=== PATIENT | female | born 2000 | race Caucasian/White ===

== ENCOUNTER 2023-06-30 20:15 | Emergency (ER) | payer OTHER ==
--- OUTSIDE RECORDS SUMMARY | 2023-06-30 20:35 | XMS REPORT | Continuity of Care Document ---
:2000 Author Organization [facility] t Address [address] [facility] [address] [place] [address] Support Name Relationship Address Phone [place] [address] [place] [address] MADELINE RING [place] [address] [place] [address] Chandler Rosas Other Unavailable LYNNE LARA Primary Care Physician [address] [place] [address] MD JASMYN HUSSEINRegi Emergency Provider [address] [facility] [address] [place] [address] AXEL BOX Family Member [address] [place] [address] KENNETH RING [place] [address] [place] [address] ALBIN COFFEY LP Unavailable FADY BAXTER MDTON Sharlene Emergency Provider [address] [place] [address] TEJA ESCALONA Primary Care Physician [address] [place] [address] MD EMA LYNCH MD Emergency Provider [address] [facility] [place] [address] MD VALENTINA TAI Emergency Provider [address] [phone] [place] [address] MD GUSTAVO SANTIAGO Emergency Provider [address] [place] [address] PHYSICIAN, NO Primary Care Physician Unavailable Unavailab AXEL Mena Family Member [address] [place] [address] MD ELIZABETH WILD Emergency Provider [address] [place] [address] DO Jacinto STAHL Emergency Provider [address] [phone] [place] [address] MD HAWA HIGHTOWER Emergency Provider [address] [place] [address] MD JEANNETTE LOVING Emergency Provider [address] [place] [address] MD MARTY RIOJAS A Other Provider [address] [facility] [place] [address] MADELINE RING Relative [address] [phone] [place] [address] Care Team Providers Name Role Phone None, None Primary Care Physician Unavailable MARTY RIOJAS Attending Clinician Unavailable MARTY RIOJAS Attending Clinician Unavailable UZAIR CARMEN Attending Clinician Unavailable ALEJANDRA LIVINGSTON Attending Clinician Unavailable Alysha Attending Clinician Unavailable ADRIANE KERN Attending Clinician Unavailable DUKE HANKINS Attending Clinician Unavailable RIDGE VO Attending Clinician Unavailable Cesia Bro APRN Attending Clinician CHANDLER GONZALEZ Attending Clinician Unavailable RAYMUNDO FISHER Attending Clinician Unavailable Raymundo Fisher MD Attending Clinician REGGIE GONZALEZ Attending Clinician Unavailable Brian Linder APRN Attending Clinician Agustina Garcia RN Attending Clinician Unavailable Damien Attending Clinician Unavailable KEEGAN HUSSEIN Attending Clinician Unavailable AVA ABEBE Attending Clinician Unavailable ADY PRINGLE Attending Clinician Unavailable NATALIIA Attending Clinician Unavailable UZAIR CARMEN Attending Clinician Unavailable Vikki Roman RN Attending Clinician Unavailable NANCY GRANT Attending Clinician Unavailable DIANNE PAYTON Attending Clinician Unavailable NIMISHA ESPARZA Attending Clinician Unavailable Halley Best MA Attending Clinician Unavailable MARTY RIOJAS Attending Clinician Unavailable TROY BAXTER Attending Clinician Unavailable MOHINDER GERMAN Attending Clinician Unavailable MARTY RIOJAS M.D. Attending Clinician Unavailable UZAIR CAMREN M.D. Attending Clinician Unavailable JEANNETTE LOVING Attending Clinician Unavailable HAWA HIGHTOWER Attending Clinician Unavailable EMA LYNCH Attending Clinician Unavailable AILYN STAHL Attending Clinician Unavailable ELIZABETH WILD Attending Clinician Unavailable GUSTAVO SANTIAGO Attending Clinician Unavailable VALENTINA TAI Attending Clinician Unavailable LANI MONROY Attending Clinician Unavailable KENDY GHOTRA Attending Clinician Unavailable AGUSTIN WALTERS Attending Clinician Unavailable ADALBERTO MONGE Attending Clinician Unavailable NORA KHANNA Attending Clinician Unavailable MARTY RIOJAS Admitting Clinician Unavailable Ngshannno_Tho Admitting Clinician Unavailable Jhoana_Ashlie Admitting Clinician Unavailable ESTEFANI_AXEL Admitting Clinician Unavailable NORA KHANNA Admitting Clinician Unavailable Payers Payer Name Policy Type Policy Number Effective Date Expiration Date S riley [facility] MEDICAID STAR [id number] 2020 00:00:00 [facility] [id number] 2020 CHOICE (MEDICAID 00:00:00 [facility] [facility] [id number] 2020 CHOICE STAR 00:00:00 Problems Condition Condition Condition Status Onset Resolution Last Treating Co mments Source Name Details Category Date Date Treatment Clinician Date Dizziness Dizziness Disease Active DC 02-20 Health 00:00: 00 Postural Postural Problem Active 2021-12 [place] orthostati Orthostati 01-02 da c c 00:00: [facility] tachycardi Tachycardi 00 al a syndrome a Syndrome He alth Outreac [facility] Program Tachycardi Tachycardi Problem Active 2021-12 M atagor a a 01-02 da 00:00: [facility] History of History of Problem Active 2021-12 M atagor syncope Syncope 01-02 da 00:00: [facility] 00 [facility] Lady-Park Lady-Park Problem Active 2021-12 M atagor inson-Whit inson-Whit 01-02 da e pattern e Pattern 00:00: [facility]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 ASCUS with ASCUS with Disease Active 2021-12 U T positive positive 0-03 Health high risk high risk 00:00: HPV HPV 00 cervical cervical Tubal Tubal Disease Active 2021-12 UT ligation ligation 0-03 Health status status 00:00: 00 Pelvic Pelvic Disease Active 2021-12 UT pain in pain in 0-03 Health female female 00:00: 00 Syncope Syncope Disease Active UT and and 05-09 Health collapse collapse 00:00: 00 Dysautonom Dysautonom Disease Active U T ia ia 6-09 Health 00:00: 00 Disease Active U T care care 3-14 Health following following 00:00: 00 delivery delivery SVT SVT Disease Active 2020-12 UT (supravent (supravent 2-08 He alth ricular ricular 00:00: tachycardi tachycardi 00 a) a) 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-Whi kinson-Whi 00:00: te te 00 syndrome) syndrome) Palpitatio Palpitatio Disease Active 2020-12 U T ns ns 2-08 Health 00:00: 00 POTS POTS Disease Active 2020-12 UT (postural (postural 2-08 Heal th orthostati orthostati 00:00: c c 00 tachycardi tachycardi a a syndrome) syndrome) 23 weeks 23 weeks Disease Active 2020-12 UT gestation gestation 2-08 Heal th of of 00:00: 00 Supervisio Supervisio Disease Active U T n of high n of high 9-24 Heal th risk risk 00:00: , , 00 unspecifie unspecifie d, d, unspecifie unspecifie d d trimester trimester DECREASED DECREASED Diagnosis Active 2020-12-23 Memoria - 18:52:00 l MOVEMENT MOVEMENT 00:00: Willy n Active 00 12/23/2020 [facility] [place] 36 WEEKS 36 WEEKS Diagnosis Active 2020-12-23 Memoria GESTATION GESTATION 12-23 18:53:00 l OF OF 00:00: [place] , , 00 DECREAS DECREAS Active 12/23/2020 [place] HEADACHE, Diagnosis Active 2020-12-22 Memoria VISUAL HEADACHE, 1- 11:26:00 l CHANGES VISUAL 00:00: [place] CHANGES 00 Active 12/21/2020 [facility] [place] 32 WEEK 32 WEEK Diagnosis Active 2019-122020-11-28 Memoria GROWTH US GROWTH US 2- 13:25:00 l Active 00:00: Aj 11/16/2020 [place] Diagnosis Active 2020-08-31 Mem oria ANATOMY ANATOMY 08-25 14:17:00 l Active 00:00: [place] 08/25/2020 [facility] [place] REPEAT REPEAT Diagnosis Active 2020-12-27 M emoria 03-31 08:22:00 l Active 00:00: Aj 03/31/2020 00 [place] C SECTION C SECTION Diagnosis Active 2018-01-07 Memoria Active 05-01 21:59:00 l 05/01/2017 00:00: Willy love [place] Herpesvira Herpesvir Problem 2018-04-10 Memoria l al 11:51:46 l infection infection Herm rhona of of urogenital urogenital system, system, unspecifie unspecifie d d 04/10/2018 [place] 39 weeks 39 weeks Problem 2018-04-10 Memoria gestation gestation 11:51:46 l of of Aj 04/10/2018 [place] Single Single Problem 2018-04-10 Eren flaquita live live 11:51:46 l 04/10/2018 Willy love [place] Other Other Problem 2018-04-10 Memor ia mental mental 11:51:46 l disorders disorders Herm rhona complicati complicati ng ng childbirth childbirth 8 [place] Chest pain Chest Problem Resolve 2021-04-18 Memoria (finding) pain d 23:53:16 l (finding) [place] Resolved Problem 04/18/2021 [facility], [place] Atypical Atypical Problem Active 2021-04-18 Memoria chest pain chest pain 23:53:16 l (finding) (finding) Herm rhona Active Problem 04/18/2021 [facility] [place] Depressive Depressiv Problem Active 2021-04-18 Memoria disorder e disorder 23:53:16 l (disorder) (disorder) He rmann Active Problem 04/18/2021 [facility] [place] Dyspnea on Dyspnea Problem Active 2021-04-18 Memoria exertion on 23:53:16 l (finding) exertion Deidre nn (finding) Active Problem 04/18/2021 Medical [facility] [place] Heart Heart Problem Active 2021-04-18 Memor ia murmur murmur 23:53:16 l (finding) (finding) Herm rhona Active Problem 04/18/2021 [facility] [place] Gravid Gravid Problem Active 2017-12-14 Eren flaquita uterus uterus 04:20:15 l size for size for Willy n dates dates discrepanc discrepanc y y (finding) (finding) Active Problem 12/14/2017 [facility] [place] Near Near Problem Active 2021-04-18 Memor ia syncope syncope 23:53:16 l (disorder) (disorder) He rmann [facility] [place] Syncope Syncope Problem Active 2021-04-18 Me moria (disorder) (disorder) 23:53:16 l Active [place] Problem 04/18/2021 Medical [facility] [place] 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 Memor ia anxiety anxiety 23:53:16 l and and [place] depressive depressive disorder disorder (disorder) (disorder) Active Problem 04/18/2021 Medical [facility] [place] Contracept Contracep Problem Active 2021-04-18 Memoria ion tion 23:53:16 l (finding) (finding) Herm rhona Active Problem [facility] [place] Inappropri Inappropr Problem Active 2021-04-18 Memoria ate sinus iate sinus 23:53:16 l tachycardi tachycardi He ann a a (disorder) (disorder) Active Problem [facility] [place] Pre-eclamp Pre-eclam Problem Active 2021-04-18 Memoria david psia 23:53:16 l (disorder) (disorder) He rmann Active Problem [facility]/18/20[facility] [place] 36 WEEKS 36 WEEKS Diagnosis Active 2020-12-23 Memoria GESTATION GESTATION 18:53:00 l OF OF [place] Active [facility] [place] MILD TO MILD TO Diagnosis Active 2020-12-22 Memoria MODERATE MODERATE 11:26:00 l PRE-ECLAMP PRE-ECLAMP He rmann DAVID, DAVID, UNSPECIF UNSPECIF Active [facility] [place] DECREASED DECREASED Diagnosis Active 2020-12-23 Memoria 18:53:00 l MOVEMENTS, MOVEMENTS, He rmann UNSP UNSP TRIMESTE TRIMESTE Active [facility] [place] History of History of Problem Resolve UT Positive Positive d Physic i urine urine ans test test History of History of Problem Resolve UT Maternal Maternal d Physic i care for care for ans low low transverse transverse scar from scar from previous previous delivery delivery History of History of Problem Resolve UT 13 weeks 13 weeks d Physic i gestation gestation ans of of History of History of Problem Resolve UT 17 weeks 17 weeks d Physic i gestation gestation ans of of Dizzy Dizzy Problem Active UT spells spells Physici ans Increased Increased Problem Active UT heart rate heart rate Ph ysici ans History of History of Problem Resolve UT 20 weeks 20 weeks d Physic i gestation gestation ans of of History of History of Problem Resolve UT 26 weeks 26 weeks d Physic i gestation gestation ans of of History of History of Problem Resolve UT 30 weeks 30 weeks d Physic i gestation gestation ans of of History of History of Problem Resolve UT 33 weeks 33 weeks d Physic i gestation gestation ans of of History of History of Problem Resolve UT 35 weeks 35 weeks d Physic i gestation gestation ans of of Hemorrhoid Hemorrhoid Problem Active U T Physici ans History of History of Problem Resolve UT Pre-eclamp Pre-eclamp d Ph ysici david in david in ans third third trimester trimester History of History of Problem Resolve UT 36 weeks 36 weeks d Physic i gestation gestation ans of of Problem Active U T care care Physici following following ans delivery delivery Problem Active UT control control Physici counseling counseling an s Patient Patient Problem Resolve 2016-2021-04-18 2021-04-18 Memoria currently currently d 03-31 23:53:16 23:53:16 l 00:00: Willy love (finding) (finding) 00 Resolved 03/31/2017 Problem 04/18/2021 [facility] [place] History of Past Illness Condition Condition Condition Status Onset Resolution Last Treating Co mments Source Name Details Category Date Date Treatment Clinician Date Major Major Problem 2018-05-07 2018-05-07 M emoria depressive depressive 01-29 11:50:13 11:50:13 l disorder, disorder, 17:28: Willian melgoza single single 00 episode, episode, unspecifie unspecifie d d 01/29/2018 8 [facility], [employer] Other Other Problem 2018-04-10 2018-04-10 M emoria infections infections 01-08 11:51:46 11:51:46 l with a with a 05:15: Aj predominakate predominan 05 tly sexual tly sexual mode of mode of transmissi transmissi on on complicati complicati ng ng childbirth childbirth 01/08/2018 04/10/2018 [place] False False Problem 2018-03-17 2018-03-17 M emoria labor labor 12-13 20:45:50 20:45:50 l before 37 before 37 05:16: Willian melgoza completed completed 03 weeks of weeks of gestation, gestation, third third trimester trimester 12/13/2017 8 [place] Supervisio Supervisi Problem 2018-03-16 2018-03-16 Memoria n of other on of 12-08 20:07:56 20:07:56 l high risk other high 19:50: Her peña pregnancie risk 00 s, third pregnancie trimester s, third trimester 12/08/2017 03/16/2018 Medical Group Uterine Uterine Problem 2016-122017-11-30 2017-11-30 Memoria size-date size-date 01-28 01:32:39 01:32:39 l discrepanc discrepanc 17:53: He rmann y, third y, third 00 trimester trimester 11/27/2017 11/30/2017 Medical Group Encounter Problem 2016-122017-10-30 2017-10-30 Memoria for Encounter 12-27 02:14:58 02:14:58 l supervisio for 14:22: Willy love n of supervisio 00 normal n of first normal , first third , trimester third trimester 10/27/2017 10/30/2017 Medical Group Allergies, Adverse Reactions, Alerts This patient has no known allergies or adverse reactions. Family History Family Member Diagnosis Comments Start Date Stop Date Source Mother Family history of cardiac [facility] disorder Social History Social Habit Start Date Stop Date Quantity Comments Source ASSERTION 2021-05-26 [facility]00 [facility] Alcohol Std Drinks History [facility] Health Alcohol Binge History [facility] Alcohol Comment Gender identity Jason grewal Sexual orientation [facility] Exposure to 2023-02-17 2023-02-27 Not sure [facility] SARS-CoV-2 (event) 00:00:00 09:17:00 History of Social 2022-12-27 2022-12-27 [facility] function 00:00:00 00:00:00 Tobacco use and 2022-11-13 2022-11-13 Smokeless tobacco [facility] exposure 00:00:00 00:00:00 non-user Alcohol intake 2021-11-07 2021-11-07 Lifetime [facility] 00:00:00 00:00:00 non-drinker (finding) History SDCA 2021-08-03 2021-08-03 1 [facility] Alcohol Frequency 00:00:00 00:00:00 Social History 2020-12-24 2020-12-24 [facility] 02:18:05 02:18:05 Aj Sex Assigned At [birth year] Jason grewal 00:00:00 00:00:00 Smoking Status Start Date Stop Date Source Former Smoker Lisy [facility] Never smoked tobacco [facility] Medications Ordered Filled Start Stop Current Ordering Indication Dosage Frequency Signature Comments Components Source Medication Medication Date Date Medication? Clinician (SIG) Name Name pantoprazol Yes TAKE 1 BY U T e 04-05 MOUTH ONCE Health (ProtoNix) 00:00: DAILY FOR 20 MG EC 00 GERD tablet famotidine Yes 20mg Q.5D Take 20 mg U T (Pepcid) 20 5-06 by mouth Heal th MG tablet 00:00: in the 00 morning and 20 mg in the evening. TAKE 1 TABLET BY MOUTH TWICE DAILY FOR GERD. midodrine Yes TAKE 1 Jason (PROAMATINE 3-22 TABLET BY [facility] ) 5 mg 00:00: MOUTH IN tablet 00 THE MORNING AND 1 IN THE EVENING midodrine Yes TAKE 1 Jason (PROAMATINE 3-22 TABLET BY [facility] ) 5 mg 00:00: MOUTH IN tablet 00 THE MORNING AND 1 IN THE EVENING midodrine Yes TAKE 1 Gomez (PROAMATINE 3-22 TABLET BY [facility] ) 5 mg 00:00: MOUTH IN tablet 00 THE MORNING AND 1 IN THE EVENING midodrine Yes TAKE 1 Gomez (PROAMATINE 3-22 TABLET BY [facility] ) 5 mg 00:00: MOUTH IN tablet 00 THE MORNING AND 1 IN THE EVENING midodrine Yes TAKE 1 Gomez (PROAMATINE 3-22 TABLET BY [facility] ) 5 mg 00:00: MOUTH IN tablet 00 THE MORNING AND 1 IN THE EVENING midodrine Yes TAKE 1 Gomez (PROAMATINE 3-22 TABLET BY [facility] ) 5 mg 00:00: MOUTH IN tablet 00 THE MORNING AND 1 IN THE EVENING midodrine 2022- No [id number] 5mg Q.5D Take 1 UT (Proamatine 3-22 -19 tablet (5 He alth ) 5 MG 00:00: 04:59 mg total) tablet 00 :00 by mouth in the morning and 1 tablet (5 mg total) in the evening. midodrine 2022- No [id number] 5mg Q.5D Take 1 UT (Proamatine 3-22 -19 tablet (5 He alth ) 5 MG 00:00: 04:59 mg total) tablet 00 :00 by mouth in the morning and 1 tablet (5 mg total) in the evening. midodrine 2022- No [id number] 5mg Q.5D Take 1 UT (Proamatine 3-22 -22 tablet (5 He alth ) 5 MG 00:00: 00:00 mg total) tablet 00 :00 by mouth in the morning and 1 tablet (5 mg total) in the evening. CORLANOR 5 0 Yes 2.5mg Q.5D Take 2.5 Nix rris mg tablet 1-18 mg by Health 00:00: mouth 2 00 (two) times a day CORLANOR 5 2022-0 Yes 2.5mg Q.5D Take 2.5 Nix rris mg tablet 1-18 mg by Health 00:00: mouth 2 00 (two) times a day CORLANOR 5 2022-0 Yes 2.5mg Q.5D Take 2.5 Nix rris mg tablet 1-18 mg by Health 00:00: mouth 2 00 (two) times a day CORLANOR 5 2022-0 Yes 2.5mg Q.5D Take 2.5 Nix rris mg tablet 1-18 mg by Health 00:00: mouth 2 00 (two) times a day CORLANOR 5 2022-0 Yes 2.5mg Q.5D Take 2.5 Nix rris mg tablet 1-18 mg by Health 00:00: mouth 2 00 (two) times a day CORLANOR 5 2022-0 Yes 2.5mg Q.5D Take 2.5 Nix rris mg tablet 1-18 mg by Health 00:00: mouth 2 00 (two) times a day Ivabradine 2021-12- No [id number] 2.5mg Q.5D Take 2.5 UT HCl 2-14 06-13 mg by [facility] ([facility]) 00:00: 04:59 mouth in 5 MG tablet 00 :00 the morning and 2.5 mg in the evening. Ivabradine 2021-12- No [id number] 2.5mg Q.5D Take 2.5 UT HCl 2-14 06-13 mg by [facility] ([facility]) 00:00: 04:59 mouth in 5 MG tablet 00 :00 the morning and 2.5 mg in the evening. Ivabradine 2021-12- No [id number] 2.5mg Q.5D Take 2.5 UT HCl 2-14 06-13 mg by [facility] ([facility]) 00:00: 04:59 mouth in 5 MG tablet 00 :00 the morning and 2.5 mg in the evening. Ivabradine 2021-12- No [id number] 2.5mg Q.5D Take 2.5 UT HCl 2-14 06-13 mg by [facility] ([facility]) 00:00: 04:59 mouth in 5 MG tablet 00 :00 the morning and 2.5 mg in the evening. Ivabradine 2021-12- No [id number] 2.5mg Q.5D Take 2.5 UT HCl 2-14 06-13 mg by [facility] ([facility]) 00:00: 04:59 mouth in 5 MG tablet 00 :00 the morning and 2.5 mg in the evening. Ivabradine 2021-12- No [id number] 2.5mg Q.5D Take 2.5 UT HCl 2-14 06-13 mg by [facility] ([facility]) 00:00: 04:59 mouth in 5 MG tablet 00 :00 the morning and 2.5 mg in the evening. Ivabradine 2021-12- No [id number] 2.5mg Q.5D Take 2.5 UT HCl 2-14 06-13 mg by [facility] ([facility]) 00:00: 04:59 mouth in 5 MG tablet 00 :00 the morning and 2.5 mg in the evening. propranolol 2021-0 Yes [id number] 60mg Take 1 [facility] [place] (Inderal 8-12 capsule Healt h [place]) 60 MG 00:00: (60 mg 24 hr 00 total) by capsule mouth every night. propranolol 2021-0 Yes [id number] 60mg Take 1 [facility] [place] (Inderal 8-12 capsule Healt h [place]) 60 MG 00:00: (60 mg 24 hr 00 total) by capsule mouth every night. propranolol 2021-0 Yes [id number] 60mg Take 1 [facility] [place] (Inderal 8-12 capsule Healt h [place]) 60 MG 00:00: (60 mg 24 hr 00 total) by capsule mouth every night. propranolol 2021-0 Yes [id number] 60mg Take 1 [facility] [place] (Inderal 8-12 capsule Healt h [place]) 60 MG 00:00: (60 mg 24 hr 00 total) by capsule mouth every night. propranolol 2021-0 Yes [id number] 60mg Take 1 [facility] [place] (Inderal 8-12 capsule Healt h LA) 60 MG 00:00: (60 mg 24 hr 00 total) by capsule mouth every night. propranolol 2021-0 Yes [id number] 60mg Take 1 [facility] [place] (Inderal 8-12 capsule Healt h LA) 60 MG 00:00: (60 mg 24 hr 00 total) by capsule mouth every night. propranolol 2021-0 Yes [id number] 60mg Take 1 [facility] [place] (Inderal 8-12 capsule Healt h LA) 60 MG 00:00: (60 mg 24 hr 00 total) by capsule mouth every night. propranolol 2021-0 Yes 60mg 60 mg at Nix rris hcl LA 8-12 bedtime Health (INDERAL 00:00: nightly LA) 60 mg 00 24 hr capsule propranolol 2021-0 Yes 60mg 60 mg at Nix rris hcl [place] 8-12 bedtime Health (INDERAL 00:00: nightly LA) 60 mg 00 24 hr capsule propranolol 2021-0 Yes 60mg 60 mg at Nix rris hcl [place] 8-12 bedtime Health (INDERAL 00:00: nightly LA) 60 mg 00 24 hr capsule propranolol 2021-0 Yes 60mg 60 mg at Nix rris hcl [place] 8-12 bedtime Health (INDERAL 00:00: nightly LA) 60 mg 00 24 hr capsule propranolol 2021-0 Yes 60mg 60 mg at Nix rris hcl [place] 8-12 bedtime Health (INDERAL 00:00: nightly LA) 60 mg 00 24 hr capsule propranolol 0 Yes 60mg 60 mg at Nix rris hcl [place] 8-12 bedtime Health (INDERAL 00:00: nightly LA) 60 mg 00 24 hr capsule propranolol 2021- No [id number] 60mg Take 1 [facility] [place] (Inderal 07-12 capsule Heal th LA) 60 MG 00:00: 05:59 (60 mg 24 hr 00 :00 total) by capsule mouth every night. propranolol 2021- No [id number] 60mg Take 1 [facility] [place] (Inderal 07-12 capsule Heal th LA) 60 MG 00:00: 05:59 (60 mg 24 hr 00 :00 total) by capsule mouth every night. propranolol 2021- No [id number] 60mg Take 1 [facility] [place] (Inderal 07-12 capsule Heal th LA) 60 MG 00:00: 05:59 (60 mg 24 hr 00 :00 total) by capsule mouth every night. propranolol 2021- No [id number] 60mg Take 1 [facility] [place] (Inderal 07-12 capsule Heal th LA) 60 MG 00:00: 05:59 (60 mg 24 hr 00 :00 total) by capsule mouth every night. 2020-12- No [id number] 1{tbl} QD Take 1 UT Vit-Fe 0-18 10-19 tablet by Health Fumarate-FA 00:00: 04:59 mouth 1 ( 00 :00 (one) time Vitamins) each day. 28-0.8 MG tablet 2020-12- No [id number] 1{tbl} QD Take 1 UT Vit-Fe 0-18 10-19 tablet by Health Fumarate-FA 00:00: 04:59 mouth 1 ( 00 :00 (one) time Vitamins) each day. 28-0.8 MG tablet 2020-12- No [id number] 1{tbl} QD Take 1 UT Vit-Fe 0-18 10-19 tablet by Health Fumarate-FA 00:00: 04:59 mouth 1 ( 00 :00 (one) time Vitamins) each day. 28-0.8 MG tablet 2020-12- No [id number] 1{tbl} QD Take 1 UT Vit-Fe 0-18 10-19 tablet by Health Fumarate-FA 00:00: 04:59 mouth 1 ( 00 :00 (one) time Vitamins) each day. 28-0.8 MG tablet 2020-12- No [id number] 1{tbl} QD Take 1 UT Vit-Fe 0-18 10-19 tablet by Health Fumarate-FA 00:00: 04:59 mouth 1 ( 00 :00 (one) time Vitamins) each day. 28-0.8 MG tablet propranolol 2020- Yes 60mg Take 60 mg [facility] [place] (Inderal 8-07 by mouth Heal th LA) 60 MG 00:00: every 24 hr 00 night. capsule propranolol 2020-0 Yes 60 mg = 1 M emoria 60 mg oral 4-13 cap, PO, l capsule, 19:38: QPM, # 30 Herm rhona extended 00 cap, 6 release Refill(s), Pharmacy: [id number], 160.02, cm, 03/13/21 14:03:00 CDT, Height, 62.33, kg, 03/13/21 14:03:00 CDT, Weight propranolol 2020-0 Yes 60 mg = 1 M emoria 60 mg oral 4-13 cap, PO, l capsule, 19:38: QPM, # 30 Herm rhona extended 00 cap, 6 release Refill(s), Pharmacy: [facility] [id number], 160.02, cm, 03/13/21 14:03:00 CDT, Height, 62.33, kg, 03/13/21 14:03:00 CDT, Weight propranolol 1-0 Yes 60 mg = 1 M emoria 60 mg oral 4-13 cap, PO, l capsule, 19:38: QPM, # 30 Herm rhona extended 00 cap, 6 release Refill(s), Pharmacy: [id number], 160.02, cm, 03/13/21 14:03:00 CDT, Height, 62.33, kg, 03/13/21 14:03:00 CDT, Weight propranolol 1-0 Yes 60 mg = 1 M emoria 60 mg oral 4-13 cap, PO, l capsule, 19:38: QPM, # 30 Herm rhona extended 00 cap, 6 release Refill(s), Pharmacy: [id number], 160.02, cm, 03/13/21 14:03:00 CDT, Height, 62.33, kg, 03/13/21 14:03:00 CDT, Weight ivabradine 1-0 Yes 5 mg = 1 Mem oria 5 MG Oral 3-29 tab, PO, l Tablet 21:00: BID, # 60 Willy n [Corlan[place]] 00 tab, 6 Refill(s), Pharmacy: [facility], 160.02, cm, 02/26/21 15:21:00 CDT, Height, 57.727, kg, 02/26/21 15:21:00 CDT, Weight ivabradine 2021-0 Yes 5 mg = 1 Mem oria 5 MG Oral 3-29 tab, PO, l Tablet 21:00: BID, # 60 Willy n [[place]lan[place]] 00 tab, 6 Refill(s), Pharmacy: [facility] 1405, 160.02, cm, 02/26/21 15:21:00 CDT, Height, 57.727, kg, 02/26/21 15:21:00 CDT, Weight ivabradine 2021-0 Yes 5 mg = 1 Mem oria 5 MG Oral 3-29 tab, PO, l Tablet 21:00: BID, # 60 Willy n [[place]lan[place]] 00 tab, 6 Refill(s), Pharmacy: [facility] 1405, 160.02, cm, 02/26/21 15:21:00 CDT, Height, 57.727, kg, 02/26/21 15:21:00 CDT, Weight ivabradine Yes 5 mg = 1 Mem oria 5 MG Oral 3-29 tab, PO, l Tablet 21:00: BID, # 60 Willy n [Corlan[place]] 00 tab, 6 Refill(s), Pharmacy: [facility] 1405, 160.02, cm, 02/26/21 15:21:00 CDT, Height, 57.727, kg, 02/26/21 15:21:00 CDT, Weight ferrous Yes 325 mg = 1 Eren flaquita sulfate 325 1-29 tab, PO, l MG Oral 12:00: BID, # 60 [place] nn Tablet 00 tab, 3 Refill(s), 160.02, cm, 12/25/20 14:10:00 BRICK STACKER, Height, 66.364, kg, 12/25/20 14:10:00 BRICK STACKER, Weight ibuprofen Yes 800 mg = 1 Me moria 800 mg oral 1-29 tab, PO, l tablet 12:00: TID, PRN Aj 00 Pain, X 30 day, # 90 tab, 0 Refill(s) Acetaminoph Yes 1 tab, PO, Memoria en 300 MG / -29 Q6H, PRN l Codeine 12:00: Pain, X 15 Herm rhona Phosphate 00 day, # 60 30 MG Oral tab, 0 Tablet Refill(s) [Tylenol with Codeine #3] Docusate Yes 100 mg = 1 Mem oria Sodium 100 1-29 cap, PO, l MG Oral 12:00: BID, # 60 [place] nn Capsule 00 cap, 3 [Colace] Refill(s), 160.02, cm, 12/25/20 14:10:00 BRICK STACKER, Height, 66.364, kg, 12/25/20 14:10:00 BRICK STACKER, Weight 24 HR Yes 30 mg = 1 Memoria Nifedipine 1-29 tab, PO, l 30 MG 12:00: Daily, # [place] Extended 00 30 tab, 3 Release Refill(s) Tablet [Procardia] ferrous Yes 325 mg = 1 Eren flaquita sulfate 325 1-29 tab, PO, l MG Oral 12:00: BID, # 60 [place] nn Tablet 00 tab, 3 Refill(s), 160.02, cm, 12/25/20 14:10:00 BRICK STACKER, Height, 66.364, kg, 12/25/20 14:10:00 BRICK STACKER, Weight ibuprofen Yes 800 mg = 1 Me moria 800 mg oral 1-29 tab, PO, l tablet 12:00: TID, PRN [place] 00 Pain, X 30 day, # 90 tab, 0 Refill(s) Acetaminoph Yes 1 tab, PO, Memoria en 300 MG / 12-29 Q6H, PRN l Codeine 12:00: Pain, X 15 Herm rhona Phosphate 00 day, # 60 30 MG Oral tab, 0 Tablet Refill(s) [Tylenol with Codeine #3] Docusate Yes 100 mg = 1 Mem oria Sodium 100 - cap, PO, l MG Oral 12:00: BID, # 60 [place] nn Capsule 00 cap, 3 [Colace] Refill(s), 160.02, cm, 12/25/20 14:10:00 BRICK STACKER, Height, 66.364, kg, 12/25/20 14:10:00 BRICK STACKER, Weight 24 HR Yes 30 mg = 1 Memoria Nifedipine -29 tab, PO, l 30 MG 12:00: Daily, # [place] Extended 00 30 tab, 3 Release Refill(s) Tablet [Procardia] ferrous Yes 325 mg = 1 Eren flaquita sulfate 325 -29 tab, PO, l MG Oral 12:00: BID, # 60 [place] nn Tablet 00 tab, 3 Refill(s), 160.02, cm, 12/25/20 14:10:00 BRICK STACKER, Height, 66.364, kg, 12/25/20 14:10:00 BRICK STACKER, Weight ibuprofen Yes 800 mg = 1 Me moria 800 mg oral -29 tab, PO, l tablet 12:00: TID, PRN Aj 00 Pain, X 30 day, # 90 tab, 0 Refill(s) Acetaminoph Yes 1 tab, PO, Memoria en 300 MG / 12-29 Q6H, PRN l Codeine 12:00: Pain, X 15 Herm rhona Phosphate 00 day, # 60 30 MG Oral tab, 0 Tablet Refill(s) [Tylenol with Codeine #3] Docusate Yes 100 mg = 1 Mem oria Sodium 100 1-29 cap, PO, l MG Oral 12:00: BID, # 60 [place] nn Capsule 00 cap, 3 [Colace] Refill(s), 160.02, cm, 12/25/20 14:10:00 BRICK STACKER, Height, 66.364, kg, 12/25/20 14:10:00 BRICK STACKER, Weight 24 HR Yes 30 mg = 1 Memoria Nifedipine 1-29 tab, PO, l 30 MG 12:00: Daily, # [place] Extended 00 30 tab, 3 Release Refill(s) Tablet [Procardia] ferrous Yes 325 mg = 1 Eren flaquita sulfate 325 1-29 tab, PO, l MG Oral 12:00: BID, # 60 [place] nn Tablet 00 tab, 3 Refill(s), 160.02, cm, 12/25/20 14:10:00 BRICK STACKER, Height, 66.364, kg, 12/25/20 14:10:00 BRICK STACKER, Weight ibuprofen Yes 800 mg = 1 Me moria 800 mg oral 1-29 tab, PO, l tablet 12:00: TID, PRN Aj 00 Pain, X 30 day, # 90 tab, 0 Refill(s) Acetaminoph Yes 1 tab, PO, Memoria en 300 MG / -29 Q6H, PRN l Codeine 12:00: Pain, X 15 Herm rhona Phosphate 00 day, # 60 30 MG Oral tab, 0 Tablet Refill(s) [Tylenol with Codeine #3] Docusate Yes 100 mg = 1 Mem oria Sodium 100 1-29 cap, PO, l MG Oral 12:00: BID, # 60 [place] nn Capsule 00 cap, 3 [Colace] Refill(s), 160.02, cm, 12/25/20 14:10:00 BRICK STACKER, Height, 66.364, kg, 12/25/20 14:10:00 BRICK STACKER, Weight 24 HR Yes 30 mg = 1 Memoria Nifedipine 1-29 tab, PO, l 30 MG 12:00: Daily, # Aj Extended 00 30 tab, 3 Release Refill(s) Tablet [Procardia] Ibuprofen No Notes: Memori a - (Same as: l 06:00: Motrin) Aj 00 "Do Not Crush" Take with food. Ibuprofen No Notes: Memori a - (Same as: l 06:00: Motrin) Aj 00 "Do Not Crush" Take with food. Ibuprofen No Notes: Memori a - (Same as: l 06:00: Motrin) [place] 00 "Do Not Crush" Take with food. Ibuprofen No Notes: Memori a - (Same as: l 06:00: Motrin) Aj 00 "Do Not Crush" Take with food. PNV No PO, Daily, Memoria - 0 l 01:34: Refill(s) [place] 00 PNV No PO, Daily, Memoria - 0 l 01:34: Refill(s) Aj 00 PNV No PO, Daily, Memoria - 0 l 01:34: Refill(s) Aj 00 PNV No PO, Daily, Memoria - 0 l 01:34: Refill(s) [place] 00 Acetaminoph No Notes: Eren flaquita en 325 MG / 12-29 (Same as: l Hydrocodone 01:27: [place] Deidre nn Bitartrate 00 325/5) Do 5 MG Oral not exceed Tablet 4gm/day of acetaminop hen. Acetaminoph No Notes: Do M emoria en 325 MG / 12-29 not exceed l Hydrocodone 01:27: 4gm/day of Aj Bitartrate 00 acetaminop 10 MG Oral hen. (Same Tablet as: [place] 325/10) Ondansetron No Notes: Eren flaquita 12-29 (Same as: l 01:27: Zofran) Aj 00 MEDICATION WASTE Product Size: 4 mg Product Wasted: ___ mg Acetaminoph No Notes: Eren flaquita en 325 MG / 12-29 (Same as: l Hydrocodone 01:27: [place] Deidre nn Bitartrate 00 325/5) Do 5 MG Oral not exceed Tablet 4gm/day of acetaminop hen. Acetaminoph No Notes: Do M emoria en 325 MG / 12-29 not exceed l Hydrocodone 01:27: 4gm/day of [place] Bitartrate 00 acetaminop 10 MG Oral hen. (Same Tablet as: [place] 325/10) Ondansetron No Notes: Eren flaquita 12-29 (Same as: l :: Zoan) Aj 00 MEDICATION WASTE Product Size: 4 mg Product Wasted: ___ mg Acetaminoph No Notes: Eren flaquita en 325 MG / 12-29 (Same as: l Hydrocodone :27: [place] Deidre nn Bitartrate 00 325/5) Do 5 MG Oral not exceed Tablet 4gm/day of acetaminop hen. Acetaminoph No Notes: Do M emoria en 325 MG / 12-29 not exceed l Hydrocodone 01:27: 4gm/day of [place] Bitartrate 00 acetaminop 10 MG Oral hen. (Same Tablet as: [place] 325/10) Ondansetron No Notes: Eren flaquita 12-29 (Same as: l : Zo) Aj 00 MEDICATION WASTE Product Size: 4 mg Product Wasted: ___ mg Acetaminoph No Notes: Eren flaquita en 325 MG / 12-29 (Same as: l Hydrocodone :27: [place] Deidre nn Bitartrate 00 325/5) Do 5 MG Oral not exceed Tablet 4gm/day of acetaminop hen. Acetaminoph No Notes: Do M emoria en 325 MG / 12-29 not exceed l Hydrocodone 01:27: 4gm/day of Aj Bitartrate 00 acetaminop 10 MG Oral hen. (Same Tablet as: [place] 325/10) Ondansetron No Notes: Eren flaquita - (Same as: l :27: Zofran) Aj 00 MEDICATION WASTE Product Size: 4 mg Product Wasted: ___ mg 24 HR No Notes: Memoria Nifedipine 1-28 (Same as: l 30 MG 15:00: Adalat CC, Willy n Extended 00 Procardia Release XL) Give Tablet on empty [Procardia] stomach. Take 1 hour before or 2 hours after meal; "Avoid grapefruit and grapefruit juice". Do not crush No 1 tab, Memoria Multivitami 12-28 Route: PO, l ns oral 15:00: Drug Form: Herm rhona tablet 00 TAB, Dosing Weight 66.364, kg, Daily, Start date: 12/28/20 9:00:00 BRICK STACKER, Duration: 30 day, Stop date: 01/26/21 9:00:00 BRICK STACKER, 0 24 HR No Notes: Memoria Nifedipine -28 (Same as: l 30 MG 15:00: Adalat CC, Willy n Extended 00 Procardia Release XL) Give Tablet on empty [Procardia] stomach. Take 1 hour before or 2 hours after meal; "Avoid grapefruit and grapefruit juice". Do not crush No 1 tab, Memoria Multivitami 12-28 Route: PO, l ns oral 15:00: Drug Form: Herm rhona tablet 00 TAB, Dosing Weight 66.364, kg, Daily, Start date: 12/28/20 9:00:00 BRICK STACKER, Duration: 30 day, Stop date: 01/26/21 9:00:00 BRICK STACKER, 0 24 HR No Notes: Memoria Nifedipine -28 (Same as: l 30 MG 15:00: Adalat CC, Willy n Extended 00 Procardia Release XL) Give Tablet on empty [Procardia] stomach. Take 1 hour before or 2 hours after meal; "Avoid grapefruit and grapefruit juice". Do not crush No 1 tab, Memoria Multivitami 12-28 Route: PO, l ns oral 15:00: Drug Form: Herm rhona tablet 00 TAB, Dosing Weight 66.364, kg, Daily, Start date: 12/28/20 9:00:00 BRICK STACKER, Duration: 30 day, Stop date: 01/26/21 9:00:00 BRICK STACKER, 0 24 HR No Notes: Memoria Nifedipine 1-28 (Same as: l 30 MG 15:00: Adalat CC, Willy n Extended 00 Procardia Release XL) Give Tablet on empty [Procardia] stomach. Take 1 hour before or 2 hours after meal; "Avoid grapefruit and grapefruit juice". Do not crush No 1 tab, Memoria Multivitami 12-28 Route: PO, l ns oral 15:00: Drug Form: Herm rhona tablet 00 TAB, Dosing Weight 66.364, kg, Daily, Start date: 12/28/20 9:00:00 BRICK STACKER, Duration: 30 day, Stop date: 01/26/21 9:00:00 BRICK STACKER, 0 Saline No Notes: Memoria Flush 0.9% 12-28 (Same as: l 03:00: BD [place] 00 Posiflush) Saline No Notes: Memoria Flush 0.9% 28 (Same as: l 03:00: BD Aj 00 Posiflush) Saline No Notes: Memoria Flush 0.9% -28 (Same as: l 03:00: BD Aj Posiflush) Saline No Notes: Memoria Flush 0.9% 12-28 (Same as: l 03:00: BD Aj 00 Posiflush) Ketorolac No 4 days Memor ia 12-28 l 00:00: MEDICATION Aj 00 WASTE Product Size: 30 mg Product Wasted: ___ mg Ketorolac No 4 days Memor ia 12-28 l 00:00: MEDICATION [place] 00 WASTE Product Size: 30 mg Product Wasted: ___ mg Ketorolac 0 No 4 days Memor ia 28 l 00:00: MEDICATION [place] 00 WASTE Product Size: 30 mg Product Wasted: ___ mg Ketorolac 0 No 4 days Memor ia 28 l 00:00: MEDICATION Aj 00 WASTE Product Size: 30 mg Product Wasted: ___ mg Naloxone No Notes: Memoria 12-27 Same as l 19:00: Narcan [place] Naloxone No Notes: Memoria 1-27 Same as l 19:00: Narcan Aj Naloxone No Notes: Memoria 12-27 Same as l 19:00: Narcan Aj Naloxone No Notes: Memoria 12-27 Same as l 19:00: Narcan [place] 00 Nalbuphine No Notes: Memor ia 12-27 (Same As: l 18:31: Nubain) Aj 00 Meperidine No Notes: Memor ia 12-27 (Same as: l 18:31: Demerol) Aj 00 "Use Precaution in Elderly, Seizure disorders, and Renal impairment " Acetaminoph Yes Notes: Max Memoria en 12-27 acetaminop l 18:31: hen 4000 [place] 00 mg/day (4 gm/day). (Same as: Tylenol Extra Strength) Oxycodone No Notes: Memori a Hydrochlori 12-27 (Same as: l de 5 MG 18:31: Roxicodone Herm rhona Oral Tablet ) Ondansetron No Notes: Eren flaquita 12-27 (Same as: l 18:31: Zofran) [place] 00 MEDICATION WASTE Product Size: 4 mg Product Wasted: ___ mg Promethazin No Notes: Do M emoria e 12-27 not give l 18:31: IV push. Aj (Same as: Phenergan) Nalbuphine No Notes: Memor ia 12-27 (Same As: l 18:31: Nubain) [place] 00 Meperidine No Notes: Memor ia 12-27 (Same as: l 18:31: Demerol) Aj 00 "Use Precaution in Elderly, Seizure disorders, and Renal impairment " Acetaminoph Yes Notes: Max Memoria en 12-27 acetaminop l 18:31: hen 4000 Aj 00 mg/day (4 gm/day). (Same as: Tylenol Extra Strength) Oxycodone No Notes: Memori a Hydrochlori 12-27 (Same as: l de 5 MG 18:31: Roxicodone Herm rhona Oral Tablet ) Ondansetron No Notes: Eren flaquita 12-27 (Same as: l 18:31: Zofran) Aj 00 MEDICATION WASTE Product Size: 4 mg Product Wasted: ___ mg Promethazin No Notes: Do M emoria e 12-27 not give l 18:31: IV push. [place] 00 (Same as: Phenergan) Nalbuphine No Notes: Memor ia 12-27 (Same As: l 18:31: Nubain) [place] Meperidine No Notes: Memor ia 12-27 (Same as: l 18:31: Demerol) Aj "Use Precaution in Elderly, Seizure disorders, and Renal impairment " Acetaminoph Yes Notes: Max Memoria en 12-27 acetaminop l 18:31: hen 4000 [place] 00 mg/day (4 gm/day). (Same as: Tylenol Extra Strength) Oxycodone No Notes: Memori a Hydrochlori 12-27 (Same as: l de 5 MG 18:31: Roxicodone Herm rhona Oral Tablet ) Ondansetron No Notes: Eren flaquita 12-27 (Same as: l 18:31: Zofran) [place] 00 MEDICATION WASTE Product Size: 4 mg Product Wasted: ___ mg Promethazin No Notes: Do M emoria e 12-27 not give l 18:31: IV push. Aj 00 (Same as: Phenergan) Nalbuphine No Notes: Memor ia 12-27 (Same As: l 18:31: Nubain) Aj Meperidine No Notes: Memor ia 12-27 (Same as: l 18:31: Demerol) Aj 00 "Use Precaution in Elderly, Seizure disorders, and Renal impairment " Acetaminoph Yes Notes: Max Memoria en 12-27 acetaminop l 18:31: hen 4000 [place] 00 mg/day (4 gm/day). (Same as: Tylenol Extra Strength) Oxycodone No Notes: Memori a Hydrochlori 12-27 (Same as: l de 5 MG 18:31: Roxicodone Herm rhona Oral Tablet ) Ondansetron No Notes: Eren flaquita 12-27 (Same as: l 18:31: Zofran) MEDICATION WASTE Product Size: 4 mg Product Wasted: ___ mg Promethazin No Notes: Do M emoria e 12-27 not give l 18:31: IV push. Aj (Same as: Phenergan) M-M-R II No Notes: Memoria 12-27 (Same as: l 18:00: M-M-R II) (measles-m umps-rubel la virus vaccine 0.5 ml INJ VL) WASTE: F/P - Red; E -Red GIVE PRIOR TO DISCHARGE Calcium No 1,000 mL, Memor ia Chloride 12-27 1,000 l 0.0014 18:00: ml/hr, MEQ/ML / 00 Infuse Potassium Over: 1 Chloride hr, Route: 0.004 IV, 1,000, MEQ/ML / Drug form: Sodium INJ, Chloride ONCALL, 0.103 Dosing MEQ/ML / Weight Sodium 66.364 kg, Lactate Start 0.028 date: MEQ/ML 12/27/20 Injectable 12:00:00 Solution BRICK STACKER, Duration: 1 doses or times, For OB hemorrhage per physician direction, 0 Oxytocin No Notes: Memoria 12-27 (Same as: l 18:00: Pitocin) [facility]ous Drug Group 3:Reproduc tive risk Hazardous Drug -- Refer to safe handling procedure PPE Matrix Misoprostol No Notes: Eren flaquita 12-27 (Same l 18:00: as:Cytotec ) Hazardous Drug Group 3:Reproduc tive risk Hazardous Drug -- Refer to safe handling procedure PPE Matrix Take with food Methylergon No Notes: Eren flaquita ovine 12-27 (Same l 18:00: as:Metherg ine) Hazardous Drug Group 3:Reproduc tive risk Hazardous Drug -- Refer to safe handling procedure PPE Matrix Atropine No Notes: Memoria Sulfate 12-27 (Same As: l 0.025 MG / 18:00: Lomotil) [place] Diphenoxyla MAX Adult te dose = 8 Hydrochlori tabs/day de 2.5 MG Oral Tablet Carboprost No Notes: Memor ia 12-27 (Same As: l 18:00: Hemabate) Tranexamic No Notes: Memor ia Acid 12-27 (Same As: l 18:00: Cyklokapro n) M-M-R II No Notes: Memoria 12-27 (Same as: l 18:00: M-M-R II) (measles-m umps-rubel la virus vaccine 0.5 ml INJ VL) WASTE: F/P - Red; E -Red GIVE PRIOR TO DISCHARGE Calcium No 1,000 mL, Memor ia Chloride - 1,000 l 0.0014 18:00: ml/hr, MEQ/ML / 00 Infuse Potassium Over: 1 Chloride hr, Route: 0.004 IV, 1,000, MEQ/ML / Drug form: Sodium INJ, Chloride ONCALL, 0.103 Dosing MEQ/ML / Weight Sodium 66.364 kg, Lactate Start 0.028 date: MEQ/ML 12/27/20 Injectable 12:00:00 Solution BRICK STACKER, Duration: 1 doses or times, For OB hemorrhage per physician direction, 0 Oxytocin No Notes: Memoria 12-27 (Same as: l 18:00: Pitocin) [facility] Group 3:Reproduc tive risk Hazardous Drug -- Refer to safe handling procedure PPE Matrix Misoprostol No Notes: Eren flaquita 12-27 (Same l 18:00: as:Cytotec ) Hazardous Drug Group 3:Reproduc tive risk Hazardous Drug -- Refer to safe handling procedure PPE Matrix Take with food Methylergon No Notes: Eren flaquita ovine 12-27 (Same l 18:00: as:Metherg ine) Hazardous Drug Group 3:Reproduc tive risk Hazardous Drug -- Refer to safe handling procedure PPE Matrix Atropine No Notes: Memoria Sulfate 12-27 (Same As: l 0.025 MG / 18:00: Lomotil) Her pe[place] Diphenoxyla MAX Adult te dose = 8 Hydrochlori tabs/day de 2.5 MG Oral Tablet Carboprost No Notes: Memor ia 12-27 (Same As: l 18:00: Hemabate) Tranexamic No Notes: Memor ia Acid 12-27 (Same As: l 18:00: Cyklokapro n) M-M-R II No Notes: Memoria 12-27 (Same as: l 18:00: M-M-R II) (measles-m umps-rubel la virus vaccine 0.5 ml INJ VL) WASTE: F/P - Red; E -Red GIVE PRIOR TO DISCHARGE Calcium No 1,000 mL, Memor ia Chloride 12-27 1,000 l 0.0014 18:00: ml/hr, MEQ/ML / 00 Infuse Potassium Over: 1 Chloride hr, Route: 0.004 IV, 1,000, MEQ/ML / Drug form: Sodium INJ, Chloride ONCALL, 0.103 Dosing MEQ/ML / Weight Sodium 66.364 kg, Lactate Start 0.028 date: MEQ/ML 12/27/20 Injectable 12:00:00 Solution BRICK STACKER, Duration: 1 doses or times, For OB hemorrhage per physician direction, 0 Oxytocin No Notes: Memoria 12-27 (Same as: l 18:00: Pitocin) [facility] Group 3:Reproduc tive risk Hazardous Drug -- Refer to safe handling procedure PPE Matrix Misoprostol No Notes: Eren flaquita 12-27 (Same l 18:00: as:Cytotec ) Hazardous Drug Group 3:Reproduc tive risk Hazardous Drug -- Refer to safe handling procedure PPE Matrix Take with food Methylergon No Notes: Eren flaquita ovine 12-27 (Same l 18:00: as:Metherg ine) Hazardous Drug Group 3:Reproduc tive risk Hazardous Drug -- Refer to safe handling procedure PPE Matrix Atropine No Notes: Memoria Sulfate 12-27 (Same As: l 0.025 MG / 18:00: Lomotil) [facility] Diphenoxyla MAX Adult te dose = 8 Hydrochlori tabs/day de 2.5 MG Oral Tablet Carboprost No Notes: Memor ia 12-27 (Same As: l 18:00: Hemabate) Tranexamic No Notes: Memor ia Acid 12-27 (Same As: l 18:00: Cyklokapro n) M-M-R II No Notes: Memoria 12-27 (Same as: l 18:00: M-M-R II) (measles-m umps-rubel la virus vaccine 0.5 ml INJ VL) WASTE: F/P - Red; E -Red GIVE PRIOR TO DISCHARGE Calcium No 1,000 mL, Memor ia Chloride 12-27 1,000 l 0.0014 18:00: ml/hr, MEQ/ML / 00 Infuse Potassium Over: 1 Chloride hr, Route: 0.004 IV, 1,000, MEQ/ML / Drug form: Sodium INJ, Chloride ONCALL, 0.103 Dosing MEQ/ML / Weight Sodium 66.364 kg, Lactate Start 0.028 date: MEQ/ML 12/27/20 Injectable 12:00:00 Solution BRICK STACKER, Duration: 1 doses or times, For OB hemorrhage per physician direction, 0 Oxytocin No Notes: Memoria 12-27 (Same as: l 18:00: Pitocin) [facility]ous Drug Group 3:Reproduc tive risk Hazardous Drug -- Refer to safe handling procedure PPE Matrix Misoprostol No Notes: Eren flaquita 12-27 (Same l 18:00: as:Cytotec ) Hazardous Drug Group 3:Reproduc tive risk Hazardous Drug -- Refer to safe handling procedure PPE Matrix Take with food Methylergon No Notes: Eren flaquita ovine 12-27 (Same l 18:00: as:Metherg ine) Hazardous Drug Group 3:Reproduc tive risk Hazardous Drug -- Refer to safe handling procedure PPE Matrix Atropine No Notes: Memoria Sulfate 12-27 (Same As: l 0.025 MG / 18:00: Lomotil) [facility] Diphenoxyla 00 MAX Adult te dose = 8 Hydrochlori tabs/day de 2.5 MG Oral Tablet Carboprost No Notes: Memor ia 12-27 (Same As: l 18:00: Hemabate) Tranexamic No Notes: Memor ia Acid - (Same As: l 18:00: Cyklokapro 00 n) Lactated No 1,000 mL, Eren flaquita Ringers IV 12-27 Rate: 125 l 1,000 mL 17:57: ml/hr, Infuse over: 8 hr, Route: IV, Dosing Weight 66.364 kg, Total Volume: 1,000, see special instructio n for rate while completing infusion from recovery for the 20 Units of Oxytocin., Start date: 12/27/20 11:57:00 BRICK STACKER, Duration:. .. Bisacodyl No Notes: Memori a - (Same As: l 17:57: Dulcolax, Aj 00 Correctol) (Do Not Crush) "Do Not Crush" Docusate No Notes: Memoria 12-27 (Same as: l 17:57: Colace) Aj 00 (Do Not Crush) lanolin No Notes: Memoria topical 12-27 (Same l cream 17:57: as:Lanolin Willy n 00 ) Simethicone No Notes: Eren flaquita 12-27 (Same as: l 17:57: Mylicon) Oxytocin No Notes: Memoria 12-27 Hazardous l 17:57: Drug Group 3:Reproduc tive risk Hazardous Drug -- Refer to safe handling procedure PPE Matrix Saline No Notes: Memoria Flush 0.9% 12-27 (Same as: l 17:57: BD Posiflush) Lactated No 1,000 mL, Eren flaquita Ringers IV 12-27 Rate: 125 l 1,000 mL 17:57: ml/hr, Infuse over: 8 hr, Route: IV, Dosing Weight 66.364 kg, Total Volume: 1,000, see special instructio n for rate while completing infusion from recovery for the 20 Units of Oxytocin., Start date: 12/27/20 11:57:00 BRICK STACKER, Duration:. .. Bisacodyl No Notes: Memori a - (Same As: l 17:57: Dulcolax, Aj 00 Correctol) (Do Not Crush) "Do Not Crush" Docusate No Notes: Memoria - (Same as: l 17:57: Colace) Aj 00 (Do Not Crush) lanolin No Notes: Memoria topical 12-27 (Same l cream 17:57: as:Lanolin Willy n 00 ) Simethicone No Notes: Eren flaquita - (Same as: l 17:57: Mylicon) [place] Oxytocin No Notes: Memoria 12-27 Hazardous l 17:57: Drug Group [place] 00 3:Reproduc tive risk Hazardous Drug -- Refer to safe handling procedure PPE Matrix Saline No Notes: Memoria Flush 0.9% 12-27 (Same as: l 17:57: BD [place] 00 Posiflush) Lactated No 1,000 mL, Eren flaquita Ringers IV 12-27 Rate: 125 l 1,000 mL 17:57: ml/hr, [place] 00 Infuse over: 8 hr, Route: IV, Dosing Weight 66.364 kg, Total Volume: 1,000, see special instructio n for rate while completing infusion from recovery for the 20 Units of Oxytocin., Start date: 12/27/20 11:57:00 BRICK STACKER, Duration:. .. Bisacodyl No Notes: Memori a - (Same As: l 17:57: Dulcolax, Aj 00 Correctol) (Do Not Crush) "Do Not Crush" Docusate No Notes: Memoria - (Same as: l 17:57: Colace) Aj 00 (Do Not Crush) lanolin No Notes: Memoria topical 12-27 (Same l cream 17:57: as:Lanolin Willy n 00 ) Simethicone No Notes: Eren flaquita - (Same as: l 17:57: Mylicon) Aj 00 Oxytocin No Notes: Memoria 12-27 Hazardous l 17:57: Drug Group [place] 00 3:Reproduc tive risk Hazardous Drug -- Refer to safe handling procedure PPE Matrix Saline No Notes: Memoria Flush 0.9% - (Same as: l 17:57: BD Posiflush) Lactated No 1,000 mL, Eren flaquita Ringers IV 12-27 Rate: 125 l 1,000 mL 17:57: ml/hr, Infuse over: 8 hr, Route: IV, Dosing Weight 66.364 kg, Total Volume: 1,000, see special instructio n for rate while completing infusion from recovery for the 20 Units of Oxytocin., Start date: 12/27/20 11:57:00 BRICK STACKER, Duration:. .. Bisacodyl No Notes: Memori a 12-27 (Same As: l 17:57: Dulcolax, [place] 00 Correctol) (Do Not Crush) "Do Not Crush" Docusate No Notes: Memoria 12-27 (Same as: l 17:57: Colace) Aj (Do Not Crush) lanolin No Notes: Memoria topical 12-27 (Same l cream 17:57: as:Lanolin Willy n 00 ) Simethicone No Notes: Eren flaquita - (Same as: l 17:57: Mylicon) Aj 00 Oxytocin No Notes: Memoria 12-27 Hazardous l 17:57: Drug Group 3:Reproduc tive risk Hazardous Drug -- Refer to safe handling procedure PPE Matrix Saline No Notes: Memoria Flush 0.9% 12-27 (Same as: l 17:57: BD Aj 00 Posiflush) phenylephri No Route: IV, Memoria ne (ANES) 12-27 Drug form: l 17:38: INJ, ONCE, Stop date: 12/27/20 11:38:00 [employer] phenylephri No Route: IV, Memoria ne (ANES) 12-27 Drug form: l 17:38: INJ, ONCE, Stop date: 12/27/20 11:38:00 [employer] phenylephri No Route: IV, Memoria ne (ANES) 12-27 Drug form: l 17:38: INJ, ONCE, Stop date: 12/27/20 11:38:00 [employer] phenylephri No Route: IV, Memoria ne (ANES) 12-27 Drug form: l 17:38: INJ, ONCE, Aj 00 Stop date: 12/27/20 11:38:00 [employer] bupivacaine 0 No Route: Eren flaquita (ANES) 12-27 INTRATHECA l 17:13: L, Drug [place] 00 Form: INJ, ONCE, Stop date: 12/27/20 11:13:00 [employer] fentaNYL 0 No Route: Memoria (ANES) 12-27 INTRATHECA l 17:13: L, Drug [place] 00 form: INJ, ONCE, Stop date: 12/27/20 11:13:00 [employer] morphine 0 No Route: Memoria Sulfate 12-27 INTRATHECA l (ANES) 17:13: L, Drug Aj 00 form: INJ, ONCE, Stop date: 12/27/20 11:13:00 [employer] ceFAZolin 0 No Route: IV, Me moria (ANES) 12-27 Drug form: l 17:13: INJ, ONCE, Aj Stop date: 12/27/20 11:13:00 [employer] bupivacaine 0 No Route: Eren flaquita (ANES) 12-27 INTRATHECA l 17:13: L, Drug Aj 00 Form: INJ, ONCE, Stop date: 12/27/20 11:13:00 [employer] fentaNYL 0 No Route: Memoria (ANES) 12-27 INTRATHECA l 17:13: L, Drug [place] form: INJ, ONCE, Stop date: 12/27/20 11:13:00 [employer] morphine 0 No Route: Memoria Sulfate 12-27 INTRATHECA l (ANES) 17:13: L, Drug [place] 00 form: INJ, ONCE, Stop date: 12/27/20 11:13:00 BRICK STACKER ceFAZolin 0 No Route: IV, Me moria (ANES) 12-27 Drug form: l 17:13: INJ, ONCE, Aj 00 Stop date: 12/27/20 11:13:00 BRICK STACKER bupivacaine 0 No Route: Eren flaquita (ANES) 12-27 INTRATHECA l 17:13: L, Drug [place] 00 Form: INJ, ONCE, Stop date: 12/27/20 11:13:00 BRICK STACKER fentaNYL 2020-0 No Route: Memoria (ANES) 12-27 INTRATHECA l 17:13: L, Drug Aj 00 form: INJ, ONCE, Stop date: 12/27/20 11:13:00 BRICK STACKER morphine 0 No Route: Memoria Sulfate 12-27 INTRATHECA l (ANES) 17:13: L, Drug [place] 00 form: INJ, ONCE, Stop date: 12/27/20 11:13:00 BRICK STACKER ceFAZolin 0 No Route: IV, Me moria (ANES) 12-27 Drug form: l 17:13: INJ, ONCE, Aj Stop date: 12/27/20 11:13:00 BRICK STACKER bupivacaine 0 No Route: Eren flaquita (ANES) 12-27 INTRATHECA l 17:13: L, Drug Aj 00 Form: INJ, ONCE, Stop date: 12/27/20 11:13:00 BRICK STACKER fentaNYL 0 No Route: Memoria (ANES) 12-27 INTRATHECA l 17:13: L, Drug [place] 00 form: INJ, ONCE, Stop date: 12/27/20 11:13:00 BRICK STACKER morphine 0 No Route: Memoria Sulfate 12-27 INTRATHECA l (ANES) 17:13: L, Drug [place] 00 form: INJ, ONCE, Stop date: 12/27/20 11:13:00 BRICK STACKER ceFAZolin 0 No Route: IV, Me moria (ANES) 12-27 Drug form: l 17:13: INJ, ONCE, [place] 00 Stop date: 12/27/20 11:13:00 BRICK STACKER oxytocin 0 No Route: IV, Mem oria (ANES) 30 12-27 Drug form: l unit 16:54: SOLN, Aj Start date: 12/27/20 10:54:00 BRICK STACKER, Stop date: 12/27/20 11:54:00 BRICK STACKER oxytocin 2020-0 No Route: IV, Mem oria (ANES) 30 12-27 Drug form: l unit 16:54: SOLN, Aj Start date: 12/27/20 10:54:00 BRICK STACKER, Stop date: 12/27/20 11:54:00 BRICK STACKER oxytocin 0 No Route: IV, Mem oria (ANES) 30 12-27 Drug form: l unit 16:54: EDUARNWillianAj Start date: 12/27/20 10:54:00 BRICK STACKER, Stop date: 12/27/20 11:54:00 BRICK STACKER oxytocin 2020-0 No Route: IV, Mem oria (ANES) 30 12-27 Drug form: l unit 16:54: SOLN, [place] Start date: 12/27/20 10:54:00 BRICK STACKER, Stop date: 12/27/20 11:54:00 BRICK STACKER Lactated 0 No Route: IV, Mem oria Ringers 1- Total l Injection 16:27: Volume: Deid[place] nn IV (ANES) 00 1,000, 1000 mL Start date: 12/27/20 10:27:00 BRICK STACKER, Stop date: 12/27/20 11:27:00 BRICK STACKER Lactated 0 No Route: IV, Mem oria Ringers 1- Total l Injection 16:27: Volume: Deidre nn IV (ANES) 00 1,000, 1000 mL Start date: 12/27/20 10:27:00 BRICK STACKER, Stop date: 12/27/20 11:27:00 BRICK STACKER Lactated 2020-0 No Route: IV, Mem oria Ringers 1-27 Total l Injection 16:27: Volume: [place]id[place] nn IV (ANES) 00 1,000, 1000 mL Start date: 12/27/20 10:27:00 BRICK STACKER, Stop date: 12/27/20 11:27:00 BRICK STACKER Lactated 0 No Route: IV, Mem oria Ringers 1-27 Total l Injection 16:27: Volume: Deid[place] nn IV (ANES) 00 1,000, 1000 mL Start date: 12/27/20 10:27:00 BRICK STACKER, Stop date: 12/27/20 11:27:00 BRICK STACKER Calcium 2020-0 No 1,000 mL, Memor ia Chloride 1-27 1,000 l 0.0014 16:00: ml/hr, Aj MEQ/ML / 00 Infuse Potassium Over: 1 Chloride hr, Route: 0.004 IV, 1,000, MEQ/ML / Drug form: Sodium INJ, Chloride ONCALL, 0.103 Dosing MEQ/ML / Weight Sodium 66.364 kg, Lactate Start 0.028 date: MEQ/ML 12/27/20 Injectable 10:00:00 Solution BRICK STACKER, Duration: 1 doses or times, For OB hemorrhage per physician direction, 0 Oxytocin No Notes: Memoria - (Same as: l 16:00: Pitocin) Hazardous Drug Group 3:Reproduc tive risk Hazardous Drug -- Refer to safe handling procedure PPE Matrix Misoprostol No Notes: Eren flaquita 12-27 (Same l 16:00: as:Cytotec ) Hazardous Drug Group 3:Reproduc tive risk Hazardous Drug -- Refer to safe handling procedure PPE Matrix Take with food Methylergon No Notes: Eren flaquita ovine 12-27 (Same l 16:00: as:Metherg ine) Hazardous Drug Group 3:Reproduc tive risk Hazardous Drug -- Refer to safe handling procedure PPE Matrix Atropine No Notes: Memoria Sulfate 12-27 (Same As: l 0.025 MG / 16:00: Lomotil) [facility] Diphenoxyla MAX Adult te dose = 8 Hydrochlori tabs/day de 2.5 MG Oral Tablet Carboprost No Notes: Memor ia 12-27 (Same As: l 16:00: Hemabate) Tranexamic No Notes: Memor ia Acid 12-27 (Same As: l 16:00: Cyklokapro n) Cefazolin No Notes: Memori a 12-27 (Same As: l 16:00: Ancef, Kefzol) MEDICATION WASTE Product Size: 1000 mg Product Wasted: ___ mg Calcium No 1,000 mL, Memor ia Chloride 12-27 1,000 l 0.0014 16:00: ml/hr, MEQ/ML / 00 Infuse Potassium Over: 1 Chloride hr, Route: 0.004 IV, 1,000, MEQ/ML / Drug form: Sodium INJ, Chloride ONCALL, 0.103 Dosing MEQ/ML / Weight Sodium 66.364 kg, Lactate Start 0.028 date: MEQ/ML 12/27/20 Injectable 10:00:00 Solution BRICK STACKER, Duration: 1 doses or times, For OB hemorrhage per physician direction, 0 Oxytocin No Notes: Memoria - (Same as: l 16:00: Pitocin) Hazardous Drug Group 3:Reproduc tive risk Hazardous Drug -- Refer to safe handling procedure PPE Matrix Calcium No 1,000 mL, Memor ia Chloride -27 1,000 l 0.0014 16:00: ml/hr, MEQ/ML / 00 Infuse Potassium Over: 1 Chloride hr, Route: 0.004 IV, 1,000, MEQ/ML / Drug form: Sodium INJ, Chloride ONCALL, 0.103 Dosing MEQ/ML / Weight Sodium 66.364 kg, Lactate Start 0.028 date: MEQ/ML 12/27/20 Injectable 10:00:00 Solution BRICK STACKER, Duration: 1 doses or times, For OB hemorrhage per physician direction, 0 Misoprostol No Notes: Eren flaquita - (Same l 16:00: as:Cytotec ) Hazardous Drug Group 3:Reproduc tive risk Hazardous Drug -- Refer to safe handling procedure PPE Matrix Take with food Oxytocin No Notes: Memoria - (Same as: l 16:00: Pitocin) Hazardous Drug Group 3:Reproduc tive risk Hazardous Drug -- Refer to safe handling procedure PPE Matrix Misoprostol No Notes: Eren flaquita - (Same l 16:00: as:Cytotec ) Hazardous Drug Group 3:Reproduc tive risk Hazardous Drug -- Refer to safe handling procedure PPE Matrix Take with food Methylergon No Notes: Eren flaquita ovine 12-27 (Same l 16:00: as:Metherg ine) Hazardous Drug Group 3:Reproduc tive risk Hazardous Drug -- Refer to safe handling procedure PPE Matrix Atropine No Notes: Memoria Sulfate 12-27 (Same As: l 0.025 MG / 16:00: Lomotil) [facility] Diphenoxyla 00 MAX Adult te dose = 8 Hydrochlori tabs/day de 2.5 MG Oral Tablet Carboprost No Notes: Memor ia - (Same As: l 16:00: Hemabate) Tranexamic No Notes: Memor ia Acid - (Same As: l 16:00: Cyklokapro n) Cefazolin No Notes: Memori a 12-27 (Same As: l 16:00: Ancef, Kefzol) MEDICATION WASTE Product Size: 1000 mg Product Wasted: ___ mg Methylergon No Notes: Eren flaquita ovine 12-27 (Same l 16:00: as:Metherg ine) Hazardous Drug Group 3:Reproduc tive risk Hazardous Drug -- Refer to safe handling procedure PPE Matrix Atropine No Notes: Memoria Sulfate 12-27 (Same As: l 0.025 MG / 16:00: Lomotil) [facility] Diphenoxyla 00 MAX Adult te dose = 8 Hydrochlori tabs/day de 2.5 MG Oral Tablet Carboprost No Notes: Memor ia 12-27 (Same As: l 16:00: Hemabate) Tranexamic No Notes: Memor ia Acid 12-27 (Same As: l 16:00: Cyklokapro n) Cefazolin No Notes: Memori a 12-27 (Same As: l 16:00: Ancef, Kefzol) MEDICATION WASTE Product Size: 1000 mg Product Wasted: ___ mg Calcium No 1,000 mL, Memor ia Chloride 12-27 1,000 l 0.0014 16:00: ml/hr, MEQ/ML / 00 Infuse Potassium Over: 1 Chloride hr, Route: 0.004 IV, 1,000, MEQ/ML / Drug form: Sodium INJ, Chloride ONCALL, 0.103 Dosing MEQ/ML / Weight Sodium 66.364 kg, Lactate Start 0.028 date: MEQ/ML 12/27/20 Injectable 10:00:00 Solution BRICK STACKER, Duration: 1 doses or times, For OB hemorrhage per physician direction, 0 Oxytocin No Notes: Memoria 12-27 (Same as: l 16:00: Pitocin) Hazardous Drug Group 3:Reproduc tive risk Hazardous Drug -- Refer to safe handling procedure PPE Matrix Misoprostol No Notes: Eren flaquita 12-27 (Same l 16:00: as:Cytotec ) Hazardous Drug Group 3:Reproduc tive risk Hazardous Drug -- Refer to safe handling procedure PPE Matrix Take with food Methylergon No Notes: Eren flauqita ovine 12-27 (Same l 16:00: as:Metherg ine) Hazardous Drug Group 3:Reproduc tive risk Hazardous Drug -- Refer to safe handling procedure PPE Matrix Atropine No Notes: Memoria Sulfate 12-27 (Same As: l 0.025 MG / 16:00: Lomotil) [facility] Diphenoxyla MAX Adult te dose = 8 Hydrochlori tabs/day de 2.5 MG Oral Tablet Carboprost No Notes: Memor ia 12-27 (Same As: l 16:00: Hemabate) Tranexamic No Notes: Memor ia Acid 12-27 (Same As: l 16:00: Cyklokapro n) Cefazolin No Notes: Memori a 12-27 (Same As: l 16:00: Ancef, Kefzol) MEDICATION WASTE Product Size: 1000 mg Product Wasted: ___ mg Calcium No 1,000 mL, Memor ia Chloride 12-27 1,000 l 0.0014 15:04: ml/hr, Aj MEQ/ML / 00 Infuse Potassium Over: 1 Chloride hr, Route: 0.004 IV, 1,000, MEQ/ML / Drug form: Sodium INJ, ONCE, Chloride Dosing 0.103 Weight MEQ/ML / 66.364 kg, Sodium Start Lactate date: 0.028 12/27/20 MEQ/ML 9:04:00 Injectable BRICK STACKER, Stop Solution date: 12/27/20 9:04:00 BRICK STACKER, 0 oxytocin 30 No Notes: Eren flaquita units in NS 12-27 Hazardous l 500 mL 15:04: Drug Group [place] nn (Bolus) IV 00 3:Reproduc 10.02 unit tive risk Hazardous Drug -- Refer to safe handling procedure PPE Matrix oxytocin 30 No Notes: Eren flaquita units in NS 1-27 Hazardous l 500 mL IV 15:04: Drug Group He rmann 19.98 unit 00 3:Reproduc tive risk Hazardous Drug -- Refer to safe handling procedure PPE Matrix Morphine No 2 mg, 1 Memori a 1-27 mL, Route: l 15:04: IVP, Drug form: SOLN, Q2H, Dosing Weight 66.364, kg, PRN Pain Score 7-10, Start date: 12/27/20 9:04:00 BRICK STACKER, Duration: 30 day, Stop date: 01/26/21 9:03:00 BRICK STACKER, 0 Citric Acid No Notes: Eren flaquita / sodium 12-27 (Same As: l citrate 15:04: Bicitra) Willy n 00 Terbutaline No Notes: Eren flaquita 12-27 DO NOT l 15:04: USE IN Aj [employer] (Same As: [place]) Famotidine No Notes: Memor ia 12-27 (Same as: l 15:04: Pepcid) Can be dilute in 5-10cc NS IVP: Slow IV push over at least 2 minutes. Ondansetron No Notes: Eren flaquita - (Same as: l 15:04: Zofran) MEDICATION WASTE Product Size: 4 mg Product Wasted: ___ mg Metoclopram No Notes: Eren flaquita [place] 12-27 (Same as: l 15:04: Reglan) [place] 00 Oxytocin No Notes: Memoria - Hazardous l 15:04: Drug Group Aj 00 3:Reproduc tive risk Hazardous Drug -- Refer to safe handling procedure PPE Matrix Calcium No 1,000 mL, Memor ia Chloride -27 1,000 l 0.0014 15:04: ml/hr, Aj MEQ/ML / 00 Infuse Potassium Over: 1 Chloride hr, Route: 0.004 IV, 1,000, MEQ/ML / Drug form: Sodium INJ, ONCE, Chloride Dosing 0.103 Weight MEQ/ML / 66.364 kg, Sodium Start Lactate date: 0.028 12/27/20 MEQ/ML 9:04:00 Injectable BRICK STACKER, Stop Solution date: 12/27/20 9:04:00 BRICK STACKER, 0 oxytocin 30 No Notes: Eren flaquita units in NS - Hazardous l 500 mL 15:04: Drug Group De[place] nn (Bolus) IV 00 3:Reproduc 10.02 unit tive risk Hazardous Drug -- Refer to safe handling procedure PPE Matrix oxytocin 30 No Notes: Eern flaquita units in NS - Hazardous l 500 mL IV 15:04: Drug Group He rmann 19.98 unit 00 3:Reproduc tive risk Hazardous Drug -- Refer to safe handling procedure PPE Matrix Morphine No 2 mg, 1 Memori a -27 mL, Route: l 15:04: IVP, Drug Aj 00 form: SOLN, Q2H, Dosing Weight 66.364, kg, PRN Pain Score 7-10, Start date: 12/27/20 9:04:00 BRICK STACKER, Duration: 30 day, Stop date: 01/26/21 9:03:00 BRICK STACKER, 0 Citric Acid No Notes: Eren flaquita / sodium 12-27 (Same As: l citrate 15:04: Bicitra) [place] 00 Terbutaline No Notes: Eren flaquita 12-27 DO NOT l 15:04: USE IN Aj 00 [employer] (Same As: [place]) Famotidine No Notes: Memor ia 12-27 (Same as: l 15:04: Pepcid) Can be dilute in 5-10cc NS IVP: Slow IV push over at least 2 minutes. Ondansetron No Notes: Eren flaquita 12-27 (Same as: l 15:04: Zofran) MEDICATION WASTE Product Size: 4 mg Product Wasted: ___ mg Metoclopram No Notes: Eren flaquita [place] 12-27 (Same as: l 15:04: Reglan) Aj 00 Oxytocin No Notes: Memoria 12-27 Hazardous l 15:04: Drug Group [place] 00 3:Reproduc tive risk Hazardous Drug -- Refer to safe handling procedure PPE Matrix Calcium No 1,000 mL, Memor ia Chloride 12-27 1,000 l 0.0014 15:04: ml/hr, Aj MEQ/ML / 00 Infuse Potassium Over: 1 Chloride hr, Route: 0.004 IV, 1,000, MEQ/ML / Drug form: Sodium INJ, ONCE, Chloride Dosing 0.103 Weight MEQ/ML / 66.364 kg, Sodium Start Lactate date: 0.028 12/27/20 MEQ/ML 9:04:00 Injectable BRICK STACKER, Stop Solution date: 12/27/20 9:04:00 BRICK STACKER, 0 oxytocin 30 No Notes: Eren flaquita units in NS 12-27 Hazardous l 500 mL 15:04: Drug Group [place] nn (Bolus) IV 00 3:Reproduc 10.02 unit tive risk Hazardous Drug -- Refer to safe handling procedure PPE Matrix oxytocin 30 No Notes: Eren flaquita units in NS 12-27 Hazardous l 500 mL IV 15:04: Drug Group He r[place] 19.98 unit 00 3:Reproduc tive risk Hazardous Drug -- Refer to safe handling procedure PPE Matrix Morphine No 2 mg, 1 Memori a -27 mL, Route: l 15:04: IVP, Drug [place] 00 form: SOLN, Q2H, Dosing Weight 66.364, kg, PRN Pain Score 7-10, Start date: 12/27/20 9:04:00 BRICK STACKER, Duration: 30 day, Stop date: 01/26/21 9:03:00 BRICK STACKER, 0 Citric Acid No Notes: Eren flaquita / sodium 12-27 (Same As: l citrate 15:04: Bicitra) [place] 00 Terbutaline No Notes: Eren flaquita 12-27 DO NOT l 15:04: USE IN [place] 00 [employer] (Same As: [place]) Famotidine No Notes: Memor ia 12-27 (Same as: l 15:04: Pepcid) Can be dilute in 5-10cc NS IVP: Slow IV push over at least 2 minutes. Ondansetron No Notes: Eren flaquita 12-27 (Same as: l 15:04: Zofran) MEDICATION WASTE Product Size: 4 mg Product Wasted: ___ mg Metoclopram No Notes: Eren flaquita [place] 12-27 (Same as: l 15:04: Reglan) [place] Oxytocin No Notes: Memoria 12-27 Hazardous l 15:04: Drug Group [place] 00 3:Reproduc tive risk Hazardous Drug -- Refer to safe handling procedure PPE Matrix Calcium No 1,000 mL, Memor ia Chloride 12-27 1,000 l 0.0014 15:04: ml/hr, Aj MEQ/ML / 00 Infuse Potassium Over: 1 Chloride hr, Route: 0.004 IV, 1,000, MEQ/ML / Drug form: Sodium INJ, ONCE, Chloride Dosing 0.103 Weight MEQ/ML / 66.364 kg, Sodium Start Lactate date: 0.028 12/27/20 MEQ/ML 9:04:00 Injectable BRICK STACKER, Stop Solution date: 12/27/20 9:04:00 BRICK STACKER, 0 oxytocin 30 No Notes: Eren flaquita units in NS 12-27 Hazardous l 500 mL 15:04: Drug Group [place] nn (Bolus) IV 00 3:Reproduc 10.02 unit tive risk Hazardous Drug -- Refer to safe handling procedure PPE Matrix oxytocin 30 No Notes: Eren flaquita units in NS 12-27 Hazardous l 500 mL IV 15:04: Drug Group He r[place] 19.98 unit 00 3:Reproduc tive risk Hazardous Drug -- Refer to safe handling procedure PPE Matrix Morphine No 2 mg, 1 Memori a 1-27 mL, Route: l 15:04: IVP, Drug form: SOLN, Q2H, Dosing Weight 66.364, kg, PRN Pain Score 7-10, Start date: 12/27/20 9:04:00 BRICK STACKER, Duration: 30 day, Stop date: 01/26/21 9:03:00 BRICK STACKER, 0 Citric Acid No Notes: Eren flaquita / sodium 12-27 (Same As: l citrate 15:04: Bicitra) Willy n Terbutaline No Notes: Eren flaquita 12-27 DO NOT l 15:04: USE IN [employer] (Same As: [place]) Famotidine No Notes: Memor ia 12-27 (Same as: l 15:04: Pepcid) Can be dilute in 5-10cc NS IVP: Slow IV push over at least 2 minutes. Ondansetron No Notes: Eren flaquita 12-27 (Same as: l 15:04: Zofran) MEDICATION WASTE Product Size: 4 mg Product Wasted: ___ mg Metoclopram No Notes: Eren flaquita [place] 12-27 (Same as: l 15:04: Reglan) Oxytocin No Notes: Memoria 12-27 Hazardous l 15:04: Drug Group 3:Reproduc tive risk Hazardous Drug -- Refer to safe handling procedure PPE Matrix multivitami No 1 tab, Eren flaquita n, 12-24 Route: PO, l 15:00: Drug Form: [place] 00 TAB, Dosing Weight 63.636, kg, Daily, Start date: 12/24/20 9:00:00 BRICK STACKER, Duration: 30 day, Stop date: 01/22/21 9:00:00 BRICK STACKER, 0 multivitami No 1 tab, Eren flaquita n, 12-24 Route: PO, l 15:00: Drug Form: Aj 00 TAB, Dosing Weight 63.636, kg, Daily, Start date: 12/24/20 9:00:00 BRICK STACKER, Duration: 30 day, Stop date: 01/22/21 9:00:00 BRICK STACKER, 0 multivitami No 1 tab, Eren flaquita n, 12-24 Route: PO, l 15:00: Drug Form: [place] 00 TAB, Dosing Weight 63.636, kg, Daily, Start date: 12/24/20 9:00:00 BRICK STACKER, Duration: 30 day, Stop date: 01/22/21 9:00:00 BRICK STACKER, 0 multivitami No 1 tab, Eren flaquita n, 12-24 Route: PO, l 15:00: Drug Form: [place] 00 TAB, Dosing Weight 63.636, kg, Daily, Start date: 12/24/20 9:00:00 BRICK STACKER, Duration: 30 day, Stop date: 01/22/21 9:00:00 BRICK STACKER, 0 Acetaminoph Yes 650 mg = 2 Memoria en 325 MG 1-24 tab, PO, l Oral Tablet 14:05: Q6H, PRN He rm 00 Pain Score 1-3, 0 Refill(s) Acetaminoph Yes 650 mg = 2 Memoria en 325 MG 1-24 tab, PO, l Oral Tablet 14:05: Q6H, PRN He rm 00 Pain Score 1-3, 0 Refill(s) Acetaminoph Yes 650 mg = 2 Memoria en 325 MG 1-24 tab, PO, l Oral Tablet 14:05: Q6H, PRN He rm 00 Pain Score 1-3, 0 Refill(s) Acetaminoph Yes 650 mg = 2 Memoria en 325 MG 1-24 tab, PO, l Oral Tablet 14:05: Q6H, PRN He rm 00 Pain Score 1-3, 0 Refill(s) Tylenol No Notes: Do Memor ia 1-24 not exceed l 05:17: 4 gm/day. (Same as: Tylenol) Tylenol No Notes: Do Memor ia 1-24 not exceed l 05:17: 4 gm/day. [place] 00 (Same as: Tylenol) Tylenol No Notes: Do Memor ia 1-24 not exceed l 05:17: 4 gm/day. (Same as: Tylenol) Tylenol No Notes: Do Memor ia 1-24 not exceed l 05:17: 4 gm/day. (Same as: Tylenol) valacyclovi Yes 1,000 mg = Memoria r 500 MG 1-24 2 tab, PO, l Oral Tablet 02:26: Daily, # He r[place] [Valtrex] 00 30 tab, 0 Refill(s) valacyclovi Yes 1,000 mg = Memoria r 500 MG 1-24 2 tab, PO, l Oral Tablet 02:26: Daily, # [place] [Valtrex] 00 30 tab, 0 Refill(s) valacyclovi Yes 1,000 mg = Memoria r 500 MG 1-24 2 tab, PO, l Oral Tablet 02:26: Daily, # He rmann [Valtrex] 00 30 tab, 0 Refill(s) valacyclovi Yes 1,000 mg = Memoria r 500 MG 1-24 2 tab, PO, l Oral Tablet 02:26: Daily, # Cosme rmann [Valtrex] 00 30 tab, 0 Refill(s) Lactated No 1,000 mL, Eren flaquita Ringers IV 12-23 Rate: 125 l 1,000 mL 23:46: ml/hr, [place] 00 Infuse over: 8 hr, Route: IV, Dosing Weight 63.636 kg, Total Volume: 1,000, Start date: 12/23/20 17:46:00 BRICK STACKER, Duration: 30 day, Stop date: 01/22/21 17:45:00 BRICK STACKER, 1.7, m2, 0 Saline No Notes: Memoria Flush 0.9% 1-23 (Same as: l 23:46: BD [place] 00 Posiflush) Lactated No 1,000 mL, Eren flaquita Ringers IV 12-23 Rate: 125 l 1,000 mL 23:46: ml/hr, Aj 00 Infuse over: 8 hr, Route: IV, Dosing Weight 63.636 kg, Total Volume: 1,000, Start date: 12/23/20 17:46:00 BRICK STACKER, Duration: 30 day, Stop date: 01/22/21 17:45:00 BRICK STACKER, 1.7, m2, 0 Saline No Notes: Memoria Flush 0.9% 1-23 (Same as: l 23:46: BD Aj 00 Posiflush) Lactated No 1,000 mL, Eren flaquita Ringers IV 12-23 Rate: 125 l 1,000 mL 23:46: ml/hr, [place] 00 Infuse over: 8 hr, Route: IV, Dosing Weight 63.636 kg, Total Volume: 1,000, Start date: 12/23/20 17:46:00 BRICK STACKER, Duration: 30 day, Stop date: 01/22/21 17:45:00 BRICK STACKER, 1.7, m2, 0 Saline No Notes: Memoria Flush 0.9% 1-23 (Same as: l 23:46: BD [place] 00 Posiflush) Lactated 0 No 1,000 mL, Eren flaquita Ringers IV 12-23 Rate: 125 l 1,000 mL 23:46: ml/hr, Aj 00 Infuse over: 8 hr, Route: IV, Dosing Weight 63.636 kg, Total Volume: 1,000, Start date: 12/23/20 17:46:00 BRICK STACKER, Duration: 30 day, Stop date: 01/22/21 17:45:00 BRICK STACKER, 1.7, m2, 0 Saline 2020-0 No Notes: Memoria Flush 0.9% 23 (Same as: l 23:46: BD [place] Posiflush) LR IV 1,000 0 No 1,000 mL, M emoria mL 12-22 Rate: 40 l 20:14: ml/hr, Aj 00 Infuse over: 25 hr, Route: IV, Dosing Weight 63.636 kg, Total Volume: 1,000, Start date: 12/22/20 14:14:00 BRICK STACKER, Duration: 30 day, Stop date: 01/21/21 14:13:00 BRICK STACKER, 1.7, m2, 0 LR IV 1,000 2020-0 No 1,000 mL, M emoria mL 12-22 Rate: 40 l 20:14: ml/hr, [place] 00 Infuse over: 25 hr, Route: IV, Dosing Weight 63.636 kg, Total Volume: 1,000, Start date: 12/22/20 14:14:00 BRICK STACKER, Duration: 30 day, Stop date: 01/21/21 14:13:00 BRICK STACKER, 1.7, m2, 0 LR IV 1,000 0 No 1,000 mL, M emoria mL 22 Rate: 40 l 20:14: ml/hr, Aj 00 Infuse over: 25 hr, Route: IV, Dosing Weight 63.636 kg, Total Volume: 1,000, Start date: 12/22/20 14:14:00 BRICK STACKER, Duration: 30 day, Stop date: 01/21/21 14:13:00 BRICK STACKER, 1.7, m2, 0 LR IV 1,000 2020-0 No 1,000 mL, M emoria mL 22 Rate: 40 l 20:14: ml/hr, [place] 00 Infuse over: 25 hr, Route: IV, Dosing Weight 63.636 kg, Total Volume: 1,000, Start date: 12/22/20 14:14:00 BRICK STACKER, Duration: 30 day, Stop date: 01/21/21 14:13:00 BRICK STACKER, 1.7, m2, 0 multivitami No 1 tab, Eren flaquita n, 12-22 Route: PO, l 15:00: Drug Form: [place] 00 TAB, Dosing Weight 57.273, kg, Daily, Start date: 12/22/20 9:00:00 BRICK STACKER, Duration: 30 day, Stop date: 01/20/21 9:00:00 BRICK STACKER, 0 Valtrex No Notes: Memoria 12-22 (Same As: l 15:00: Valtrex) [place] 00 Macrobid No Notes: Not Mem oria 12-22 recommende l 15:00: d for Aj 00 patients with CrCl<30 ml/min (Same as:Macrobi d) With food. multivitami No 1 tab, Eren flaquita n, 12-22 Route: PO, l 15:00: Drug Form: Aj 00 TAB, Dosing Weight 57.273, kg, Daily, Start date: 12/22/20 9:00:00 BRICK STACKER, Duration: 30 day, Stop date: 01/20/21 9:00:00 BRICK STACKER, 0 Valtrex No Notes: Memoria 12-22 (Same As: l 15:00: Valtrex) Macrobid No Notes: Not Mem oria 12-22 recommende l 15:00: d for [place] 00 patients with CrCl<30 ml/min (Same as:Macrobi d) With food. multivitami No 1 tab, Eren flaquita n, 12-22 Route: PO, l 15:00: Drug Form: [place] 00 TAB, Dosing Weight 57.273, kg, Daily, Start date: 12/22/20 9:00:00 BRICK STACKER, Duration: 30 day, Stop date: 01/20/21 9:00:00 BRICK STACKER, 0 Valtrex No Notes: Memoria 12-22 (Same As: l 15:00: Valtrex) [place] Macrobid No Notes: Not Mem oria 12-22 recommende l 15:00: d for [place] patients with CrCl<30 ml/min (Same as:Macrobi d) With food. multivitami No 1 tab, Eren flaquita n, 12-22 Route: PO, l 15:00: Drug Form: [place] TAB, Dosing Weight 57.273, kg, Daily, Start date: 12/22/20 9:00:00 BRICK STACKER, Duration: 30 day, Stop date: 01/20/21 9:00:00 BR[employer] STACKER, 0 Valtrex No Notes: Memoria 12-22 (Same As: l 15:00: Valtrex) Macrobid No Notes: Not Mem oria 12-22 recommende l 15:00: d for Aj 00 patients with CrCl<30 ml/min (Same as:Macrobi d) With food. [place] No Notes: Memori a -22 (betametha l 00:00: sone Aj 00 acetate-so dium phosphate 6 mg/ml INJ) (Same As: [place] Soluspan) [place] No Notes: Memori a -22 (betametha l 00:00: sone [place] 00 acetate-so dium phosphate 6 mg/ml INJ) (Same As: [place] Soluspan) [place] No Notes: Memori a -22 (betametha l 00:00: sone [place] 00 acetate-so dium phosphate 6 mg/ml INJ) (Same As: [place] Soluspan) [place] No Notes: Memori a -22 (betametha l 00:00: sone [place] 00 acetate-so dium phosphate 6 mg/ml INJ) (Same As: [place] Soluspan) { Yes 1 tab, PO, Memoria (Ethinyl 3-01 Daily, # l Estradiol 17:29: 28 tab, 6 Her peña 0.02 MG / 00 Refill(s), norethindro Pharmacy: ne acetate [facility] 1 MG Oral Pharmacy Tablet) / 7 2755 (Ferrous fumarate 75 MG Oral Tablet) } Pack [Loestrin Fe 12/20 28 Day] { Yes 1 tab, PO, Memoria (Ethinyl 3-01 Daily, # l Estradiol 17:29: 28 tab, 6 Her peña 0.02 MG / 00 Refill(s), norethindro Pharmacy: ne acetate [facility] 1 MG Oral Pharmacy Tablet) / 1404 (Ferrous fumarate 75 MG Oral Tablet) } Pack [Loestrin Fe 12/20 28 Day] { Yes 1 tab, PO, [facility] (Ethinyl 3-01 Daily, # l Estradiol 17:29: 28 tab, 6 Her peña 0.02 MG / 00 Refill(s), norethindro Pharmacy: ne acetate [facility] 1 MG Oral Pharmacy Tablet) / 1404 (Ferrous fumarate 75 MG Oral Tablet) } Pack [Loestrin Fe 12/20 27 Day] { Yes 1 tab, PO, [facility]oria (Ethinyl 3-01 Daily, # l Estradiol 17:29: 28 tab, 6 Her peña 0.02 MG / 00 Refill(s), norethindro Pharmacy: ne acetate [facility] 1 MG Oral Pharmacy Tablet) / 1404 (Ferrous fumarate 75 MG Oral Tablet) } Pack [Loestrin Fe 12/20 28 Day] valacyclovi No 1 gm = 1 Me moria r 1000 MG 2-08 tab, PO, l Oral Tablet 21:16: Q24H, X 30 [place] [Valtrex] 11 day, # 30 tab, 1 Refill(s), Pharmacy: [facility] valacyclovi No 1 gm = 1 Me moria r 1000 MG 2-08 tab, PO, l Oral Tablet 21:16: Q24H, X 30 Aj [Valtrex] 11 day, # 30 tab, 1 Refill(s), Pharmacy: [facility] valacyclovi No 1 gm = 1 Me moria r 1000 MG 2-08 tab, PO, l Oral Tablet 21:16: Q24H, X 30 [place] [Valtrex] 11 day, # 30 tab, 1 Refill(s), Pharmacy: [facility] valacyclovi No 1 gm = 1 Me moria r 1000 MG 2-08 tab, PO, l Oral Tablet 21:16: Q24H, X 30 Aj [Valtrex] 11 day, # 30 tab, 1 Refill(s), Pharmacy: [facility] 140 Sertraline Yes 100 mg = 1 M emoria 100 MG Oral 2-08 tab, PO, l Tablet 21:16: Daily, # Aj [Zoloft] 00 30 tab, 1 Refill(s), Pharmacy: [facility] 140 Sertraline Yes 100 mg = 1 M emoria 100 MG Oral 2-08 tab, PO, l Tablet 21:16: Daily, # Aj [Zoloft] 00 30 tab, 1 Refill(s), Pharmacy: [facility] 140 Sertraline Yes 100 mg = 1 M emoria 100 MG Oral 2-08 tab, PO, l Tablet 21:16: Daily, # [place] [Zoloft] 00 30 tab, 1 Refill(s), Pharmacy: [facility] 140 Sertraline Yes 100 mg = 1 M emoria 100 MG Oral 2-08 tab, PO, l Tablet 21:16: Daily, # Aj [Zoloft] 00 30 tab, 1 Refill(s), Pharmacy: [facility] 140 Acetaminoph No 1 tab, PO, Memoria en 325 MG / 2-02 Q4H, PRN l Hydrocodone 13:00: for pain, [place] Bitartrate 00 X 30 day, 7.5 MG Oral # 30 tab, Tablet 0 [[place] Refill(s), 7.5/325] other ibuprofen No 600 mg = 1 Me moria 600 mg oral 2-02 tab, PO, l tablet 13:00: Q6H, PRN [place] 00 Pain, take with food, X 30 day, # 30 tab, 0 Refill(s) Acetaminoph No 1 tab, PO, Memoria en 325 MG / 2-02 Q4H, PRN l Hydrocodone 13:00: for pain, [place] Bitartrate 00 X 30 day, 7.5 MG Oral # 30 tab, Tablet 0 [[place] Refill(s), 7.5/325] other ibuprofen No 600 mg = 1 Me moria 600 mg oral 2-02 tab, PO, l tablet 13:00: Q6H, PRN Aj 00 Pain, take with food, X 30 day, # 30 tab, 0 Refill(s) Acetaminoph No 1 tab, PO, Memoria en 325 MG / 2-02 Q4H, PRN l Hydrocodone 13:00: for pain, [place] Bitartrate 00 X 30 day, 7.5 MG Oral # 30 tab, Tablet 0 [[place] Refill(s), 7.5/325] other ibuprofen No 600 mg = 1 Me moria 600 mg oral 2-02 tab, PO, l tablet 13:00: Q6H, PRN Aj 00 Pain, take with food, X 30 day, # 30 tab, 0 Refill(s) Acetaminoph No 1 tab, PO, Memoria en 325 MG / 2-02 Q4H, PRN l Hydrocodone 13:00: for pain, [place] Bitartrate 00 X 30 day, 7.5 MG Oral # 30 tab, Tablet 0 [[place] Refill(s), 7.5/325] other ibuprofen No 600 mg = 1 Me moria 600 mg oral 2-02 tab, PO, l tablet 13:00: Q6H, PRN Aj 00 Pain, take with food, X 30 day, # 30 tab, 0 Refill(s) Zoloft No Notes: Memoria 12-31 (Same as: l 15:00: Zoloft) No 1 tab, Memoria Multivitami 12-31 Route: PO, l ns oral 15:00: Drug Form: Herm rhona tablet 00 TAB, Dosing Weight 55.455, kg, Daily, Start date: 12/31/17 9:00:00 BRICK STACKER, Duration: 30 day, Stop date: 01/29/18 9:00:00 BR[employer]ACKER Zoloft No Notes: Memoria 12-31 (Same as: l 15:00: Zoloft) Aj 00 No 1 tab, Memoria Multivitami 12-31 Route: PO, l ns oral 15:00: Drug Form: Herm rhona tablet 00 TAB, Dosing Weight 55.455, kg, Daily, Start date: 12/31/17 9:00:00 BRICK STACKER, Duration: 30 day, Stop date: 01/29/18 9:00:00 BR[employer] STACKER Zoloft No Notes: Memoria 1- (Same as: l 15:00: Zoloft) [place] No 1 tab, Memoria Multivitami 12-31 Route: PO, l ns oral 15:00: Drug Form: Herm rhona tablet 00 TAB, Dosing Weight 55.455, kg, Daily, Start date: 12/31/17 9:00:00 BRICK STACKER, Duration: 30 day, Stop date: 01/29/18 9:00:00 BR[employer]ACKER Zoloft No Notes: Memoria - (Same as: l 15:00: Zoloft) [place] No 1 tab, Memoria Multivitami 12-31 Route: PO, l ns oral 15:00: Drug Form: Herm rhona tablet 00 TAB, Dosing Weight 55.455, kg, Daily, Start date: 12/31/17 9:00:00 BRICK STACKER, Duration: 30 day, Stop date: 01/29/18 9:00:00 BR[employer] STACKER Naloxone No Notes: Memoria 1-31 Same as l 12:00: Narcan [place] Naloxone No Notes: Memoria - Same as l 12:00: Narcan [place] Naloxone No Notes: Memoria - Same as l 12:00: Narcan [place] Naloxone No Notes: Memoria - Same as l 12:00: Narcan [place] Acetaminoph No Notes: Max Memoria en 12-31 acetaminop l 11:10: hen 4000 [place] 00 mg/day (4 gm/day). (Same as: Tylenol Extra Strength) Oxycodone No Notes: Memori a Hydrochlori 12-31 (Same as: l de 5 MG 11:10: Roxicodone Herm rhona Oral Tablet ) Ketorolac No 4 days Memor ia 12-31 l 11:10: MEDICATION [place] 00 WASTE Product Size: 30 mg Product Wasted: ___ mg Naloxone No Notes: Memoria 12-31 Same as l 11:10: Narcan [place] 00 Diphenhydra No Notes: Eren flaquita mine 12-31 (Same as: l 11:10: Benadryl) [place] Nalbuphine No Notes: Memor ia 12-31 (Same As: l 11:10: Nubain) [place] Meperidine No Notes: Memor ia 12-31 (Same as: l 11:10: Demerol) [place] "Use Precaution in Elderly, Seizure disorders, and Renal impairment " Morphine No Notes: Memoria 12-31 (Same l 11:10: as:MORPhin Aj 00 e Sulfate) Ondansetron No Notes: Eren flaquita 12-31 (Same as: l 11:10: Zofran) Aj 00 MEDICATION WASTE Product Size: 4 mg Product Wasted: ___ mg 72 HR No Notes: Memoria Scopolamine 12-31 Change l 0.0139 11:10: patch Aj MG/HR 00 every 72 Transdermal hours Patch (Same as: Transderm- Scop) Acetaminoph No Notes: Max Memoria en 12-31 acetaminop l 11:10: hen 4000 [place] 00 mg/day (4 gm/day). (Same as: Tylenol Extra Strength) Oxycodone No Notes: Memori a Hydrochlori 12-31 (Same as: l de 5 MG 11:10: Roxicodone Herm rhona Oral Tablet 00 ) Ketorolac No 4 days Memor ia 12-31 l 11:10: MEDICATION [place] 00 WASTE Product Size: 30 mg Product Wasted: ___ mg Naloxone No Notes: Memoria 12-31 Same as l 11:10: Narcan Aj 00 Diphenhydra No Notes: Eren flaquita mine 12-31 (Same as: l 11:10: Benadryl) [place] Nalbuphine No Notes: Memor ia 12-31 (Same As: l 11:10: Nubain) [place] Meperidine No Notes: Memor ia 12-31 (Same as: l 11:10: Demerol) [place] "Use Precaution in Elderly, Seizure disorders, and Renal impairment " Morphine No Notes: Memoria 12-31 (Same l 11:10: as:MORPhin Aj 00 e Sulfate) Ondansetron No Notes: Eren flaquita 12-31 (Same as: l 11:10: Zofran) Aj 00 MEDICATION WASTE Product Size: 4 mg Product Wasted: ___ mg 72 HR No Notes: Memoria Scopolamine 12-31 Change l 0.0139 11:10: patch Aj MG/HR 00 every 72 Transdermal hours Patch (Same as: Transderm- Scop) Acetaminoph No Notes: Max Memoria en 12-31 acetaminop l 11:10: hen 4000 Aj 00 mg/day (4 gm/day). (Same as: Tylenol Extra Strength) Oxycodone No Notes: Memori a Hydrochlori 12-31 (Same as: l de 5 MG 11:10: Roxicodone Herm rhona Oral Tablet 00 ) Ketorolac No 4 days Memor ia 12-31 l 11:10: MEDICATION [place] 00 WASTE Product Size: 30 mg Product Wasted: ___ mg Naloxone No Notes: Memoria 12-31 Same as l 11:10: Narcan Aj 00 Diphenhydra No Notes: Eren flaquita mine 12-31 (Same as: l 11:10: Benadryl) Aj Nalbuphine No Notes: Memor ia 12-31 (Same As: l 11:10: Nubain) [place] Meperidine No Notes: Memor ia 12-31 (Same as: l 11:10: Demerol) [place] "Use Precaution in Elderly, Seizure disorders, and Renal impairment " Morphine No Notes: Memoria 12-31 (Same l 11:10: as:MORPhin [place] 00 e Sulfate) Ondansetron No Notes: Eren flaquita 12-31 (Same as: l 11:10: Zofran) [place] 00 MEDICATION WASTE Product Size: 4 mg Product Wasted: ___ mg 72 HR No Notes: Memoria Scopolamine 12-31 Change l 0.0139 11:10: patch [place] MG/HR 00 every 72 Transdermal hours Patch (Same as: Transderm- Scop) Acetaminoph No Notes: Max Memoria en 12-31 acetaminop l 11:10: hen 4000 Aj 00 mg/day (4 gm/day). (Same as: Tylenol Extra Strength) Oxycodone No Notes: Memori a Hydrochlori 12-31 (Same as: l de 5 MG 11:10: Roxicodone Herm rhona Oral Tablet 00 ) Ketorolac No 4 days Memor ia 12-31 l 11:10: MEDICATION Aj 00 WASTE Product Size: 30 mg Product Wasted: ___ mg Naloxone No Notes: Memoria 12-31 Same as l 11:10: Narcan Aj Diphenhydra No Notes: Eren flaquita mine 12-31 (Same as: l 11:10: Benadryl) [place] Nalbuphine No Notes: Memor ia 12-31 (Same As: l 11:10: Nubain) [place] Meperidine No Notes: Memor ia 12-31 (Same as: l 11:10: Demerol) Aj "Use Precaution in Elderly, Seizure disorders, and Renal impairment " Morphine No Notes: Memoria 12-31 (Same l 11:10: as:MORPhin [place] 00 e Sulfate) Ondansetron No Notes: Eren flaquita 12-31 (Same as: l 11:10: Zofran) Aj 00 MEDICATION WASTE Product Size: 4 mg Product Wasted: ___ mg 72 HR No Notes: Memoria Scopolamine 12-31 Change l 0.9 11:10: patch Aj MG/HR 00 every 72 Transdermal hours Patch (Same as: Transderm- Scop) Ibuprofen No Notes: Memori a 12-31 (Same as: l 06:00: Motrin) [place] 00 "Do Not Crush" Take with food. Ibuprofen No Notes: Memori a 12-31 (Same as: l 06:00: Motrin) Aj 00 "Do Not Crush" Take with food. Ibuprofen No Notes: Memori a 1-31 (Same as: l 06:00: Motrin) [place] "Do Not Crush" Take with food. Ibuprofen No Notes: Memori a 1-31 (Same as: l 06:00: Motrin) Aj 00 "Do Not Crush" Take with food. Saline No Notes: Memoria Flush 0.9% 1-31 (Same as: l 03:00: BD [place] 00 Posiflush) Saline No Notes: Memoria Flush 0.9% 1-31 (Same as: l 03:00: BD Aj 00 Posiflush) Saline No Notes: Memoria Flush 0.9% 1-31 (Same as: l 03:00: BD [place] 00 Posiflush) Saline No Notes: Memoria Flush 0.9% 1-31 (Same as: l 03:00: BD [place] 00 Posiflush) 0.5 ML No Notes: Memoria Bordetella -31 (Tdap ) l pertussis 01:00: For Aj filamentous 00 Adolecent hemagglutin and Adult in vaccine, use For IM inactivated Use. Same 0.01 MG/ML as: Adacel / (Tdap) Bordetella pertussis fimbriae 2/3 vaccine, inactivated 0.01 MG/ML / Bordetella pertussis pertactin vaccine, inactivated 0.006 MG/ML / Bordetella pertussis toxoid vacci M-M-R II No Notes: Memoria 12-31 (Same as: l 01:00: M-M-R II) Aj (measles-m umps-rubel la virus vaccine 0.5 ml INJ VL) WASTE: F/P - Red; E -Red GIVE PRIOR TO DISCHARGE 0.5 ML No Notes: Memoria Bordetella 1-31 (Tdap ) l pertussis 01:00: For Aj filamentous 00 Adolecent hemagglutin and Adult in vaccine, use For IM inactivated Use. Same 0.01 MG/ML as: Adacel / (Tdap) Bordetella pertussis fimbriae 2/3 vaccine, inactivated 0.01 MG/ML / Bordetella pertussis pertactin vaccine, inactivated 0.006 MG/ML / Bordetella pertussis toxoid vacci -M-R II No Notes: [facility]oria 12-31 (Same as: l 01:00: --R II) (measles-m umps-rubel la virus vaccine 0.5 ml INJ VL) WASTE: F/P - Red; E -Red GIVE PRIOR TO DISCHARGE 0.5 ML No Notes: Memoria Bordetella 12-31 (Tdap ) l pertussis 01:00: For Adolecent hemagglutin and Adult in vaccine, use For IM inactivated Use. Same 0.01 MG/ML as: Adacel / (Tdap) Bordetella pertussis fimbriae 2/3 vaccine, inactivated 0.01 MG/ML / Bordetella pertussis pertactin vaccine, inactivated 0.006 MG/ML / Bordetella pertussis toxoid vacci -M-R II No Notes: Memoria 12-31 (Same as: l 01:00: --R II) (measles-m umps-rubel la virus vaccine 0.5 ml INJ VL) WASTE: F/P - Red; E -Red GIVE PRIOR TO DISCHARGE 0.5 ML No Notes: Memoria Bordetella 12-31 (Tdap ) l pertussis 01:00: For Adolecent hemagglutin and Adult in vaccine, use For IM inactivated Use. Same 0.01 MG/ML as: Adacel / (Tdap) Bordetella pertussis fimbriae 2/3 vaccine, inactivated 0.01 MG/ML / Bordetella pertussis pertactin vaccine, inactivated 0.006 MG/ML / Bordetella pertussis toxoid vacci -M-R II No Notes: Memoria 12-31 (Same as: l 01:00: --R II) (measles-m umps-rubel la virus vaccine 0.5 ml INJ VL) WASTE: F/P - Red; E -Red GIVE PRIOR TO DISCHARGE ketOROLAC No IV, ONCE Eren flaquita (ANES) 12-31 l 00:47: morphine No Route: IV, Mem oria Sulfate 12-31 Drug form: l (ANES) 00:47: INJ, ONCE, [place] Stop date: 12/30/17 18:47:00 BR[employer]ER fentaNYL 2017-0 No Route: IV, Mem oria (ANES) 12-31 Drug form: l 00:47: INJ, ONCE, [place] Stop date: 12/30/17 18:47:00 BR[employer] ketOROLAC 2017-0 No IV, ONCE Eren flaquita (ANES) 12-31 l 00:47: Aj morphine 0 No Route: IV, Mem oria Sulfate 12-31 Drug form: l (ANES) 00:47: INJ, ONCE, [place] Stop date: 12/30/17 18:47:00 BR[employer] ST[employer]ER fentaNYL 0 No Route: IV, Mem oria (ANES) 12-31 Drug form: l 00:47: INJ, ONCE, Aj 00 Stop date: 12/30/17 18:47:00 BR[employer]ER ketOROLAC 2017-0 No IV, ONCE Eren flaquita (ANES) 12-31 l 00:47: Aj morphine 0 No Route: IV, Mem oria Sulfate 12-31 Drug form: l (ANES) 00:47: INJ, ONCE, [place] Stop date: 12/30/17 18:47:00 BR[employer] STACKER fentaNYL 0 No Route: IV, Mem oria (ANES) 12-31 Drug form: l 00:47: INJ, ONCE, Aj 00 Stop date: 12/30/17 18:47:00 BR[employer] ST[employer]ER ketOROLAC 0 No IV, ONCE Eren flaquita (ANES) 12-31 l 00:47: Aj morphine 0 No Route: IV, Mem oria Sulfate 12-31 Drug form: l (ANES) 00:47: INJ, ONCE, [place] Stop date: 12/30/17 18:47:00 BR[employer] ST[employer]ER fentaNYL 0 No Route: IV, Mem oria (ANES) 12-31 Drug form: l 00:47: INJ, ONCE, Aj Stop date: 12/30/17 18:47:00 BR[employer] dexamethaso 0 No Route: IV, Memoria ne (ANES) 12-31 Drug form: l 00:37: INJ, ONCE, [place] Stop date: 12/30/17 18:37:00 BR[employer]ER ondansetron 2017-0 No Route: IV, Memoria (ANES) 12-31 Drug form: l 00:37: INJ, ONCE, Aj 00 Stop date: 12/30/17 18:37:00 BR[employer] ST[employer]ER dexamethaso 2017-0 No Route: IV, Memoria ne (ANES) 12-31 Drug form: l 00:37: INJ, ONCE, Stop date: 12/30/17 18:37:00 BR[employer] ST[employer]ER ondansetron 2017-0 No Route: IV, Memoria (ANES) 12-31 Drug form: l 00:37: INJ, ONCE, Stop date: 12/30/17 18:37:00 BR[employer] ST[employer]ER dexamethaso 2017-0 No Route: IV, Memoria ne (ANES) 12-31 Drug form: l 00:37: INJ, ONCE, [place] 00 Stop date: 12/30/17 18:37:00 BR[employer] ST[employer]ER ondansetron 2017-0 No Route: IV, Memoria (ANES) 12-31 Drug form: l 00:37: INJ, ONCE, Stop date: 12/30/17 18:37:00 BR[employer] ST[employer]ER dexamethaso 2017-0 No Route: IV, Memoria ne (ANES) 12-31 Drug form: l 00:37: INJ, ONCE, Stop date: 12/30/17 18:37:00 BR[employer] ST[employer]ER ondansetron 0 No Route: IV, Memoria (ANES) 12-31 Drug form: l 00:37: INJ, ONCE, Stop date: 12/30/17 18:37:00 BR[employer] ST[employer]ER Acetaminoph 0 No Notes: Do M emoria en 325 MG / 12-31 not exceed l Hydrocodone 00:35: 4gm/day of [place] Bitartrate 00 acetaminop 10 MG Oral hen. (Same Tablet as: [place] 325/10) Acetaminoph No Notes: Eren flaquita en 325 MG / 12-31 (Same as: l Hydrocodone 00:35: [place] nn Bitartrate 00 325/5) Do 5 MG Oral not exceed Tablet 4gm/day of acetaminop hen. lanolin No Notes: Memoria topical 12-31 (Same l cream 00:35: as:Lanolin Willy n 00 ) Simethicone No Notes: Eren flaquita 12-31 (Same as: l 00:35: Mylicon) [place] Acetaminoph No Notes: Do M emoria en 12-31 not exceed l 00:35: 4 gm/day. Aj (Same as: Tylenol) zolpidem No Notes: Memoria 12-31 (Same As: l 00:35: Ambien) Aj Saline No Notes: Memoria Flush 0.9% 12-31 (Same as: l 00:35: BD Aj Posiflush) Docusate No Notes: Memoria 12-31 (Same as: l 00:35: Colace) [place] (Do Not Crush) Bisacodyl No Notes: Memori a 12-31 (Same As: l 00:35: Dulcolax, Aj Correctol) (Do Not Crush) "Do Not Crush" Lactated No 1,000 mL, Eren flaquita Ringers IV 12-31 Rate: 100 l 1,000 mL 00:35: ml/hr, Aj 00 Infuse over: 10 hr, Route: IV, Dosing Weight 55.455 kg, Total Volume: 1,000, Start date: 12/30/17 18:35:00 BR[employer] STACKER, Duration: 30 day, Stop date: 01/29/18 18:34:00 BRICK STACKER, 1.59, m2 Oxytocin No 30 unit, Memor ia 12-31 500 mL, l 00:35: Rate: 42 [place] 00 ml/hr, Infuse over: 11.9 hr, Dosing Weight 55.455, kg, Route: IV, Total Volume: 500 mL, Start date: 12/30/17 18:35:00 BR[employer] STACKER, Duration: 2 day, Stop date: 01/01/18 18:34:00 BRICK ST[employer]ER, Replace Every: 11.9 hr Acetaminoph No Notes: Do M emoria en 325 MG / 12-31 not exceed l Hydrocodone 00:35: 4gm/day of Aj Bitartrate 00 acetaminop 10 MG Oral hen. (Same Tablet as: [place] 325/10) Acetaminoph No Notes: Eren flaquita en 325 MG / 12-31 (Same as: l Hydrocodone 00:35: [place] nn Bitartrate 00 325/5) Do 5 MG Oral not exceed Tablet 4gm/day of acetaminop hen. lanolin No Notes: Memoria topical 12-31 (Same l cream 00:35: as:Lanolin Willy n 00 ) Simethicone No Notes: Eren flaquita 12-31 (Same as: l 00:35: Mylicon) Aj 00 Acetaminoph No Notes: Do M emoria en 12-31 not exceed l 00:35: 4 gm/day. [place] (Same as: Tylenol) zolpidem No Notes: Memoria 12-31 (Same As: l 00:35: Ambien) [place] 00 Saline No Notes: Memoria Flush 0.9% 12-31 (Same as: l 00:35: BD Aj 00 Posiflush) Docusate No Notes: Memoria 12-31 (Same as: l 00:35: Colace) Aj (Do Not Crush) Bisacodyl No Notes: Memori a 12-31 (Same As: l 00:35: Dulcolax, Aj 00 Correctol) (Do Not Crush) "Do Not Crush" Lactated No 1,000 mL, Eren flaquita [place]ers IV 12-31 Rate: 100 l 1,000 mL 00:35: ml/hr, Aj 00 Infuse over: 10 hr, Route: IV, Dosing Weight 55.455 kg, Total Volume: 1,000, Start date: 12/30/17 18:35:00 BR[employer] STACKER, Duration: 30 day, Stop date: 01/29/18 18:34:00 BRICK STACKER, 1.59, m2 Oxytocin No 30 unit, Memor ia 12-31 500 mL, l 00:35: Rate: 42 [place] 00 ml/hr, Infuse over: 11.9 hr, Dosing Weight 55.455, kg, Route: IV, Total Volume: 500 mL, Start date: 12/30/17 18:35:00 BR[employer] STACKER, Duration: 2 day, Stop date: 01/01/18 18:34:00 BRICK STACKER, Replace Every: 11.9 hr Acetaminoph No Notes: Do M emoria en 325 MG / 12-31 not exceed l Hydrocodone 00:35: 4gm/day of Aj Bitartrate 00 acetaminop 10 MG Oral hen. (Same Tablet as: [place] 325/10) Acetaminoph No Notes: Eren flaquita en 325 MG / 12-31 (Same as: l Hydrocodone 00:35: [place] nn Bitartrate 00 325/5) Do 5 MG Oral not exceed Tablet 4gm/day of acetaminop hen. lanolin No Notes: Memoria topical 12-31 (Same l cream 00:35: as:Lanolin Willy n 00 ) Simethicone No Notes: Eren flaquita 12-31 (Same as: l 00:35: Mylicon) [place] 00 Acetaminoph No Notes: Do M emoria en 12-31 not exceed l 00:35: 4 gm/day. [place] 00 (Same as: Tylenol) zolpidem No Notes: Memoria 12-31 (Same As: l 00:35: Ambien) Aj 00 Saline No Notes: Memoria Flush 0.9% 12-31 (Same as: l 00:35: BD [place] 00 Posiflush) Docusate No Notes: Memoria 12-31 (Same as: l 00:35: Colace) [place] (Do Not Crush) Bisacodyl No Notes: Memori a 12-31 (Same As: l 00:35: Dulcolax, Aj 00 Correctol) (Do Not Crush) "Do Not Crush" Lactated No 1,000 mL, Eren flaquita [place]ers IV 12-31 Rate: 100 l 1,000 mL 00:35: ml/hr, Aj 00 Infuse over: 10 hr, Route: IV, Dosing Weight 55.455 kg, Total Volume: 1,000, Start date: 12/30/17 18:35:00 BR[employer]ER, Duration: 30 day, Stop date: 01/29/18 18:34:00 BRICK STACKER, 1.59, m2 Oxytocin No 30 unit, Memor ia 12-31 500 mL, l 00:35: Rate: 42 Aj 00 ml/hr, Infuse over: 11.9 hr, Dosing Weight 55.455, kg, Route: IV, Total Volume: 500 mL, Start date: 12/30/17 18:35:00 BR[employer] ST[employer]ER, Duration: 2 day, Stop date: 01/01/18 18:34:00 BR[employer] STACKER, Replace Every: 11.9 hr Acetaminoph No Notes: Do M emoria en 325 MG / 12-31 not exceed l Hydrocodone 00:35: 4gm/day of [place] Bitartrate 00 acetaminop 10 MG Oral hen. (Same Tablet as: [place] 325/10) Acetaminoph No Notes: Eren flaquita en 325 MG / 12-31 (Same as: l Hydrocodone 00:35: [place] nn Bitartrate 00 325/5) Do 5 MG Oral not exceed Tablet 4gm/day of acetaminop hen. lanolin No Notes: Memoria topical 12-31 (Same l cream 00:35: as:Lanolin Willy n 00 ) Simethicone No Notes: Eren flaquita 12-31 (Same as: l 00:35: Mylicon) Aj Acetaminoph No Notes: Do M emoria en 12-31 not exceed l 00:35: 4 gm/day. Aj 00 (Same as: Tylenol) zolpidem No Notes: Memoria 12-31 (Same As: l 00:35: Ambien) Aj 00 Saline No Notes: Memoria Flush 0.9% 12-31 (Same as: l 00:35: BD Aj 00 Posiflush) Docusate No Notes: Memoria 12-31 (Same as: l 00:35: Colace) [place] (Do Not Crush) Bisacodyl No Notes: Memori a 12-31 (Same As: l 00:35: Dulcolax, Aj 00 Correctol) (Do Not Crush) "Do Not Crush" Lactated No 1,000 mL, Eren flaquita Ringers IV 12-31 Rate: 100 l 1,000 mL 00:35: ml/hr, [place] 00 Infuse over: 10 hr, Route: IV, Dosing Weight 55.455 kg, Total Volume: 1,000, Start date: 12/30/17 18:35:00 BR[employer]ER, Duration: 30 day, Stop date: 01/29/18 18:34:00 BR[employer] STACKER, 1.59, m2 Oxytocin 2018-0 No 30 unit, Memor ia 31 500 mL, l 00:35: Rate: 42 Aj 00 ml/hr, Infuse over: 11.9 hr, Dosing Weight 55.455, kg, Route: IV, Total Volume: 500 mL, Start date: 12/30/17 18:35:00 BR[employer] ST[employer]ER, Duration: 2 day, Stop date: 01/01/18 18:34:00 BR[employer] ST[employer]ER, Replace Every: 11.9 hr Pitocin 2017-0 No Route: IV, Eren flaquita (ANES) 12-31 Drug form: l 00:32: SOLN, [place] 00 ONCE, Stop date: 12/30/17 18:32:00 [employer] phenylephri 2017-0 No Route: IV, Memoria ne (ANES) 12-31 Drug form: l 00:32: INJ, ONCE, Aj 00 Stop date: 12/30/17 18:32:00 BR[employer] ST[employer] Pitocin 2017-0 No Route: IV, Eren flaquita (ANES) 12-31 Drug form: l 00:32: SOLN, Aj 00 ONCE, Stop date: 12/30/17 18:32:00 BR[employer] phenylephri 2017-0 No Route: IV, Memoria ne (ANES) 12-31 Drug form: l 00:32: INJ, ONCE, Aj 00 Stop date: 12/30/17 18:32:00 BR[employer] STACKER Pitocin 2017-0 No Route: IV, Eren flaquita (ANES) 12-31 Drug form: l 00:32: SOLN, Aj 00 ONCE, Stop date: 12/30/17 18:32:00 BR[employer]ER phenylephri 2018-0 No Route: IV, Memoria ne (ANES) 12-31 Drug form: l 00:32: INJ, ONCE, [place] 00 Stop date: 12/30/17 18:32:00 BR[employer] ST[employer]ER Pitocin 2018-0 No Route: IV, Eren flaquita (ANES) 12-31 Drug form: l 00:32: SOLN, Aj 00 ONCE, Stop date: 12/30/17 18:32:00 BR[employer]ER phenylephri 2017-0 No Route: IV, Memoria ne (ANES) 12-31 Drug form: l 00:32: INJ, ONCE, [place] 00 Stop date: 12/30/17 18:32:00 BR[employer] ST[employer]ER morphine 2018-0 No Route: Memoria Sulfate 12-31 INTRATHECA l (ANES) 00:17: L, Drug Aj 00 form: INJ, ONCE, Stop date: 12/30/17 18:17:00 BR[employer] ST[employer]ER morphine 2018-0 No Route: [facility] Sulfate 12-31 INTRATHECA l (ANES) 00:17: L, Drug [place] 00 form: INJ, ONCE, Stop date: 12/30/17 18:17:00 BR[employer] ST[employer]ER morphine 2018-0 No Route: [facility]oria Sulfate 12-31 INTRATHECA l (ANES) 00:17: L, Drug [place] 00 form: INJ, ONCE, Stop date: 12/30/17 18:17:00 BR[employer]ER morphine 2018-0 No Route: [facility] Sulfate 12-31 INTRATHECA l (ANES) 00:17: L, Drug [place] 00 form: INJ, ONCE, Stop date: 12/30/17 18:17:00 BR[employer] ST[employer]ER bupivacaine 2018-0 No Route: Eren flaquita (ANES) 12-31 INTRATHECA l 00:12: L, Drug Aj 00 Form: INJ, ONCE, Stop date: 12/30/17 18:12:00 [employer] ceFAZolin 2017-0 No Route: IV, Me moria (ANES) 12-31 Drug form: l 00:12: INJ, ONCE, [place] 00 Stop date: 12/30/17 18:12:00 [employer] fentaNYL 2018-0 No Route: Memoria (ANES) 12-31 INTRATHECA l 00:12: L, Drug Aj 00 form: INJ, ONCE, Stop date: 12/30/17 18:12:00 [employer] bupivacaine 2018-0 No Route: Eren flaquita (ANES) 12-31 INTRATHECA l 00:12: L, Drug Aj 00 Form: INJ, ONCE, Stop date: 12/30/17 18:12:00 [employer] ceFAZolin 2018-0 No Route: IV, Me moria (ANES) 12-31 Drug form: l 00:12: INJ, ONCE, [place] 00 Stop date: 12/30/17 18:12:00 [employer] fentaNYL 2018-0 No Route: Memoria (ANES) 12-31 INTRATHECA l 00:12: L, Drug [place] 00 form: INJ, ONCE, Stop date: 12/30/17 18:12:00 [employer] bupivacaine 2018-0 No Route: Eren flaquita (ANES) 12-31 INTRATHECA l 00:12: L, Drug Aj 00 Form: INJ, ONCE, Stop date: 12/30/17 18:12:00 [employer] ceFAZolin 2017-0 No Route: IV, Me moria (ANES) 12-31 Drug form: l 00:12: INJ, ONCE, Aj 00 Stop date: 12/30/17 18:12:00 [employer] fentaNYL 2018-0 No Route: Memoria (ANES) 12-31 INTRATHECA l 00:12: L, Drug Aj 00 form: INJ, ONCE, Stop date: 12/30/17 18:12:00 [employer] bupivacaine 2017-0 No Route: Eren flaquita (ANES) 12-31 INTRATHECA l 00:12: L, Drug [place] 00 Form: INJ, ONCE, Stop date: 12/30/17 18:12:00 [employer] ceFAZolin 2017-0 No Route: IV, Me moria (ANES) 12-31 Drug form: l 00:12: INJ, ONCE, [place] 00 Stop date: 12/30/17 18:12:00 [employer] fentaNYL 2017-0 No Route: Memoria (ANES) 12-31 INTRATHECA l 00:12: L, Drug Aj 00 form: INJ, ONCE, Stop date: 12/30/17 18:12:00 [employer] oxytocin 2017-0 No Route: IV, Mem oria (ANES) 12-31 Drug form: l unit 00:01: SOLN, Aj Start date: 12/30/17 18:01:00 [employer], Stop date: 12/30/17 19:01:00 [employer] oxytocin 2017-0 No Route: IV, Mem oria (ANES) 30 12-31 Drug form: l unit 00:01: SOLN, Aj Start date: 12/30/17 18:01:00 [employer], Stop date: 12/30/17 19:01:00 [employer] oxytocin 2017-0 No Route: IV, Mem oria (ANES) 12-31 Drug form: l unit 00:01: Aj RILEY Start date: 12/30/17 18:01:00 [employer], Stop date: 12/30/17 19:01:00 [employer] oxytocin 2017-0 No Route: IV, Mem oria (ANES) 12-31 Drug form: l unit 00:01: Aj RILEY Start date: 12/30/17 18:01:00 [employer], Stop date: 12/30/17 19:01:00 [employer] Lactated 2017-0 No Route: IV, Mem oria [place] 1-30 Total l Injection 23:28: Volume: Deidre nn IV (ANES) 00 1,000, 1000 mL Start date: 12/30/17 17:28:00 [employer], Stop date: 12/30/17 18:28:00 [employer] Lactated 2017-0 No Route: IV, Mem oria [place] 1-30 Total l Injection 23:28: Volume: Deidre nn IV (ANES) 00 1,000, 1000 mL Start date: 12/30/17 17:28:00 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 STACKER, Stop date: 12/30/17 18:28:00 BRICK STACKER Lactated 2017-0 No Route: IV, Mem oria Ringers 1-30 Total l Injection 23:28: Volume: Deidre nn IV (ANES) 00 1,000, 1000 mL Start date: 12/30/17 17:28:00 BRICK STACKER, Stop date: 12/30/17 18:28:00 BRICK STACKER Lactated 2017-0 No Route: IV, Mem oria Ringers 1-30 Total l Injection 23:28: Volume: Deidre nn IV (ANES) 00 1,000, 1000 mL Start date: 12/30/17 17:28:00 BRICK STACKER, Stop date: 12/30/17 18:28:00 BRICK STACKER Cefazolin 2017- No Notes: Memori a 12-30 (Same As: l 22:00: Aj Avalos Kefzol) MEDICATION WASTE Product Size: 1000 mg Product Wasted: ___ mg Methylergon No Notes: Eren flaquita ovine 12-30 (Same l 22:00: as:Metherg Aj 00 ine) Carboprost No Notes: Memor ia 1-30 (Same As: l 22:00: Hemabate) Aj Misoprostol No Notes: Eren flaquita 1-30 (Same l 22:00: as:Cytotec [place] ) Take with food Cefazolin No Notes: Memori a 1-30 (Same As: l 22:00: Ancef, [place] Kefzol) MEDICATION WASTE Product Size: 1000 mg Product Wasted: ___ mg Methylergon No Notes: Eren flaquita ovine 1-30 (Same l 22:00: as:Metherg Aj ine) Carboprost No Notes: Memor ia 1-30 (Same As: l 22:00: Hemabate) [place] 00 Misoprostol No Notes: Eren flaquita 1-30 (Same l 22:00: as:Cytotec Aj ) Take with food Cefazolin No Notes: Memori a 1-30 (Same As: l 22:00: Ancef, [place] 00 Kefzol) MEDICATION WASTE Product Size: 1000 mg Product Wasted: ___ mg Methylergon No Notes: Eren flaquita ovine 1-30 (Same l 22:00: as:Metherg [place] 00 ine) Carboprost No Notes: Memor ia 1-30 (Same As: l 22:00: Hemabate) [place] 00 Misoprostol No Notes: Eren flaquita 1-30 (Same l 22:00: as:Cytotec [place] ) Take with food Cefazolin No Notes: Memori a 1-30 (Same As: l 22:00: Ancef, Aj 00 Kefzol) MEDICATION WASTE Product Size: 1000 mg Product Wasted: ___ mg Methylergon 0 No Notes: Eren flaquita ovine 1-30 (Same l 22:00: as:Metherg Aj 00 ine) Carboprost No Notes: Memor ia 1-30 (Same As: l 22:00: Hemabate) Aj Misoprostol 2018-0 No Notes: Eren flaquita 1-30 (Same l 22:00: as:Cytotec [place] 00 ) Take with food Metoclopram No Notes: Eren flaquita [place] 30 (Same as: l 21:39: Reglan) [place] 00 Morphine No Notes: Memoria 30 (Same l 21:39: as:MORPhin [place] 00 e Sulfate) Ondansetron No Notes: Eren flaquita -30 (Same as: l 21:39: Zofran) MEDICATION WASTE Product Size: 4 mg Product Wasted: ___ mg Calcium No 1,000 mL, Memor ia Chloride 12-30 Rate: 125 l 0.0014 21:39: ml/hr, [place] MEQ/ML / 00 Infuse Potassium over: 8 Chloride hr, Route: 0.004 IV, Dosing MEQ/ML / Weight Sodium 55.455 kg, Chloride Total 0.103 Volume: MEQ/ML / 1,000, Sodium Start Lactate date: 0.028 12/30/17 MEQ/ML 15:39:00 Injectable BRICK STACKER, Solution Duration: 30 day, Stop date: 01/29/18 15:38:00 BRICK STACKER, 1.59, m2 Famotidine No Notes: Memor ia -30 (Same as: l 21:39: Pepcid) Can be dilute in 5-10cc NS IVP: Slow IV push over at least 2 minutes. Oxytocin No 30 unit, Memor ia 1-30 500 mL, l 21:39: Rate: 42 [place] 00 ml/hr, Infuse over: 11.9 hr, Dosing Weight 55.455, kg, Route: IV, Total Volume: 500 mL, Start date: 12/30/17 15:39:00 BRICK STACKER, Duration: 1 doses or times, Stop date: 12/31/17 3:32:00 BRICK STACKER, Replace Every: 11.9 hr Terbutaline No Notes: Eren flaquita -30 DO NOT l 21:39: USE IN Aj [employer] (Same As: [place]) Citric Acid No Notes: Eren flaquita / sodium 30 (Same As: l citrate 21:39: Bicitra) [place] 00 Metoclopram No Notes: Eren flaquita [place] 1-30 (Same as: l 21:39: Reglan) [place] 00 Morphine No Notes: Memoria -30 (Same l 21:39: as:MORPhin Aj 00 e Sulfate) Ondansetron No Notes: Eren flaquita 1-30 (Same as: l 21:39: Zofran) Aj 00 MEDICATION WASTE Product Size: 4 mg Product Wasted: ___ mg Calcium No 1,000 mL, Memor ia Chloride 1-30 Rate: 125 l 0.0014 21:39: ml/hr, Aj MEQ/ML / 00 Infuse Potassium over: 8 Chloride hr, Route: 0.004 IV, Dosing MEQ/ML / Weight Sodium 55.455 kg, Chloride Total 0.103 Volume: MEQ/ML / 1,000, Sodium Start Lactate date: 0.028 12/30/17 MEQ/ML 15:39:00 Injectable BRICK STACKER, Solution Duration: 30 day, Stop date: 01/29/18 15:38:00 BRICK STACKER, 1.59, m2 Famotidine No Notes: Memor ia 1-30 (Same as: l 21:39: Pepcid) Can be dilute in 5-10cc NS IVP: Slow IV push over at least 2 minutes. Oxytocin No 30 unit, Memor ia 1-30 500 mL, l 21:39: Rate: 42 Aj 00 ml/hr, Infuse over: 11.9 hr, Dosing Weight 55.455, kg, Route: IV, Total Volume: 500 mL, Start date: 12/30/17 15:39:00 BRICK STACKER, Duration: 1 doses or times, Stop date: 12/31/17 3:32:00 BRICK STACKER, Replace Every: 11.9 hr Terbutaline No Notes: Eren flauqita 1-30 DO NOT l 21:39: USE IN [place] 00 [employer] (Same As: Brethine) Citric Acid No Notes: Eren flaquita / sodium 1-30 (Same As: l citrate 21:39: Bicitra) [place] 00 Metoclopram No Notes: Eren flaquita [place] 1-30 (Same as: l 21:39: Reglan) Aj 00 Morphine No Notes: Memoria 1-30 (Same l 21:39: as:MORPhin Aj 00 e Sulfate) Ondansetron No Notes: Eren flaquita 1-30 (Same as: l 21:39: Zofran) [place] 00 MEDICATION WASTE Product Size: 4 mg Product Wasted: ___ mg Calcium No 1,000 mL, Memor ia Chloride 1-30 Rate: 125 l 0.0014 21:39: ml/hr, [place] MEQ/ML / 00 Infuse Potassium over: 8 Chloride hr, Route: 0.004 IV, Dosing MEQ/ML / Weight Sodium 55.455 kg, Chloride Total 0.103 Volume: MEQ/ML / 1,000, Sodium Start Lactate date: 0.028 12/30/17 MEQ/ML 15:39:00 Injectable BRICK STACKER, Solution Duration: 30 day, Stop date: 01/29/18 15:38:00 BRICK STACKER, 1.59, m2 Famotidine No Notes: Memor ia 1-30 (Same as: l 21:39: Pepcid) Aj 00 Can be dilute in 5-10cc NS IVP: Slow IV push over at least 2 minutes. Oxytocin No 30 unit, Memor ia 1-30 500 mL, l 21:39: Rate: 42 [place] 00 ml/hr, Infuse over: 11.9 hr, Dosing Weight 55.455, kg, Route: IV, Total Volume: 500 mL, Start date: 12/30/17 15:39:00 BRICK STACKER, Duration: 1 doses or times, Stop date: 12/31/17 3:32:00 BRICK STACKER, Replace Every: 11.9 hr Terbutaline No Notes: Eren flaquita 1-30 DO NOT l 21:39: USE IN [place] [employer] (Same As: Brethine) Citric Acid No Notes: Eren flaquita / sodium 1-30 (Same As: l citrate 21:39: Bicitra) [place] 00 Metoclopram No Notes: Eren flaquita [place] 1-30 (Same as: l 21:39: Reglan) Aj 00 Morphine No Notes: Memoria 1-30 (Same l 21:39: as:MORPhin [place] 00 e Sulfate) Ondansetron No Notes: Eren flaquita 30 (Same as: l 21:39: Zofran) MEDICATION WASTE Product Size: 4 mg Product Wasted: ___ mg Calcium No 1,000 mL, Memor ia Chloride 30 Rate: 125 l 0.0014 21:39: ml/hr, Aj MEQ/ML / 00 Infuse Potassium over: 8 Chloride hr, Route: 0.004 IV, Dosing MEQ/ML / Weight Sodium 55.455 kg, Chloride Total 0.103 Volume: MEQ/ML / 1,000, Sodium Start Lactate date: 0.028 12/30/17 MEQ/ML 15:39:00 Injectable BRICK STACKER, Solution Duration: 30 day, Stop date: 01/29/18 15:38:00 BRICK STACKER, 1.59, m2 Famotidine No Notes: Memor ia - (Same as: l 21:39: Pepcid) Can be dilute in 5-10cc NS IVP: Slow IV push over at least 2 minutes. Oxytocin No 30 unit, Memor ia -30 500 mL, l 21:39: Rate: 42 Aj 00 ml/hr, Infuse over: 11.9 hr, Dosing Weight 55.455, kg, Route: IV, Total Volume: 500 mL, Start date: 12/30/17 15:39:00 BRICK STACKER, Duration: 1 doses or times, Stop date: 12/31/17 3:32:00 BRICK STACKER, Replace Every: 11.9 hr Terbutaline No Notes: Eren flaquita 12-30 DO NOT l 21:39: USE IN [place] 00 [employer] (Same As: Bre[place]ine) Citric Acid No Notes: Eren flaquita / sodium 12-30 (Same As: l citrate 21:39: Bicitra) [place] 00 valacyclovi No 1 gm = 1 Me moria r 1000 MG 1-10 tab, PO, l Oral Tablet 04:27: Q8H, 0 Herm rhona [Valtrex] 00 Refill(s) Sertraline No 50 mg = 1 Me moria 50 MG Oral 1-10 tab, PO, l Tablet 04:27: Daily, 0 [place] [Zoloft] 00 Refill(s) valacyclovi 2018-0 No 1 gm = 1 Me moria r 1000 MG 1-10 tab, PO, l Oral Tablet 04:27: Q8H, 0 Herm rhona [Valtrex] 00 Refill(s) Sertraline 2018-0 No 50 mg = 1 Me moria 50 MG Oral 1-10 tab, PO, l Tablet 04:27: Daily, 0 [place] [Zoloft] 00 Refill(s) valacyclovi 2018-0 No 1 gm = 1 Me moria r 1000 MG 1-10 tab, PO, l Oral Tablet 04:27: Q8H, 0 Herm rhona [Valtrex] 00 Refill(s) Sertraline 2018-0 No 50 mg = 1 Me moria 50 MG Oral 1-10 tab, PO, l Tablet 04:27: Daily, 0 [place] [Zoloft] 00 Refill(s) valacyclovi 2018-0 No 1 gm = 1 Me moria r 1000 MG 1-10 tab, PO, l Oral Tablet 04:27: Q8H, 0 Herm rhona [Valtrex] 00 Refill(s) Sertraline 2018-0 No 50 mg = 1 Me moria 50 MG Oral 1-10 tab, PO, l Tablet 04:27: Daily, 0 [place] [Zoloft] 00 Refill(s) Calcium 2017-0 No 1,000 mL, Memor ia Chloride 1-10 Rate: 125 l 0.0014 04:26: ml/hr, Aj MEQ/ML / 00 Infuse Potassium over: 8 Chloride hr, Route: 0.004 IV, Dosing MEQ/ML / Weight Sodium 54.545 kg, Chloride Total 0.103 Volume: MEQ/ML / 1,000, Sodium Start Lactate date: 0.028 12/09/17 MEQ/ML 22:26:00 Injectable BRICK STACKER, Solution Duration: 30 day, Stop date: 01/08/18 22:25:00 BRICK STACKER, 1.57, m2 Calcium 2017-0 No 1,000 mL, Memor ia Chloride 1-10 Rate: 125 l 0.0014 04:26: ml/hr, [place] MEQ/ML / 00 Infuse Potassium over: 8 Chloride hr, Route: 0.004 IV, Dosing MEQ/ML / Weight Sodium 54.545 kg, Chloride Total 0.103 Volume: MEQ/ML / 1,000, Sodium Start Lactate date: 0.028 12/09/17 MEQ/ML 22:26:00 Injectable BRICK STACKER, Solution Duration: 30 day, Stop date: 01/08/18 22:25:00 BRICK STACKER, 1.57, m2 Calcium 2018-0 No 1,000 mL, Memor ia Chloride 1-10 Rate: 125 l 0.0014 04:26: ml/hr, Aj MEQ/ML / 00 Infuse Potassium over: 8 Chloride hr, Route: 0.004 IV, Dosing MEQ/ML / Weight Sodium 54.545 kg, Chloride Total 0.103 Volume: MEQ/ML / 1,000, Sodium Start Lactate date: 0.028 12/09/17 MEQ/ML 22:26:00 Injectable BRICK STACKER, Solution Duration: 30 day, Stop date: 01/08/18 22:25:00 BRICK STACKER, 1.57, m2 Calcium 2018-0 No 1,000 mL, Memor ia Chloride 1-10 Rate: 125 l 0.0014 04:26: ml/hr, Aj MEQ/ML / 00 Infuse Potassium over: 8 Chloride hr, Route: 0.004 IV, Dosing MEQ/ML / Weight Sodium 54.545 kg, Chloride Total 0.103 Volume: MEQ/ML / 1,000, Sodium Start Lactate date: 0.028 12/09/17 MEQ/ML 22:26:00 Injectable BRICK STACKER, Solution Duration: 30 day, Stop date: 01/08/18 22:25:00 BRICK STACKER, 1.57, m2 valacyclovi No 1 gm = 1 Me moria r 1000 MG 1-08 tab, PO, l Oral Tablet 19:51: Q24H, X 30 [place] [Valtrex] 00 day, # 30 tab, 1 Refill(s), Pharmacy: [facility]5 valacyclovi No 1 gm = 1 Me moria r 1000 MG 1-08 tab, PO, l Oral Tablet 19:51: Q24H, X 30 [place] [Valtrex] 00 day, # 30 tab, 1 Refill(s), Pharmacy: [facility]5 valacyclovi No 1 gm = 1 Me moria r 1000 MG 1-08 tab, PO, l Oral Tablet 19:51: Q24H, X 30 [place] [Valtrex] 00 day, # 30 tab, 1 Refill(s), Pharmacy: [facility] valacyclovi No 1 gm = 1 Me moria r 1000 MG 1-08 tab, PO, l Oral Tablet 19:51: Q24H, X 30 Aj [Valtrex] 00 day, # 30 tab, 1 Refill(s), Pharmacy: [facility] valacyclovi No 500 mg = 1 Memoria r 500 MG 1-08 tab, PO, l Oral Tablet 18:12: Q12H, 0 Her peña [Valtrex] 00 Refill(s) valacyclovi 2018 No 500 mg = 1 Memoria r 500 MG 1-08 tab, PO, l Oral Tablet 18:12: Q12H, 0 Her peña [Valtrex] 00 Refill(s) valacyclovi No 500 mg = 1 Memoria r 500 MG 1-08 tab, PO, l Oral Tablet 18:12: Q12H, 0 Her peña [Valtrex] 00 Refill(s) valacyclovi 2018 No 500 mg = 1 Memoria r 500 MG 1-08 tab, PO, l Oral Tablet 18:12: Q12H, 0 Her peña [Valtrex] 00 Refill(s) valacyclovi 2016-12 Yes 1 gm = 1 Me moria r 1000 MG 2-28 tab, PO, l Oral Tablet 17:53: BID, X 10 [place] [Valtrex] 00 day, # 20 tab, 0 Refill(s), Pharmacy: [facility] valacyclovi 2016-12 Yes 1 gm = 1 Me moria r 1000 MG 2-28 tab, PO, l Oral Tablet 17:53: BID, X 10 H [place] [Valtrex] 00 day, # 20 tab, 0 Refill(s), Pharmacy: [facility] valacyclovi 2016-12 Yes 1 gm = 1 Me moria r 1000 MG 2-28 tab, PO, l Oral Tablet 17:53: BID, X 10 H [place] [Valtrex] 00 day, # 20 tab, 0 Refill(s), Pharmacy: [facility] valacyclovi 2016-12 Yes 1 gm = 1 Me moria r 1000 MG 2-28 tab, PO, l Oral Tablet 17:53: BID, X 10 H [place] [Valtrex] 00 day, # 20 tab, 0 Refill(s), Pharmacy: [facility]5 amoxicillin amoxicillin No 1 Q12H amoxicilli [place] [phone] [phone] da mg-potassiu mg-potassiu mg-potassi [facility] clavulanate clavulanate clavulanat Health 125 mg 125 mg e 125 mg Outreac tablet Take tablet Take tablet h 1 tablet 1 tablet Take 1 Progr am every 12 every 12 tablet hours by hours by every 12 oral route oral route hours by as directed as directed oral route for 7 days. for 7 days. as directed for 7 days. nitrofurant nitrofurant No nitrofuran [place]in toin da monohydrate monohydrate monohydrat [facility] /macrocryst /macrocryst e/macrocry al als 100 mg als 100 mg stals 100 Health capsule capsule mg capsule Out reac TAKE 1 TAKE 1 TAKE 1 h CAPSULE BY CAPSULE BY CAPSULE BY Program MOUTH TWICE MOUTH TWICE MOUTH DAILY FOR DAILY FOR TWICE URINARY URINARY DAILY FOR INFECTION INFECTION URINARY INFECTION Poly-Hist Poly-Hist No 10mL Q1D Poly-Hist [place] DM DM DM da (thonzylami (thonzylami (thonzylam [facility] ne) 25 mg-5 ne) 25 mg-5 ine) 25 al mg-10 mg/5 mg-10 mg/5 mg-5 mg-10 Health mL oral mL oral mg/5 mL Outrea c liquid Take liquid Take oral h 10 mL every 10 mL every liquid Program day by oral day by oral Take 10 mL route as route as every day needed. needed. by oral route as needed. propranolol propranolol No propranolo [place] [facility] Immunizations Ordered Immunization Filled Immunization Date Status Commen ts Source Name Name Hep A, ped/adol, 2 2011-08-29 [facility] Varicella 2011-08-29 [facility] 00:00:00 Hep A, ped/adol, 2 2011-08-29 [facility]00 Varicella 2011-08-29 [facility] 00:00:00 Hep A, ped/adol, 2 2011-08-29 [facility]:00 Varicella 2011-08-29 [facility] 00:00:00 Hep A, ped/adol, 2 2011-08-29 [facility]:00 Varicella 2011-08-29 [facility] 00:00:00 Hep A, ped/adol, 2 2011-08-29 [facility]00 Varicella 2011-08-29 [facility] 00:00:00 Hep A, ped/adol, 2 2011-08-29 [facility]00 Varicella 2011-08-29 [facility] 00:00:00 Hep A, ped/adol, 2 2011-08-29 [facility]:00 Varicella 2011-08-29 [facility] 00:00:00 Hep A, ped/adol, 2 2011-08-29 [facility]00 Varicella 2011-08-29 [facility] 00:00:00 Hep A, ped/adol, 2 2011-08-29 [facility]:00 Varicella 2011-08-29 [facility] 00:00:00 Hep A, ped/adol, 2 2011-08-29 [facility]:00 Varicella 2011-08-29 [facility] 00:00:00 Hep A, ped/adol, 2 2011-08-29 [facility]:00 Varicella 2011-08-29 [facility] 00:00:00 Hep A, ped/adol, 2 Hep A, ped/adol, 2 2011-08-29 Completed [place] dose - ML dose - ML 00:00:00 [facility] varicella - ML varicella - ML 2011-08-29 Completed [place] [employer] 00:00:00 [facility] Meningococcal MCV4P 2011-08-21 [facility] Tdap 2011-08-21 [facility] 00:00:00 Meningococcal MCV4P 2011-08-21 [facility] Tdap 2011-08-21 [facility] 00:00:00 Meningococcal MCV4P 2011-08-21 [facility]00 Tdap 2011-08-21 [facility] 00:00:00 Meningococcal MCV4P 2011-08-21 [facility] Tdap 2011-08-21 [facility] 00:00:00 Meningococcal MCV4P 2011-08-21 [facility] Tdap 2011-08-21 [facility] 00:00:00 Meningococcal MCV4P 2011-08-21 [facility] Tdap 2011-08-21 [facility] 00:00:00 Meningococcal MCV4P 2011-08-21 [facility] Tdap 2011-08-21 [facility] 00:00:00 Meningococcal MCV4P 2011-08-21 [facility] Tdap 2011-08-21 [facility] 00:00:00 Meningococcal MCV4P 2011-08-21 [facility] Tdap 2011-08-21 [facility] 00:00:00 Meningococcal MCV4P 2011-08-21 [facility] Tdap 2011-08-21 [facility] 00:00:00 Meningococcal MCV4P 2011-08-21 [facility] Tdap 2011-08-21 [facility] 00:00:00 meningococcal MCV4P meningococcal MCV4P 2011-08-21 Completed [place] - ML - ML 00:00:00 [facility] Tdap - ML Tdap - ML 2011-08-21 Completed [place] 00:00:00 [facility] MMR 2003-04-12 [facility] 00:00:00 DTaP, Unspecified 2003-04-12 [facility] IPV 2003-04-12 [facility] 00:00:00 MMR 2003-04-12 [facility]pleted [facility] 00:00:00 DTaP, Unspecified 2003-04-12 [facility] IPV 2003-04-12 [facility] 00:00:00 MMR 2003-04-12 [facility]pleted [facility] 00:00:00 DTaP, Unspecified 2003-04-12 [facility] IPV 2003-04-12 [facility] 00:00:00 MMR 2003-04-12 [facility]pleted [facility] 00:00:00 DTaP, Unspecified 2003-04-12 [facility] IPV 2003-04-12 [facility] 00:00:00 MMR 2003-04-12 [facility]pleted [facility] 00:00:00 DTaP, Unspecified 2003-04-12 [facility] IPV 2003-04-12 [facility] 00:00:00 MMR 2003-04-12 [facility]pleted [facility] 00:00:00 DTaP, Unspecified 2003-04-12 [facility] IPV 2003-04-12 [facility] 00:00:00 MMR 2003-04-12 [facility]pleted [facility] 00:00:00 DTaP, Unspecified 2003-04-12 [facility] IPV 2003-04-12 [facility] 00:00:00 MMR 2003-04-12 [facility]pleted [facility] 00:00:00 DTaP, Unspecified 2003-04-12 [facility] IPV 2003-04-12 [facility] 00:00:00 MMR 2003-04-12 [facility]pleted [facility] 00:00:00 DTaP, Unspecified 2003-04-12 [facility] IPV 2003-04-12 [facility] 00:00:00 MMR 2003-04-12 [facility]pleted [facility] 00:00:00 DTaP, Unspecified 2003-04-12 [facility] IPV 2003-04-12 [facility] 00:00:00 MMR 2003-04-12 [facility]pleted [facility] 00:00:00 DTaP, Unspecified 2003-04-12 [facility] IPV 2003-04-12 [facility] 00:00:00 DTaP, unspecified DTaP, unspecified 2003-04-12 Completed [place] formulation - ML formulation - ML 00:00:00 [facility] IPV - ML IPV - ML 2003-04-12 Completed [place] 00:00:00 [facility] MMR - ML MMR - ML 2003-04-12 Completed [place] 00:00:00 [facility] DTaP, Unspecified 2000-08-26 [facility] Hib (PRP-T) 2000-08-26 [facility]pleted [facility] 00:00:00 IPV 2000-08-26 [facility] 00:00:00 DTaP, Unspecified 2000-08-26 [facility] Hib (PRP-T) 2000-08-26 [facility]pleted [facility] 00:00:00 IPV 2000-08-26 [facility] 00:00:00 DTaP, Unspecified 2000-08-26 [facility] Hib (PRP-T) 2000-08-26 [facility]pleted [facility] 00:00:00 IPV 2000-08-26 [facility] 00:00:00 DTaP, Unspecified 2000-08-26 [facility] Hib (PRP-T) 2000-08-26 [facility]pleted [facility] 00:00:00 IPV 2000-08-26 [facility] 00:00:00 DTaP, Unspecified 2000-08-26 [facility]:00 Hib (PRP-T) 2000-08-26 [facility]pleted [facility] 00:00:00 IPV 2000-08-26 [facility] 00:00:00 DTaP, Unspecified 2000-08-26 [facility]:00 Hib (PRP-T) 2000-08-26 [facility]pleted [facility] 00:00:00 IPV 2000-08-26 [facility] 00:00:00 DTaP, Unspecified 2000-08-26 [facility]:00 Hib (PRP-T) 2000-08-26 [facility]pleted [facility] 00:00:00 IPV 2000-08-26 [facility] 00:00:00 DTaP, Unspecified 2000-08-26 [facility]:00 Hib (PRP-T) 2000-08-26 [facility]pleted [facility] 00:00:00 IPV 2000-08-26 [facility] 00:00:00 DTaP, Unspecified 2000-08-26 [facility]:00 Hib (PRP-T) 2000-08-26 [facility]pleted [facility] 00:00:00 IPV 2000-08-26 [facility] 00:00:00 DTaP, Unspecified 2000-08-26 [facility]:00 Hib (PRP-T) 2000-08-26 [facility]pleted [facility] 00:00:00 IPV 2000-08-26 [facility] 00:00:00 DTaP, Unspecified 2000-08-26 [facility] Hib (PRP-T) 2000-08-26 [facility] 00:00:00 IPV 2000-08-26 [facility] 00:00:00 IPV - ML IPV - ML 2000-08-26 Completed [place] 00:00:00 [facility] Hib (PRP-T) - ML Hib (PRP-T) - ML 2000-08-26 Com[place] 00:[facility] DTaP, unspecified DTaP, unspecified 2000-08-26 Completed [place] formulation - ML formulation - ML 00:00:00 [facility] MMR 2000-02-26 [facility] 00:[facility]:00 Hep B, Adolescent or 2000-02-26 [facility] Varicella 2000-02-26 [facility] 00:00:00 MMR 2000-02-26 [facility] 00:00:00 Hep B, Adolescent or 2000-02-26 [facility]:00 Varicella 2000-02-26 [facility] 00:00:00 MMR 2000-02-26 [facility] 00:00:00 Hep B, Adolescent or 2000-02-26 [facility]:00 Varicella 2000-02-26 [facility] 00:00:00 MMR 2000-02-26 [facility] 00:00:00 Hep B, Adolescent or 2000-02-26 [facility]:00 Varicella 2000-02-26 [facility] 00:00:00 MMR 2000-02-26 [facility] 00:00:00 Hep B, Adolescent or 2000-02-26 [facility]:00 Varicella 2000-02-26 [facility] 00:00:00 MMR 2000-02-26 [facility] 00:00:00 Hep B, Adolescent or 2000-02-26 [facility]:00 Varicella 2000-02-26 [facility] 00:00:00 MMR 2000-02-26 [facility] 00:00:00 Hep B, Adolescent or 2000-02-26 [facility]:00 Varicella 2000-02-26 [facility] 00:00:00 MMR 2000-02-26 [facility] 00:00:00 Hep B, Adolescent or 2000-02-26 [facility]:00 Varicella 2000-02-26 [facility] 00:00:00 MMR 2000-02-26 [facility] 00:00:00 Hep B, Adolescent or 2000-02-26 [facility] 00:[facility]:00 Varicella 2000-02-26 [facility]pleted [facility] 00:00:00 MMR 2000-02-26 Completed [facility] 00:00:00 Hep B, Adolescent or 2000-02-26 [facility] 00:[facility]:00 Varicella 2000-02-26 [facility]pleted [facility] 00:00:00 MMR 2000-02-26 Completed [facility] 00:00:00 Hep B, Adolescent or 2000-02-26 [facility] 00:[facility]:00 Varicella 2000-02-26 [facility]pleted [facility] 00:00:00 varicella - ML varicella - ML 2000-02-26 Completed [facility] 00:[facility]00 [facility] Hep B, adolescent or Hep B, adolescent or 2000-02-26 Completed [place] [facility] - [facility] pediatric - [facility] 00:00:00 [facility] MMR - ML MMR - ML 2000-02-26 Completed [place] 00:00:00 [facility] DTaP, Unspecified [facility] Hib ([facility]P-T) 1999 [facility] 00[facility]:00 DTaP, Unspecified 1999 [facility] Hib (PRP-T) 1999 Com[facility] 00:00:00 DTaP, Unspecified 1999 [facility] Hib (PRP-T) 1999 Com[facility] 00:00:00 DTaP, Unspecified 1999 [facility] Hib (PRP-T) 1999 Com[facility] 00:00:00 DTaP, Unspecified 1999 [facility] Hib (PRP-T) 1999 Completed [facility] 00[facility]00:00 DTaP, Unspecified 1999 [facility] Hib (PRP-T) 1999 Com[facility] 00:00:00 DTaP, Unspecified 1999 [facility] Hib (PRP-T) 1999 Completed [facility] 00:00:00 DTaP, Unspecified 1999 [facility] Hib (PRP-T) 1999 Completed [facility] 00:00:00 DTaP, Unspecified 1999 [facility] Hib (PRP-T) 1999 Completed [facility] 00:00:00 DTaP, Unspecified 1999 [facility] Hib (PRP-T) 1999 Completed [facility] 00:00:00 DTaP, Unspecified 1999 [facility] Hib (PRP-T) 1999 Completed [facility] 00:00:00 Hib (PRP-T) - ML Hib (PRP-T) - ML 1999 Completed [place] 00:00:00 [facility] DTaP, unspecified DTaP, unspecified 1999 Completed [place] formulation - ML formulation - ML [facility] H[facility] 00[facility]V [facility] 00:[facility] DTaP, Unspecified [facility] Hib (PRP-T) 1999 [facility] 00:00:00 IPV 1999 [facility] 00:00:00 DTaP, Unspecified 1999 [facility] Hib (PRP-T) 1999 Completed [facility] 00:00:00 IPV 1999 [facility] 00:00:00 DTaP, Unspecified 1999 [facility] Hib (PRP-T) 1999 Completed [facility] 00:00:00 IPV 1999 [facility] 00:00:00 DTaP, Unspecified 1999 [facility] Hib (PRP-T) 1999 Completed [facility] 00:00:00 IPV 1999 [facility] 00:00:00 DTaP, Unspecified 1999 [facility] Hib (PRP-T) 1999 Completed [facility] 00:00:00 IPV 1999 [facility] 00:00:00 DTaP, Unspecified 1999 [facility] Hib (PRP-T) 1999 Completed [facility] 00:00:00 IPV 1999 [facility]pleted [facility] 00:00:00 DTaP, Unspecified 1999 [facility] Hib (PRP-T) 1999 Completed [facility] 00:00:00 IPV 1999 [facility] 00:00:00 DTaP, Unspecified 1999 [facility] Hib (PRP-T) 1999 Completed [facility] 00:00:00 IPV 1999 [facility] 00:00:00 DTaP, Unspecified 1999 [facility] Hib (PRP-T) 1999 Completed [facility] 00:00:00 IPV 1999 [facility] 00:00:00 DTaP, Unspecified 1999 [facility] Hib (PRP-T) 1999 Com[facility] 00:00:00 IPV 1999 [facility] 00:00:00 Hib (PRP-T) - ML Hib (PRP-T) - ML 1999 Com[place] 00:[facility] IPV - ML IPV - ML 1999 Completed [place] 00:00:00 [facility] DTaP, unspecified DTaP, unspecified 1999 Completed [place] formulation - ML formulation - ML 00:00:00 [facility] IPV - ML IPV - ML 1999 Completed [place] 00:00:00 [facility] DTaP, Unspecified [facility] Hib (PRP-T) 1999 Completed [facility] 00:00:00 IPV 1999 [facility] 00:00:00 DTaP, Unspecified 1999 [facility] 00:[facility] Hib (PRP-T) 1999 Completed [facility] 00:00:00 IPV 1999 [facility] 00:00:00 DTaP, Unspecified 1999 [facility] Hib (PRP-T) 1999 Completed [facility] 00:00:00 IPV 1999 [facility] 00:00:00 DTaP, Unspecified 1999 [facility] Hib (PRP-T) 1999 Completed [facility] 00:00:00 IPV 1999 [facility] 00:00:00 DTaP, Unspecified 1999 [facility] Hib (PRP-T) 1999 Completed [facility] 00:00:00 IPV 1999 [facility] 00:00:00 DTaP, Unspecified 1999 [facility] Hib (PRP-T) 1999 Completed [facility] 00:00:00 IPV 1999 [facility] 00[facility]00:00 DTaP, Unspecified 1999 [facility] Hib (PRP-T) 1999 [facility]pleted [facility] 00:00:00 IPV 1999 [facility] 00:00:00 DTaP, Unspecified 1999 [facility] Hib (PRP-T) 1999 [facility]pleted [facility] 00:00:00 IPV 1999 [facility] 00:00:00 DTaP, Unspecified 1999 [facility] Hib (PRP-T) 1999 [facility]pleted [facility] 00:00:00 IPV 1999 [facility] 00:00:00 DTaP, Unspecified 1999 [facility] Hib (PRP-T) 1999 Completed [facility] 00:00:00 IPV 1999 [facility] 00[facility]00:00 DTaP, Unspecified 1999 [facility] Hib (PRP-T) 1999 [facility] 00:00:00 IPV 1999 [facility] 00:00:00 DTaP, unspecified DTaP, unspecified 1999 Completed [place] formulation - ML formulation - ML 00:00:00 [facility] Hib (PRP-T) - ML Hib (PRP-T) - ML 1999 Completed [place] 00:00:00 [facility] Hep B, adolescent or Hep B, adolescent or 1999 Completed [place] pediatric - ML pediatric - ML 00:00:00 [facility] Hep B, Adolescent [facility] B, Adolescent or [facility] Hep B, Adolescent or 1999 [facility] Hep B, Adolescent or 1999 [facility] Hep B, Adolescent or 1999 [facility] Hep B, Adolescent or 1999 [facility] Hep B, Adolescent or 1999 [facility] Hep B, Adolescent or 1999 [facility] Hep B, Adolescent or 1999 [facility] Hep B, Adolescent or 1999 [facility] Hep B, Adolescent or 1999 [facility] Hep B, adolescent or Hep B, adolescent or 1999 Completed [place] pediatric - ML pediatric - ML 00:00:00 [facility] Hep B, Adolescent or [facility] Hep B, Adolescent or 1999 [facility] Hep B, Adolescent or 1999 [facility] Hep B, Adolescent or 1999 [facility] Hep B, Adolescent or 1999 [facility] Hep B, Adolescent or 1999 [facility] Hep B, Adolescent or 1999 [facility] Hep B, Adolescent or 1999 [facility]:00 Hep B, Adolescent or 1999 [facility] Hep B, Adolescent or 1999 [facility] 00:[facility]:00 Hep B, Adolescent or 1999 [facility] 00:[facility]:00 Vital Signs Vital Name Observation Time Observation Value Comments Source Heart rate 2021-11-07 87 /min [facility] 15:20:00 Body height 2021-11-07 160 cm [facility] 15:20:00 Body weight 2021-11-07 70.308 kg [facility] 15:20:00 BMI 2021-11-07 27.46 kg/m2 [facility] 15:20:00 Systolic blood 2021-11-07 123 mm[Hg] [facility] pressure 15:20:00 Diastolic blood 2021-11-07 80 mm[Hg] [facility] pressure 15:20:00 Systolic blood 2023-04-10 123 mm[Hg] [facility] pressure 15:15:00 Diastolic blood 2023-04-10 85 mm[Hg] [facility] pressure 15:15:00 Heart rate 2023-04-10 95 /min [facility] 15:15:00 Body temperature 2023-04-10 36.83 Becky [facility] 15:15:00 Body height 2023-04-10 154.9 cm [facility] 15:15:00 Body weight 2023-04-10 70.308 kg [facility] 15:15:00 BMI 2023-04-10 29.29 kg/m2 [facility] 15:15:00 Systolic blood 2023-02-27 132 mm[Hg] [facility] pressure 09:28:00 Diastolic blood 2023-02-27 84 [facility] Heart [facility] 2023-02-27 94 /min [facility] 09:28:00 Body temperature 2023-02-27 37.06 Becky [facility] 09:28:00 Respiratory rate 2023-02-27 18 /min [facility] 09:28:00 Body height 2023-02-27 157 cm [facility] 09:28:00 Body weight 2023-02-27 71.85 kg [facility] 09:28:00 BMI 2023-02-27 29.15 kg/m2 [facility] 09:28:00 Systolic blood 2023-02-27 132 mm[Hg] [facility] pressure 09:28:00 Diastolic blood 2023-02-27 84 mm[facility]Hg[facility] Heart rate 2023-02-27 94 /min [facility] 09:28:00 Body temperature 2023-02-27 37.06 Becky [facility] 09:28:00 Respiratory rate 2023-02-27 18 /min [facility] 09:28:00 Body height 2023-02-27 157 cm [facility] 09:28:00 Body weight 2023-02-27 71.85 kg [facility] 09:28:00 BMI 2023-02-27 29.15 kg/m2 [facility] 09:28:00 Systolic blood 2023-02-27 132 mm[Hg] [facility] pressure 09:28:00 Diastolic blood 2023-02-27 84 mm[facility]Hg[facility] Heart rate 2023-02-27 94 /min [facility] 09:28:00 Body temperature 2023-02-27 37.06 Becky [facility] 09:28:00 Respiratory rate 2023-02-27 18 /min [facility] 09:28:00 Body height 2023-02-27 157 cm [facility] 09:28:00 Body weight 2023-02-27 71.85 kg [facility] 09:28:00 BMI 2023-02-27 29.15 kg/m2 [facility] 09:28:00 Systolic blood 2023-02-27 132 mm[Hg] [facility] pressure 09:28:00 Diastolic blood 2023-02-27 84 mm[Hg] [facility] 09:28:00 Heart rate 2023-02-27 94 /min [facility] 09:28:00 Body temperature 2023-02-27 37.06 Becky [facility] 09:28:00 Respiratory rate 2023-02-27 18 /min [facility] 09:28:00 Body height 2023-02-27 157 cm [facility] 09:28:00 Body weight 2023-02-27 71.85 kg [facility] 09:28:00 BMI 2023-02-27 29.15 kg/m2 [facility] 09:28:00 Systolic blood 2023-02-19 134 mm[Hg] [facility] 15:11:00 Diastolic blood 2023-02-19 86 mm[Hg] [facility] pressure 15:11:00 Heart rate 2023-02-19 80 /min [facility] 15:11:00 Body height 2023-02-19 160 cm [facility] 15:11:00 Body weight 2023-02-19 73.029 kg [facility] 15:11:00 BMI 2023-02-19 28.52 kg/m2 [facility] 15:11:00 Systolic blood 2022-11-13 116 mm[Hg] [facility] pressure 19:32:00 Diastolic blood 2022-11-13 77 mm[Hg] [facility] pressure 19:32:00 Heart rate 2022-11-13 97 /min [facility] 19:32:00 Body height 2022-11-13 160 cm [facility] 19:32:00 Body weight 2022-11-13 77.656 kg [facility] 19:32:00 BMI 2022-11-13 30.33 kg/m2 [facility] 19:32:00 BP Diastolic 2022-11-01 91 mm[Hg] [place] 00:00:00 [facility] Height 2022-11-01 63 [in_i] [place] 00:00:00 [facility] BMI (Body Mass 2022-11-01 29.7 kg/m2 [place] Index) 00:00:00 [facility] BP Systolic 2022-11-01 133 mm[Hg] [place] 00:00:00 [facility] Body Weight 2022-11-01 2680 [oz_av] [place] 00:00:00 [facility] Systolic blood 2022-09-02 119 mm[Hg] [facility] pressure 19:34:00 Diastolic blood 2022-09-02 89 mm[Hg] [facility] pressure 19:34:00 Heart rate 2022-09-02 110 /min [facility] 19:34:00 Body temperature 2022-09-02 36.83 Becky [facility] 19:33:00 Body height 2022-09-02 160 cm [facility] 19:33:00 Body weight 2022-09-02 75.751 kg [facility] 19:33:00 BMI 2022-09-02 29.58 kg/m2 [facility] 19:33:00 Systolic blood 2022-07-31 122 mm[Hg] [facility] pressure 17:06:00 Diastolic blood 2022-07-31 89 mm[Hg] [facility] pressure 17:06:00 Heart rate 2022-07-31 106 /min [facility] 17:06:00 Body temperature 2022-07-31 36.56 Becky [facility] 17:06:00 Body weight 2022-07-31 75.297 kg [facility] 17:06:00 BMI 2022-07-31 29.41 kg/m2 [facility] 17:06:00 Heart rate 2021-11-07 87 /min [facility] 15:20:00 Body height 2021-11-07 160 cm [facility] 15:20:00 Body weight 2021-11-07 70.308 kg [facility] 15:20:00 BMI 2021-11-07 27.46 kg/m2 [facility] 15:20:00 Systolic blood 2021-11-07 123 mm[Hg] [facility] pressure 15:20:00 Diastolic blood 2021-11-07 80 mm[Hg] [facility] pressure 15:20:00 Heart rate 2021-11-07 87 /min [facility] 15:20:00 Body height 2021-11-07 160 cm [facility] 15:20:00 Body weight 2021-11-07 70.308 kg [facility] 15:20:00 BMI 2021-11-07 27.46 kg/m2 [facility] 15:20:00 Systolic blood 2021-11-07 123 mm[Hg] [facility] pressure 15:20:00 Diastolic blood 2021-11-07 80 mm[Hg] [facility] pressure 15:20:00 Systolic blood 2023-02-27 132 mm[Hg] [facility] pressure 09:28:00 Diastolic blood 2023-02-27 84 mm[Hg] [facility] pressure 09:28:00 Heart rate 2023-02-27 94 /min [facility] 09:28:00 Body temperature 2023-02-27 37.06 Becky [facility] 09:28:00 Respiratory rate 2023-02-27 18 /min [facility] 09:28:00 Body height 2023-02-27 157 cm [facility] 09:28:00 Body weight 2023-02-27 71.85 kg [facility] 09:28:00 BMI 2023-02-27 29.15 kg/m2 [facility] 09:28:00 Systolic (mm Hg) 2021-04-16 [facility]mann 19:23:00 Diastolic (mm Hg) 2021-04-16 [facility] ermann 19:23:00 Heart Rate 2021-04-16 [facility] 19:23:00 Weight 2021-04-16 [facility] 19:23:00 Systolic (mm Hg) 2021-03-13 [facility] rmann 19:03:00 Diastolic (mm Hg) 2021-03-13 [facility] ermann 19:03:00 Heart Rate 2021-03-13 [facility] 19:03:00 Height 2021-03-13 160.02 cm [facility] 19:03:00 Weight 2021-03-13 [facility] 19:03:00 BMI Calculated 2021-03-13 [facility] 19:03:00 Systolic (mm Hg) 2021-02-26 [facility] 20:58:00 Diastolic (mm Hg) 2021-02-26 [facility] 20:58:00 Heart Rate 2021-02-26 [facility] 20:58:00 Height 2021-02-26 160.02 cm [facility] 20:21:00 Weight 2021-02-26 [facility] 20:21:00 BMI Calculated 2021-02-26 [facility] 20:21:00 Systolic blood 2021-02-01 135 mm[Hg] [facility] 14:38:[facility] Position: Sitting Diastolic blood 2021-02-01 84 mm[Hg] [facility] 14:38:[facility] Position: Sitting Body height 2021-02-01 63 [in_us] [facility] 14:38:00 Weight 2021-02-01 129 [lb_av] [facility] 14:38:00 Body mass index 2021-02-01 22.85 kg/m2 [facility] (BMI) [Ratio] 14:38:00 Body temperature 2021-02-01 96.8 [degF] Method: [facility] 14:38:00 Temporal Heart Rate 2021-02-01 102 /min [facility] 14:38:00 Systolic blood 2021-01-11 118 mm[Hg] [facility] 14:25:00 Position: Sitting Diastolic blood 2021-01-11 87 mm[Hg] [facility] 14:25:00 Position: Sitting Body height 2021-01-11 63 [in_us] [facility] 14:25:00 Weight 2021-01-11 127 [lb_av] [facility] 14:25:00 Body mass index 2021-01-11 22.5 kg/m2 [facility] (BMI) [Ratio] 14:25:00 Body temperature 2021-01-11 96.7 [degF] Method[facility] 14:25:00 Temporal Heart Rate 2021-01-11 100 /min [facility] 14:25:00 Systolic blood 2021-01-04 124 mm[Hg] [facility] 14:47:00 Position: Sitting Diastolic blood 2021-01-04 94 mm[Hg] [facility] 14:47:00 Position: Sitting Body height 2021-01-04 63 [in_us] [facility] 14:47:00 Weight 2021-01-04 130 [lb_av] [facility] 14:47:00 Body mass index 2021-01-04 23.03 kg/m2 [facility] (BMI) [Ratio] 14:47:00 Body temperature 2021-01-04 97.6 [degF] Method[facility] 14:47:00 Temporal Heart Rate 2021-01-04 125 /min [facility] 14:47:00 Temperature Oral 2020-12-29 97.8 [facility] ([facility] 17:50:00 Heart Rate 2020-12-29 [facility] 17:50:00 Respitory Rate 2020-12-29 [facility] 17:50:00 Systolic (mm Hg) 2020-12-29 [facility] 17:50:00 Diastolic (mm Hg) 2020-12-29 [facility] 17:50:00 Temperature Oral 2020-12-29 97.8 F [facility] (F) 13:28:00 Heart Rate 2020-12-29 [facility] 13:28:00 Respitory Rate 2020-12-29 [facility] 13:28:00 Systolic (mm Hg) 2020-12-29 [facility] 13:28:00 Diastolic (mm Hg) 2020-12-29 [facility] 13:28:00 Temperature Oral 2020-12-29 98.0 F [facility] (F) 10:39:00 Heart Rate 2020-12-29 [facility] 10:39:00 Respitory Rate 2020-12-29 [facility] 10:39:00 Systolic (mm Hg) 2020-12-29 [facility] 10:39:00 Diastolic (mm Hg) 2020-12-29 [facility] 10:39:00 Height 2020-12-25 160.02 cm [facility] 20:10:00 Weight 2020-12-25 [facility] 20:10:00 BMI Calculated 2020-12-25 [facility] 20:10:00 Systolic (mm Hg) 2020-12-24 [facility] 14:15:00 Diastolic (mm Hg) 2020-12-24 [facility] 14:15:00 Temperature Oral 2020-12-24 97.9 F [facility] (F) 14:15:00 Respitory Rate 2020-12-24 [facility] 14:15:00 Systolic (mm Hg) 2020-12-24 [facility] 11:55:00 Diastolic (mm Hg) 2020-12-24 [facility] 11:55:00 Temperature Oral 2020-12-24 98.0 F [facility] (F) 11:55:00 Respitory Rate 2020-12-24 [facility] 11:55:00 Systolic (mm Hg) 2020-12-24 [facility] 10:00:00 Diastolic (mm Hg) 2020-12-24 [facility] 10:00:00 Temperature Oral 2020-12-24 99.0 F [facility] (F) 10:00:00 Respitory Rate 2020-12-24 [facility] 10:00:00 Height 2020-12-24 160.02 cm [facility] 01:00:00 Weight 2020-12-24 [facility] 01:00:00 BMI Calculated 2020-12-24 [facility] 01:00:00 Height 2020-12-23 160.02 cm [facility] 22:45:00 BMI Calculated 2020-12-23 [facility] 22:45:00 Weight 2020-12-23 [facility] 22:45:00 Heart Rate 2020-12-23 [facility] 22:45:00 Height 2020-12-23 160.02 cm [facility] 22:26:00 BMI Calculated 2020-12-23 [facility] 22:26:00 Weight 2020-12-23 [facility] 22:26:00 Systolic (mm Hg) 2020-12-22 [facility] 21:36:00 Diastolic (mm Hg) 2020-12-22 [facility] 21:36:00 Systolic (mm Hg) 2020-12-22 [facility] 21:32:00 Diastolic (mm Hg) 2020-12-22 [facility] 21:32:00 Systolic (mm Hg) 2020-12-22 [facility] 19:30:00 Diastolic (mm Hg) 2020-12-22 [facility] 19:30:00 Temperature Oral 2020-12-22 98.5 F [facility] (F) 19:30:00 Respitory Rate 2020-12-22 [facility] 19:30:00 Temperature Oral 2020-12-22 97.9 F [facility] (F) 14:30:00 Respitory Rate 2020-12-22 [facility] 14:30:00 Temperature Oral 2020-12-22 98.1 F [facility] (F) 10:00:00 Respitory Rate 2020-12-22 [facility] 10:00:00 Height 2020-12-21 160.02 cm [facility] 22:40:00 BMI Calculated 2020-12-21 [facility] 22:40:00 Weight 2020-12-21 [facility] Aguilera n 22:40:00 Heart Rate 2020-12-21 [facility] n 22:40:00 Body temperature 2020-12-21 97.1 [degF] [facility] 14:46:00 Temporal Systolic blood 2020-12-21 127 mm[Hg] [facility] 14:45:00 Position: Sitting Diastolic blood 2020-12-21 97 mm[Hg] [facility] 14:45:00 Position: Sitting Heart Rate 2020-12-21 107 /min [facility] 14:45:00 Systolic blood 2020-12-21 132 mm[Hg] [facility]: [facility] 14:44:00 Position: Sitting Diastolic blood 2020-12-21 93 mm[Hg] [facility] 14:44:00 Position: Sitting Heart Rate 2020-12-21 102 /min [facility] 14:44:00 Body height 2020-12-21 63 [in_us] [facility] 14:44:00 Weight 2020-12-21 140 [lb_av] [facility] 14:44:00 Body mass index 2020-12-21 24.8 kg/m2 [facility] (BMI) [Ratio] 14:44:00 Systolic blood 2020-12-14 124 mm[Hg] [facility] 14:26:00 Position: Sitting Diastolic blood 2020-12-14 90 mm[Hg] [facility] 14:26:00 Position: Sitting Heart Rate 2020-12-14 74 /min [facility] 14:26:00 Systolic blood 2020-12-14 125 mm[Hg] [facility] 14:25:00 Position: Sitting Diastolic blood 2020-12-14 95 mm[Hg] [facility]: [facility] 14:25:00 Position: Sitting Heart Rate 2020-12-14 78 /min [facility] 14:25:00 Body height 2020-12-14 63 [in_us] [facility] 14:25:00 Weight 2020-12-14 140 [lb_av] [facility] 14:25:00 Body mass index 2020-12-14 24.8 kg/m2 [facility] (BMI) [Ratio] 14:25:00 Body temperature 2020-12-14 97 [degF] Method[facility] 14:25:00 Temporal Systolic blood 2020-11-30 115 mm[Hg] [facility] 14:45:00 Position: Sitting Diastolic blood 2020-11-30 77 mm[Hg] [facility] 14:45:00 Position: Sitting Body height 2020-11-30 63 [in_us] [facility] 14:45:00 Weight 2020-11-30 135 [lb_av] [facility] 14:45:00 Body mass index 2020-11-30 23.91 kg/m2 [facility] (BMI) [Ratio] 14:45:00 Body temperature 2020-11-30 96.8 [degF] Method[facility] 14:45:00 Temporal Heart Rate 2020-11-30 82 /min [facility] 14:45:00 Systolic blood 2020-11-14 113 mm[Hg] [facility] 14:54:00 Position: Sitting Diastolic blood 2020-11-14 81 mm[Hg] [facility] 14:54:00 Position: Sitting Body height 2020-11-14 63 [in_us] [facility] 14:54:00 Weight 2020-11-14 134 [lb_av] [facility] 14:54:00 Body mass index 2020-11-14 23.74 kg/m2 [facility] (BMI) [Ratio] 14:54:00 Body temperature 2020-11-14 97 [degF] Method[facility] 14:54:00 Temporal Heart Rate 2020-11-14 94 /min [facility] 14:54:00 Systolic (mm Hg) 2020-10-30 [facility] 21:15:00 Diastolic (mm Hg) 2020-10-30 [facility] 21:15:00 Heart Rate 2020-10-30 [facility] 21:15:00 Weight 2020-10-30 [facility] 21:15:00 Systolic blood 2020-10-18 108 mm[Hg] [facility] 14:57:00 Position: Sitting Diastolic blood 2020-10-18 72 mm[Hg] [facility] 14:57:00 Position: Sitting Body height 2020-10-18 63 [in_us] [facility] 14:57:00 Weight 2020-10-18 125 [lb_av] [facility] 14:57:00 Body mass index 2020-10-18 22.14 kg/m2 [facility] (BMI) [Ratio] 14:57:00 Body temperature 2020-10-18 97.8 [degF] Method[facility] 14:57:00 Temporal Heart Rate 2020-10-18 85 /min [facility] 14:57:00 Systolic (mm Hg) 2020-09-22 [facility] 17:58:00 Diastolic (mm Hg) 2020-09-22 [facility] 17:58:00 Heart Rate 2020-09-22 [facility] 17[facility]58:00 Height 2020-09-22 160.02 cm [facility] 17:58:00 Weight 2020-09-22 [facility] 17:58:00 BMI Calculated 2020-09-22 [facility] 17:58:00 Systolic blood 2020-09-04 105 mm[Hg] [facility]: [facility] 10:14:00 Position: Sitting Diastolic blood 2020-09-04 69 mm[Hg] [facility]: [facility] 10:14:00 Position: Sitting Body height 2020-09-04 63 [in_us] [facility] 10:14:00 Weight 2020-09-04 126 [lb_av] [facility] 10:14:00 Body mass index 2020-09-04 22.32 kg/m2 [facility] (BMI) [Ratio] 10:14:00 Body temperature 2020-09-04 98.3 [degF] Method[facility] 10:14:00 Temporal Heart Rate 2020-09-04 81 /min [facility] 10:14:00 Systolic (mm Hg) 2020-08-25 [facility] 18:36:00 Diastolic (mm Hg) 2020-08-25 [facility] 18:36:00 Heart Rate 2020-08-25 [facility] 18:36:00 Height 2020-08-25 160.02 cm [facility] 18:36:00 Weight 2020-08-25 [facility] 18:36:00 BMI Calculated 2020-08-25 [facility] 18:36:00 Systolic blood 2020-08-10 116 mm[Hg] [facility] 14:12:00 Position: Sitting Diastolic blood 2020-08-10 82 mm[Hg] [facility]: [facility] 14:12:00 Position: Sitting Body height 2020-08-10 63 [in_us] [facility] 14:12:00 Weight 2020-08-10 120 [lb_av] [facility] 14:12:00 Body mass index 2020-08-10 21.26 kg/m2 [facility] (BMI) [Ratio] 14:12:00 Body temperature 2020-08-10 98.1 [degF] Method: [facility] 14:12:00 Temporal Heart Rate 2020-08-10 88 /min [facility] 14:12:00 Systolic blood 2020-07-13 117 mm[Hg] [facility]: [facility] 10:34:00 Position: Sitting Diastolic blood 2020-07-13 74 mm[Hg] [facility]: [facility] 10:34:00 Position: Sitting Body height 2020-07-13 63 [in_us] [facility] 10:34:00 Weight 2020-07-13 122 [lb_av] [facility] 10:34:00 Body mass index 2020-07-13 21.61 kg/m2 [facility] (BMI) [Ratio] 10:34:00 Heart Rate 2020-07-13 105 /min [facility] 10:34:00 Systolic blood 2020-06-22 130 mm[Hg] [facility]: [facility] 10:36:00 Position: Sitting Diastolic blood 2020-06-22 83 mm[Hg] [facility]: [facility] 10:36:00 Position: Sitting Body height 2020-06-22 63 [in_us] [facility] 10:36:00 Weight 2020-06-22 122 [lb_av] [facility] 10:36:00 Body mass index 2020-06-22 21.61 kg/m2 [facility] (BMI) [Ratio] 10:36:00 Body temperature 2020-06-22 97.4 [degF] Method: [facility] 10:36:00 Temporal Heart Rate 2020-06-22 82 /min [facility] 10:36:00 BMI Calculated 2018-01-29 [facility] 16:47:00 Weight 2018-01-29 [facility] 16:47[facility]00 Height 2018-01-29 160.02 cm [facility] 16:47:00 Temperature Oral 2018-01-29 97.9 F [facility] (F) 16:47:00 Heart Rate 2018-01-29 [facility] 16:47:00 Systolic (mm Hg) 2018-01-29 [facility] 16:47:00 Diastolic (mm Hg) 2018-01-29 [facility] 16:47:00 Temperature Oral 2018-01-08 97.8 F [facility] (F) 20:37:00 Heart Rate 2018-01-08 [facility] 20:37:00 Systolic (mm Hg) 2018-01-08 [facility] 20:37:00 Diastolic (mm Hg) 2018-01-08 [facility] 20:37:00 BMI Calculated 2018-01-08 [facility] 20:37:00 Weight 2018-01-08 [facility] 20:37:00 Height 2018-01-08 160.02 cm [facility] 20:37:00 Temperature Oral 2018-01-02 98.9 F [facility] (F) 17:21:00 Respitory Rate 2018-01-02 [facility] 17:21:00 Heart Rate 2018-01-02 [facility] 17:21:00 Systolic (mm Hg) 2018-01-02 [facility] 17:21:00 Diastolic (mm Hg) 2018-01-02 [facility] 17:21:00 Heart Rate 2018-01-02 [facility] 13:55:00 Respitory Rate 2018-01-02 [facility] 13:55:00 Systolic (mm Hg) 2018-01-02 [facility] 13:55:00 Diastolic (mm Hg) 2018-01-02 [facility] 13:55:00 Temperature Oral 2018-01-02 98.4 F [facility] (F) 13:55:00 Heart Rate 2018-01-02 [facility] 06:19:00 Systolic (mm Hg) 2018-01-02 [facility] 06:19:00 Diastolic (mm Hg) 2018-01-02 [facility] 06:19:00 Temperature Oral 2018-01-02 97.8 F [facility] (F) 06:19:00 Respitory Rate 2018-01-02 [facility] 02:40:00 Weight 2017-12-29 [facility] 19:56:00 BMI Calculated 2017-12-29 [facility] 19:56:00 Height 2017-12-29 162.56 cm [facility] 19:56:00 Weight 2017-12-18 [facility] 19:53:00 BMI Calculated 2017-12-18 [facility] 19:53:00 Height 2017-12-18 162.56 cm [facility] 19:53:00 Systolic (mm Hg) 2017-12-18 [facility] 19:53:00 Diastolic (mm Hg) 2017-12-18 [facility] 19:53:00 Heart Rate 2017-12-18 [facility] 19:53:00 Systolic (mm Hg) 2017-12-10 [facility] 04:34:00 Diastolic (mm Hg) 2017-12-10 [facility] 04:34:00 BMI Calculated 2017-12-10 [facility] 04:24:00 Height 2017-12-10 160.02 cm [facility] 04:24:00 Weight 2017-12-10 [facility] 04:24:00 Weight 2017-12-08 [facility] 18:01:00 BMI Calculated 2017-12-08 [facility] 18:01:00 Height 2017-12-08 160.02 cm [facility] 18:01:00 Systolic (mm Hg) 2017-12-08 [facility] 18:01:00 Diastolic (mm Hg) 2017-12-08 [facility] 18:01:00 Heart Rate 2017-12-08 [facility] 18:01:00 BMI Calculated 2017-12-03 [facility] 16:30:00 Height 2017-12-03 162.5 cm [facility] 16:30:00 Weight 2017-12-03 [facility] 16:30:00 Respitory Rate 2017-12-03 [facility] 16:30:00 Temperature Oral 2017-12-03 98.6 F [facility] (F) 16:30:00 Heart Rate 2017-12-03 [facility] 16:30:00 Systolic (mm Hg) 2017-12-03 [facility] 16:30:00 Diastolic (mm Hg) 2017-12-03 [facility] 16:30:00 Weight 2017-11-27 [facility] 17:08:00 BMI Calculated 2017-11-27 [facility] 17:08:00 Height 2017-11-27 162.56 cm [facility] 17:08:00 Heart Rate 2017-11-27 [facility] 17:08:00 Systolic (mm Hg) 2017-11-27 [facility] 17[facility]08:00 Diastolic (mm Hg) 2017-11-27 [facility] 17:08:00 Height 2017-11-12 162.56 cm [facility] 18:35:00 BMI Calculated 2017-11-12 [facility] 18:35:00 Weight 2017-11-12 [facility] 18:35:00 Heart Rate 2017-11-12 [facility] 18:35:00 Systolic (mm Hg) 2017-11-12 [facility] 18:35:00 Diastolic (mm Hg) 2017-11-12 [facility] 18:35:00 Systolic (mm Hg) 2017-10-29 [facility] 20:18:00 Diastolic (mm Hg) 2017-10-29 [facility] 20:18:00 Temperature Oral 2017-10-29 98.3 F [facility] (F) 20:18:00 Weight 2017-10-29 [facility] 19:51:00 BMI Calculated 2017-10-29 [facility] 19:51:00 Height 2017-10-29 162.56 cm [facility] 19:51:00 Weight 2017-10-27 [facility] 16:54:00 BMI Calculated 2017-10-27 [facility] 16:54:00 Systolic (mm Hg) 2017-10-27 [facility] 16:54:00 Diastolic (mm Hg) 2017-10-27 [facility] 16:54:00 Heart Rate 2017-10-27 [facility] 16:54:00 Height 2017-10-27 160.02 cm [facility] 16:54:00 BMI Calculated 2017-10-13 [facility] 21:20:00 Weight 2017-10-13 [facility] 21:20:00 Systolic (mm Hg) 2017-10-13 [facility] 21:20:00 Diastolic (mm Hg) 2017-10-13 [facility] 21:20:00 Height 2017-10-13 162.56 cm [facility] 21:20:00 Heart Rate 2017-10-13 [facility] 21:20:00 Procedures Procedure Date / Time Performing Clinician Source Performed POCT URINALYSIS 2023-04-10 16:05:[address] [facility] DIPSTICK Jimenez VITAMIN B12 2023-02-27 10:50:00 [facility] 2023-02-27 10:50:00 [facility] HEMOGLOBIN A1C 2023-02-27 10:50:00 Raymundo Fisher ELECTROPH, BLD 2023-02-27 10:50:00 [facility] VITAM[facility] B1 (THIAMINE), 2023-02-27 10:50:00 Raymundo Fisher [facility] WHOLE BLOOD VITAMIN B6 2023-02-27 10:50:00 Raymundo [facility] ECG 12-LEAD 2023-02-19 15:09:00 [facility] 2022-11-13 19:31:00 Adriane Kern [facility] SURESWAB ADVANCED 2022-09-02 20:08:00 Marty Riojas [facility] VAGINITIS PLUS, TMA THINPREP TIS PAP AND 2022-09-02 20:08:00 Marty Riojas [facility] HPV DNA POCT URINALYSIS 2022-07-31 17:44:[address] [facility] DIPSTICK Jimenez URINE CULTURE 2022-07-31 17:43:00 [facility] Jimenez Delivery 2022-01-27 00:00:00 [facility] ECG 12-LEAD 2021-11-07 15:18:00 [facility] Delivery 2020-12-27 00:00[facility]00 [facility] [Q] STREPTOCOCCUS, 2020-12-14 00:00:00 [facility] GROUP B CULTURE (Genital Strep Screen) [Q] RPR (DX) W/REFL 2020-12-14 00:00:00 [facility] TITER AND CONFIRM TESTING (REFL) [Q] HIV AB, HIV 1/2, 2020-12-14 00:00:00 [facility] EIA, WITH REFLEXES [Q] HEPATITIS B SURFACE 2020-12-14 00:00:00 [facility] ANTIGEN W/REFL CONFIRM [QL] CBC (INCLUDES 2020-12-14 00:00:00 [facility] DIFF/PLT) [QL] CMP W/EGFR 2020-12-14 00:00:00 [facility] [Q] PROTEIN, TOTAL 2020-12-14 00:00:00 [facility] W/CREAT, RANDOM URINE [QL] CULTURE, URINE, 2020-12-14 00:00:00 [facility] ROUTINE [Q] GLUCOSE, 2020-10-18 00:00:00 [facility] GESTATIONAL SCREEN (50G)-130 CUTOFF [QL] CBC (INCLUDES 2020-10-18 00:00:00 [facility] DIFF/PLT) [QL] CMP W/EGFR 2020-10-18 00:00:00 [facility] [QL] CBC (INCLUDES 2020-08-10 00:00:00 [facility] DIFF/PLT) [QL] CMP W/EGFR 2020-08-10 00:00:00 [facility] [QL] T3, FREE 2020-08-10 00:00:00 [facility] [QL] T4, FREE 2020-08-10 00:00:00 [facility] [QL] TSH, 3RD 2020-08-10 00:00:00 [facility] GENERATION [Q] CHLAMYDIA/N. 2020-07-13 00:00:00 [facility] GONORRHOEAE RNA, TMA [Q] DRUG ABUSE PANEL 2020-07-13 00:00:00 [facility] 7-50 [Q] THINPREP TIS AND 2020-07-13 00:00:00 [facility] HPV mRNA E6/E7 [QL] CULTURE, URINE, 2020-07-13 00:00:00 [facility] ROUTINE [QL] URINALYSIS, 2020-07-13 00:00:00 [facility] COMPLETE [Q] HIV AB, HIV 1/2, 2020-06-22 00:00:00 [facility] EIA, WITH REFLEXES [QL] CMP W/EGFR 2020-06-22 00:00:00 [facility] [QL] HEMOGLOBIN A1c 2020-06-22 00:00:00 [facility] [QL] PARVOVIRUS B-19 2020-06-22 00:00:00 [facility] ANTIBODIES (IGG, IGM) [QL] TSH, 3RD 2020-06-22 00:00:00 [facility] GENERATION W/REFLEX TO FT4 [QL] VARICELLA ZOSTER 2020-06-22 00:00:00 [facility] VIRUS ANTIBODY (IGG) [Q] OBSTETRIC PANEL 2020-06-22 00:00:00 [facility] [Q] HSV 1/2 IGG, 2020-06-22 00:00:00 [facility] HERPESELECT TYPE SPECIFIC AB (REFL) [Q] HERPES SIMPLEX 2020-06-22 00:00:00 [facility] VIRUS ANTIBODY IGM WITH REFLEX TO TITER care only 2018-01-29 17:30:00 Sarah Rocha (separate procedure) section 2017-12-30 06:00[facility]00 [facility] 2017-12-30 00:00:00 [facility] 2017-03-01 00:00:00 [facility] Plan of Care Planned Activity Planned Date Details Comments Source Future Scheduled Test 2023-08-31 00:00:00 IMM [facility] Seasonal (>/= 19 yrs) [code = IMM Influenza Seasonal (>/= 19 yrs)] Future Scheduled Test 2023-08-31 00:00:00 IMM [facility] Seasonal (>/= 19 yrs) [code = IMM Influenza Seasonal (>/= 19 yrs)] Future Scheduled Test 2023-08-31 00:00:00 IMM [facility] Seasonal (>/= 19 yrs) [code = IMM Influenza Seasonal (>/= 19 yrs)] Future Scheduled Test 2023-08-31 00:00:00 IMM [facility] Seasonal (>/= 19 yrs) [code = IMM Influenza Seasonal (>/= 19 yrs)] Future Scheduled Test 2023-08-31 00:00:00 IMM [facility] Seasonal (>/= 19 yrs) [code = IMM Influenza Seasonal (>/= 19 yrs)] Future Scheduled Test 2023-08-31 00:00:00 IMM [facility]enza [facility] Seasonal (>/= 19 yrs) [code = IMM Influenza Seasonal (>/= 19 yrs)] Future Scheduled Test 2022-08-31 00:00:00 IMM Influenza [facility] Seasonal (>/= 19 yrs) [code = IMM Influenza Seasonal (>/= 19 yrs)] Future Scheduled Test 2022-08-31 00:00:00 IMM Influenza [facility] Seasonal (>/= 19 yrs) [code = IMM Influenza Seasonal (>/= 19 yrs)] Future Scheduled Test 2020-02-19 00:00:00 Screening for [facility] malignant neoplasm of cervix (procedure) [code = 933988434] Future Scheduled Test 2020-02-19 00:00:00 Screening for [facility] malignant neoplasm of cervix (procedure) [code = 988748955] Future Scheduled Test 2020-02-19 00:00:00 Screening for [facility] malignant neoplasm of cervix (procedure) [code = 056356902] Future Scheduled Test 2020-02-19 00:00:00 Screening for [facility] malignant neoplasm of cervix (procedure) [code = 779723905] Future Scheduled Test 2020-02-19 00:00:00 Screening for [facility] malignant neoplasm of cervix (procedure) [code = 656868324] Future Scheduled Test 2020-02-19 00:00:00 Screening for [facility] malignant neoplasm of cervix (procedure) [code = 622853211] Future Scheduled Test 2020-02-19 00:00:00 Screening for [facility] malignant neoplasm of cervix (procedure) [code = 572358883] Future Scheduled Test 2020-02-19 00:00:00 Screening for [facility] malignant neoplasm of cervix (procedure) [code = 470254997] Future Scheduled Test 1999 00:00:00 COVID-19 Vaccine (#1) [facility] [code = COVID-19 Vaccine (#1)] Future Scheduled Test 1999 00:00:00 COVID-19 Vaccine (#1) [facility] [code = COVID-19 Vaccine (#1)] Future Scheduled Test 1999 00:00:00 COVID-19 Vaccine (#1) [facility] [code = COVID-19 Vaccine (#1)] Future Scheduled Test 1999 00:00:00 COVID-19 Vaccine (#1) [facility] [code = COVID-19 Vaccine (#1)] Future Scheduled Test 1999 00:00:00 COVID-19 Vaccine (#1) [facility] [code = COVID-19 Vaccine (#1)] Future Scheduled Test 1999 00:00:00 COVID-19 Vaccine (#1) [facility] [code = COVID-19 Vaccine (#1)] Future Scheduled Test 1999 00:00:00 COVID-19 Vaccine (#1) [facility] [code = COVID-19 Vaccine (#1)] Future Scheduled Test 1999 00:00:00 COVID-19 Vaccine (#1) [facility] [code = COVID-19 Vaccine (#1)] Encounters Start End Encounter Admission Attending Care Care Encounter Source Date/Time Date/Time Type Type Clinicians Facility Department ID 2023-05-19 Inpatient ELIZABETH JOHNSON [id number] Jose Cmiguel 14:03:14 [id number] [facility] 2023-05-14 Outpatient [facility] [id number] [place] 08:39:26 [id number] [facility] 2023-04-10 Outpatient [facility] [id number] UT 10:08:14 [id number] [facility] 2023-04-09 Outpatient [facility] [id number] UT 15:24:16 [id number] [facility] 2023-02-27 Outpatient [facility] [id number] UT 13:21:57 [id number] [facility] 2023-02-20 Outpatient [facility] [id number] UT 15:52:16 [id number] [facility] 2023-02-03 Outpatient [facility] [id number] UT 16:07:22 [id number] [facility] 2023-02-02 Outpatient [facility] [id number] UT 01:03:07 [id number] [facility] 2023-01-12 Outpatient [facility] [id number] UT 02:14:34 [id number] [facility] 2022-12-30 Outpatient [facility] [id number] UT 14:05:28 [id number] [facility] 2022-12-23 Outpatient [facility] [id number] UT 10:51:57 [id number] [facility] 2022-11-07 Outpatient [facility] [id number] [place] 14:57:16 [id number] [facility] 2022-02-12 Outpatient SANGCHARLIEI, [facility] [id number] [place] 10:22:51 [facility] 2022-01-18 Inpatient SANGALLI, [facility] [id number] M HFB 13:40:14 [facility] 2021-12-20 Outpatient SANGALLI, [facility] [id number] [place] 10:23:51 [facility] 2021-12-11 [facility] [id number] [place] 16:02:01 [facility] 2021-11-07 Outpatient MUKERJI, [facility] [id number] [place] 10:07:37 [facility] 2021-11-05 Outpatient SANGALLI, [facility] [id number] [place] 15:17:35 [facility] 2021-11-05 Outpatient SANGALLI, [facility] [id number] [place] 14:20:33 [facility] 2021-10-09 Outpatient SANGALLI, [facility] [id number] [place] 14:21:05 [facility] 2021-10-04 Outpatient MUKERJI, [facility] [id number] [place] 08:45:27 [facility] 2021-09-17 Outpatient SANGALLI, [facility] [id number] [place] 16:02:26 [facility] 2021-08-03 Outpatient SANGALLI, [facility] [id number] UT 15:28:25 [facility] 2020-12-27 Inpatient SANGALLI, [facility] [id number] M HFB 08:22:00 [facility] 2023-09-02 2023-09-02 Outpatient SANGALLI, [facility] [id number] [place] 13:45:00 13:45:00 [facility] 2023-06-30 2023-06-30 Emergency ER CATANESCU, [facility] [id number] [place] 02:05:00 03:49:00 ALEJANDRA -[id number] [facility] 2023-06-25 2023-06-25 Outpatient Alysha SDCRISTAL [facility] [id number] [place] 00:00:00 00:00:00 0726 [facility] 2023-05-21 2023-05-21 Outpatient DAVIAN, [facility] [id number] [place] 13:00:00 13:00:00 [facility] 2023-04-28 2023-04-28 Emergency ER HANKINS, [facility] [id number] [place] 03:38:00 06:03:00 [id number] [facility] 2023-04-24 2023-04-24 Outpatient TAVO, [facility] [id number] [place] 00:00:00 00:00:00 [facility] 2023-04-10 2023-04-10 Office Melidagregg, VALERIA [id number] [place] 10:00:00 11:06:28 Visit Cesia SIGALA [id number] Cosme Tompkinsderek 9.2.7.2.686 Jimenez [id number] 1 2023-04-05 2023-04-05 Emergency ER HANKINS, [facility] [id number] [place] 09:50:00 12:20:00 [id number] [facility] 2023-04-05 2023-04-05 Emergency CHANDLER WILSON FB FB [id number] FB 03:10:00 05:56:00 2023-02-27 2023-02-27 [facility] [id number] [place] 10:45:36 10:50:44 [facility] 2023-02-27 2023-02-27 Office RAVINDER Fisher [id number] [place] 09:00:00 10:33:51 Visit Raymundo DIGGS [id number] H [facility] .2.7.2.6869 [place] [id number] 1835-03-30 2023-02-27 Office RAVINDER FisherO [id number] [place] 09:00:00 10:33:51 Visit Raymundo [id number] .2.7.2.6869 [place] [id number] 5771-03-30 2023-02-27 Outpatient PHILLIP, [facility] [id number] [place] 00:00:00 00:00:00 [facility] 2023-02-27 2023-02-27 Outpatient [facility] [id number] [place] 00:00:00 00:00:00 [facility] 2023-02-19 2023-02-19 Office Reid Carmen [id number] [place] 10:00:00 10:32:52 Visit [facility] [id number] Health Care 9.2.7.2.686 [facility] [id number] 2 2023-01-06 2023-01-07 Emergency E LISA, [facility] MHFB [id number] MHFB 21:32:00 00:31:00 REGGIE 2022-12-25 2022-12-25 Telephonic Niyah [facility] [id number] [place] 09:30:00 13:59:48 Encounter [facility] [id number] Health [facility] [place] 9.2.7.2.686 4 [id number] 1 2022-12-20 2022-12-20 Nurse Agustina Garcia [facility] [id number] [place] 00:00:00 00:00:00 Triage Agustina Garcia [facility] [id number] Health [facility] [place] 9.2.7.2.686 4 [id number] 1 2022-11-13 2022-11-13 Office Reid Kern [id number] [place] 13:30:00 14:04:29 Visit Adriane Primary 350.1.13.58 [facility] Care 9.2.7.2.686 [facility] [id number] 2 2022-11-05 2022-11-05 Outpatient Nguyen_o [facility] [id number] [place] 00:00:00 00:00:00 [facility] 2022-11-01 2022-11-01 Outpatient Nguyen_o [facility] [id number] [place] 00:00:00 00:00:00 [facility]2 [facility] 2022-11-01 2022-11-01 o [facility] [place] - [id number] M [place] 00:00:00 00:00:00 Lisy Barney da LEARNING CONSULTANT-TAILMAN-C: [facility] 17[address] [facility] [id number] [facility] dionte , Ph. 2022-10-31 2022-10-31 Outpatient Damien [facility] [id number] [place] 00:00:00 00:00:00 [facility] 2022-10-14 2022-10-14 Emergency ER HUSSEIN, [facility] [id number] [place] 13:19:00 17:00:00 JASMYNRegi -[id number] [facility] 2022-10-14 2022-10-14 Emergency ER HUSSEIN, [facility] [id number] [place] 13:19:00 17:00:00 [id number] [facility] 2022-10-14 2022-10-14 emergency [id number] 13:19:00 17:00:00 [id number] [id number] 2022-10-04 2022-10-04 Emergency ER ANDRAE, [facility] [id number] [place] 12:39:00 16:18:00 AVA -[id number] [facility] 2022-09-02 2022-09-02 Office Sangrizwan, [facility] [id number] [place] 14:30:00 15:04:48 Visit Marty SIGALA [id number] He alth 9.2.7.2.686 [id number] 1 2022-08-01 2022-08-01 Emergency E YARY, [facility]FB MHFB [id number] MHFB 13:20:00 17:44:00 ADY 2022-07-31 2022-07-31 Office Dieudonne, [facility] [id number] [id number] [place] 13:30:00 13:30:00 Visit Cesia SIGALA [id number] He alth [place] 9.2.7.2.686 Jimenez [id number] 1 2022-07-12 2022-07-12 Telephone VALERIA Carmen [id number] [id number] [place] 00:00:00 00:00:00 [facility] ER [id number] Health [place] 9.2.7.2.686 4 [id number] 1 2022-07-03 2022-07-03 Office Reid Carmen 1.2.840.114 [id number] [place] 10:00:00 10:28:30 Visit [facility] Primary [id number] Health Care 9.2.7.2.686 Building [id number] 2 2022-07-02 2022-07-02 Telephone VALERIA Carmen PEDJon 1.2.840.114 [id number] [place] 00:00:00 00:00:00 [facility] [id number] Health 9.2.7.2.686 [id number] 3 2022-06-28 2022-06-28 Outpatient [place] [id number] [place] 00:00:00 00:00:00 H 0729 da [facility] Health Outreac [facility] Program 2022-05-21 2022-05-21 Telephone VALERIA Carmen 1.2.840.114 [id number] [place] 00:00:00 00:00:00 [facility] [id number] Health 9.2.7.2.686 [id number] 3 2022-05-08 2022-05-08 Office Reid Carmen 1.2.840.114 [id number] [place] 12:15:00 13:42:37 Visit [facility] Primary [id number] Health Care 9.2.7.2.686 [facility] [id number] 2 2022-05-07 2022-05-07 Telephone VALERIA Carmen 1.2.840.114 [id number] [place] 00:00:00 00:00:00 [facility] ER 350.1.13.58 Health [place] 9.2.7.2.686 4 [id number] 1 2022-05-01 2022-05-01 Telephone VALERIA Carmen PEDI 1.2.840.114 [id number] [place] 00:00:00 00:00:00 [facility] SAL 350.1.13.58 Health 9.2.7.2.686 [id number] 3 2022-04-30 2022-04-30 Outpatient [facility] CAR [facility] 07:36:00 23:59:00 U[facility] 2022-04-15 2022-04-15 Telephone VALERIA Carmen [facility] 1.2.840.114 [id number] [place] 00:00:00 00:00:00 Uzair [facility] 350.1.13.58 Health [place] 9.2.7.2.686 4 [id number] 1 2022-03-29 2022-03-29 VALERIA Riojas 1.2.840.114 1 [id number] [place] 14:30:00 14:45:56 Visit Marty SIGALA 350.1.13.58 He alth 9.2.7.2.686 [id number] 1 2022-03-13 2022-03-13 Office Reid Carmen 1.2.840.114 [id number] [place] 11:30:00 11:58:26 Visit Uzair [facility] 350.1.13.58 Health Care 9.2.7.2.686 [facility] [id number] 2 2022-03-08 2022-03-08 Telephone VALERIA Carmen PEDI 1.2.840.114 13 [id number] [place] 00:00:00 00:00:00 [facility]UIZCO 350.1.13.58 Health 9.2.7.2.686 [id number] 3 2022-02-28 2022-02-28 Sangrizwan UTP 1.2.840.114 1 [id number] [place] 14:00:00 14:22:16 Visit Marty SIGALA 350.1.13.58 He alth 9.2.7.2.686 [id number] 1 2022-02-12 2022-02-12 Sangrizwan UTP 1.2.840.114 1 [id number] DC 09:15:00 10:22:56 Visit Marty SIGALA 350.1.13.58 He alth 9.2.7.2.686 [id number] 1 2022-02-04 2022-02-04 Sangalli, UTP 1.2.840.114 1 [id number] UT 13:45:00 14:35:07 Visit Marty SIGALA 350.1.13.58 He alth 9.2.7.2.686 [id number] 1 2022-01-26 2022-01-26 Inpatient E SANGALLI, MHFB MHFB [id number] MHFB 20:19:00 20:19:00 MARTY 2022-01-25 2022-01-25 Outpatient SANGALLI, MHFB MHFB [id number] FB 13:12:00 13:12:00 MARTY 2022-01-25 2022-01-25 Routine Sangrizwan, UTP 1.2.436.455 [id number] UT 09:45:00 10:01:01 Marty SIGALA 350.1.13.58 H ealth 9.2.7.2.686 [id number] 1 2022-01-25 2022-01-25 Telephone Abel, Vikki UTP [facility] 1.2.840. 114 [id number] UT 00:00:00 00:00:00 Abel, Vikki SUGAR 350.1.13.58 Health [facility] 9.2.7.2.686 [place] 0 [id number] AND 2 WOMENS 2022-01-23 2022-01-23 Telephone Abel, Vikki UTP [facility] 1.2.840. 114 [id number] UT 00:00:00 00:00:00 Abel, Vikki SUGAR 350.1.13.58 Health [place] [facility] 9.2.7.2.686 [address] 8 [id number] AND 2 WOMENS 2021-12-24 2022-01-22 Outpatient SANGALLI, MHFB MHFB [id number] FB 13:16:00 23:59:00 MARTY 2022-01-22 2022-01-22 Telephone Abel, Vikki UTP [facility] 1.2.840. 114 [id number] UT 00:00:00 00:00:00 Abel, Vikki SUGAR 350.1.13.58 Health [place] 9.2.7.2.686 [address] 4 [id number] AND 2 WOMENS 2022-01-22 2022-01-22 Telephone Vikki Roman [facility] [place] 1.2.840. 114 [id number] UT 00:00:00 00:00:00 Vikki Roman SUG[facility] 350.1.13.58 Health [place] 9.2.7.2.686 [address] 8 [id number] AND 2 WOMENS 2022-01-19 2022-01-19 Emergency E PARIS, MHFB MHFB 7517 MHFB 21:53:00 22:37:00 NANCY 2022-01-18 2022-01-18 Routine Shine, UTP 1.2.298.201 [id number] UT 09:30:00 10:49:12 Marty B[place] 350.1.13.58 H ealth 9.2.7.2.686 [id number] 1 2022-01-18 2022-01-18 Telephone Vikki Roman [facility] [place] 1.2.840. 114 [id number] UT 00:00:00 00:00:00 Vikki Roman [place] 350.1.13.58 Health [place] [facility] 9.2.7.2.686 [address] 9 [id number] AND 2 WOMENS 2022-01-15 2022-01-15 Telephone Vikki Roman [facility] [place] 1.2.840. 114 [id number] [place] 00:00:00 00:00:00 Vikki Roman SUGAR 350.1.13.58 Health LAND MED 9.2.7.2.686 PLAZA 0 [id number] AND 2 WOMENS 2022-01-10 2022-01-10 Routine Shine, UTP 1.2.694.454 [id number] [place] 14:45:00 15:52:37 Marty BRAXTONON 350.1.13.58 H ealth 9.2.7.2.686 [id number] 1 2022-01-06 2022-01-06 Emergency E FITO MHFB MHFB 7516 MHFB 12:42:00 17:41:00 , DIANNE 2022-01-04 2022-01-04 Routine Dannyalli, UTP 1.2.168.163 [id number] [place] 09:00:00 16:46:15 Marty SIGALA 350.1.13.58 H ealth 9.2.7.2.686 [id number] 1 2022-01-02 2022-01-02 Emergency E ATILADE, MHFB MHFB 7515 MHFB 22:00:00 23:54:00 NIMISHA 2021-12-29 2021-12-29 Emergency E SANGALLI, MHFB MHFB 7514 MHFB 20:09:00 22:08:00 MARTY 2021-12-26 2021-12-26 Telephone Halley Best UTP 1.2.8 40.114 [id number] [place] 00:00:00 00:00:00 Halley Best 350.1.13.58 Health 9.2.7.2.686 [id number] 1 2021-12-20 2021-12-20 Routine Dannyalljon, UTP 1.2.899.978 [id number] [place] 14:00:00 14:00:00 Marty SIGALA 350.1.13.58 H ealth 9.2.7.2.686 [id number] 1 2021-12-11 2021-12-11 Routine Shine, UTP 1.2.466.030 [id number] [place] 14:45:00 16:05:42 Marty SIGALA 350.1.13.58 H ealth 9.2.7.2.686 [id number] 1 2021-12-11 2021-12-11 Telephone Vkiki Roman UTP 1.2.840. 114 [id number] [place] 00:00:00 00:00:00 Vikki Roman 350.1.13.58 Health 9.2.7.2.686 [id number] 1 2021-12-10 2021-12-10 Outpatient RAVINDER RIOJAS [facility] [id number] [place] 08:48:00 08:48:00 MARTY -[id number] [facility] 2021-12-07 2021-12-07 Telephone Vikki Roman UTP 1.2.840. 114 [id number] [place] 00:00:00 00:00:00 Vikki Roman 350.1.13.58 Health 9.2.7.2.686 [id number] 1 2021-12-04 2021-12-04 Outpatient RAVINDER DANNYCHARLIEJon, [facility] [id number] [place] 11:51:00 11:51:00 MARTY -[id number] [facility] 2021-11-26 2021-11-30 Outpatient SANGCHARLIEI, MHFB MHFB [id number] MHFB 11:30:00 18:00:00 MARTY 2021-11-27 2021-11-27 Routine Dannycharliejon, UTP 1.2.441.416 [id number] [place] 15:00:00 15:43:07 Marty SIGALA 350.1.13.58 H ealth 9.2.7.2.686 [id number] 1 2021-11-07 2021-11-07 Office Mukerfam, Gentle 1.2.840.114 [id number] [place] 09:25:00 10:07:35 Visit [facility] 350.1.13.58 Health Care 9.2.7.2.686 Building [id number] 2 2021-11-07 2021-11-07 Office Mukerji, Gentle 1.2.840.114 [id number] [place] 09:25:00 10:07:35 Visit [facility] 350.1.13.58 Health Care 9.2.7.2.686 Building [id number] 2 2021-10-09 2021-10-09 Routine Dannyalljon, UTP 1.2.200.204 [id number] [place] 13:51:38 14:21:22 Marty SIGALA 350.1.13.58 H ealth 9.2.7.2.686 [id number] 1 2021-10-01 2021-10-01 Outpatient SANGALLI, MHFB MHFB [id number] MHFB 13:55:00 13:55:00 MARTY 2021-09-26 2021-09-26 Telephone Vikki Roman UTP 1.2.840. 114 [id number] [place] 00:00:00 00:00:00 Vikki Roman 350.1.13.58 Health 9.2.7.2.686 [id number] 1 2021-09-17 2021-09-17 Routine Shine, UTP 1.2.619.866 [id number] [place] 15:08:43 16:53:01 Marty SIGALA 350.1.13.58 H ealth 9.2.7.2.686 [id number] 1 2021-08-24 2021-08-24 Initial Shine, UTP 1.2.579.195 [id number] [place] 14:29:06 15:57:35 Marty SIGALA 350.1.13.58 H ealth 9.2.7.2.686 [id number] 1 2021-08-13 2021-08-13 Outpatient [facility] [id number] [address] [place] [address] 15:15:00 15:15:00 37 l Aj 2021-08-03 2021-08-03 Office Dannyrizwan, UTP 1.2.418.656 [id number] 14:37:59 15:28:37 Visit aMrty SIGALA 350.1.13.58 9.2.7.2.686 [id number] 1 2021-08-03 2021-08-03 Office Shine, UTP 1.2.696.305 [id number] [place] 14:37:59 15:28:37 Visit Marty SIGALA 350.1.13.58 He alth 9.2.7.2.686 [id number] 1 2021-07-22 2021-07-22 Emergency ER IRUKE, [facility] [id number] [place] 21:14:00 23:52:00 TROY -[id number] mary ellen [facility] 2021-07-08 2021-07-08 Emergency ER SAIFI, [facility] [id number] [place] 00:29:00 03:50:00 MOHINDER -[id number] rashida [facility] 2021-04-162021-04-17 [place] [id number] Memoria 19:15:00 04:59:59 r Cardiology 36 l [place] [facility] 2021-03-26 2021-03-26 Outpatient MHIE MHIE [id number] Memoria 13:30:00 13:30:00 34 l Aj 2021-03-13 2021-03-14 [place] [id number] Memoria 18:45:00 04:59:59 r Cardiology 35 l [place] [facility] 2021-02-26 2021-02-27 [place] [id number] Memoria 20:45:00 04:59:59 r Cardiology 33 l [place] [facility] 2021-02-26 2021-02-26 [place] [id number] Memoria 20:45:00 20:45:00 Pre-Reg r Cardiology 32 l [place] [facility] 2021-02-01 2021-02-01 [facility] [id number] [place] 14:15:00 14:15:00 t; Blake HYATT [facility] Zakiya Hylton M.D. 2021-01-11 2021-01-11 [id number] [place] 14:15:00 14:15:00 t; Blake HYATT [facility] Zakiya Hylton M.D. 2021-01-04 2021-01-04 [facility] [id number] [place] 14:15:00 14:15:00 t; Blake HYATT [facility] Zakiya Hylton M.D. 2020-12-27 2020-12-29 Inpatient nullFlavo [facility] [id number] Memoria 14:22:00 20:10:00 r [place] 14 l [place] 2020-12-25 2020-12-25 [facility] [id number] [place] 09:45:00 09:45:00 t; Evette HERRERA M.D. ans SIDDHARTH, M.D. 2020-12-23 2020-12-24 Observatio nullFlavo [facility] [id number] Memoria 22:19:10 14:50:00 n r [place] 13 l [place] 2020-12-23 2020-12-24 Outpatient E SANGALLI, FB FB 7513 FB 16:19:00 08:50:00 MARTY 2020-12-21 2020-12-23 Observatio nullFlavo [facility] 5516 [id number] Memoria 22:13:30 00:15:00 n r [place] 12 l [place] 2020-12-21 2020-12-22 Outpatient E SANGALLI, FB FB 7512 FB 16:13:00 18:15:00 MARTY 2020-12-21 2020-12-21 [facility] [id number] 584 [place] 14:45:00 14:45:00 t; Blake HYATT [facility]ici [facility] Blake HYATT 2020-12-14 2020-12-14 [facility] [id number] 859 [place] 14:15:00 14:15:00 t; Blake HYATT [facility]ici [facility] Blake HYATT 2020-11-28 2020-12-01 [facility] nullFlavo [facility] [id number] Memoria 19:13:00 02:00:00 r Aj 01 l [place] 2020-11-28 2020-11-30 Outpatient SANGALLI, FB FB 9601 FB 13:13:00 20:00:00 MARTY 2020-11-30 2020-11-30 [facility] [id number] [place] 14:15:00 14:15:00 t; Blake HYATT [facility]ici [facility] Blake HYATT 2020-11-19 2020-11-19 Emergency ER FABIENNE, [facility] [id number] [place] 12:37:00 14:10:00 [id number] [facility] 2020-11-14 2020-11-14 [facility] [id number] [place] 14:30:00 14:30:00 t; Blake HYATT [facility] Zakiya Hylton M.D. 2020-10-30 2020-10-31 [place] [id number] Memoria 20:45:00 05:59:59 r Cardiology 31 l [place] [facility] 2020-10-19 2020-10-19 Outpatient EL DANNYRIZWAN, [facility] [id number] [place] 13:48:00 13:48:00 MARTY -[id number] [facility] 2020-10-18 2020-10-18 [facility] [id number] [place] 14:45:00 14:45:00 t; Blake HYATT [facility] - [facility] Zakiya Hylton M.D. 2020-10-06 2020-10-06 Emergency ER KATJA, [facility] [id number] [place] 10:51:00 13:15:00 HAWA -[id number] [facility] 2020-08-31 2020-09-30 Recurring nullFlavo [facility] [id number] Memoria 19:08:00 04:59:00 r Aj 00 l [place] 2020-09-22 2020-09-23 [place] [id number] Memoria 18:15:00 04:59:59 r Cardiology 30 l [place] [facility] 2020-09-04 2020-09-04 [facility] [id number] [place] 10:15:00 10:15:00 t; Blake HYATT [facility] Zakiya Hylton M.D. 2020-09-01 2020-09-02 [place] [id number] Memoria 18:00:00 04:59:59 r Cardiology 29 l [place] [facility] 2020-08-31 2020-08-31 [facility] FB 14:08:00 14:08:00 MARTY 2020-08-29 2020-08-31 Phone nullFlavo [facility] [id number] Memoria 18:07:19 04:59:59 Message r Cardiology 04 l [place] [facility] 2020-08-25 2020-08-27 Phone nullFlavo MG [id number] Memoria 19:09:27 04:59:59 Message r Cardiology 03 l [place] [facility] 2020-08-25 2020-08-26 Outpatient nullFlavo [facility] [id number] Memoria 18:30:00 04:59:59 r Cardiology 28 l [place] [facility] 2020-08-18 2020-08-18 Outpatient EL SHINE, [facility] [id number] [place] 15:46:00 15:46:00 MARTY -[id number] [facility] 2020-08-10 2020-08-10 [facility] [id number] 004 [place] 14:00:00 14:00:00 t; Blake HYATT [place] - Zakiya Hylton M.D. 2020-08-08 2020-08-08 Emergency ER GIANNONE, [facility] [id number] [place] 02:39:00 05:16:00 EMA -[id number] [facility] 2020-08-07 2020-08-07 Emergency ER STAHL, [facility] [id number] [place] 17:21:00 18:27:00 AILYN -[id number] [facility] 2020-07-17 2020-07-17 Emergency ER OWO, TOKS [facility] [id number] [place] 13:25:00 16:05:00 -[id number] [facility] 2020-07-13 2020-07-13 [facility] [id number] [place] 10:45:00 10:45:00 t; Blake HYATT [facility] - Ph sonia RIOJAS [place] jada HYATT M.D. 2020-06-22 2020-06-22 Vel [facility] [id number] [place] 10:00:00 10:00:00 t; Marlee HYATT. [place] - Ph sonia DANNYRIZWAN, [place] [facility] Marlee HYATT. 2020-06-13 2020-06-13 Emergency ER JACK, [facility] [id number] [place] 10:51:00 13:40:00 GUSTAVO [id number] [facility] 2020-05-25 2020-05-25 Emergency ER JACK, [facility] [id number] [place] 18:53:00 21:00:00 GUSTAVO [id number] [facility] 2020-05-24 2020-05-24 Outpatient DESAI_RAKES MEHOP MEHOP 835 [place] 02:07:00 02:07:00 H 0624 [facility] Outre h Program 2020-05-21 2020-05-21 Emergency ER ZAIRE, [facility] [id number] [place] 13:05:00 15:43:00 VALENTINA -[id number] [facility] 2020-02-04 2020-02-04 Emergency ER ELIANA, [facility] [id number] [place] 15:09:00 18:25:00 LANI -[id number] [facility] 2019-07-24 2019-07-24 Emergency ER CRIS, [facility] [id number] [place] 05:10:00 06:59:00 EMA -[id number] [facility] 2018-09-23 2018-09-24 Emergency ER VEE, [facility] [id number] [place] 23:41:00 01:00:00 TROY [id number] mary ellen gomez [facility] 2018-06-10 2018-06-10 Ambulatory nullFlavo [facility] [employer] 5 [id number] Memoria 18:30:00 18:30:00 Pre-Reg r Zakiya 27 delbert Rocha 2018-01-29 2018-01-30 Outpatient nullFlavo [facility] [employer] 5 [id number] Memoria 16:30:00 05:59:59 r Zakiya 26 delbert Rocha 2018-01-08 2018-01-09 Outpatient nullFlavo [facility] [employer] 5 [id number] Memoria 20:00:00 05:59:59 r Zakiya 25 delbert Rocha 2017-12-30 2018-01-02 Inpatient nullFlavo [facility] [id number] Memoria 21:23:00 22:08:00 r Aj 09 l [place] Herma 2017-12-29 2017-12-29 Ambulatory nullFlavo [facility] [employer] 5 [id number] Memoria 17:30:00 17:30:00 Pre-Reg r Crowley 20 delbert Aj 2017-12-23 2017-12-23 Outpatient MHIE MHIE [id number] Memoria 11:45:00 11:45:00 24 [place] 2017-12-22 2017-12-22 Outpatient MHIE MHIE [id number] Memoria 11:30:00 11:30:00 19 [place] 2017-12-18 2017-12-19 Outpatient nullFlavo [facility] [id number] Memoria 20:45:00 05:59:59 r Cardiology 23 delbert Sigala Aj 2017-12-18 2017-12-19 OP [employer] nullFlavo [facility] [employer] 55 [id number] Memoria 19:45:00 05:59:59 Clinic r Zakiya 18 [place] 2017-12-15 2017-12-17 Phone nullFlavo [facility] [employer] [id number] [id number] Memoria 17:25:00 05:59:59 Message r Zakiya 01 delbert DorseyAj 2017-12-16 2017-12-16 [place] [id number] Memoria 20:15:00 20:15:00 Pre-Reg r Cardiology 22 delbert Dorseyann 2017-12-10 2017-12-10 Observatio nullFlavo [facility] 5516 [id number] Memoria 04:08:34 05:40:00 n derek Rocha 10 l Valerie Jiang 2017-12-08 2017-12-09 OP [employer] Operator nullFlavo [facility] [employer] 55 [id number] Memoria 17:30:00 05:59:59 Clinic r Zakiya 17 delbert [place] 2017-12-03 2017-12-04 [place] [id number] Memoria 16:15:00 05:59:59 r Cardiology 21 delbert Dorseyann 2017-12-02 2017-12-04 Phone nullFlavo MG [employer] MARK[employer] 5516 [id number] Memoria 15:39:00 05:59:59 Message r Crow[place] 00 l Aj 2017-11-27 2017-11-28 OP [employer] Operator nullFlavo [facility] [employer] 55 [id number] Memoria 17:00:00 05:59:59 Clinic r Crowley 16 l Aj 2017-11-27 2017-11-28 Outpatient nullFlavo [facility] [employer] 5 [id number] Memoria 16:30:00 05:59:59 r Zakiya 15 l Aj 2017-11-12 2017-11-13 OP [employer] nullFlavo [facility] [employer] 55 [id number] Memoria 18:30:00 05:59:59 Clinic r Crowley 14 l Aj 2017-10-29 2017-10-30 Observatio nullFlavo [facility] 5516 [id number] Memoria 19:27:15 00:28:00 n derek Rocha 04 l [place] nn 2017-10-27 2017-10-28 OP [employer] Operator nullFlavo [facility] [employer] 55 [id number] Memoria 16:30:00 05:59:59 Clinic r Zakiya 13 delbert Aj 2017-10-27 2017-10-27 Ambulatory nullFlavo [facility] [employer] 5 [id number] Memoria 16:00:00 16:00:00 Pre-Reg r [place] 12 delbert Rocha 2017-10-23 2017-10-24 Emergency ER PARADISE, [facility] [id number] [place] 21:21:00 00:00:00 KENDY -[id number] [facility] 2017-10-13 2017-10-14 OP [employer] Operator nullFlavo [facility] [employer] 55 [id number] Memoria 21:30:00 05:59:59 Clinic r Zakiya 08 delbert Rocha 2017-10-02 2017-10-02 Outpatient MHIE MHIE [id number] Memoria 13:00:00 13:00:00 10 delbert Rocha 2017-10-02 2017-10-02 Outpatient MHIE MHIE [id number] Memoria 13:00:00 13:00:00 11 delbert Rocha 2017-09-24 2017-09-24 Outpatient MHIE MHIE [id number] Memoria 13:00:00 13:00:00 09 delbert Rocha 2017-09-22 2017-09-22 Outpatient MHIE MHIE [id number] Memoria 09:30:00 09:30:00 07 [facility] 2017-08-20 2017-08-20 Emergency ER CRIS, [facility] [id number] [place] 12:28:00 16:04:00 EMA -[id number] [facility] 2017-08-18 2017-08-18 Outpatient MHIE MHIE [id number] Memoria 13:45:00 13:45:00 06 [facility] 2017-08-18 2017-08-18 Outpatient MHIE MHIE [id number] Memoria 13:00:00 13:00:00 05 [facility] 2017-07-21 2017-07-21 Outpatient MHIE MHIE [id number] Memoria 14:00:00 14:00:00 03 [facility] 2017-07-21 2017-07-21 Outpatient MHIE MHIE [id number] Memoria 13:30:00 13:30:00 02 [facility] 2017-07-16 2017-07-16 Outpatient MHIE MHIE [id number] Memoria 10:00:00 10:00:00 01 [facility] 2015-04-28 2015-04-29 Emergency ER AGUSTIN WALTERS [facility] [id number] [place] 23:16:00 04:25:00 -[id number] [facility] 2014-07-27 2014-07-28 Emergency ER SALEEM, [facility] [id number] [place] 20:48:00 00:20:00 OBIDIKE -[id number] [facility] 1999 1999 Inpatient NB CLEMENCIA, [facility] MNEW [id number] [place] 12:42:00 13:00:00 NORA -[id number] [facility] Results Test Description Test Time Test Comments Results Result Comments Source POCT urinalysis dipstick manually resulted 2023-04-10 16:05: 31 Test Item Value Reference Range Interpretation Comme nts Glucose, UA (test code = Negative Negative 4567638) Bilirubin, UA (test code = Negative Negative 9513635) Ketones, Urine (test code = Negative Negative, Trace 27650-5) Spec Grav, UA (test code = 1.030 548341640) Blood, UA (test code = Trace 919676235) pH, UA (test code = 2546919) 5.0 5.0-8.5 Protein, UA (test code = Negative Negative, Trace, 9355273) 200(+2)mg/dL, 15/mg/dL Urobilinogen, UA (test code 0.2 See_Comment [Automated message] The = 1233219) system which ge nerated this result tra nsmitted reference range : 0.2. The reference r wesley was not used to int erpret this result as normal/abnormal . Nitrite, UA (test code = Negative Negative, Trace 1870266) Leukocytes, UA (test code = Negative Negative, Trace 2154650) Lab Interpretation (test Normal code = 61534-4) [facility] ADVANCED VAGINITIS PLUS, [id number] 02:00:00 Test Item Value Reference Range Interpretation Comments SURESWAB ADVANCED NEGATIVE NEGATIVE BACTERIAL VAGINOSIS (BV), (test code = 74533-1) ROXANE: (test NOT DETECTED NOT DETECTED code = 34683-9) Roxane glabrata, NOT DETECTED NOT DETECTED Roxane s pecies MIRA (test code = C. albicans , C. 59762-5) tropicalis,C. parapsilosis, and/or C. dubliniensis ca n be detected,but not differentiated, in the Roxane spp . result. SURESWAB(R) NOT DETECTED NOT DETECTED TRICHOMONAS VAGINALIS RNA, QL, TMA (test code = 80428-9) CHLAMYDIA NOT DETECTED NOT DETECTED TRACHOMATIS RNA, TMA, UROGENITAL (test code = 87538-5) NEISSERIA NOT DETECTED NOT DETECTED For additional GONORRHOEAE RNA, information , TMA, UROGENITAL please refer (test code = tohttps://educa jama 63288-0) n.[employer] .com/faq/EOG689 (Th is link is trish nance provided for information/edu cat ional purposes only.) RAC (test code = Performing RAC) Organization Information: ? ?Site ID: IG ? ?Name: [facility] ? ?Address: [address] [place] [address] [place] [address] ? ?Director: NUPUR MOREAU MD [facility] CampusTHINPREP TIS PAP AND HPV [id number] 02:00:00 Test Item Value Reference Range Interpretation Comments CLINICAL SEE NOTE None given INFORMATION: (test code = 53243-0) LMP: (test code SEE NOTE NONE GIVEN = 8665-2) PREV. PAP: SEE NOTE NONE GIVEN (test code = 59695-2) PREV. BX: (test SEE NOTE NONE GIVEN code = 61792-2) SOURCE: (test SEE NOTE None given code = 07956-2) STATEMENT OF SEE NOTE Satisfactory fo r ADEQUACY: (test evaluation.E ndocervica code = 49806-0) l/transforma tion zone componentpresen t.Age and/or menstrua l status not prov ided INTERPRETATION/ SEE NOTE Negative for RESULT: (test intraepithelia l lesion code = 78402-7) or malignanc y. COMMENT: (test SEE NOTE This Pap test has been code = 93472-1) evaluated [facility] [employer]. CYTOTECHNOLOGIS SEE NOTE JRR, CT (ASC P)CT T: (test code = screening lo cation: 41542-6) Wriggle [place] [address] [place] [address] RD, [place] [address] 3 HOUR SPECIMEN SEE NOTE EXPLANATORY NOTE: The (test code = Pap is a screen ing 807122850) test for cervic al cancer. It is n ot a diagnostic test and is subject to fals e negative and fa lse positive result s. It is most reliabl e when a satisfactory sample, regularly obtai senthil, is submitted with relevant clinic al findings and hi story, and when the Pa p result is evalu ated along with hist oric and current cli nical information. HPV DNA, HIGH Not Detected NOT DETECTED Not Detected H igh Risk RISK, CERVICAL HPV types (test code = (16,18,31,33,35 ,39,45, 85471-8) 51,52,56,58,59, 66,68) were not detect ed. Other HPVtypes which cause anogenita l lesions may be present.The significance of the other types of HPVin malignant proce sses has not been established. Methodology: Re al Time PCR ? RAC (test code Performing = RAC) Organization Information: ? ?Site ID: [id number] ? ?Name: [facility] [place] ? ?Address: [address] [place] [address] ? ?Director: NUPUR MOREAU MD [place] HealthSURESWAB ADVANCED VAGINITIS PLUS, [id number] 01:00:00 Test Item Value Reference Range Interpretation Comments SURESWAB ADVANCED NEGATIVE NEGATIVE BACTERIAL VAGINOSIS (BV), (test code = 85144-2) ROXANE: (test NOT DETECTED NOT DETECTED code = 44661-8) Roxane glabrata, NOT DETECTED NOT DETECTED Roxane s pecies MIRA (test code = C. albicans , C. 00999-7) tropicalis,C. parapsilosis, and/or C. dubliniensis ca n be detected,but not differentiated, in the Roxane spp . result. SURESWAB(R) NOT DETECTED NOT DETECTED TRICHOMONAS VAGINALIS RNA, QL, TMA (test code = 65887-7) CHLAMYDIA NOT DETECTED NOT DETECTED TRACHOMATIS RNA, TMA, UROGENITAL (test code = 08893-8) NEISSERIA NOT DETECTED NOT DETECTED For additional GONORRHOEAE RNA, information , TMA, UROGENITAL please refer (test code = tohttps://educa jama 07107-6) n.[employer] Networkscom/faq/CNP761 (Th is link is trish nance provided for information/edu cat ional purposes only.) RAC (test code = Performing RAC) Organization Information: ? ?Site ID: IG ? ?Name: [facility] ? ?Address: [address] [place] [address] ? ?Director: NUPUR MOREAU MD [facility] urinalysis dipstick manually [id number] 17:44:00 Test Item Value Reference Range Interpretation Comments Glucose, UA (test code Negative Negative = 6185162) Bilirubin, UA (test Negative Negative code = 9166083) Ketones, Urine (test Trace Negative, Trace code = 43251-3) Spec Grav, UA (test >1.030 code = 067409224) Blood, UA (test code = Negative 507053105) pH, UA (test code = 5.0-8.5 8069712) Protein, UA (test code Negative Negative, Trace, = 5585605) 200(+2)mg/dL, 15/mg/dL Urobilinogen, UA (test See_Comment [Aut omated message] code = 2810217) The system w [facility] generated this result transmit bigg reference range : 0.2. The refere nce range was not u sed to interpret th is result as normal/abnormal . Nitrite, UA (test code Negative Negative, Trace = 6859592) Leukocytes, UA (test Negative Negative, Trace code = 5319093) Lab Interpretation Normal (test code = 08201-1) [facility] HealthCHEM [id number] 12:39:006.9[facility] HermannCHEM [id number] 12:39:64434Kzvuatsr HermannCHEM [id number] 12:39:0090[facility]annCHEM [id number] 12:39:0014[facility]annCHEM [id number] 12:39:000.75 [facility]annCHE[facility] [id number] 12:39:13622Fbhwkelt HermannCHEM PANEL 2020-12-28 12:39:004.1[facility]annCHE[facility] [id number] 12:39:27608Lmbubcqj HermannCHEM [id number] 12:39:0026[facility]annCHE[facility] [id number] 12:39:007.9[facility]annCHE[facility] [id number] 12:39:005.2[facility]CHE[facility] [id number] 12:39:002.0[facility]annCHE[facility] [id number] 12:39:0018 [facility] HermannCHEM [id number] 12:39:0016[facility]annCHEM PANEL 2020-12-28 12:39:78311Ptxyryqx HermannCHEM [id number] 12:39:000.1[facility] [id number] 12:39:009.1[facility]CHE[facility] [id number] 12:39:00 Test Item Value Reference Range Interpretation Comments B/C Ratio (test code = B/C Ratio) 19 1 6-25 [facility] [id number] 12:39:003.2[facility]annCHE[facility] PANEL 2020-12-28 12:39:00 Test Item Value Reference Range Interpretation Comments A/G Ratio (test code = A/G Ratio) 0.6 1 0.7-1.6 [facility] HermannCHEM [id number] 12:39:64190Zvlybzga HermannHEMATOLOGY 2020-12-28 12:39:11374Sliwoivs LvxuvgjSMQDYYVCEN6699-62-85 12:39:00 Test Item Value Reference Range Interpretation Comments PT (test code = PT) 13.4 s 12.0-14.7 [facility] RzmjuaxITLIIOKHKJ7566-48-64 12:39:00 Test Item Value Reference Range Interpretation Comments INR (test code = INR) 1.03 1 0.85-1.17 [facility] ZljthzyPPUSSDYIDE9710-56-57 12:39:00 Test Item Value Reference Range Interpretation Comments PTT (test code = PTT) 31.4 s 22.9-35.8 [facility] HermannCHEM [id number] 12:39:006.9[facility]annCHEM PANEL 2020-12-28 12:39:13657Zkbsbfxe HermannCHEM [id number] 12:39:0090[facility]annCHE[facility] [id number] 12:39:0014[facility]annCHEM SLJQJ2682-92-21 12:39:000.75[facility]annCHEM HWXQC0056-34-67 12:39:47599Qbiawpak HermannCHEM UHFBH0851-81-68 12:39:004.1[facility]annCHEM PRTKQ1140-39-19 12:39:23657 [facility]annCHEM PQMXY4567-68-28 12:39:0026[facility]annCHEM PANEL 2020-12-28 12:39:007.9[facility]annCHEM GGCGC0307-21-16 12:39:005.2[facility]annCHEM NOFBM4833-43-18 12:39:002.0[facility]annCHEM WXFGF5495-48-70 12:39:0018[facility]annCHEM LESFB6420-12-28 12:39:0016[facility]annCHEM PUQJG1578-38-69 12:39:48814Gruakyer HermannCHEM ZKSTH0591-53-82 12:39:000.1 [facility]annCHEM BONKD8716-39-67 12:39:009.1[facility]annCHEM PANEL 2020-12-28 12:39:00 Test Item Value Reference Range Interpretation Comments B/C Ratio (test code = B/C Ratio) 19 1 6-25 [facility] HermannCHEM MUMRE2669-11-13 12:39:003.2[facility]annCHEM PANEL 2020-12-28 12:39:00 Test Item Value Reference Range Interpretation Comments A/G Ratio (test code = A/G Ratio) 0.6 1 0.7-1.6 [facility] HermannCHEM IKKKN4127-45-19 12:39:56634Dhthjvxy HermannHEMATOLOGY 2020-12-28 12:39:81671Vnmivvdt ThsjetbAPQZGFFOYX4037-02-04 12:39:00 Test Item Value Reference Range Interpretation Comments PT (test code = PT) 13.4 s 12.0-14.7 [facility] TempleGeexoskAOKEBIXWSC9457-33-70 12:39:00 Test Item Value Reference Range Interpretation Comments INR (test code = INR) 1.03 1 0.85-1.17 [facility] TempleJqkjxdxMLRKDPHEYY8495-08-65 12:39:00 Test Item Value Reference Range Interpretation Comments PTT (test code = PTT) 31.4 s 22.9-35.8 [facility] HermannCHEM UVAFQ1982-51-89 12:39:006.9[facility]annCHEM PANEL 2020-12-28 12:39:19482Pujnwloz HermannCHEM FPMPI5557-36-44 12:39:0090[facility]annCHEM FHYXX8080-92-37 12:39:0014[facility]annCHEM KGSJL7566-30-00 12:39:000.75[facility]annCHEM IYOWA0409-06-62 12:39:73333Sbqydxze HermannCHEM ITUBS0710-97-58 12:39:004.1[facility]annCHEM HGWOF6903-39-96 12:39:95528 [facility]annCHEM UFDPU8828-35-53 12:39:0026[facility]annCHEM PANEL 2020-12-28 12:39:007.9[facility]annCHEM AREPV0009-43-19 12:39:005.2[facility]annCHEM SDHCA6287-64-28 12:39:002.0[facility]annCHEM UFUGT8465-03-62 12:39:0018[facility]annCHEM QLBNJ3277-19-47 12:39:0016[facility]annCHEM ENJUK3290-86-16 12:39:74107Xgactkbi HermannCHEM VKOPT5625-38-76 12:39:000.1 [facility] HermannCHEM FSUSL2365-39-46 12:39:009.1[facility]annCHEM PANEL 2020-12-28 12:39:00 Test Item Value Reference Range Interpretation Comments B/C Ratio (test code = B/C Ratio) 19 1 6-25 [facility] BZPZQ0686-68-60 12:39:003.2[facility]annCHEM PANEL 2020-12-28 12:39:00 Test Item Value Reference Range Interpretation Comments A/G Ratio (test code = A/G Ratio) 0.6 1 0.7-1.6 [facility]CHE[facility] XRWNR6175-12-15 12:39:07376Xfiskfpc HermannHEMATOLOGY 2020-12-28 12:39:20052Iplqpzio QbxzioxKFTSGOZWYI2810-68-93 12:39:00 Test Item Value Reference Range Interpretation Comments PT (test code = PT) 13.4 s 12.0-14.7 [facility]fuxplmWMUVAJJTQM3099-16-94 12:39:00 Test Item Value Reference Range Interpretation Comments INR (test code = INR) 1.03 1 0.85-1.17 [facility] TempleKirjddkGNDGHLDDZT0589-48-11 12:39:00 Test Item Value Reference Range Interpretation Comments PTT (test code = PTT) 31.4 s 22.9-35.8 [facility]CHE[facility] NCJWG3575-66-34 12:39:006.9[facility]annCHEM PANEL 2020-12-28 12:39:62865Yokrptqb HermannCHEM FPELW9402-77-06 12:39:0090[facility]annCHEM VFTCL3421-11-67 12:39:0014[facility]annCHEM JTZZX3848-56-27 12:39:000.75[facility] HermannCHEM GCHQN2158-03-16 12:39:78977Xeoivafo HermannCHEM SWYUN5835-90-51 12:39:004.1[facility] HermannCHEM ULLMM4606-07-37 12:39:14988 [facility]CHE[facility] ILWHD6007-23-28 12:39:0026[facility]annCHEM PANEL 2020-12-28 12:39:007.9[facility]annCHEM CPHBI7472-81-84 12:39:005.2[facility]annCHEM VBBKK3906-49-45 12:39:002.0[facility]annCHEM VAUJN8111-90-24 12:39:0018[facility]annCHEM GNLNB3780-56-70 12:39:0016[facility]annCHEM GQSDX2169-65-66 12:39:75349Ehzkhdgl HermannCHEM WXTQN7552-32-78 12:39:000.1 [facility] Temple[facility]CHE[facility] KMPUE7177-50-51 12:39:009.1[facility] HermannCHEM [facility] 2020-12-28 12:39:00 Test Item Value Reference Range Interpretation Comments B/C Ratio (test code = B/C Ratio) 19 1 6-25 [facility]annFORMERLY [facility]OJYZJ2551-15-78 12:39:003.2[facility]CHE[facility] 2020-12-28 12:39:00 Test Item Value Reference Range Interpretation Comments A/G Ratio (test code = A/G Ratio) 0.6 1 0.7-1.6 [facility]2021-01-28 12:39:57858Otznsqgt HermannHEMATOLOGY 2020-12-28 12:39:01643Vfotvuaa TqhjtneYSIAJDTBAI1641-20-44 12:39:00 Test Item Value Reference Range Interpretation Comments PT (test code = PT) 13.4 s 12.0-14.7 [facility]gqxbdxKLDTUGAIAF0997-20-69 12:39:00 Test Item Value Reference Range Interpretation Comments INR (test code = INR) 1.03 1 0.85-1.17 [facility] LancasterGtkwyboZODSSQKOST6195-69-15 12:39:00 Test Item Value Reference Range Interpretation Comments PTT (test code = PTT) 31.4 s 22.9-35.8 [facility] XwrvfeoBTRSAQKFWE1006-84-69 06:00:0080.7[facility] HermannHEMATOLOGY 2020-12-28 06:00:0013.5[facility] XnguhxgLJCCYNAWBC9927-98-32 06:00:005.1[facility] LpcwybmQKOOWVMEYX9705-56-58 06:00:000.3[facility] MhrkhchAPDHZBZOOO9478-72-12 06:00:000.4[facility] DiwhxdgDDDLNHHTKB0265-73-38 06:00:0012.9[facility] YFCYESXCLD2966-45-14 06:00:002.2[facility] NyykavoBQFFAZBOIM8554-71-52 06:00:000.8 [facility] XfdxfsiKMLMJGCXYI8469-11-25 06:00:000.1[facility] HermannHEMATOLOGY 2020-12-28 06:00:0016.0[facility] ZnycddiLEKVPANNJB6342-94-05 06:00:003.65[facility] GlehtqmFOMVFNQBQD8027-70-59 06:00:0010.0[facility] YxewadzOBEBERSBMK2999-61-76 06:00:0029.8[facility] ZsjucvdBPQWDZPZCP7545-57-45 06:00:0081.7[facility] Aj OOPGQBOPMA3903-38-76 06:00:00 Test Item Value Reference Range Interpretation Comments MCH (test code = MCH) 27.5 pg 27.0-31.0 [facility] KpnlfkiQOBJUITSKR3701-08-98 06:00:0033.6[facility] HermannHEMATOLOGY 2020-12-28 06:00:0014.0[facility] GvezddtRWPQDXVLUL6170-70-69 06:00:72664Qriuzobg JjtytuhGXESYUXZRE9583-55-33 06:00:009.9[facility] IaesfaeJZNXJBLFYR1435-05-78 06:00:0080.7[facility] TfamqjcWJNQIUBKNQ1510-70-43 06:00:0013.5[facility] XCFHLXOUNK5760-85-49 06:00:005.1[facility] LgrbkzzLREIFDYUQC2647-87-46 06:00:000.3 [facility] HdvbfguLCCOKCJREH1914-05-17 06:00:000.4[facility] HermannHEMATOLOGY 2020-12-28 06:00:0012.9[facility] BbcqllmJQHQHTNCJO7655-00-38 06:00:002.2[facility] LgkejbuMGXTGJSDED8960-86-62 06:00:000.8[facility] MukajpdANCHKNHHKZ2097-44-16 06:00:000.1[facility] CpjjofkERTQBGNWGE2646-83-98 06:00:0016.0[facility] Aj RGTDXBFHYG7182-50-96 06:00:003.65[facility] JhjtisoIFZCGLFJRU7794-60-85 06:00:00 10.0[facility] CulnmttPUJWIVEOCP7226-10-67 06:00:0029.8[facility] HermannHEMATOLOGY 2020-12-28 06:00:0081.7[facility] QwtvcvoZUFOKSSJXH3645-12-49 06:00:00 Test Item Value Reference Range Interpretation Comments MCH (test code = MCH) 27.5 pg 27.0-31.0 [facility] RifhvidKJWUWNHRQP9384-32-31 06:00:0033.6[facility] HermannHEMATOLOGY 2020-12-28 06:00:0014.0[facility] ZkazyyzQGJOFDRUCZ9339-30-08 06:00:44551Ahtetlyk NhaeeqzDXDAZYTYTU8622-26-32 06:00:009.9[facility] LgwzebzMNTYSALRJB2672-59-57 06:00:0080.7[facility] OblkujwMWUZVJJHRT7601-49-74 06:00:0013.5[facility] ZQDHPSRHTK6726-85-23 06:00:005.1[facility] EyxmqtfQMVKPCIYCR4996-07-84 06:00:000.3 [facility] XuclgpdHYTXTEWOUJ0539-61-24 06:00:000.4[facility] HermannHEMATOLOGY 2020-12-28 06:00:0012.9[facility] ZansnsoEVCCCODTJH3111-90-69 06:00:002.2[facility] LnkoyhsIMSXXBEIUJ2449-96-60 06:00:000.8[facility] TdpyhwyUOUVVBOKRF4647-19-00 06:00:000.1[facility] CmbpanvKFCJMRYWAD6073-34-05 06:00:0016.0[facility] Aj SZUIQGBSPJ5065-31-77 06:00:003.65[facility] YkfhgurYBMZSSVKFR5661-42-08 06:00:00 10.0[facility] RjfryymRXNCEJWKTN0579-73-97 06:00:0029.8[facility] HermannHEMATOLOGY 2020-12-28 06:00:0081.7[facility] CxfpwsqSFIYIWLGWK8705-91-72 06:00:00 Test Item Value Reference Range Interpretation Comments MCH (test code = MCH) 27.5 pg 27.0-31.0 [facility] ErcxuvdTTMDFSVAGB1327-08-20 06:00:0033.6[facility] HermannHEMATOLOGY 2020-12-28 06:00:0014.0[facility] EtbtgooBQDEWJWWLR7843-42-27 06:00:56997Ygkuxgvp VrdbzgjQJPPLZRVYN9541-25-79 06:00:009.9[facility] XapvdibDKBYVPGOUO5235-28-89 06:00:0080.7[facility] CrjhtprYWUFRBRVIM3868-25-76 06:00:0013.5[facility] ESHHNZJONM0230-07-85 06:00:005.1[facility] JbfrscmXGPHQASSBA1199-59-26 06:00:000.3 [facility] VgpovjyQGLCIEGDQM0216-43-61 06:00:000.4[facility] HermannHEMATOLOGY 2020-12-28 06:00:0012.9[facility] MwpxdggTATTPBXAGR6790-82-42 06:00:002.2[facility] XdaewuiZPURFGTUXF8378-30-18 06:00:000.8[facility] MukgorwSPGJGSZNGW5345-80-61 06:00:000.1[facility] OietjzwACDMRFYKLN8568-61-84 06:00:0016.0[facility] FINAXVDOHC5575-30-48 06:00:003.65[facility] VkmpxgmPYXERSKBPM7708-14-52 06:00:00 10.0[facility] MwdmzzbSZSSMSTKGC4267-76-75 06:00:0029.8[facility] HermannHEMATOLOGY 2020-12-28 06:00:0081.7[facility] DwsbvshOUPCNXHSMQ9356-45-16 06:00:00 Test Item Value Reference Range Interpretation Comments MCH (test code = MCH) 27.5 pg 27.0-31.0 [facility] SrtpbfxTUDMKKCDRK0762-77-37 06:00:0033.6[facility] HermannHEMATOLOGY 2020-12-28 06:00:0014.0[facility] AjignokTOOMAEHSIP3803-33-68 06:00:81854Vtostjdl QbweqgdQXJGHKNZWT6001-00-08 06:00:009.9[facility] HermannCHEM VOZBJ3274-36-67 15:07:0026[facility] HermannCHEM YLZNX4815-31-66 15:07:0015[facility] HermannCHEM TCRVN6188-76-40 15:07:16037Gfjtaida HermannCHEM EUUMA1406-18-07 15:07:000.2 [facility]annCHEM OVIYR1849-20-88 15:07:0012.0[facility] HermannCHEM PANEL 2020-12-27 15:07:00 Test Item Value Reference Range Interpretation Comments B/C Ratio (test code = B/C Ratio) 25 1 6-25 [facility]annCHEM YHDMH4280-61-81 15:07:003.6[facility] HermannCHEM PANEL 2020-12-27 15:07:00 Test Item Value Reference Range Interpretation Comments A/G Ratio (test code = A/G Ratio) 0.8 1 0.7-1.6 [facility]annCHEM RBVRN0813-73-05 15:07:05099Quyufubw HermannIMMUNOLOGY 2020-12-27 15:07:00Negative *NA*(12/27/20 9:07 AM)[facility] HermannIMMUNOLOGY 2020-12-27 15:07:00Negative *NA*(12/27/20 9:07 AM)[facility] HermannIMMUNOLOGY 2020-12-27 15:07:00Non-Reactive *NA*(12/27/20 9:07 AM)[facility]annURINE CHEM 2020-12-27 15:07:0044.80[facility] HermannURINE OZQP2863-28-19 15:07:0059.5 [facility]annURINE RHUW6428-55-20 15:07:00 Test Item Value Reference Range Interpretation Comments U Prot/Creat (test code = U 1.33 1 Prot/Creat) [facility]annCHEM MZMOT9858-30-76 15:07:0069[facility] HermannCHEM PANEL 2020-12-27 15:07:0017[facility] HermannCHEM YWGPE2696-00-85 15:07:000.69[facility] HermannCHEM OWXXY8834-38-64 15:07:69348Wlawruyr HermannCHEM IEXQP4274-84-06 15:07:004.0[facility] HermannCHEM ZORAX7860-95-59 15:07:23995Znluvhrz HermannCHEM JCJFR6983-79-24 15:07:0022[facility] HermannCHEM TFMZA4898-54-07 15:07:008.2 [facility]annCHEM KFWLS2943-75-10 15:07:006.3[facility] HermannCHEM PANEL 2020-12-27 15:07:002.7[facility] HermannCHEM OYRKL8810-12-69 15:07:0026[facility] HermannCHEM RZYGV6046-17-12 15:07:0015[facility] HermannCHEM BKOJU3291-73-65 15:07:68765Ekoqrbrf HermannCHEM ZCEDU3811-58-60 15:07:000.2[facility] HermannCHEM XEDVF3499-11-16 15:07:0012.0[facility] HermannCHEM AMFNG1486-68-53 15:07:00 Test Item Value Reference Range Interpretation Comments B/C Ratio (test code = B/C Ratio) 25 1 6-25 [facility]annCHEM LJOLX4325-42-79 15:07:003.6[facility] HermannCHEM PANEL 2020-12-27 15:07:00 Test Item Value Reference Range Interpretation Comments A/G Ratio (test code = A/G Ratio) 0.8 1 0.7-1.6 [facility]annCHEM UNSLJ3427-78-82 15:07:26943Qnzmpjzp HermannIMMUNOLOGY 2020-12-27 15:07:00Negative *NA*(12/27/20 9:07 AM)[facility] HermannIMMUNOLOGY 2020-12-27 15:07:00Negative *NA*(12/27/20 9:07 AM)[facility] HermannIMMUNOLOGY 2020-12-27 15:07:00Non-Reactive *NA*(12/27/20 9:07 AM)[facility]annURINE CHEM 2020-12-27 15:07:0044.80[facility]annURINE RYCV3984-54-32 15:07:0059.5 [facility]annURINE HBHI1622-26-39 15:07:00 Test Item Value Reference Range Interpretation Comments U Prot/Creat (test code = U 1.33 1 Prot/Creat) [facility]annCHEM PIMUB3390-35-67 15:07:0069[facility] HermannCHEM PANEL 2020-12-27 15:07:0017[facility] HermannCHEM ESCSI7527-31-03 15:07:000.69[facility] HermannCHEM ZANRU0370-18-28 15:07:47877Ufpdvfvp HermannCHEM ZPAIM2133-56-16 15:07:004.0[facility] HermannCHEM XIBCH1971-92-98 15:07:13045Ipbqmdna HermannCHEM OEUCC4097-14-23 15:07:0022[facility] HermannCHEM ZQNVW0506-15-27 15:07:008.2 [facility]annCHEM OEXNF2941-88-18 15:07:006.3[facility] HermannCHEM PANEL 2020-12-27 15:07:002.7[facility] HermannCHEM RAZOH7913-77-38 15:07:0026[facility] HermannCHEM TVPJI4710-25-00 15:07:0015[facility] HermannCHEM PYICU7366-60-47 15:07:35512Ikjmwufd HermannCHEM NGGAZ4860-91-01 15:07:000.2[facility] HermannCHEM QFLCE2913-21-92 15:07:0012.0[facility] HermannCHEM NAGYU8835-00-67 15:07:00 Test Item Value Reference Range Interpretation Comments B/C Ratio (test code = B/C Ratio) 25 1 6-25 [facility]annCHEM JZXEI8672-01-63 15:07:003.6[facility] HermannCHEM PANEL 2020-12-27 15:07:00 Test Item Value Reference Range Interpretation Comments A/G Ratio (test code = A/G Ratio) 0.8 1 0.7-1.6 [facility]annCHEM RLRGX9831-54-19 15:07:97793Vxgnsbnw HermannIMMUNOLOGY 2020-12-27 15:07:00Negative *NA*(12/27/20 9:07 AM)[facility] HermannIMMUNOLOGY 2020-12-27 15:07:00Negative *NA*(12/27/20 9:07 AM)[facility] HermannIMMUNOLOGY 2020-12-27 15:07:00Non-Reactive *NA*(12/27/20 9:07 AM)[facility]annURINE CHEM 2020-12-27 15:07:0044.80[facility]annURINE ANSX4121-92-73 15:07:0059.5 [facility]UR[facility] PRGO7834-92-18 15:07:00 Test Item Value Reference Range Interpretation Comments U Prot/Creat (test code = U 1.33 1 Prot/Creat) [facility]annCHEM WYKKU6290-68-17 15:07:0069[facility]annCHEM PANEL 2020-12-27 15:07:0017[facility] HermannCHEM FIUZF9590-18-96 15:07:000.69[facility] HermannCHEM GLATM6636-22-91 15:07:55832Fhedmriw HermannCHEM PCSWC6857-19-81 15:07:004.0[facility] HermannCHEM MKJFT7327-53-38 15:07:66806Apkayncg HermannCHEM XAXIZ5739-58-14 15:07:0022[facility] HermannCHEM DLPFV5058-78-09 15:07:008.2 [facility]annCHEM RVVVN3224-99-42 15:07:006.3[facility] HermannCHEM PANEL 2020-12-27 15:07:002.7[facility] HermannCHEM UXUPS7487-95-67 15:07:0026[facility] HermannCHEM WWQMO6544-08-80 15:07:0015[facility] HermannCHEM AIDSL4787-47-59 15:07:78861Bkdpyhsf HermannCHEM ISZBG3900-58-90 15:07:000.2[facility] HermannCHEM HHPVO8787-38-00 15:07:0012.0[facility] HermannCHEM YSUSC6637-27-29 15:07:00 Test Item Value Reference Range Interpretation Comments B/C Ratio (test code = B/C Ratio) 25 1 6-25 [facility]annCHEM HSEQV6044-59-99 15:07:003.6[facility] HermannCHEM PANEL 2020-12-27 15:07:00 Test Item Value Reference Range Interpretation Comments A/G Ratio (test code = A/G Ratio) 0.8 1 0.7-1.6 [facility]annCHEM TXEZU1022-61-76 15:07:22108Hmchhjmq HermannIMMUNOLOGY 2020-12-27 15:07:00Negative *NA*(12/27/20 9:07 AM)[facility] HermannIMMUNOLOGY 2020-12-27 15:07:00Negative *NA*(12/27/20 9:07 AM)[facility] HermannIMMUNOLOGY 2020-12-27 15:07:00Non-Reactive *NA*(12/27/20 9:07 AM)[facility]annURINE CHEM 2020-12-27 15:07:0044.80[facility]annURINE NMBC4628-34-90 15:07:0059.5 [facility]annURINE ILXH0702-91-34 15:07:00 Test Item Value Reference Range Interpretation Comments U Prot/Creat (test code = U 1.33 1 Prot/Creat) [facility]annCHEM SKIQX6104-20-70 15:07:0069[facility] HermannCHEM PANEL 2020-12-27 15:07:0017[facility] HermannCHEM DDOYF5672-56-48 15:07:000.69[facility] HermannCHEM MNBZS5937-83-26 15:07:21463Lsyididu HermannCHEM YPYIH4605-27-69 15:07:004.0[facility] HermannCHEM DQIAV7075-07-54 15:07:67253Jttbryuy HermannCHEM ESZOM1913-97-99 15:07:0022[facility] HermannCHEM KMRSM8911-26-40 15:07:008.2 [facility]annCHEM ZXTAJ9196-81-65 15:07:006.3[facility] HermannCHEM PANEL 2020-12-27 15:07:002.7[facility] EzhnzqaDSFJEGXCTT0656-51-90 20:59:00Not Detected *NA*(12/25/20 2:59 PM)[facility] FizizfiVUTKDNHHMQ2074-24-26 20:59:00Not Detected *NA*(12/25/20 2:59 PM)[facility] AudosgdVEWKOSMIWL8528-75-29 20:59:00Not Detected *NA*(12/25/20 2:59 PM)[facility] WzdlaqrZDOKRZXPLY9128-83-09 20:59:00Not Detected *NA*(12/25/20 2:59 PM)[facility] [employer] StudioannBLOOD BANK NHBRVTG5837-67-48 20:14:00 Negative (12/25/20 2:14 PM)[facility] DEILUQO6352-84-44 20:14:00 Negative (12/25/20 2:14 PM)[facility] PVCDKVN7208-10-31 20:14:00 Negative (12/25/20 2:14 PM)[facility] CFCWRSR6535-95-95 20:14:00 Negative (12/25/20 2:14 PM)[facility] JiqtuesSPQHTKIIUD4251-75-79 20:13:0016.3 [facility] XqwxkeyTAGJDIEDRS7225-97-92 20:13:004.01[facility] HermannHEMATOLOGY 2020-12-25 20:13:0010.9[facility] VonqafaKHBUBMNUWY7959-19-93 20:13:0033.0[facility] UuxoimcOPPMIEOBMT9087-72-14 20:13:0082.2[facility] GnuumixJNXGMTNRQU2235-57-32 20:13:00 Test Item Value Reference Range Interpretation Comments MCH (test code = MCH) 27.3 pg 27.0-31.0 [facility] PbqhxswOLOLQCRBQS0781-22-75 20:13:0033.2[facility] HermannHEMATOLOGY 2020-12-25 20:13:0014.0[facility] VtsgujrAORSBFDSJS8953-20-66 20:13:44807Xebjmysz YwtahzxNHIKNNBCBV7076-16-61 20:13:0010.2[facility] ErgofvvPJRYCNBDNZ9260-63-48 20:13:0012.4[facility] RaahlktIICLGWXIVG8083-19-33 20:13:002.6[facility] VTJZPNTTXW7511-43-54 20:13:001.0[facility] KcecqehPPLQBXHOZD6697-95-99 20:13:00 72.0[facility] TuqtpvoMBIWETIWUW6211-41-67 20:13:004.0[facility] HermannHEMATOLOGY 2020-12-25 20:13:0015.0[facility] FoytbkpCLCPZNVXAP0949-90-34 20:13:006.0[facility] JdtorebXRGGXKRGBU0560-48-40 20:13:002.0[facility] PgcexpeFWNLUXWVEH4667-76-44 20:13:001.0[facility] JtkcnznVMLYKVKKBZ7735-38-02 20:13:004[facility] Aj HSYVXJRNXN4105-11-50 20:13:00Normal (12/25/20 2:13 PM)[facility]annHEMATOLOGY 2020-12-25 20:13:00Normal (12/25/20 2:13 PM)[facility] JcjmekbJLEVDJZAZH1248-35-81 20:13:0016.3[facility] ZlhtjwvZSIXRRGFPZ9070-39-53 20:13:004.01[facility] HFPTPYPNAN9969-63-86 20:13:0010.9[facility] JkiemxgRYAXWCTSLN5542-96-92 20:13:00 33.0[facility] BgoerscSETQJBAPPS3102-39-11 20:13:0082.2[facility] HermannHEMATOLOGY 2020-12-25 20:13:00 Test Item Value Reference Range Interpretation Comments MCH (test code = MCH) 27.3 pg 27.0-31.0 [facility] HkyfuloUJCMGZFXDJ4285-53-55 20:13:0033.2[facility] HermannHEMATOLOGY 2020-12-25 20:13:0014.0[facility] GbypplqDDSMETBXAT0752-64-82 20:13:85937Didepskm LdpukwzVDJLQPMETP5942-79-29 20:13:0010.2[facility] TtwwgxtWMGFENZRJB3536-49-58 20:13:0012.4[facility] GystcqyUNQWOSMRWE6332-37-57 20:13:002.6[facility] Aj FNQQDTPGYI6505-20-81 20:13:001.0[facility] KspwikrGWVMIFLFUH8879-64-63 20:13:00 72.0[facility] KxwexlxHAUOKUEHUA3802-63-20 20:13:004.0[facility] HermannHEMATOLOGY 2020-12-25 20:13:0015.0[facility] UyfhpeeYXVUPHYRYR7967-54-31 20:13:006.0[facility] ZugipncBFMLSXITPB4686-85-17 20:13:002.0[facility] SqlwfpeFQOWTZYOCS9752-97-48 20:13:001.0[facility] MzveljmDIFJBBPHXW7098-07-06 20:13:004[facility] Aj PZLUWVQJLA4568-94-68 20:13:00Normal (12/25/20 2:13 PM)[facility]Y 2020-12-25 20:13:00Normal (12/25/20 2:13 PM)[facility] VnjxtjvNKAPVSNIWE5904-16-75 20:13:0016.3[facility] MqfppwoDGDDWKTKHU7210-73-05 20:13:004.01[facility] Aj BBVUJBYOCC1631-85-17 20:13:0010.9[facility] QwjsaloVEPRPQXKLD5808-60-15 20:13:00 33.0[facility] YtszfhpZKBBHELAWA0299-61-96 20:13:0082.2[facility]annHEMATOLOGY 2020-12-25 20:13:00 Test Item Value Reference Range Interpretation Comments MCH (test code = MCH) 27.3 pg 27.0-31.0 [facility] ZsfxmmeZORUSXSPEG9883-54-33 20:13:0033.2[facility]annHEMATOLOGY 2020-12-25 20:13:0014.0[facility] RrrdifeSDABWGQYOB2209-56-18 20:13:66206Hhkxjdce UrkvsbhOJQTHQCSPL8565-84-87 20:13:0010.2[facility] UijdmgfDBTVQFVMKC5192-19-82 20:13:0012.4[facility] XxzbyxwSTAKHMNSIE5000-93-26 20:13:002.6[facility] Aj INOYJMULZI5529-37-03 20:13:001.0[facility] YngjwvgFHEEBMQFZM7044-67-35 20:13:00 72.0[facility] WnqxmezXBPBYMSGSP5419-30-74 20:13:004.0[facility]HE[facility]OLOGY 2020-12-25 20:13:0015.0[facility] XiyiblqITFGVDQZGP6288-81-58 20:13:006.0[facility] FimalkwPSRDKHMUZN0790-89-77 20:13:002.0[facility] UsnlkwmOVNSHDXVSA6825-76-35 20:13:001.0[facility] PpsfjxyIHJGKVVPBC2325-65-19 20:13:004[facility] [place] LIHWKDTWVZ6812-96-68 20:13:00Normal (12/25/20 2:13 PM)[facility] 2020-12-25 20:13:00Normal (12/25/20 2:13 PM)[facility] VjxhfbmMWNXCUCPSX2974-36-74 20:13:0016.3[facility] NbkpwzhRBJDUXVQEZ6994-66-08 20:13:004.01[facility] Aj MRLKLRIWSI4272-84-61 20:13:0010.9[facility] RxwlwfpCZQWHLDKMW5057-32-36 20:13:00 33.0[facility] HqwkzemFJDYZVMUIP3165-25-43 20:13:0082.2[facility]annHEMATOLOGY 2020-12-25 20:13:00 Test Item Value Reference Range Interpretation Comments MCH (test code = MCH) 27.3 pg 27.0-31.0 [facility] DzrhgxkIQVHJVRCVS6912-23-93 20:13:0033.2[facility]annHEMATOLOGY 2020-12-25 20:13:0014.0[facility] RsfvghoTDKPKCLQXT7083-92-02 20:13:09592Qjzwscio OuvtrtfYITSPFGXLD0013-56-61 20:13:0010.2[facility] DnlagniDEEEEKYBME8661-52-09 20:13:0012.4[facility] TfasxjzVWVSVLKHEI8451-42-47 20:13:002.6[facility] Aj SRWIPRFABN5863-67-52 20:13:001.0[facility] ClltmavYZXTNGVMTY1003-61-21 20:13:00 72.0[facility] LpauxkfLBVYYQHEQP2569-60-83 20:13:004.0[facility]annHEMATOLOGY 2020-12-25 20:13:0015.0[facility] ZcedvtnDBWXTWGNAP0334-10-75 20:13:006.0[facility] RlabuhcEHMOFZNLNE6410-47-74 20:13:002.0[facility] TgdbuewSDUSJJFGJF2007-16-84 20:13:001.0[facility] GrecnmcEFGSUBDCCE8317-68-39 20:13:004[facility] [place] IYUUCPZNZM0363-31-00 20:13:00Normal (12/25/20 2:13 PM)[facility] 2020-12-25 20:13:00Normal (12/25/20 2:13 PM)[facility] 2020-12[facility]24 00:34:00Negative (12/23/20 6:34 PM)[facility]annIMMUNOLOGY 2020-12-24 00:34:00Negative *NA*(12/23/20 6:34 PM)[facility]annIMMUNOLOGY 2020-12-24 00:34:00Non-Reactive *NA*(12/23/20 6:34 PM)[facility]annIMMUNOLOGY 2020-12-24 00:34:00Negative *NA*(12/23/20 6:34 PM)[facility] MHJIAAE7374-25-30 00:34:00Negative (12/23/20 6:34 PM)[facility]annIMMUNOLOGY 2020-12-24 00:34:00Negative *NA*(12/23/20 6:34 PM)[facility] HermannIMMUNOLOGY 2020-12-24 00:34:00Non-Reactive *NA*(12/23/20 6:34 PM)[facility] HermannIMMUNOLOGY 2020-12-24 00:34:00Negative *NA*(12/23/20 6:34 PM)[facility] JSNSLND6492-67-24 00:34:00Negative (12/23/20 6:34 PM)[facility] HermannIMMUNOLOGY 2020-12-24 00:34:00Negative *NA*(12/23/20 6:34 PM)[facility] HermannIMMUNOLOGY 2020-12-24 00:34:00Non-Reactive *NA*(12/23/20 6:34 PM)[facility] HermannIMMUNOLOGY 2020-12-24 00:34:00Negative *NA*(12/23/20 6:34 PM)[facility] GSCEKMR0636-82-86 00:34:00Negative (12/23/20 6:34 PM)[facility] HermannIMMUNOLOGY 2020-12-24 00:34:00Negative *NA*(12/23/20 6:34 PM)[facility] HermannIMMUNOLOGY 2020-12-24 00:34:00Non-Reactive *NA*(12/23/20 6:34 PM)[facility] HermannIMMUNOLOGY 2020-12-24 00:34:00Negative *NA*(12/23/20 6:34 PM)[facility] HermannCARDIAC ENZYMES 2020-12-23 22:52:00<0.02[facility] HermannCHEM FSFPO9885-80-88 22:52:0093 [facility]annCHEM MGJXO4897-95-35 22:52:0012[facility]annCHEM PANEL 2020-12-23 22:52:000.73[facility] HermannCHEM MZDTU3256-29-33 22:52:30702Maroqeac HermannCHEM KZHFJ2352-14-81 22:52:004.2[facility] HermannCHEM GCSIP7054-72-65 22:52:10154Pwvehqih HermannCHEM PJWRQ3001-18-20 22:52:0020[facility] HermannCHEM FKDPG9254-02-22 22:52:009.0[facility] HermannCHEM VBEBR1585-19-76 22:52:006.2 [facility]annCHEM IRBQA8864-65-05 22:52:002.6[facility] HermannCHEM PANEL 2020-12-23 22:52:0017[facility] HermannCHEM CCOTG6017-51-97 22:52:0017[facility] HermannCHEM ZMYNV9514-68-32 22:52:99753Ybadjrts HermannCHEM LAQBI9781-49-21 22:52:000.1[facility] HermannCHEM ECEEB1988-34-67 22:52:0011.2[facility] HermannCHEM LXXVJ2089-43-09 22:52:00 Test Item Value Reference Range Interpretation Comments B/C Ratio (test code = B/C Ratio) 16 1 6-25 [facility] IMJJU6958-04-36 22:52:003.6[facility]ann[facility] PANEL 2020-12-23 22:52:00 Test Item Value Reference Range Interpretation Comments A/G Ratio (test code = A/G Ratio) 0.7 1 0.7-1.6 [facility] HermannCHEM BHSZW5985-82-18 22:52:85177Ngktftfq HermannHEMATOLOGY 2020-12-23 22:52:0018.7[facility] VhbtguxZVEHOJBZNI5861-56-72 22:52:003.76[facility] XcmxtakVSPYXTRAHQ0279-62-32 22:52:0010.1[facility] JhxuinfPEODESSHGZ3837-17-87 22:52:0031.3[facility] RrehcswKESYBNKFXA6162-19-10 22:52:0083.1[facility] Aj FEMFXABCCI7272-73-21 22:52:00 Test Item Value Reference Range Interpretation Comments MCH (test code = MCH) 26.7 pg 27.0-31.0 [facility] GmtntchJWNBIWPWCA8135-13-46 22:52:0032.2[facility]annHEMATOLOGY 2020-12-23 22:52:0014.4[facility] NgrnxjjZBOPLZJQTT0880-29-68 22:52:78523Kexjjupu TvpmpxqGADPOEHTOC2846-71-14 22:52:0010.5[facility] HermannCARDIAC ENZYMES 2020-12-23 22:52:00<0.02[facility]annCHEM EPIZK1448-79-84 22:52:0093 [facility] BZEHX8180-45-23 22:52:0012[facility]annCHE[facility] PANEL 2020-12-23 22:52:000.73[facility]annCHE[facility] FEPVB4637-12-55 22:52:45433Gjsgviwz [facility]annCHEM AYICY5385-14-55 22:52:004.2[facility]annCHE[facility] HPSDY6610-86-63 22:52:08788Gcvjoess [facility]annCHEM URPDQ8915-67-18 22:52:0020[facility] KOYCQ1236-83-31 22:52:009.0[facility]annCHE[facility] WURTI2293-82-85 22:52:006.2 [facility] QLBWX2404-14-29 22:52:002.6[facility]annCHE[facility] PANEL 2020-12-23 22:52:0017[facility] KXZOM7704-61-24 22:52:0017[facility]annCHE[facility] DRDYS5094-08-30 22:52:42644Kockytqy [facility]annCHEM HLBDF3540-21-31 22:52:000.1[facility]CHE[facility] QVZRU9193-53-05 22:52:0011.2[facility]annCHE[facility] FIJYQ5885-89-22 22:52:00 Test Item Value Reference Range Interpretation Comments B/C Ratio (test code = B/C Ratio) 16 1 6-25 [facility] PQIGY0104-18-79 22:52:003.6[facility]annCHE[facility] PANEL 2020-12-23 22:52:00 Test Item Value Reference Range Interpretation Comments A/G Ratio (test code = A/G Ratio) 0.7 1 0.7-1.6 [facility] HermannCHEM PTQJE5057-41-49 22:52:80075Afdpjuwz HermannHEMATOLOGY 2020-12-23 22:52:0018.7[facility] OleobhvGEFSDJIXKO0216-53-04 22:52:003.76[facility] QepircxUMZGJNABEW3323-96-60 22:52:0010.1[facility] YvftvgaIRMWSNPPJA6673-00-25 22:52:0031.3[facility] BjimiybDBHTXWGXFD8243-97-34 22:52:0083.1[facility] Aj LACYQZRBIX5070-33-29 22:52:00 Test Item Value Reference Range Interpretation Comments MCH (test code = MCH) 26.7 pg 27.0-31.0 [facility] QisoixuPEGBNAITVT5062-67-74 22:52:0032.2[facility]annHEMATOLOGY 2020-12-23 22:52:0014.4[facility] VucaujiAFEBGQJHCY0279-38-96 22:52:42716Ehjtgmhs GjqksebFRTTIADSYF6480-29-40 22:52:0010.5[facility]annCARDIAC ENZYMES 2020-12-23 22:52:00<0.02[facility]annCHEM NGSXM7034-15-11 22:52:0093 [facility] KAEJJ8833-07-48 22:52:0012[facility]annCHE[facility] PANEL 2020-12-23 22:52:000.73[facility]annCHE[facility] SGZIE1178-08-07 22:52:36204Gjojvuhr [facility]annCHEM EEFXR6745-32-38 22:52:004.2[facility]annCHE[facility] EVTSK3690-75-04 22:52:13601Uqpnwnjl [facility]annCHE[facility] VQLBH9877-20-36 22:52:0020[facility]CHE[facility] FZLZZ8767-95-98 22:52:009.0[facility]annCHE[facility] XFOLA4601-35-67 22:52:006.2 [facility]annCHE[facility] ROEEK3166-07-61 22:52:002.6[facility]annCHEM PANEL 2020-12-23 22:52:0017[facility]annCHE[facility] HWLBQ3769-67-62 22:52:0017[facility]annCHE[facility] YWGCH0171-90-04 22:52:45389Axzsgdlj [facility]annCHEM VXLQL5959-32-34 22:52:000.1[facility]CHE[facility] MJKPF7345-77-70 22:52:0011.2[facility]annCHE[facility] PJSFS3610-89-50 22:52:00 Test Item Value Reference Range Interpretation Comments B/C Ratio (test code = B/C Ratio) 16 1 6-25 [facility] TJBNF1904-58-14 22:52:003.6[facility]annCHEM PANEL 2020-12-23 22:52:00 Test Item Value Reference Range Interpretation Comments A/G Ratio (test code = A/G Ratio) 0.7 1 0.7-1.6 [facility]CHE[facility] LBURS0040-82-87 22:52:89522Wlopkbzt HermannHEMATOLOGY 2020-12-23 22:52:0018.7[facility] UzcrnefDYLAPKWOYD1368-44-04 22:52:003.76[facility] WyciadyJIDGGDUGZG8088-21-48 22:52:0010.1[facility] UrajvjvFRWRZHWHTH9217-40-92 22:52:0031.3[facility] IvjfostYQDJLVLGHX0519-97-56 22:52:0083.1[facility] RYHMODGEKJ5624-66-83 22:52:00 Test Item Value Reference Range Interpretation Comments MCH (test code = MCH) 26.7 pg 27.0-31.0 [facility] QgbgnkaGPSTRFDJGX2480-64-27 22:52:0032.2[facility]annHEMATOLOGY 2020-12-23 22:52:0014.4[facility] AmlzuabIJOLTMUGHY5397-10-48 22:52:87127Guwwnzml ZodabgfUOWVJPXFLF4942-16-38 22:52:0010.5[facility]annCARDIAC ENZYMES 2020-12-23 22:52:00<0.02[facility]annCHEM ZZPRV5573-72-72 22:52:0093 [facility]CHE[facility] MDUXF0923-77-35 22:52:0012[facility]annCHEM PANEL 2020-12-23 22:52:000.73[facility]annCHEM GRTGU3059-10-71 22:52:30158Ktrlgone HermannCHEM ETDXY8831-78-98 22:52:004.2[facility]annCHEM JZLGZ3128-29-37 22:52:21818Snzzugbb [facility]annCHEM WGLWA0273-15-73 22:52:0020[facility]annCHE[facility] ISAFQ3373-05-73 22:52:009.0[facility]annCHE[facility] LSSMM5392-18-74 22:52:006.2 [facility]annCHE[facility] WOFCM2960-94-89 22:52:002.6[facility]annCHEM PANEL 2020-12-23 22:52:0017[facility]annCHEM KCHOS5481-61-96 22:52:0017[facility]annCHEM WVAKL3026-79-57 22:52:68687Whvintyy HermannCHEM YVFBZ7274-39-07 22:52:000.1[facility]annCHEM NYPUS1053-36-55 22:52:0011.2[facility]annCHEM HRWHQ2011-55-22 22:52:00 Test Item Value Reference Range Interpretation Comments B/C Ratio (test code = B/C Ratio) 16 1 6-25 [facility] HermannCHEM BKCWM5813-91-09 22:52:003.6[facility]annCHEM PANEL 2020-12-23 22:52:00 Test Item Value Reference Range Interpretation Comments A/G Ratio (test code = A/G Ratio) 0.7 1 0.7-1.6 [facility] HermannCHEM GTXPO1288-57-16 22:52:86287Yhnqnixj HermannHEMATOLOGY 2020-12-23 22:52:0018.7[facility] LtrpaekQTEBLWWGJJ5314-83-74 22:52:003.76[facility] UhmxowfXXJAYMXRWQ7924-97-28 22:52:0010.1[facility] VnpjmuwFNOPDMIZLX0294-65-95 22:52:0031.3[facility] AoeqymuDQJTMYJUXZ0620-03-96 22:52:0083.1[facility] YVPYEOPGXC3850-98-27 22:52:00 Test Item Value Reference Range Interpretation Comments MCH (test code = MCH) 26.7 pg 27.0-31.0 [facility] KvznjaxZGDFAEJFZW7480-25-43 22:52:0032.2[facility]annHEMATOLOGY 2020-12-23 22:52:0014.4[facility] RownmjeXGOUUEXAAQ5439-73-03 22:52:73537Llmoevky SghzwdcYPTPBXHVCB6763-08-01 22:52:0010.5[facility] HtgjvrtSTOPZIFHPW0189-38-09 14:00:00Not Detected (12/22/20 8:00 AM)[facility] VwijunvKVJCCAURFA8843-15-68 14:00:00Not Detected (12/22/20 8:00 AM)[facility] OuixjxcJKYKCGXASR4925-21-63 14:00:00Not Detected (12/22/20 8:00 AM)[facility] XjwrkshTDDAYDDQFQ0680-46-70 14:00:00Not Detected (12/22/20 8:00 AM)[facility]annCHE[facility] ZNBKL7463-95-20 22:44:0087[facility]annCHEM RQJNC3913-80-97 22:44:008[facility]annCHEM DNNKQ8350-07-26 22:44:000.74[facility]annCHEM OCKJJ1487-53-63 22:44:86760 [facility]CHE[facility] RIXDF1398-27-71 22:44:004.2[facility]annCHEM PANEL 2020-12-21 22:44:90579Althmejt HermannCHEM BPDSV3254-35-94 22:44:0019[facility]annCHEM MIPUX9672-70-97 22:44:008.5[facility]annCHEM WUPJZ9288-81-25 22:44:006.3[facility]annCHEM VDXSA7717-46-13 22:44:002.5[facility]annCHEM OTHJQ6486-64-84 22:44:0014[facility]annCHEM NVMOT9066-10-69 22:44:0012 [facility]annCHE[facility] LSBPH9410-08-54 22:44:37188Zvndheem HermannCHEM PANEL 2020-12-21 22:44:000.3[facility]annCHEM BKXTD6227-29-49 22:44:0011.2[facility]annCHEM MACFP9004-25-46 22:44:00 Test Item Value Reference Range Interpretation Comments B/C Ratio (test code = B/C Ratio) 11 1 6-25 [facility]CHE[facility] SQLEM3285-38-50 22:44:003.8[facility]annCHEM PANEL 2020-12-21 22:44:00 Test Item Value Reference Range Interpretation Comments A/G Ratio (test code = A/G Ratio) 0.7 1 0.7-1.6 [facility]annCHE[facility] JHTMZ5371-81-76 22:44:19661Mpcojamq HermannHEMATOLOGY 2020-12-21 22:44:008.9[facility] WrqacawEISZMEPZNY3735-49-88 22:44:004.03[facility] WjztrmgJUKKNLXLZF2358-44-09 22:44:0011.0[facility] ZkpwksrYFBKJZNOMA4403-82-13 22:44:0033.0[facility] NjzcxoqVQESTYICZD8117-75-18 22:44:0081.8[facility] WRJDEEIXEZ0373-42-24 22:44:00 Test Item Value Reference Range Interpretation Comments MCH (test code = MCH) 27.4 pg 27.0-31.0 [facility] CyzwsubDIBFEQSFUG2292-70-69 22:44:0033.5[facility]annHEMATOLOGY 2020-12-21 22:44:0014.1[facility] FtovfdzSHZEUSGCXB0932-23-42 22:44:43007Wdepeukz MeiobaiBGETDWRYEG2830-13-91 22:44:0010.4[facility] LaiipfiATWAZQNTKV9433-60-05 22:44:0070.8[facility] ExlfdgdPHVTUMOTQA1776-12-71 22:44:0016.9[facility] Aj WZOIBIJXLS3624-81-20 22:44:008.9[facility] XmmdkjmCAPJMETJKH9500-76-96 22:44:002.6 [facility] RlyysxoULLIKOIIFO8739-09-20 22:44:000.8[facility]annHEMATOLOGY 2020-12-21 22:44:006.3[facility] IpxcntyQTRCFVRGFL5691-19-03 22:44:001.5[facility] PanktrbRNERUFFUQC6457-61-67 22:44:000.8[facility] DoqgvfvASYIHLSOTT3767-66-46 22:44:000.2[facility] LbiqpjxLVDHKSBLWI0648-44-31 22:44:000.1[facility]annURINE IGQB7781-24-74 22:44:88737.00[facility]annURINE HQTE3087-58-14 22:44:0055.2 [facility] OSIX1148-19-52 22:44:00 Test Item Value Reference Range Interpretation Comments U Prot/Creat (test code = U 0.30 1 Prot/Creat) [facility]CHEM HYOMM3553-12-15 22:44:0087[facility]annCHEM PANEL 2020-12-21 22:44:008[facility]annCHEM XCGEE4383-24-70 22:44:000.74[facility]annCHEM CJKCS5842-86-79 22:44:42125Jbbmkppa [facility]annCHEM WHJPY5477-65-74 22:44:004.2[facility]annCHEM ZFUCU9375-46-56 22:44:81428Uecrhhsj [facility]annCHEM VZQTW6486-42-63 22:44:0019[facility]CHE[facility] BPQQR8482-76-28 22:44:008.5 [facility] RVYII9972-02-36 22:44:006.3[facility]annCHEM PANEL 2020-12-21 22:44:002.5[facility]annCHEM PXFEI0545-29-86 22:44:0014[facility]annCHEM CCRZF1333-74-00 22:44:0012[facility]annCHEM DINYY1865-07-47 22:44:87988Hqzjspux [facility]annCHEM VCWSF5568-64-04 22:44:000.3[facility]annCHEM NNWSD3193-94-09 22:44:0011.2[facility]annCHEM SUMZE1126-89-61 22:44:00 Test Item Value Reference Range Interpretation Comments B/C Ratio (test code = B/C Ratio) 11 1 6-25 [facility] PIIOE0594-85-92 22:44:003.8[facility]annCHEM PANEL 2020-12-21 22:44:00 Test Item Value Reference Range Interpretation Comments A/G Ratio (test code = A/G Ratio) 0.7 1 0.7-1.6 [facility]CHE[facility] AWCYT3300-10-57 22:44:98458Cyfwolmc [facility]annHEMATOLOGY 2020-12-21 22:44:008.9[facility] GnfpgoyUDUQXOEXOH1873-01-53 22:44:004.03[facility] AaimzcmZWGXXWUNHZ5502-95-65 22:44:0011.0[facility] LtxaskdJLAIVCTNKY2999-33-08 22:44:0033.0[facility] AbegwnlJTTWDKOONZ1373-34-79 22:44:0081.8[facility] Aj FDPIWGUINS1482-57-08 22:44:00 Test Item Value Reference Range Interpretation Comments MCH (test code = MCH) 27.4 pg 27.0-31.0 [facility] HqxyobaXNUEUEUACW2441-51-33 22:44:0033.5[facility] HermannHEMATOLOGY 2020-12-21 22:44:0014.1[facility] PlpcgjvHJVJJNLPCS7620-97-52 22:44:70548Akiawixa YusoawaNAALVGEWWI0803-80-89 22:44:0010.4[facility] DtypevrLLCTMAMGDC3483-59-15 22:44:0070.8[facility] EgqpkxdGKNTZIQNJZ3646-04-86 22:44:0016.9[facility] Aj WXLSGVXCJD9596-41-09 22:44:008.9[facility] SufahaxGECYVDAUKR1311-42-11 22:44:002.6 [facility] OwbqdlzWVKCZEZUHS0947-17-15 22:44:000.8[facility]annHEMATOLOGY 2020-12-21 22:44:006.3[facility] XbhtuffMNTWZIIMMS4814-32-10 22:44:001.5[facility] RcleekdACAPYNPCUI5454-88-47 22:44:000.8[facility] OcsljntHNJRDXWARS3160-56-23 22:44:000.2[facility] NvuafpqLLMTZTYAID3185-70-98 22:44:000.1[facility]annURINE ZWZQ0809-45-09 22:44:37737.00[facility]annURINE GGAS0922-29-79 22:44:0055.2 [facility] AQBT6739-74-60 22:44:00 Test Item Value Reference Range Interpretation Comments U Prot/Creat (test code = U 0.30 1 Prot/Creat) [facility]CHE[facility] ZZKUW9671-91-94 22:44:0087[facility]annCHEM PANEL 2020-12-21 22:44:008[facility]annCHEM AORXU8807-76-28 22:44:000.74[facility]annCHEM VXSOQ1901-18-45 22:44:38418Psmjovru [facility]annCHEM FWPPU6418-82-61 22:44:004.2[facility]annCHEM GGNUV9882-27-55 22:44:75234Vihfzixw [facility]annCHEM LTZKA3316-88-90 22:44:0019[facility]annCHE[facility] PCKEO4287-24-34 22:44:008.5 [facility] LQHBX3909-56-21 22:44:006.3[facility]annCHEM PANEL 2020-12-21 22:44:002.5[facility]annCHEM YXAEV4407-69-71 22:44:0014[facility]annCHEM SJBEO9189-39-69 22:44:0012[facility]annCHEM INNNV8070-18-46 22:44:65759Mxdfacpp [facility]annCHEM RCVRB0291-59-99 22:44:000.3[facility]annCHEM FADAT1118-52-48 22:44:0011.2[facility]annCHEM AKWQP5329-47-49 22:44:00 Test Item Value Reference Range Interpretation Comments B/C Ratio (test code = B/C Ratio) 11 1 6-25 [facility]CHE[facility] JEUGA3904-85-78 22:44:003.8[facility]annCHEM PANEL 2020-12-21 22:44:00 Test Item Value Reference Range Interpretation Comments A/G Ratio (test code = A/G Ratio) 0.7 1 0.7-1.6 [facility]annCHE[facility] FKVOH0899-25-01 22:44:48409Ncznpltv HermannHEMATOLOGY 2020-12-21 22:44:008.9[facility] WvogcedDNMIARELHR9159-00-83 22:44:004.03[facility] TnxmhnbLCHKAGRCRV2684-32-48 22:44:0011.0[facility] NhvsbiuWDFWVUUXLK3700-21-34 22:44:0033.0[facility] XxiwscnTNIEQNNKHO8664-06-17 22:44:0081.8[facility] TILJQOYWGH8167-30-44 22:44:00 Test Item Value Reference Range Interpretation Comments MCH (test code = MCH) 27.4 pg 27.0-31.0 [facility] EmtwkehIGYZRKIDGK9779-94-39 22:44:0033.5[facility]annHEMATOLOGY 2020-12-21 22:44:0014.1[facility] XubeuluBSXUHUMXNM1663-18-38 22:44:14406Dskqbkre MybgzqwOZRNODMXJQ7120-71-99 22:44:0010.4[facility] CulmtriBKBZYJEZEK1295-65-50 22:44:0070.8[facility] VwenetgVLVGCWYFNI4186-49-78 22:44:0016.9[facility] Aj VDAOUSYOTD0091-23-05 22:44:008.9[facility] SanzcwnVHYFABDOSB6738-84-85 22:44:002.6 [facility] GtyvykrSMFSZOHWVJ7114-39-27 22:44:000.8[facility]annHEMATOLOGY 2020-12-21 22:44:006.3[facility] JvmxbdfSRGTAXVBLQ0853-75-95 22:44:001.5[facility] GnsfkckTAMNCXRQHY6662-25-78 22:44:000.8[facility] DtvhsgpSAGHAOYPBI3133-23-58 22:44:000.2[facility] TsdvuwvBFTJTNDVUN5752-97-28 22:44:000.1[facility]annURINE OOPR9407-45-22 22:44:33781.00[facility]annURINE JXEF7166-28-06 22:44:0055.2 [facility] UVTN3596-24-10 22:44:00 Test Item Value Reference Range Interpretation Comments U Prot/Creat (test code = U 0.30 1 Prot/Creat) [facility]annCHE[facility] EEXGC4482-98-35 22:44:0087[facility]annCHEM PANEL 2020-12-21 22:44:008[facility]annCHEM OOMIG5948-68-45 22:44:000.74[facility]annCHEM UBEJH8401-83-64 22:44:47039Txjkwmec HermannCHEM XCYMM1850-55-86 22:44:004.2[facility]annCHEM QYQYI5749-68-61 22:44:58164Kzcoocby HermannCHEM LENOZ2775-43-87 22:44:0019[facility]annCHEM OKNMA1053-00-71 22:44:008.5 [facility]CHE[facility] RLPYZ7382-17-65 22:44:006.3[facility]annCHEM PANEL 2020-12-21 22:44:002.5[facility]annCHEM PSSSZ8946-95-60 22:44:0014[facility]annCHEM QRRTC8669-38-13 22:44:0012[facility]annCHEM XJGEK1810-46-30 22:44:31810Joduaopz HermannCHEM VVYEP6033-81-28 22:44:000.3[facility]annCHEM USOEP6265-93-09 22:44:0011.2[facility]annCHEM AHVYV4791-08-67 22:44:00 Test Item Value Reference Range Interpretation Comments B/C Ratio (test code = B/C Ratio) 11 1 6-25 [facility]annCHE[facility] HNMSY2239-21-24 22:44:003.8[facility]annCHEM PANEL 2020-12-21 22:44:00 Test Item Value Reference Range Interpretation Comments A/G Ratio (test code = A/G Ratio) 0.7 1 0.7-1.6 [facility]annCHE[facility] GWROX4602-60-34 22:44:81447Mmkctezm HermannHEMATOLOGY 2020-12-21 22:44:008.9[facility] QluakgfTODQIRGDDP2999-86-66 22:44:004.03[facility] QvcybywXRCEBHLOZC6094-96-38 22:44:0011.0[facility] HguxzrqRLXZXAEPDJ1470-42-19 22:44:0033.0[facility] LyebmidIKIDSMXWYO4920-86-95 22:44:0081.8[facility] IQCOQJUYHM2919-62-55 22:44:00 Test Item Value Reference Range Interpretation Comments MCH (test code = MCH) 27.4 pg 27.0-31.0 [facility] RulgucvEJDSKUHYHP6088-17-01 22:44:0033.5[facility]annHEMATOLOGY 2020-12-21 22:44:0014.1[facility] WzjvppvTOMXWMKIDK0400-23-76 22:44:43980Ivbjevfg RtdsmfwHQMJXARNQF1555-75-34 22:44:0010.4[facility] SlxybreUUOUUFYMQC8674-68-91 22:44:0070.8[facility] QptgrvzKUOMGADUPT7832-26-86 22:44:0016.9[facility] Aj BKXGLPFEEK4866-93-16 22:44:008.9[facility] QprsjjtXMCSDUIALH5063-56-00 22:44:002.6 [facility] SbyxphpKOZVGQQASJ6420-53-02 22:44:000.8[facility] HermannHEMATOLOGY 2020-12-21 22:44:006.3[facility] YipctxpJZTFYARWWV2586-99-50 22:44:001.5[facility] MouypjdPJGOGEKUTZ9682-67-40 22:44:000.8[facility] CknyfrnIWDITIKFXW7270-92-16 22:44:000.2[facility] EdmjsamDQKRJKUSCJ2011-86-70 22:44:000.1[facility]annURINE PBGF5694-81-72 22:44:17572.00[facility]annURINE NCKD6160-53-38 22:44:0055.2 [facility] ESTH8125-98-50 22:44:00 Test Item Value Reference Range Interpretation Comments U Prot/Creat (test code = U 0.30 1 Prot/Creat) [facility] Aj[Q] PROTEIN, TOTAL W/CREAT, RANDOM QURKD9840-82-26 00:00:00 Test Item Value Reference Range Interpretation Comments CREATININE, RANDOM URINE 60 mg/dl 20-275 N (test code = CREATININE, RANDOM URINE) PROTEIN/CREATININE RATIO 0.283 {mg/mg crea} 0.021-0.161 (test code = PROTEIN/CREATININE RATIO) PROTEIN, TOTAL, RANDOM UR 17 mg/dl 5-24 N (test code = PROTEIN, TOTAL, RANDOM UR) [facility][Q] STREPTOCOCCUS, GROUP B CULTURE (Genital Strep Screen)2020-12-14 00:00:00 Test Item Value Reference Range Interpretation Comments CULTURE (test code See Comment STREPTOCO CCUS, GROUP B = CULTURE) CULTURE Micro N umber: [id number] Test S tatus: Final Specimen Source: NOT GIVEN Speci men Quality: Adequa te Result: No grou p B Streptococcus i solated Note per CDC gu idelines optimal recover y is achieved by swa bbing both the lower vagina and rectum (thr ough the anal sphincter) . [facility][QL] CULTURE, URINE, [id number] 00:00:00 Test Item Value Reference Range Interpretation Comments CULTURE (test code See Comment A CULTURE, URINE, ROUTINE = CULTURE) Micro Number: [id number] Test Status: Fi nal Specimen Source : URINE Specimen Qualit y: Adequate Result : Greater than 100,000 CF U/mL of Enterococcus fa ecalis E.faecalis - INT FLAQUITA AMPICILLIN S <= 2 CIPROFLOXACIN S 1 LEVOFLOXACIN S 2 NITROFURANTOIN S <=16 TETRACYCLINE R >=16 VANCOMYCIN S 1S=Susceptible I=Intermediate R=Resistant * = Not TestedNR = Not Reported NN = See Ther apy Comments [facility][Q] GLUCOSE, GESTATIONAL SCREEN (50G)-130 [id number] 00:00:00 Test Item Value Reference Range Interpretation Comments GLUCOSE, GESTATIONAL SCREEN 88 mg/dl <135 N (50G)-130 CUTOFF; Normal (test code = 57088-0) [facility][QL] CMP W/[id number] 00:00:00 Test Item Value Reference Range Interpretation Comments GLUCOSE; Normal (test 92 mg/dl 65-99 N Fastin g reference code = 1547-9) interval UREA NITROGEN (BUN) 4 mg/dl 7-25 (test code = UREA NITROGEN (BUN)) CREATININE (test code 0.47 mg/dl 0.50-1.10 = CREATININE) eGFR NON-AFR. 141 > OR = 60 N MARTIN[place]QUAIS (test code = {ML/MIN/1.7} eGFR NON-AFR. MARTIN[place]QUAIS) eGFR 164 > OR = 60 N (test code = eGFR {ML/MIN/1.7} ) BUN/CREATININE RATIO 9 {CALC} 6-22 N (test code = BUN/CREATININE RATIO) SODIUM (test code = 135 mmol/L 135-146 N SODIUM) POTASSIUM (test code 3.6 mmol/L 3.5-5.3 N = POTASSIUM) CHLORIDE (test code = 105 mmol/L 98-110 N CHLORIDE) CARBON DIOXIDE (test 22 mmol/L 20-32 N code = CARBON DIOXIDE) CALCIUM (test code = 8.8 mg/dl 8.6-10.2 N CALCIUM) PROTEIN, TOTAL (test 6.1 g/dl 6.1-8.1 N code = PROTEIN, TOTAL) ALBUMIN (test code = 3.5 g/dl 3.6-5.1 ALBUMIN) GLOBULIN (test code = 2.6 {G/DL CALC} 1.9-3.7 N GLOBULIN) ALBUMIN/GLOBULIN 1.3 {CALC} 1.0-2.5 N RATIO (test code = ALBUMIN/GLOBULIN RATIO) BILIRUBIN, TOTAL; 0.4 mg/dl 0.2-1.2 N Normal (test code = 27908-1) ALKALINE PHOSPHATASE 87 u/l 31-125 N (test code = ALKALINE PHOSPHATASE) AST; Normal (test 13 u/l 10-30 N code = 1916-6) ALT; Normal (test 7 u/l 6-29 N code = 1742-6) [facility][QL] CBC (INCLUDES DIFF/PLT)2020-10-19 00:00:00 Test Item Value Reference Range Interpretation Comments WHITE BLOOD CELL COUNT 8.8 {Thousand/u} 3.8-10.8 N (test code = WHITE BLOOD CELL COUNT) RED BLOOD CELL COUNT (test 4.26 {Million/uL} 3.80-5.10 N code = RED BLOOD CELL COUNT) HEMOGLOBIN; Normal (test 11.8 g/dl 11.7-15.5 N code = 09832-8) HEMATOCRIT; Normal (test 36.3 % 35.0-45.0 N code = 4544-3) MCV; Normal (test code = 85.2 fL 80.0-100.0 N 787-2) MCHC; Normal (test code = 32.5 g/dl 32.0-36.0 N 09196-2) RDW; Normal (test code = 12.5 % 11.0-15.0 N 788-0) PLATELET COUNT; Normal 309 {Thousand/u} 140-400 N (test code = 777-3) MPV; Normal (test code = 10.6 fL 7.5-12.5 N 34527-9) ABSOLUTE NEUTROPHILS (test 6776 {cells/uL} 3753-0614 N code = ABSOLUTE NEUTROPHILS) ABSOLUTE LYMPHOCYTES (test 1258 {cells/uL} 850-3900 N code = ABSOLUTE LYMPHOCYTES) ABSOLUTE MONOCYTES (test 502 {cells/uL} 200-950 N code = ABSOLUTE MONOCYTES) ABSOLUTE EOSINOPHILS (test 220 {cells/uL} 15-500 N code = ABSOLUTE EOSINOPHILS) ABSOLUTE BASOPHILS (test 44 {cells/uL} 0-200 N code = ABSOLUTE BASOPHILS) NEUTROPHILS (test code = 77 % N NEUTROPHILS) LYMPHOCYTES (test code = 14.3 % N LYMPHOCYTES) MONOCYTES; Normal (test 5.7 % N code = 25901-6) EOSINOPHILS; Normal (test 2.5 % N code = 58062-6) BASOPHILS; Normal (test 0.5 % N code = 74796-2) [facility][QL] CMP [id number] 08:00:00 Test Item Value Reference Range Interpretation Comments GLUCOSE; Normal (test 78 mg/dl 65-99 N Fastin g reference code = 1547-9) interval UREA NITROGEN (BUN) 5 mg/dl 7-25 (test code = UREA NITROGEN (BUN)) CREATININE (test code 0.54 mg/dl 0.50-1.10 N = CREATININE) eGFR NON-AFR. 135 > OR = 60 N [place] (test code = {ML/MIN/1.7} eGFR NON-AFR. [place]) eGFR 156 > OR = 60 N (test code = eGFR {ML/MIN/1.7} ) BUN/CREATININE RATIO 9 {CALC} 6-22 N (test code = BUN/CREATININE RATIO) SODIUM (test code = 136 mmol/L 135-146 N SODIUM) POTASSIUM (test code 4.0 mmol/L 3.5-5.3 N = POTASSIUM) CHLORIDE (test code = 106 mmol/L 98-110 N CHLORIDE) CARBON DIOXIDE (test 19 mmol/L 20-32 code = CARBON DIOXIDE) CALCIUM (test code = 9.3 mg/dl 8.6-10.2 N CALCIUM) PROTEIN, TOTAL (test 6.3 g/dl 6.1-8.1 N code = PROTEIN, TOTAL) ALBUMIN (test code = 3.7 g/dl 3.6-5.1 N ALBUMIN) GLOBULIN (test code = 2.6 {G/DL CALC} 1.9-3.7 N GLOBULIN) ALBUMIN/GLOBULIN 1.4 {CALC} 1.0-2.5 N RATIO (test code = ALBUMIN/GLOBULIN RATIO) BILIRUBIN, TOTAL; 0.2 mg/dl 0.2-1.2 N Verified b y repeat Normal (test code = analysis . 83656-6) ALKALINE PHOSPHATASE 52 u/l 31-125 N (test code = ALKALINE PHOSPHATASE) AST; Normal (test 11 u/l 10-30 N code = 1916-6) ALT; Normal (test 6 u/l 6-29 N code = 1742-6) [facility][QL] CBC (INCLUDES DIFF/PLT)2020-08-22 08:00:00 Test Item Value Reference Range Interpretation Comments WHITE BLOOD CELL 8.4 3.8-10.8 N COUNT (test code = {Thousand/u} WHITE BLOOD CELL COUNT) RED BLOOD CELL 4.40 3.80-5.10 N COUNT (test code = {Million/uL} RED BLOOD CELL COUNT) HEMOGLOBIN; Normal 12.2 g/dl 11.7-15.5 N (test code = 64899-6) HEMATOCRIT; Normal 39.2 % 35.0-45.0 N (test code = 4544-3) MCV; Normal (test 89.1 fL 80.0-100.0 N code = 787-2) MCHC; Below Low 31.1 g/dl 32.0-36.0 N Threshold (test code = 13156-7) RDW; Normal (test 13.3 % 11.0-15.0 N code = 788-0) PLATELET COUNT; 304 140-400 N Normal (test code {Thousand/u} = 777-3) MPV; Normal (test 11.8 fL 7.5-12.5 N code = 73952-1) ABSOLUTE 5821 3931-9797 N NEUTROPHILS (test {cells/uL} code = ABSOLUTE NEUTROPHILS) ABSOLUTE 9734 653-9999 N LYMPHOCYTES (test {cells/uL} code = ABSOLUTE LYMPHOCYTES) ABSOLUTE MONOCYTES 328 {cells/uL} 200-950 N (test code = ABSOLUTE MONOCYTES) ABSOLUTE 428 {cells/uL} 15-500 N EOSINOPHILS (test code = ABSOLUTE EOSINOPHILS) ABSOLUTE BASOPHILS 50 {cells/uL} 0-200 N (test code = ABSOLUTE BASOPHILS) NEUTROPHILS (test 69.3 % N code = NEUTROPHILS) LYMPHOCYTES (test 21.1 % N code = LYMPHOCYTES) MONOCYTES; Normal 3.9 % N (test code = 53290-7) EOSINOPHILS; 5.1 % N Normal (test code = 75286-7) BASOPHILS; Normal 0.6 % N (test code = 40124-1) COMMENT(S) (test See Comment Review of p eripheral code = COMMENT(S)) smear con firmsautomated results.The abo ve test was performed; however, evaluate result swith caution. We are unable to comment on w donna bloodcells and cellular morphology due to degeneration. [facility][QL] T4, [id number] 08:00:00 Test Item Value Reference Range Interpretation Comments T4, FREE (test code = T4, FREE) 0.9 ng/dl 0.8-1.8 N [facility][QL] TSH, 3RD [id number] 08:00:00 Test Item Value Reference Range Interpretation Comments TSH; Normal (test 0.95 {MIU/L} N Reference Range > or code = 08358-0) = 19 Years 0 .40-4.50 Range s First trimester 0.26- 2.66 Second trimeste r 0.55-2.73 Third trimester 0.43- 2.91 [facility][QL] T3, [id number] 08:00:00 Test Item Value Reference Range Interpretation Comments T3, FREE (test 3.0 pg/ml 2.3-4.2 N NO COLLECTION DATE code = T3, FREE) RECEIVED. W E HAVE USEDTHE DATE THE SPECIM EN WAS RECEIVED BY [facility] THE COLLECTI ON DATE. IF THISIS INCORREC T, PLEASE CONTACT CLIENT SERVICES.PHONE NUMBER: [phone] [facility][QL] URINALYSIS, [id number] 10:45:00 Test Item Value Reference Range Interpretation Comments COLOR; Normal (test code = 5778-6) YELLOW YELLOW N APPEARANCE (test code = APPEARANCE) CLEAR CLEAR N SPECIFIC GRAVITY; Normal (test code 1.024 1.001-1.035 N = 2965-2) PH; Normal (test code = 2756-5) 5.5 5.0-8.0 N GLUCOSE; Normal (test code = 1547-9) NEGATIVE NEGATIVE N BILIRUBIN; Normal (test code = NEGATIVE NEGATIVE N 59516-9) KETONES; Normal (test code = NEGATIVE NEGATIVE N 81081-4) OCCULT BLOOD; Normal (test code = NEGATIVE NEGATIVE N 28211-8) PROTEIN; Normal (test code = NEGATIVE NEGATIVE N 80538-9) NITRITE; Normal (test code = NEGATIVE NEGATIVE N 76619-6) LEUKOCYTE ESTERASE (test code = 2+ NEGATIVE A LEUKOCYTE ESTERASE) WBC; Abnormal (test code = 6690-2) 20-40 < OR = 5 A RBC; Normal (test code = 789-8) 0-2 < OR = 2 N SQUAMOUS EPITHELIAL CELLS (test code 0-5 < OR = 5 = 16067-0) BACTERIA; Abnormal (test code = FEW NONE SEEN A 630-4) HYALINE CAST; Abnormal (test code = 0-1 NONE SEEN A 24513-9) [facility][Q] DRUG ABUSE PANEL [id number] 10:45:00 Test Item Value Reference Range Interpretation Comments PLEASE NOTE: (test code = See Below * These results are PLEASE NOTE:) for medical treatment only. * * Analysis was performed as non-forensic testing. * AMPHETAMINES (1000 ng/mL NEGATIVE N SCREEN) (test code = AMPHETAMINES (1000 ng/mL SCREEN)) BARBITURATES (test code = NEGATIVE N BARBITURATES) BENZODIAZEPINES (test NEGATIVE N code = BENZODIAZEPINES) COCAINE METABOLITES (test NEGATIVE N code = COCAINE METABOLITES) MARIJUANA METABOLITES (50 NEGATIVE N ng/mL SCREEN) (test code = MARIJUANA METABOLITES (50 ng/mL SCREEN)) OPIATES (test code = NEGATIVE N OPIATES) PHENCYCLIDINE (test code NEGATIVE N = PHENCYCLIDINE) [facility][Q] CHLAMYDIA/N. GONORRHOEAE RNA, [id number] 10:45:00 Test Item Value Reference Range Interpretation Comments CHLAMYDIAN TRACHOMATIS RNA, TMA NOT DETECTED NOT DETECTED N UROGENITAL; Normal (test code = 17083-6) NEISSERIA GONORRHOEAE RNA, TMA NOT DETECTED NOT DETECTED N UROGENITAL; Normal (test code = 17260-1) [facility][QL] CULTURE, URINE, [id number] 10:45:00 Test Item Value Reference Range Interpretation Comments CULTURE (test code See Comment CULTURE, URINE, ROUTINE = CULTURE) Micro Number: [id number] Test Status: Fi nal Specimen Source : URINE Specimen Qualit y: Adequate Result : Three or more organis ms present, each g reater than 10,000 CFU /mL. May represent guille l oma contamination f rom external genita trey. No further testing is required. [facility][Q] THINPREP TIS AND HPV mRNA [id number] 10:45:00 Test Item Value Reference Range Interpretation Comments CLINICAL See Comment N INFORMATION: (test code = CLINICAL INFORMATION:) LMP: (test code = See Comment N NONE GIVEN LMP:) PREV. PAP: (test See Comment N NONE GIVEN code = PREV. PAP:) PREV. BX: (test See Comment N NONE GIVEN code = PREV. BX:) SOURCE: (test code See Comment N CERVICAL = SOURCE:) STATEMENT OF See Comment N Satisfactory fo r ADEQUACY: (test evaluation.E ndocervical/ code = STATEMENT transformat ion zone OF ADEQUACY:) componentprese nt. INTERPRETATION/RES See Comment N Negative for ULT:; Normal (test intraepit helial lesion code = 85740-9) or malignanc y. COMMENT:; Normal See Comment N This Pap te st has been (test code = evaluated with ) computerassiste d technology. PRODUCTION SUPPORT ANALYST: See Comment N JGM, CT( CP)CT (test code = screening locat ion: PRODUCTION SUPPORT ANALYST:) [facility] [address], [facility] [address] REVIEW See Comment N KXJ, CT(ASCP)CT PRODUCTION SUPPORT ANALYST: screening location: (test code = [facility] [address], [facility] PRODUCTION SUPPORT ANALYST:) [address] See Comment (test See Comment EXPLANATOR Y NOTE: The code = See Pap is a screen ing test Comment) for cervical ca ncer. It is not a diagno stic test and is subject to false negative and fa lse positive result s. It is most reliable w hen a satisfactory sa mple, regularly obtai senthil, is submitted with relevant clinical findin gs and history, and wh en the Pap result is e valuated along with hist oric and current clinica l information. HPV mRNA E6/E7 Detected Not Detected A This test was performed (test code = HPV using the A PTIMA HPV mRNA E6/E7) Assay (Circl.). This assay dete cts E6/E7 viral messenger RNA (mRNA) from 14h igh-risk HPV types (16,18,31,33,35 ,39,45,51 ,52,56,58,59,66 ,68). The analytical perf ormance characteristics ofthis assay have been determined by [employer] [facility]. The modifications h ave not beencleared or approved by the FDA. Thi s assay hasbeen validat ed pursuant to the CLIA regulationsand is used for clinical pu rposes. [facility][Q] OBSTETRIC [id number] 12:23:00 Test Item Value Reference Range Interpretation Comments WHITE BLOOD CELL 8.4 {Thousand/u} 3.8-10.8 N COUNT (test code = WHITE BLOOD CELL COUNT) RED BLOOD CELL 4.33 3.80-5.10 N COUNT (test code = {Million/uL} RED BLOOD CELL COUNT) HEMOGLOBIN; Normal 12.1 g/dl 11.7-15.5 N (test code = 87617-7) HEMATOCRIT; Normal 37.0 % 35.0-45.0 N (test code = 4544-3) MCV; Normal (test 85.5 fL 80.0-100.0 N code = 787-2) MCHC; Normal (test 32.7 g/dl 32.0-36.0 N code = 41407-3) RDW; Normal (test 12.9 % 11.0-15.0 N code = 788-0) PLATELET COUNT; 307 {Thousand/u} 140-400 N Normal (test code = 777-3) MPV; Normal (test 11.7 fL 7.5-12.5 N code = 70823-9) ABSOLUTE 6233 {cells/uL} 6722-0173 N NEUTROPHILS (test code = ABSOLUTE NEUTROPHILS) ABSOLUTE 1504 {cells/uL} 850-3900 N LYMPHOCYTES (test code = ABSOLUTE LYMPHOCYTES) ABSOLUTE MONOCYTES 470 {cells/uL} 200-950 N (test code = ABSOLUTE MONOCYTES) ABSOLUTE 151 {cells/uL} 15-500 N EOSINOPHILS (test code = ABSOLUTE EOSINOPHILS) ABSOLUTE BASOPHILS 42 {cells/uL} 0-200 N (test code = ABSOLUTE BASOPHILS) NEUTROPHILS (test 74.2 % N code = NEUTROPHILS) LYMPHOCYTES (test 17.9 % N code = LYMPHOCYTES) MONOCYTES; Normal 5.6 % N (test code = 90072-7) EOSINOPHILS; Normal 1.8 % N (test code = 35245-2) BASOPHILS; Normal 0.5 % N (test code = 27259-8) ANTIBODY SCREEN, NO ANTIBODIES N Reference range No RBC W/REFL ID, DETECTED antibodies de tected TITER AND AG; This assay is a Normal (test code = screenin g test for 890-4) the detection o f red blood cell antibodies. The test is not to be us ed for pretransfus ion screening or fo r the medical managem ent of an alloimmun ized . ABO GROUP (test B code = 883-9) RH TYPE (test code RH(D) POSITIVE For add itional = 33289-1) information, pl ease refer to http://educatio n.Que stDiagnostics.c om/fa q/ZXH335 (This link is being provid ed for informational/e ducat ional purposes only.) RPR (DX) W/REFL NON-REACTIVE NON-REACTIVE N TITER AND CONFIRMATORY TESTING (test code = RPR (DX) W/REFL TITER AND CONFIRMATORY TESTING) HEPATITIS B SURFACE NON-REACTIVE NON-REACTIVE N ANTIGEN; Normal (test code = 5195-3) RUBELLA ANTIBODY 1.45 {index} N Index Inter pretation (IGG); Normal (test ----- -- code = 79779-8) <0.90 Not consistent with Immunity 0.90-0 .99 Equivocal > or = 1.00 Consistent with Immunity The presence of rub tabby IgG antibody suggests immunization or past or current infe ction withrubella vir us. [facility][Q] HIV-1/2 Antigen and Antibodies, Fourth Generation, with [id number] 12:23:00 Test Item Value Reference Range Interpretation Comments HIV AG/AB, 4TH NON-REACTIVE NON-REACTIVE N HIV-1 antigen and GEN; Normal HIV-1/HIV-2 ant ibodies were (test code = [place] [address]-8) laboratory evid ence of HIVinfection. Cresencio ARNOLD NOTE: This informatio n has been disclosed toyou from records whose confidentiality may beprotected by state law. If your state r equires suchprotection, then the state law prohi bits you frommaking any further disclosure of t he informationwith out the specific writte n consent of the personto om it pertains, or as otherwise permitted by antony normanA general authorization f or the release of medi verna orother information is NOT sufficient for this purpose. For ad ditional information ple ase refer tohttp://educat ion.YellowBrck/fa q/KGX986(Thi s link is being provided for informational/e ducational purposes only.) The performance of this assay has not been clinicallyvalid ated in patients less t smith 2 years old. [facility][QL] CMP [id number] 12:23:00 Test Item Value Reference Range Interpretation Comments GLUCOSE; Normal (test 75 mg/dl 65-99 N Fastin g reference code = 1547-9) interval UREA NITROGEN (BUN) 5 mg/dl 7-25 (test code = UREA NITROGEN (BUN)) CREATININE (test code 0.49 mg/dl 0.50-1.10 = CREATININE) eGFR NON-AFR. 139 > OR = 60 N MARTINIQUAIS (test code = {ML/MIN/1.7} eGFR NON-AFR. MARTINIQUAIS) eGFR 161 > OR = 60 N (test code = eGFR {ML/MIN/1.7} ) BUN/CREATININE RATIO 10 {CALC} 6-22 N (test code = BUN/CREATININE RATIO) SODIUM (test code = 135 mmol/L 135-146 N SODIUM) POTASSIUM (test code 4.1 mmol/L 3.5-5.3 N = POTASSIUM) CHLORIDE (test code = 104 mmol/L 98-110 N CHLORIDE) CARBON DIOXIDE (test 22 mmol/L 20-32 N code = CARBON DIOXIDE) CALCIUM (test code = 9.6 mg/dl 8.6-10.2 N CALCIUM) PROTEIN, TOTAL (test 7.0 g/dl 6.1-8.1 N code = PROTEIN, TOTAL) ALBUMIN (test code = 4.3 g/dl 3.6-5.1 N ALBUMIN) GLOBULIN (test code = 2.7 {G/DL CALC} 1.9-3.7 N GLOBULIN) ALBUMIN/GLOBULIN 1.6 {CALC} 1.0-2.5 N RATIO (test code = ALBUMIN/GLOBULIN RATIO) BILIRUBIN, TOTAL; 0.7 mg/dl 0.2-1.2 N Normal (test code = 98663-2) ALKALINE PHOSPHATASE 52 u/l 31-125 N (test code = ALKALINE PHOSPHATASE) AST; Normal (test 12 u/l 10-30 N code = 1916-6) ALT; Normal (test 7 u/l 6-29 N code = 1742-6) [facility][QL] VARICELLA ZOSTER VIRUS ANTIBODY (IGG)2020-06-22 12:23:00 Test Item Value Reference Range Interpretation Comments VARICELLA ZOSTER 1668.00 N Index Inter pretation VIRUS ANTIBODY {index} --------- (IGG) (test code = --------- VARICELLA ZOSTER <135.00 Neg ative - VIRUS ANTIBODY Antibody not detected (IGG)) 135.00 - 164.99 Equivocal > or = 165.00 Positive - Antibody detect ed A positive result indicates that the patient has ant ibody to VZV but does not differentiate b etween an active or pa st infection. The clinical diagno sis must be interpr eted in conjunction wit h the clinical signs and symptoms of the patient. This a ssay reliably measur es immunity due to previous infect ion but may not be sens itive enough to detec t antibodies get carlos by vaccination. Th us, a negative result in a vaccinated barry vidual does not necess arily indicate susceptibility to VZV infection. A mo re sensitive test for vaccination-ind uced immunity is Asha icella Zoster Virus An tibody Immunity Screen , ACIF. [facility][QL] HEMOGLOBIN [id number] 12:23:00 Test Item Value Reference Range Interpretation Comments HEMOGLOBIN A1c; 5.1 {% of <5.7 N For the purp ose of Normal (test code total} screening for the = 4548-4) presence ofdiab etes: <5.7% Consisten t with the absence of diabetes5.7-6.4 % Consistent with increased risk for diabetes (predi abetes)> or =6.5% Consis tent with diabetes T his assay result is consistent with a decreased risko f diabetes. Curre ntly, no consensus exist s regarding use ofhemoglobin A1 c for diagnosis of di abetes in children. Ac cording to [place] Kathy betes Association (ADA)guidelines , hemoglobin A1c <7.0% represents optimalcontrol in non- di abetic patients. Differentmetric s may apply to specif ic patient populat ions. Standards of Sc dical Care in Diabete s(ADA). [facility][QL] PARVOVIRUS B-19 ANTIBODIES (IGG, IGM)2020-06-22 12:23:00 Test Item Value Reference Range Interpretation Comments PARVOVIRUS B19 0.1 N REFERENCE RAN GE: <0.9 ANTIBODY (IGG) (test INTERPR ETIVE CRITERIA: <0.9 code = PARVOVIRUS Negative 0 .9 - 1.1 Equivocal B19 ANTIBODY (IGG)) >1.1 Po sitive IgG persists for years and p rovides life-longimmuni ty. To diagnose curren t infection, considerParvovi tristen B19 DNA, PCR. PARVOVIRUS B19 0.2 N REFERENCE RAN GE: <0.9 ANTIBODY (IGM) (test INTERPR ETIVE CRITERIA: <0.9 code = PARVOVIRUS Negative 0 .9 - 1.1 Equivocal B19 ANTIBODY (IGM)) >1.1 Pos itive Results from any one IgM ass ay should not be usedas a eduar e determinant of a current or recentinfection . Because IgM tests can yield falsepositive r esults and low levels of I gM antibodymay per sist for months post inf ection, reliance tato si ngle test result could be misleading. If anacute infe ction is suspected, cons ider obtaininga new specimen and submit for both IgG and IgMtesting in t wo or more weeks. To diagn ose currentinfectio n, consider Parvovirus B19 DNA, PCR. [facility][Q] HSV 1/2 IGG, HERPESELECT TYPE SPECIFIC AB (REFL)2020-06-22 12:23:00 Test Item Value Reference Range Interpretation Comments HSV 1 IGG TYPE <0.90 N SPECIFIC AB (test code = HSV 1 IGG TYPE SPECIFIC AB) HSV 2 IGG TYPE 5.92 {index} Index Interpr etation SPECIFIC AB ----- --------- ----- (test code = HSV <0.90 Negat suzie 0.90-1.09 2 IGG TYPE Equivocal >1.09 Positive SPECIFIC AB) This assay util izes recombinant typ e-specific antigensto diff erentiate HSV-1 from HSV- 2 infections. Apo sitive result cannot d istinguish between recent andpast infection. If r ecent HSV infection is robertson spectedbut the results are negative or equivocal, t he assayshould be repeated in 4-6 weeks. T he performancechar acteristic s of the assay have not been establishe dfor pediatric popul ations, immunocompromis ed patients,or zafar annita screening. [facility][QL] TSH, 3RD GENERATION W/REFLEX TO [id number] 12:23:00 Test Item Value Reference Range Interpretation Comments TSH, 3RD GENERATION 0.06 {MIU/L} Referenc e Range > or W/REFLEX TO FT4 (test = 19 Y ears 0.40-4.50 code = TSH, 3RD Ra nges GENERATION W/REFLEX First tr imester TO FT4) 0.26-2.66 Secon d trimester 0.55- 2.73 Third trimester 0.43-2.91 T4, FREE (test code = 1.2 ng/dl 0.8-1.8 N T4, FREE) [facility][Q] HSV 1/2 AB (IGM), IFA W/RFL TO [id number] 12:23:00 Test Item Value Reference Range Interpretation Comments HSV 1 IGM NEGATIVE N SCREEN (test code = HSV 1 IGM SCREEN) HSV 2 IGM NEGATIVE N REFERENCE RANGE : NEGATIVE The SCREEN (test IFA procedure f or measuring IgM code = HSV 2 antibodies to H SV 1and HSV 2 IGM SCREEN) detects both ty pe-common and type- specificH SV antibodies. Thus, IgM react ivity to both HSV 1and HSV 2 may represent crossreactive H SV antibodiesrathe r than exposure to both HSV 1 a nd HSV 2. This test was devravindero charisse and its analytical performancechar acteristics have been determined by [facility] LabsInfe ctious Disease. It has not been cleared or approvedby FDA. This assay has been validated pursuant to theCLIA regulat ions and is used for clinical pu rposes. [facility] OdirwjceigQPSBNSDAWU0697-91-04 10:58:0030.9[facility] 2017-[facility]31 10:58:0010.1[facility] BgcdbcwTGRCZXVJCL5020-17-02 10:58:0030.9[facility] NmfumgoTQOTYHAEMG1768-95-76 10:58:0010.1[facility] HbkqishMHZKUYAUCS0937-90-57 10:58:0030.9[facility] NbbepfvUYBKJMNOML7885-16-36 10:58:0010.1[facility] VKOPDECVIT5005-30-04 10:58:0030.9[facility] CoophlwHYOSYWIKCZ9931-76-14 10:58:00 10.1[facility] NpfdvcxJBVEAVXFYM8547-46-63 21:45:00Negative *NA*(12/30/17 3:45 PM) [facility] ZgpqlkwTMSPCWFTQD0385-45-94 21:45:00Non Reactive *NA*(12/30/17 3:45 PM) [facility] ZmepshxFMLFQSYYWF7562-67-91 21:45:00Negative *NA*(12/30/17 3:45 PM) [facility] XbsipghRDCFVKQERO7682-00-36 21:45:00Non Reactive *NA*(12/30/17 3:45 PM) [facility] HbcapxgXNIMURALUD0790-97-46 21:45:00Negative *NA*(12/30/17 3:45 PM) [facility] MsifoslWUSJBYXVWS4562-13-57 21:45:00Non Reactive *NA*(12/30/17 3:45 PM) [facility] IpxggfzEQIAFLPDRW1222-52-90 21:45:00Negative *NA*(12/30/17 3:45 PM) [facility] AslgzomUUVEXVOWJN0165-36-37 21:45:00Non Reactive *NA*(12/30/17 3:45 PM) [facility] HRKEGWZ2616-67-78 20:28:00Negative (12/29/17 2:28 PM) [facility] UHHCXSF1626-37-83 20:28:00Negative (12/29/17 2:28 PM) [facility] LPYJORZ8251-07-90 20:28:00Negative (12/29/17 2:28 PM) [facility] WXKQBDW7228-91-54 20:28:00Negative (12/29/17 2:28 PM) [facility] FNYNG2718-33-29 20:27:0080[facility] 2017-12-29 20:27:0086.7[facility] JecrxvfIOAAHCYFAU3393-87-88 20:27:0034.4[facility] JalwcvpEKPRTUUOKO1422-76-81 20:27:0032.2[facility] ZotdeizVOGRNNXBAJ6365-08-49 20:27:00 Test Item Value Reference Range Interpretation Comments MCH (test code = MCH) 27.9 pg 27.0-31.0 [facility] EbuwvhfXIKHNWVMCW4563-38-32 20:27:0014.2[facility] 2017-12-29 20:27:02426Wuqdlync LiaftwqWAROWNIONJ1062-25-70 20:27:008.9[facility] PozkvqaPJPWBHGVDD7218-94-04 20:27:003.97[facility] OixkgcxXHWZLQFRNT4597-06-00 20:27:0013.6[facility] UaurkktZVDAGLNUHC9626-10-30 20:27:0011.1[facility] AEOBFYOJTF5642-06-69 20:27:000.4[facility] AmwhjmoHIUHUBJPTT5847-28-98 20:27:000.1 [facility] WsbbyzbVXBFIRXMST9557-53-53 20:27:0010.7[facility] 2017-12-29 20:27:001.5[facility] CiotwqgPRXOLVZKSM7240-52-46 20:27:001.0[facility] UrnqmdhNOLTXLWNGX1737-25-82 20:27:000.6[facility] HdbxpblIQLACUDXWB3438-49-89 20:27:0010.7[facility] AxskfthDUPKNUSHCG7421-49-87 20:27:0078.6[facility] Aj VIXYMYWMQY8087-86-80 20:27:002.8[facility] HmdhicaOTSLCDCAUO4465-42-49 20:27:007.3 [facility]annCHEM JMBMX9616-01-85 20:27:0080[facility] 2017-12-29 20:27:0086.7[facility] QtcjoilNYJOAQASXC7715-49-41 20:27:0034.4[facility] JiswoodMWCILDETFJ4057-65-56 20:27:0032.2[facility] ExzindjDKSQNQALYN8078-74-75 20:27:00 Test Item Value Reference Range Interpretation Comments MCH (test code = MCH) 27.9 pg 27.0-31.0 [facility] BvzywnpWZTDIEWGJH1720-14-39 20:27:0014.2[facility] 2017-12-29 20:27:31530Msgtspsn PkvslfsWJQXBTMBKE5194-46-14 20:27:008.9[facility] WqumfpfKZLPOBTOTU0925-92-71 20:27:003.97[facility] YqdboilGBBZTTUNXZ7776-14-57 20:27:0013.6[facility] ZfwylncQLDWJGCXUE2515-54-22 20:27:0011.1[facility] Aj MGGSCWJPOE9164-30-82 20:27:000.4[facility] PyezrhhDGUKTFDUCY1844-00-75 20:27:000.1 [facility] ZtxrtkoCBJLGNTTCN9214-61-95 20:27:0010.7[facility] 2017-12-29 20:27:001.5[facility] IlfudsyUVJFAEYDLG1158-70-61 20:27:001.0[facility] RvafoldFBYSOHRNML3815-25-91 20:27:000.6[facility] FvrnuopFCNYZIAHDU5604-51-10 20:27:0010.7[facility] SfydaknUJZEROSEGM8341-52-30 20:27:0078.6[facility] LBGKXVAJJI3234-11-23 20:27:002.8[facility] TqqxffvHOSCSWIBIN3644-74-03 20:27:007.3 [facility]annCHE[facility] GBLFT8535-88-04 20:27:0080[facility] 2017-12-29 20:27:0086.7[facility] TkzardzNGELQFYYGR0262-72-71 20:27:0034.4[facility] PnpffyjKGPFHTCGDK0857-08-85 20:27:0032.2[facility] NqfkvjgCBHLJSWUYT4305-32-46 20:27:00 Test Item Value Reference Range Interpretation Comments MCH (test code = MCH) 27.9 pg 27.0-31.0 [facility] QpyekboGFLZRPMCLV0809-13-55 20:27:0014.2[facility] 2017-12-29 20:27:01593Pifkkmiu HuqyxqiYKVKJFBVGX1184-79-66 20:27:008.9[facility] XtbcsymXPYLEVZVXO7614-86-33 20:27:003.97[facility] WxoqymfDCZOKCWZTQ0179-29-67 20:27:0013.6[facility] LynaxxgPDWMORENMY5424-07-35 20:27:0011.1[facility] EIIQXRTUUC9171-74-64 20:27:000.4[facility] TpumgqeEZKLIJFYTV9759-19-89 20:27:000.1 [facility] LehcfgiBNCWJGIXRB9248-64-33 20:27:0010.7[facility] 2017-12-29 20:27:001.5[facility] SsgdcacWMEYQFKJJN4814-80-22 20:27:001.0[facility] RzuhujqUIBEKRUHKG5918-98-32 20:27:000.emorial XncueaoHOFNTCZMRW7020-20-99 20:27:0010.7[facility] BwzodgqJXWFTVETIL2674-97-42 20:27:0078.6[facility] Aj DXRIDVNAFU3375-81-32 20:27:002.8[facility] JhxpvzgXRPCGTIMRA6897-90-06 20:27:007.3 [facility]annCHE[facility] RQHYP3950-82-47 20:27:0080[facility] 2017-12-29 20:27:0086.7[facility] LeipijgTTBPCCBEAM4735-98-37 20:27:0034.4[facility] UlvxbmfXCAPUVCTIG8629-99-78 20:27:0032.2[facility] ZrmciyjPFNEQFVPTI6816-71-58 20:27:00 Test Item Value Reference Range Interpretation Comments MCH (test code = MCH) 27.9 pg 27.0-31.0 [facility] CinluwdDDNHFDHGAW0158-14-97 20:27:0014.2[facility] 2017-12-29 20:27:80897Gajruzgl JlmoqpnWFRNGADCIR8298-69-89 20:27:008.9[facility] GfzrsbtBWZDLAYGJY4639-25-71 20:27:003.97[facility] WpcuqeaVREIJMNHJM2093-82-53 20:27:0013.6[facility] LtghvbkPPVFQMGOPH1170-56-83 20:27:0011.1[facility] Aj JMLSRLUYUH6978-97-31 20:27:000.4[facility] QalwqvvYFUFTLOYAD0502-90-61 20:27:000.1 [facility] EispifxSXLDKSLHJZ6763-04-61 20:27:0010.7[facility] 2017-12-29 20:27:001.5[facility] CrtleujVJGMTRPSXH1133-71-88 20:27:001.0[facility] LokmajmUQBCJTWRCX9031-63-45 20:27:000.6[facility] KzjciocSTZOVTXBVW9152-19-38 20:27:0010.7[facility] SrnvqhrYGIHJYXMGV5636-56-97 20:27:0078.6[facility] ZJHPFOSNKA1924-12-38 20:27:002.8[facility] TpyciscAJHASKDEMH7989-91-41 20:27:007.3 [facility] MVFTV3164-74-14 04:51:00Negative (12/09/17 10:51 PM) [facility] OYFNA9545-13-05 04:51:00Negative *NA*(12/09/17 10:51 PM) [facility] LFLNW7315-93-90 04:51:00 Test Item Value Reference Range Interpretation Comments UA pH (test code = UA pH) 6.0 1 5.0-8.0 [facility] OJUJS8888-19-36 04:51:00Light Yellow *NA*(12/09/17 10:51 PM)[facility] RTNPP1042-80-25 04:51:00Clear (12/09/17 10:51 PM) [facility] GPEBD6393-75-48 04:51:00 Test Item Value Reference Range Interpretation Comments UA Spec Grav (test code = UA Spec 1.014 1 Grav) [facility] CGNPF4802-40-02 04:51:00<1[facility] WPPKM4294-71-03 04:51:00Negative (12/09/17 10:51 PM)[facility] RGXUG5072-21-13 04:51:00Negative (12/09/17 10:51 PM)[facility] [id number] 04:51:001[facility] [id number] 04:51:00 Negative (12/09/17 10:51 PM)[facility] [id number] 04:51:00 Negative *NA*(12/09/17 10:51 PM)[facility] [id number] 04:51:00 Test Item Value Reference Range Interpretation Comments UA pH (test code = UA pH) 6.0 1 5.0-8.0 [facility] [id number] 04:51:00Light Yellow *NA*(12/09/17 10:51 PM)[facility] [id number] 04:51:00Clear (12/09/17 10:51 PM) [facility] [id number] 04:51:00 Test Item Value Reference Range Interpretation Comments UA Spec Grav (test code = UA Spec 1.014 1 Grav) [facility] [id number] 04:51:00<1[facility] [id number] 04:51:00Negative (12/09/17 10:51 PM)[facility] [id number] 04:51:00Negative (12/09/17 10:51 PM)[facility] [id number] 04:51:001[facility] [id number] 04:51:00 Negative (12/09/17 10:51 PM)[facility] [id number] 04:51:00 Negative *NA*(12/09/17 10:51 PM)[facility] [id number] 04:51:00 Test Item Value Reference Range Interpretation Comments UA pH (test code = UA pH) 6.0 1 5.0-8.0 [facility] [id number] 04:51:00Light Yellow *NA*(12/09/17 10:51 PM)[facility] [id number] 04:51:00Clear (12/09/17 10:51 PM) [facility] [id number] 04:51:00 Test Item Value Reference Range Interpretation Comments UA Spec Grav (test code = UA Spec 1.014 1 Grav) [facility] [id number] 04:51:00<1[facility] [id number] 04:51:00Negative (12/09/17 10:51 PM)[facility] [id number] 04:51:00Negative (12/09/17 10:51 PM)[facility] [id number] 04:51:001[facility] [id number] 04:51:00 Negative (12/09/17 10:51 PM)[facility] [id number] 04:51:00 Negative *NA*(12/09/17 10:51 PM)[facility] [id number] 04:51:00 Test Item Value Reference Range Interpretation Comments UA pH (test code = UA pH) 6.0 1 5.0-8.0 [facility] [id number] 04:51:00Light Yellow *NA*(12/09/17 10:51 PM)[facility] [id number] 04:51:00Clear (12/09/17 10:51 PM) [facility] [id number] 04:51:00 Test Item Value Reference Range Interpretation Comments UA Spec Grav (test code = UA Spec 1.014 1 Grav) [facility] [id number] 04:51:00<1[facility] [id number] 04:51:00Negative (12/09/17 10:51 PM)[facility] [id number] 04:51:00Negative (12/09/17 10:51 PM)[facility] [id number] 04:51:001[facility] [id number] 20:32:00Negative (10/29/17 2:32 PM)[facility] [id number] 20:32:00Negative (10/29/17 2:32 PM)[facility] [id number] 20:32:00Negative (10/29/17 2:32 PM)[facility] [id number] 20:32:00Negative (10/29/17 2:32 PM)[facility]
--- NOTE | 2023-06-30 21:30 | RAD REPORT ---
EXAM DESCRIPTION: US - Abdomen Exam Limited - 06/30/2023 9:20 pm CLINICAL HISTORY: upper abdominal pain COMPARISON: No comparisons FINDINGS: The gallbladder demonstrates a shadowing gallstone. No pericholecystic fluid or gallbladde r wall thickening. The common bile duct is normal measuring 4 mm. The liver demonstrates no findings of intrahepatic biliary dilatation. IMPRESSION: Cholelithiasis without sonographic evidence of acute cholecystitis.
[2023-06-30 23:06] LABS: Specific Gravity 1.017 (1.005-1.030)
[2023-06-30 23:10] LABS: Absolute Lymphocytes (CBC) 1.9 K/uL (0.7-4.9); Hematocrit 40.1 % (36.0-45.0); Lymphocytes % 20.7 % (15.3-44.8); MCV 81.6 fL (80-100); RBC Red Blood Cell Count 4.92 M/uL (3.86-4.86)
[2023-06-30 23:14] LABS: Renal Epithelial <5 /HPF (None Seen); Specific Gravity 1.017 (1.005-1.030); Urine Bacteria None Seen /HPF (<20); Urine Bilirubin NEGATIVE (Negative); Urine Blood Negative (Negative); Urine Clarity Extremely Turbid (Clear); Urine Color Light-Yellow (Yellow); Urine Glucose NEGATIVE (Negative); Urine Mucus Slight /HPF (None Seen); Urine Protein NEGATIVE (Negative); Urine RBC <5 /HPF (None Seen); Urine Urobilinogen Normal (Normal); Urine pH 5.5 (5.0-7.0)
[2023-06-30 23:21] LABS: Albumin 3.8 g/dL (3.4-5.0); Bilirubin Total 0.4 mg/dL (0.2-1.0); C-Reactive Protein 19.3 mg/L (<3.00); Potassium 3.7 mEq/L (3.5-5.1); Protein, Total 7.9 g/dL (6.4-8.2)
[2023-07-01] MEDS ORDERED: metroNIDAZOLE 500 MG TABLET ONE (00:20)
[2023-07-01] MEDS ORDERED: CEPHALEXIN 250 MG CAP ONE (00:20)
--- NOTE | 2023-07-01 00:21 | ER ---
Nurse's Notes [facility] Name: Carrie Dunn Age: 23 yrs Sex: Female : 2000 Arrival Date: 06/30/2023 Time: 20:15 Bed 5 Private MD: Diagnosis: Left sided colitis;Acute proctocolitis, cholelithiasis without cholecystitis. Presentation: 06/30 20:50 Chief complaint: Patient states: RUQ abdominal pain onset Friday. Pt states, "I think cm10 my gall bladder is acting up." Pt also complains of fast heart rate. Coronavirus screen: Vaccine status: Patient reports being unvaccinated. Ebola Screen: Patient denies travel to an Ebola-affected area in the 21 days before illness onset. No symptoms or risks identified at this time. Initial Sepsis Screen: Does the patient meet any 2 criteria? HR > 90 bpm. Does the patient have a suspected source of infection? No. Patient's initial sepsis screen is negative. Risk Assessment: Do you want to hurt yourself or someone else? Patient reports no desire to harm self or others. Onset of symptoms was June 30, 2023. 20:50 Method Of Arrival: Ambulatory cm10 20:50 Acuity: KATJA 3 cm10 Triage Assessment: 20:53 General: Appears in no apparent distress. comfortable, Behavior is calm, cooperative. cm10 Historical: - Allergies: 20:51 No Known Allergies; cm10 - PMHx: 20:51 WPW; Syncope; POTS; Dysautonomia; SVT; Depressive disorder; Cardiac murmur; cm10 - Immunization history:: Adult Immunizations unknown. - Social history:: Smoking status: Reported history of juuling and/or vaping. - Family history:: not pertinent. Screenin:40 [facility] ED Fall Risk Assessment (Adult) History of falling in the last 3 months, lg3 including since admission No falls in past 3 months (0 pts). [facility] ED Fall Risk Assessment (Adult). Abuse screen: Denies threats or abuse. Denies injuries from another. Nutritional screening: No deficits noted. Tuberculosis screening: No symptoms or risk factors identified. Assessment: 22:40 General: Appears in no apparent distress. comfortable, Behavior is calm, cooperative. lg3 Pain: Complains of pain in right upper quadrant. Neuro: No deficits noted. Neely Agitation-Sedation Scale (RASS): 0 - Alert and Calm Level of Consciousness is awake, alert, obeys commands, Oriented to person, place, time, situation. Cardiovascular: No deficits noted. Denies chest pain, shortness of breath, Capillary refill < 3 seconds Clubbing of nail beds is absent JVD is absent Patient's skin is warm and dry. Respiratory: No deficits noted. Airway is patent Respiratory effort is even, unlabored, Respiratory pattern is regular, symmetrical. GI: Abdomen is round non-distended, Bowel sounds present X 4 quads. Abd is soft X 4 quads Abdomen is tender to palpation in right upper quadrant. : No deficits noted. No signs and/or symptoms were reported regarding the genitourinary system. EENT: No deficits noted. No signs and/or symptoms were reported regarding the EENT system. Derm: No deficits noted. No signs and/or symptoms reported regarding the dermatologic system. Skin is intact, is healthy with good turgor, Skin is dry, Skin is normal, Skin temperature is warm. Musculoskeletal: No deficits noted. No signs and/or symptoms reported regarding the musculoskeletal system. Circulation, motion, and sensation intact. Range of motion: intact in all extremities. Vital Signs: 20:50 BP 145 / 82; Pulse 101; Resp 16; Temp 99.3; Pulse Ox 100% ; Weight 66.68 kg; Height 5 cm10 ft. 3 in. ; Pain 7/10; 23:16 BP 139 / 87; Pulse 85; Resp 17; Pulse Ox 100% on R/A; lg3 07/01 00:30 BP 127 / 84; Pulse 81; Resp 17; Temp 98; Pulse Ox 99% ; rv 06/30 20:50 Body Mass Index 26.04 (66.68 kg, 160.02 cm) cm10 06/30 20:50 Pain Scale: Adult cm10 Teofilo Coma Score: 00:30 Eye Response: spontaneous(4). Motor Response: obeys commands(6). Verbal Response: rv oriented(5). Total: 15. ED Course: 06/30 20:22 Patient arrived in ED. jj6 20:25 Rene Bower RN is Primary Nurse. rv 20:27 Frandy Kelley MD is Attending Physician. sp4 20:31 Travis Mcadams PA is PHCP. cp 20:37 Radiology exam delayed due to lab results not completed at this time. (BUN/Creatinine) eh4 test not completed at this time. IV insertion attempt and/or patient not having appropriate IV at this time. 20:51 Triage completed. cm10 20:54 Arm band placed on Patient placed in waiting room. cm10 21:22 Abdomen Limited US In Process Unspecified. EDMS 22:40 Patient has correct armband on for positive identification. Placed in gown. Bed in low lg3 position. Call light in reach. Side rails up X 1. Client placed on continuous cardiac and pulse oximetry monitoring. NIBP monitoring applied. air sampling and monitoring on. Door closed. Noise minimized. Warm blanket given. Family accompanied patient. 22:40 Inserted saline lock: 20 gauge in left antecubital area, using aseptic technique. Blood lg3 collected. 22:42 CRP Sent. lg3 22:42 CBC with Diff Sent. lg3 22:42 CMP Sent. lg3 22:42 Lipase Sent. lg3 22:42 Urinalysis W/Microscopic Sent. lg3 22:42 Test, Urine Sent. lg3 23:29 CT Abd/Pelvis - IV Contrast Only In Process Unspecified. EDMS 08 00:30 No provider procedures requiring assistance completed. IV discontinued, intact, rv bleeding controlled, No redness/swelling at site. Pressure dressing applied. 00:31 Provided Education on: diet. rv Administered Medications: 00:29 Drug: metroNIDAZOLE PO 500 mg Route: PO; rv 00:29 Follow up: Response: Medication administered at discharge. rv 00:29 Drug: Cephalexin PO 500 mg Route: PO; rv 00:29 Follow up: Response: Medication administered at discharge. rv Medication: 00:30 VIS not applicable for this client. rv Outcome: 00:20 Discharge ordered by . sp4 00:30 Discharged to home ambulatory, with family. rv 00:30 Condition: improved 00:30 Discharge instructions given to patient, Instructed on discharge instructions, follow up and referral plans. medication usage, Demonstrated understanding of instructions, follow-up care, medications, Prescriptions given X 3. 00:31 Patient left the ED. rv Signatures: Dispatcher [employer] EDME Travis Mcadams PA PA cp Vicente, Ronaldo RN RN rv Georgina Arriola RN RN lg3 Brit Olivares Josephine Damon 4 Frandy Kelley MD MD sp4 Kari Abbott RN RN cm10 Corrections: (The following items were deleted from the chart) 06/30 20:53 20:51 PMHx: Tachycardia; cm10 cm10 23:33 23:16 Pulse 85bpm; Resp 17bpm; Pulse Ox 100% RA; rv lg3
--- NOTE | 2023-07-01 00:21 | EDPHYS ---
Physician Documentation [facility] Name: Carrie Dunn Age: 23 yrs Sex: Female : 2000 Arrival Date: 06/30/2023 Time: 20:15 Bed 5 Private MD: ED Physician Frandy Kelley HPI: 06/30 20:28 This 23 yrs old Female presents to ER via Unassigned with complaints of sp4 Abdominal Cramping, Irregular Pulse. 20:36 Very pleasant 23-year-old female with past medical history of gallstones, POTS, sp4 syncope, sinus tachycardia, dysautonomia and Oqtgr-Dspjinmrr-Nhqqr syndrome presents with right upper quadrant abdominal pain starting Willy 3 days ago associated with nausea and elevated heart rate. Patient states that most of her record is at [facility] where she was worked up in the past for gallstones. Patient states that she has history of 3 pregnancies and 3 C-sections. No other abdominal surgery. Patient's medications include Corlanor 5 mg daily, propranolol 60 mg daily, midodrine 5 mg daily. Historical: - Allergies: 20:51 No Known Allergies; cm10 - PMHx: 20:51 WPW; Syncope; POTS; Dysautonomia; SVT; Depressive disorder; Cardiac murmur; cm10 - Immunization history:: Adult Immunizations unknown. - Social history:: Smoking status: Reported history of juuling and/or vaping. - Family history:: not pertinent. ROS: 20:36 Constitutional: Negative for fever, chills, and weight loss, Cardiovascular: Negative sp4 for chest pain, and edema, positive for elevated heart rate Abdomen/GI: Negative for vomiting, diarrhea, and constipation, positive for right upper quadrant abdominal pain and nausea 20:36 All other systems are negative. Exam: 20:36 Constitutional: This is a well developed, well nourished patient who is awake, alert, sp4 and in no acute distress. Head/Face: Normocephalic, atraumatic. Eyes: Pupils equal round and reactive to light, extra-ocular motions intact. Lids and lashes normal. Conjunctiva and sclera are not injected. Cornea within normal limits. Periorbital areas with no swelling, redness, or edema. ENT: Nares patent. No nasal discharge, no septal abnormalities noted. Tympanic membranes are normal and external auditory canals are clear. Oropharynx with no redness, swelling, or masses, exudates, or evidence of obstruction, uvula midline. Mucous membranes moist. Neck: Trachea midline, no thyromegaly or masses palpated, and no cervical lymphadenopathy. Supple, full range of motion without nuchal rigidity, or vertebral point tenderness. Chest/axilla: Normal chest wall appearance and motion. Nontender with no deformity. No lesions are appreciated. Cardiovascular: Regular rate and rhythm with a normal S1 and S2. No gallops, murmurs, or rubs. Normal PMI, no JVD. No pulse deficits. Respiratory: Lungs have equal breath sounds bilaterally, clear to auscultation and percussion. No rales, rhonchi or wheezes noted. No increased work of breathing, no retractions or nasal flaring. Abdomen/GI: Soft, with normal bowel sounds. No distension or tympany. No guarding or rebound. There is right upper quadrant tenderness without rigidity or distention Back: No spinal tenderness. No costovertebral tenderness. Skin: Warm, dry with normal turgor. Normal color with no rashes, no lesions, and no evidence of cellulitis. MS/ Extremity: Pulses equal, no cyanosis. Neurovascular intact. Full, normal range of motion. Neuro: Awake and alert, GCS 15, oriented to person, place, time, and situation. Cranial nerves II-XII grossly intact. Motor strength 5/5 in all extremities. Sensory grossly intact. Psych: Awake, alert, with orientation to person, place and time. Behavior, mood, and affect are within normal limits 07/01 00:07 ECG was reviewed by the Attending Physician. EKG time 2306, EKG reveals normal sinus sp4 rhythm with sinus arrhythmia at a rate of 78. No ST elevation or depression. No ectopy. There is normal intervals Vital Signs: 06/30 20:50 BP 145 / 82; Pulse 101; Resp 16; Temp 99.3; Pulse Ox 100% ; Weight 66.68 kg; Height 5 cm10 ft. 3 in. ; Pain 7/10; 23:16 BP 139 / 87; Pulse 85; Resp 17; Pulse Ox 100% on R/A; lg3 07/01 00:30 BP 127 / 84; Pulse 81; Resp 17; Temp 98; Pulse Ox 99% ; rv 06/30 20:50 Body Mass Index 26.04 (66.68 kg, 160.02 cm) cm10 06/30 20:50 Pain Scale: Adult cm10 Teofilo Coma Score: 00:30 Eye Response: spontaneous(4). Motor Response: obeys commands(6). Verbal Response: rv oriented(5). Total: 15. MDM: 06/30 20:28 Patient medically screened. sp4 07/01 00:06 ED course: EXAM DESCRIPTION: Abdomen Pelvis W Contrast CLINICAL HISTORY: right upper sp4 abdominal pain COMPARISON: None Available. TECHNIQUE: CT of the abdomen and pelvis performed following IV administration of iodinated contrast. This exam was performed according to our departmental dose-optimization program, which includes automated exposure control, adjustment of the mA and/or kV according to patient size and/or use of iterative reconstruction technique. FINDINGS: Lung Bases: Right lower lobe calcified granuloma. Bones: No destructive bone lesions identified. Abdomen: Liver: The liver has normal size and density. No intrahepatic biliary dilatation. Gallbladder: Gallstones. Spleen, Pancreas, and Adrenal Glands: The spleen, pancreas, and adrenal glands are unremarkable. Kidneys: No hydronephrosis or obstructing calculus. Vasculature: The aorta and IVC have normal caliber and position. The portal vein is patent. The proximal visceral and renal arteries are patent. Stomach: The stomach and duodenum have normal course. Other: No free intraperitoneal air. Small amount of free fluid. Pelvis: Bladder: Mild wall thickening of the urinary bladder. Bowel: No dilated loops of large or small bowel. Mild wall thickening of the wall thickening of the descending colon, sigmoid colon, and rectum. Appendix: Normal appendix. Pelvis: 1.8 cm right ovarian corpus luteal cyst. Uterus is not enlarged. IMPRESSION: 1. Mild wall thickening of the descending colon, sigmoid colon, and rectum. These findings could be seen with nonspecific proctocolitis. 2. Mild wall thickening of the urinary bladder. This could be seen with cystitis. 3. Cholelithiasis without other CT evidence of acute cholecystitis. 4. 1.8 cm right ovarian corpus luteal cyst. No follow-up imaging for this structure recommended. 00:17 Differential diagnosis: Colitis, gastroenteritis, cholelithiasis, cholecystitis. Data sp4 reviewed: vital signs, nurses notes, lab test result(s), EKG, radiologic studies, CT scan, ultrasound. Consideration of Admission/Observation Escalation of care including admission/observation considered. ED course: Patient has signs of proctocolitis on the CAT scan. Also cholelithiasis without cholecystitis. There is a small right ovarian cyst. Patient will be advised to take Flagyl and Keflex for the next 10 days. Ondansetron as needed for nausea ibuprofen as needed for pain. Clear liquid diet for the next 24 hours. We will advise patient to see surgeon on outpatient basis for cholecystectomy. . 06/30 20:25 Order name: Test, Urine; Complete Time: 23:21 06/30 20:25 Order name: Urinalysis W/Microscopic; Complete Time: 23:21 06/30 20:36 Order name: CBC with Diff; Complete Time: 00:04 [facility] 06/30 20:36 Order name: CMP; Complete Time: 00:04 [facility] 06/30 20:36 Order name: Lipase; Complete Time: 00:04 [facility] 06/30 20:36 Order name: CRP; Complete Time: 00:04 [facility] 06/30 23:18 Order name: Urine Culture [facility] 06/30 20:36 Order name: Abdomen Limited US; Complete Time: 22:54 [facility] 06/30 20:36 Order name: CT Abd/Pelvis - IV Contrast Only [facility] 06/30 20:36 Order name: EKG; Complete Time: 20:36 [facility] 06/30 20:36 Order name: IV Saline Lock; Complete Time: 22:42 4 06/30 20:36 Order name: Labs collected and sent; Complete Time: 22:42 [facility] 06/30 20:36 Order name: EKG - Nurse/Tech; Complete Time: 23:13 sp4 EC:07 Rate is 78 beats/min. Rhythm is regular, Normal Sinus Rhythm. QRS [place] is Normal. [place] sp4 interval is normal. QRS interval is normal. QT interval is normal. T waves are Normal. No ST changes noted. Clinical impression: Normal ECG. Interpreted by me. Administered Medications: 00:29 Drug: metroNIDAZOLE PO 500 mg Route: PO; rv 00:29 Follow up: Response: Medication administered at discharge. rv 00:29 Drug: Cephalexin PO 500 mg Route: PO; rv 00:29 Follow up: Response: Medication administered at discharge. rv Disposition Summary: 07/01/23 00:20 Discharge Ordered Location: Home sp4 Problem: new sp4 Symptoms: have improved sp4 Condition: Stable sp4 Diagnosis - Left sided colitis sp4 - Acute proctocolitis, cholelithiasis without cholecystitis. sp4 Followup: sp4 - With: Private Physician - When: 10 - 14 days - Reason: Recheck today's complaints Discharge Instructions: - Discharge Summary Sheet sp4 - Clear Liquid Diet, Adult, Vplc-xm-Difs sp4 - Colitis sp4 Forms: - Patient Portal Instructions sp4 Prescriptions: - ondansetron 4 mg Oral Tablet,disintegrating - take 1 tablet by ORAL route every 6 hours for 48 hours PRN nausea; 30 tablet; sp4 Refills: 0, Product Selection Permitted - Cephalexin 500 mg Oral Capsule - take 1 capsule by ORAL route every 12 hours for 10 days; 20 capsule; Refills: sp4 0, Product Selection Permitted - Flagyl 500 mg Oral Tablet - take 1 tablet by ORAL route every 8 hours for 10 days; 30 tablet; Refills: 0, sp4 Product Selection Permitted Signatures: Dispatcher [employer] Rene Jones, RN RN Frandy Kelley MD MD sp4 Kari Abbott RN RN cm10 Corrections: (The following items were deleted from the chart) 06/30 20:53 20:51 PMHx: Tachycardia; cm10 cm10
[2023-07-01 00:42] VITALS: BP 127/84; TEMP 98; O2SAT 99
--- NOTE | 2023-07-01 11:56 | RAD REPORT ---
EXAM DESCRIPTION: Abdomen Pelvis W Contrast CLINICAL HISTORY: Right upper abdominal pain COMPARISON: None Available. TECHNIQUE: CT of the abdomen and pelvis performed following IV administration of iodinated contras t. This exam was performed according to our departmental dose-optimization program, which includes au tomated exposure control, adjustment of the mA and/or kV according to patient size and/or use of iter ative reconstruction technique. FINDINGS: Lung Bases: Right lower lobe calcified granuloma. Bones: No destructive bone lesions identified. Abdomen: Liver: The liver has normal size and density. No intrahepatic biliary dilatation. Gallbladder: Gallstones. Spleen, Pancreas, and Adrenal Glands: The spleen, pancreas, and adrenal glands are unremarkable. Kidneys: No hydronephrosis or obstructing calculus. Vasculature: The aorta and IVC have normal caliber and position. The portal vein is patent. The pro ximal visceral and renal arteries are patent. Stomach: The stomach and duodenum have normal course. Other: No free intraperitoneal air. Small amount of free fluid. Pelvis: Bladder: Mild wall thickening of the urinary bladder. Bowel: No dilated loops of large or small bowel. Mild wall thickening of the wall thickening of the descending colon, sigmoid colon, and rectum. Appendix: Normal appendix. Pelvis: 1.8 cm right ovarian corpus luteal cyst. Uterus is not enlarged. IMPRESSION: 1. Mild wall thickening of the descending colon, sigmoid colon, and rectum. These find ings could be seen with nonspecific proctocolitis. 2. Mild wall thickening of the urinary bladder. This could be seen with cystitis. 3. Cholelithiasis without other CT evidence of acute cholecystitis. 4. 1.8 cm right ovarian corpus luteal cyst. No follow-up imaging for this structure recommended. Electronically signed by: Bro Berkowitz 06/30/2023 11:48 PM CDT Due to temporary technical issues with the PACS/Fluency reporting system, reports are being signed by the in house radiologists without review as a courtesy to insure prompt reporting. The interpreting radiologist is fully responsible for the content of the report.
--- NOTE | 2023-07-02 17:40 | EKG ---
Test Date: 2023-06-30 Test Time: 23:06:11 Perioperative Nurse: RV MEASUREMENT RESULTS: Intervals: Rate: 78 VT: 144 QRSD: 78 QT: 360 QTc: 410 [place]: P: 47 VT: 144 QRS: 72 T: 39 INTERPRETIVE STATEMENTS: Normal sinus rhythm with sinus arrhythmia Normal ECG No previous ECG available for comparison Electronically Signed On 07-02-23 17:35:09 CDT by Roberto Jack
== END 2023-07-01 00:31 | disposition home or self-care (01) ==
LOC: ER 20:15
DX: K51.50 Left sided colitis without complications (principal); K80.20 Calculus of gallbladder without cholecystitis without obstruction; K51.219 Ulcerative (chronic) proctitis with unspecified complications
CPT/HCPCS: 93005; 87088; 85025; 81001; 87086; 36415; 81025; 83690; 80053; 86140; 74177; 76705; Q9967

== ENCOUNTER → 2024-02-05 | Emergency (ER) | payer OTHER ==
[~2024-02-05] MED LIST: ACETAMINOPHEN 500 MG TAB ONE
[2024-02-05 22:29] LABS: Absolute Basophils 0.1 K/uL (0-0.5); Absolute Lymphocytes (CBC) 2.1 K/uL (0.7-4.9); Basophils % 0.5 % (0-1.3); Hematocrit 37.5 % (36.0-45.0); Lymphocytes % 20.6 % (15.3-44.8); MCV 80.6 fL (80-100); MPV 8.6 fL (7.6-11.3); Platelets 354 thou/uL (152-406); RBC Red Blood Cell Count 4.65 M/uL (3.86-4.86)
[2024-02-05 22:32] LABS: Urine Bacteria None Seen /HPF (<20); Urine Mucus Slight /HPF (None Seen); Urine RBC <5 /HPF (None Seen)
[2024-02-05 22:33] LABS: Specific Gravity 1.026 (1.005-1.030); Urine Bilirubin NEGATIVE (Negative); Urine Blood Negative (Negative); Urine Clarity Clear (Clear); Urine Color Light-Yellow (Yellow); Urine Glucose NEGATIVE (Negative); Urine Protein NEGATIVE (Negative); Urine Urobilinogen Normal (Normal)
[2024-02-05 22:51] LABS: Anion Gap 8.6 mEq/L (5.0-15.0); Potassium 3.6 mEq/L (3.5-5.1)
--- NOTE | 2024-02-05 23:00 | RAD REPORT ---
EXAM DESCRIPTION: US - Transvaginal OB - 02/05/2024 10:48 pm CLINICAL HISTORY: right lower abdomen pain, hx tubal ligation COMPARISON: Abdomen Pelvis W Contrast dated 06/30/2023; Abdomen Exam Limited dated 06/30/2023 TECHNIQUE: Sonographic grayscale and color flow images of the pelvis were obtained through transvag inal approach. FINDINGS: The uterus is normal in size, shape and echotexture. The uterus measures 7.8 cm in length. The endometrial stripe is uniform, with no evidence of a gestational sac. Asymmetrically larger right ovary measuring 3.6 x 2.6 x 2.9 cm. Left ovary measures 2.3 x 2.3 x 1.8 c m. A thin-walled anechoic cystic lesion is present within the right ovary measuring 2.1 x 1.9 x 1.4 c m, suggestive of a dominant cyst or follicle. Peripheral ovarian versus parovarian heterogeneous hype rechoic lesion demonstrating questionable peripheral hypervascularity inferior laterally, measuring 2 .0 x 2.2 x 1.9 cm. No discrete ring of fire appearance. Normal Doppler blood flow was demonstrated to both ovaries. No significant pelvic ascites. IMPRESSION: Indeterminate peripheral ovarian versus parovarian heterogeneous hyperechoic 2.2 cm lesi on, which could represent a collapsed or complex cyst. Please correlate with beta HCG serial levels. If there is persistent clinical concern for an ectopic , a follow-up ultrasound can be utili zed in 5-7 days for re-evaluation. No intrauterine . No other suspicious pelvic or adnexal lesion
--- NOTE | 2024-02-06 00:17 | EDPHYS ---
Physician Documentation [facility] Name: Carrie Dunn Age: 23 yrs Sex: Female : 2000 Arrival Date: 02/05/2024 Time: 21:23 Bed 2 Private MD: ED Physician Frandy Kelley HPI: 02/04 22:30 This 23 yrs old Female presents to ER via Wheelchair with complaints of Flank Pain. cp 22:30 The patient presents with abdominal pain right lower quadrant. cp 22:30 Onset: The symptoms/episode began/occurred 3 day(s) ago. cp 22:30 The symptoms radiate to right back. Associated signs and symptoms: Pertinent positives: cp constipation, Pertinent negatives: diarrhea, dysuria, fever, vaginal discharge, vaginal bleeding. The symptoms are described as constant. Severity of pain: in the emergency department the pain is actually worse. Patient reports having positive test and surgical history of tubal ligation. Seen at [facility] yesterday and confirmed and US performed that did not show IUP. 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 Flu vaccine is not up to date. - Social history:: Smoking status: Patient denies any tobacco usage or history of. Patient/guardian denies using alcohol, street drugs. ROS: 22:35 Abdomen/GI: Positive for abdominal pain, of the right lower quadrant, Negative for cp vomiting, diarrhea, constipation, 22:35 : Negative for urinary symptoms, vaginal bleeding, cp 22:35 Eyes: Negative for injury, pain, redness, and discharge, cp 22:35 Constitutional: Negative for body aches, chills, fever, poor PO intake, 22:35 Cardiovascular: Negative for chest pain, 22:35 Respiratory: Negative for cough, shortness of breath, wheezing, 22:35 Neuro: Negative for dizziness, weakness, 22:35 All other systems are negative, cp Exam: 22:40 Constitutional: The patient appears in no acute distress, alert, awake, non-toxic, well cp developed, well nourished, obese, in obvious pain, uncomfortable, 22:40 Head/Face: Normocephalic, atraumatic. cp 22:40 Eyes: Periorbital structures: appear normal, Conjunctiva: normal, no exudate, no cp injection, Sclera: no appreciated abnormality, Lids and lashes: appear normal, bilaterally, 22:40 ENT: External ear(s): are unremarkable, Nose: is normal, Mouth: Lips: moist, Oral mucosa: pink and intact, moist, Posterior pharynx: Airway: no evidence of obstruction, patent, 22:40 Chest/axilla: Inspection: normal, 22:40 Cardiovascular: Rate: tachycardic, Rhythm: regular, cp 22:40 Respiratory: the patient does not display signs of respiratory distress, Respirations: normal, no use of accessory muscles, no retractions, labored breathing, is not present, Breath sounds: are clear throughout, no decreased breath sounds, no stridor, no wheezing, 22:40 Abdomen/GI: Inspection: abdomen appears normal, Bowel sounds: active, all quadrants, Palpation: soft, in all quadrants, moderate abdominal tenderness, in the right lower quadrant, rebound tenderness, is not appreciated, voluntary guarding, is elicited in the right lower quadrant, involuntary guarding, is not appreciated, 22:40 Back: CVA tenderness, is absent, 22:40 Skin: cellulitis, is not appreciated, no rash present. Vital Signs: 21:42 BP 139 / 94; Pulse 100; Resp 18; Temp 99.2(TE); Pulse Ox 99% on R/A; Weight 78.02 kg km8 (R); Height 5 ft. 3 in. (R); Pain 10/10; 22:49 BP 148 / 85; Pulse 99; Pulse Ox 100% on R/A; Pain 7/10; tm6 23:47 BP 124 / 86; Pulse 90; Pulse Ox 100% on R/A; Pain 5/10; tm6 03/08 00:27 BP 141 / 86; Pulse 89; Resp 19; Pulse Ox 98% ; jj7 02/04 21:42 Body Mass Index 30.47 (78.02 kg, 160.02 cm) 8 02/04 21:42 Pain Scale: Adult km8 22:49 Pain Scale: Adult tm6 23:47 Pain Scale: Adult tm6 MDM: 02/04 21:51 Patient medically screened. cp 02/05 00:15 Data reviewed: vital signs, nurses notes, lab test result(s), radiologic studies, cp ultrasound. 00:15 I considered the following discharge prescriptions or medication management in the emergency department Medications were administered in the Emergency Department. See MAR. Counseling: I had a detailed discussion with the patient and/or guardian regarding the historical points, exam findings, and any diagnostic results supporting the discharge/admit diagnosis, lab results, radiology results, US that showed concerned for ectopic and recommend transfer for OB consultation. Response to treatment: the patient's symptoms have markedly improved after treatment. ED course: VSS. Pain improved. Discussed results of today's test. Patient reports having appt later today with OB and declines transfer at this time. Patient understands concern for ectopic and need for OB evaluation. 02/04 22:10 Order name: Abo/rh Typing; Complete Time: 23:38 cp 02/04 22:10 Order name: Basic Metabolic Panel; Complete Time: 23:38 cp 02/04 22:10 Order name: CBC with Diff; Complete Time: 23:38 cp 02/04 22:10 Order name: Test, Urine; Complete Time: 23:38 cp 02/04 22:10 Order name: Quantitative Hcg; Complete Time: 23:38 cp 02/04 23:38 Interpretation: Abnormal: HCGQ 58. cp 02/04 22:10 Order name: Urinalysis w/ reflexes; Complete Time: 23:38 cp 02/04 22:10 Order name: US Transvaginal Ob; Complete Time: 23:38 cp 02/04 22:10 Order name: IV Saline Lock; Complete Time: 22:11 cp 02/04 22:10 Order name: Labs collected and sent; Complete Time: 22:25 cp 02/04 22:10 Order name: NPO; Complete Time: 22:11 cp Administered Medications: 02/04 22:20 Drug: Acetaminophen PO 1000 mg PO once Route: PO; jj7 02/05 00:29 Follow up: Response: Pain is decreased jj7 Disposition Summary: 02/06/24 00:16 Discharge Ordered Notes: Location: Home cp Problem: an ongoing problem cp Symptoms: have improved cp Condition: Stable cp Diagnosis - Other specified related conditions, first trimester - right lower abdomen cp pain - Constipation cp Followup: cp - With: Private Physician - When: Tomorrow - Reason: Recheck today's complaints Discharge Instructions: - Discharge Summary Sheet cp - Abdominal Pain During cp - Constipation, Adult cp Forms: - Medication Reconciliation Form cp - Thank You Letter cp - Antibiotic Education cp - Prescription Opioid Use cp - Patient Portal Instructions cp - Leadership Thank You Letter cp Signatures: Dispatcher [employer] EDHI Travis Mcadams PA PA cp Johnson, Juwairiyah RN RN jj7 Lynne Casanova RN RN km8 Corrections: (The following items were deleted from the chart) 23:46 02/04 22:40 Constitutional: The patient appears in no acute distress, alert, awake, cp non-toxic, well developed, well nourished, in obvious pain, uncomfortable, cp
--- NOTE | 2024-02-06 00:17 | ER ---
Nurse's Notes [facility] Name: Carrie Dunn Age: 23 yrs Sex: Female : 2000 Arrival Date: 02/05/2024 Time: 21:23 Bed 2 Private MD: Diagnosis: Other specified related conditions, first trimester-right lower abdomen pain;Constipation Presentation: 02/04 21:42 Chief complaint: Patient states: 3 days of RLQ pain radiating to right back that got km8 worse today; pt reports being but unknown how far along; had a tubal 2 yrs ago; seen at [facility] yesterday and told she was and an ultrasound was done, but pt is unsure of results. Coronavirus screen: Client denies travel out of the [place] in the last 14 days. Ebola Screen: No symptoms or risks identified at this time. Initial Sepsis Screen: Does the patient meet any 2 criteria? HR > 90 bpm. No. Patient's initial sepsis screen is negative. Does the patient have a suspected source of infection? No. Patient's initial sepsis screen is negative. Risk Assessment: Do you want to hurt yourself or someone else? Patient reports no desire to harm self or others. Onset of symptoms was February 03, 2024. 21:42 Method Of Arrival: Wheelchair km8 21:42 Acuity: KATJA 2 km8 Triage Assessment: 21:45 General: Appears uncomfortable, Behavior is anxious, crying, restless. Pain: Complains km8 of pain in right lower quadrant Pain radiates to right low back Pain currently is 10 out of 10 on a pain scale. EENT: No signs and/or symptoms were reported regarding the EENT system. Neuro: Level of Consciousness is awake, alert, obeys commands, Oriented to person, place, time, situation. Cardiovascular: Denies chest pain, Patient's skin is warm and dry. Respiratory: Airway is patent Respiratory effort is even, labored, Respiratory pattern is regular, symmetrical. GI: Reports lower abdominal pain, Patient currently denies nausea, vomiting. : No signs and/or symptoms were reported regarding the genitourinary system. Derm: Skin is intact, is healthy with good turgor, Skin is dry, Skin is pink, warm \T\ dry. Skin temperature is warm. Musculoskeletal: Range of motion: intact in all extremities. 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 Flu vaccine is not up to date. - Social history:: Smoking status: Patient denies any tobacco usage or history of. Patient/guardian denies using alcohol, street drugs. Screenin:58 [facility] ED Fall Risk Assessment (Adult) History of falling in the last 3 months, jj7 including since admission Yes- single mechanical fall (1 pt) Confusion or Disorientation No (0 pts) Intoxicated or Sedated No (0 pts) Impaired Gait No (0 pts) Mobility Assist Device Used No (0 pt) Altered Elimination No (0 pt) Score/Fall Risk Level 0 - 2 = Low Risk Oriented to surroundings, Maintained a safe environment, Educated pt \T\ family on fall prevention, incl call for assistance when getting out of bed. Abuse screen: Denies threats or abuse. Nutritional screening: No deficits noted. Tuberculosis screening: No symptoms or risk factors identified. Assessment: 21:58 General: Appears in no apparent distress. uncomfortable, Behavior is calm, cooperative, jj7 appropriate for age. Pain: Complains of pain in right lower quadrant. GI: Abd is soft Abdomen is tender to palpation in right lower quadrant Reports lower abdominal pain, nausea. 22:51 Reassessment: Patient and/or family updated on plan of care and expected duration. Pain tm6 level reassessed. Patient is alert, oriented x 3, equal unlabored respirations, skin warm/dry/pink. 23:47 Reassessment: Patient and/or family updated on plan of care and expected duration. Pain tm6 level reassessed. Patient is alert, oriented x 3, equal unlabored respirations, skin warm/dry/pink. Vital Signs: 21:42 BP 139 / 94; Pulse 100; Resp 18; Temp 99.2(TE); Pulse Ox 99% on R/A; Weight 78.02 kg km8 (R); Height 5 ft. 3 in. (R); Pain 10/10; 22:49 BP 148 / 85; Pulse 99; Pulse Ox 100% on R/A; Pain 7/10; tm6 23:47 BP 124 / 86; Pulse 90; Pulse Ox 100% on R/A; Pain 5/10; tm6 02/05 00:27 BP 141 / 86; Pulse 89; Resp 19; Pulse Ox 98% ; jj7 02/04 21:42 Body Mass Index 30.47 (78.02 kg, 160.02 cm) [facility] 02/04 21:42 Pain Scale: Adult km8 22:49 Pain Scale: Adult tm6 23:47 Pain Scale: Adult 6 ED Course: 02/04 21:27 Patient arrived in ED. ae5 21:37 Travis Mcadams PA is PHCP. cp 21:37 Frandy Kelley MD is Attending Physician. cp 21:45 Triage completed. [facility] 21:45 Arm band placed on right wrist. 8 21:51 Carisa Ta RN is Primary Nurse. jj7 21:58 Patient has correct armband on for positive identification. Placed in gown. Bed in low jj7 position. Call light in reach. Side rails up X 1. Client placed on continuous cardiac and pulse oximetry monitoring. NIBP monitoring applied. Warm blanket given. 21:58 Inserted saline lock: 18 gauge in left antecubital area, using aseptic technique. Blood jj7 collected. 22:24 Abo/rh Typing Sent. jj7 22:24 Basic Metabolic Panel Sent. jj7 22:25 CBC with Diff Sent. jj7 22:25 Test, Urine Sent. jj7 22:25 Quantitative Hcg Sent. jj7 22:25 Urinalysis w/ reflexes Sent. jj7 22:50 US Transvaginal Ob In Process Unspecified. EDMS 23:53 Transfer initiated with Desi from [facility]. 10 02/05 00:03 Transfer canceled due to patient having appointment with OB in the AM. 10 00:27 Provided Education on:. jj7 00:27 No provider procedures requiring assistance completed. IV discontinued, intact, jj7 bleeding controlled, No redness/swelling at site. Pressure dressing applied. Administered Medications: 02/04 22:20 Drug: Acetaminophen PO 1000 mg PO once Route: PO; jj7 02/05 00:29 Follow up: Response: Pain is decreased 7 Medication: 02/04 21:58 VIS not applicable for this client. jj7 Outcome: 02/05 00:16 Discharge ordered by . jada 00:27 Discharged to home ambulatory, jj7 00:27 Condition: stable 00:27 Discharge instructions given to patient, Instructed on discharge instructions, follow up and referral plans. Demonstrated understanding of instructions, follow-up care, 00:29 Patient left the ED. jj7 Signatures: Dispatcher [employer] EDMS Travis Mcadams PA PA cp Johnson, Juwairiyah, RN RN jj7 Kari Abbott RN RN cm10 Lynne Casanova RN RN km8 Lizzie Boyer RN RN tm6 Mitzi Escobar ae5 Corrections: (The following items were deleted from the chart) 02/04 23:59 23:53 Transfer [facility] with L[facility] from [facility] cm10
[2024-02-06 00:45] VITALS: TEMP 99.2
[2024-02-06 01:19] VITALS: BP 141/86; O2SAT 98
== END ==
LOC: ER 21:23
DX: O26.891 Other specified pregnancy related conditions, first trimester (principal); Z3A.00 Weeks of gestation of pregnancy not specified
CPT/HCPCS: 36415; 76817; 80048; 81001; 81025; 84702; 85025; 86900; 86901; 99284

== ENCOUNTER 2024-04-27 20:06 | Emergency (ER) | payer OTHER ==
[2024-04-27] MEDS ORDERED: METHYLPREDNISOLONE 125 MG INJ ONE (20:18)
[2024-04-27] MEDS ORDERED: NA CHLORIDE 0.9% 1,000 ML ONE (20:19)
[2024-04-27] MEDS ORDERED: DIPHENHYDRAMINE 50 MG/ML VIAL ONE (20:19)
[2024-04-27] MEDS ORDERED: FAMOTIDINE 20 MG/2 ML VIAL IV ONE (20:19)
--- NOTE | 2024-04-27 21:33 | ER ---
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 20:15 Coronavirus screen: At this time, the client does not indicate any symptoms associated jw7 with coronavirus-19. Ebola Screen: No symptoms or risks identified at this time. Onset: The symptoms/episode began/occurred acutely. Anaphylaxis evaluation, no signs or symptoms of anaphylaxis were noted. Initial Sepsis Screen: Does the patient meet any 2 criteria? No. Patient's initial sepsis screen is negative. Does the patient have a suspected source of infection? No. Patient's initial sepsis screen is negative. Risk Assessment: Do you want to hurt yourself or someone else? Patient reports no desire to harm self or others. Onset of symptoms was April 27, 2024. 20:15 Method Of Arrival: Ambulatory [facility] 20:15 Acuity: KATJA 3 jw7 Triage Assessment: 20:15 General: Appears in no apparent distress. uncomfortable, Behavior is calm, cooperative, jw7 appropriate for age. Pain: Denies pain. EENT: No deficits noted. No signs and/or symptoms were reported regarding the EENT system. Neuro: Level of Consciousness is awake, alert, obeys commands, Oriented to person, place, time, situation, Appropriate for age. Cardiovascular: Capillary refill < 3 seconds Patient's skin is warm and dry. Respiratory: Airway is patent Trachea midline Respiratory effort is even, unlabored, Respiratory pattern is regular, symmetrical, Breath sounds are clear bilaterally. GI: Abdomen is round non-distended, Bowel sounds present X 4 quads. Abd is soft and non tender X 4 quads. : No deficits noted. No signs and/or symptoms were reported regarding the genitourinary system. Derm: Skin is intact, is healthy with good turgor, Skin is dry, Skin is normal, Skin temperature is warm Rash noted that is Hives throughout body. Musculoskeletal: Circulation, motion, and sensation intact. Range of motion: intact in all extremities. 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 - Infectious Disease History:: Denies. - Social history:: Smoking status: Patient denies any tobacco usage or history of. Patient/guardian denies using alcohol, street drugs, IV drugs. Screenin:34 [facility] ED Fall Risk Assessment (Adult) History of falling in the last 3 months, jw7 including since admission No falls in past 3 months (0 pts) Confusion or Disorientation No (0 pts) Intoxicated or Sedated No (0 pts) Impaired Gait No (0 pts) Mobility Assist Device Used No (0 pt) Altered Elimination No (0 pt) Score/Fall Risk Level 0 - 2 = Low Risk Oriented to surroundings, Maintained a safe environment, Educated pt \T\ family on fall prevention, incl call for assistance when getting out of bed. Abuse screen: Denies threats or abuse. Denies injuries from another. Nutritional screening: No deficits noted. Tuberculosis screening: No symptoms or risk factors identified. Assessment: 20:15 General: See Triage Assessment. jw7 21:00 Reassessment: Patient appears in no apparent distress at this time. No changes from [facility] previously documented assessment. Patient and/or family updated on plan of care and expected duration. Pain level reassessed. Patient is alert, oriented x 3, equal unlabored respirations, skin warm/dry/pink. 21:46 Reassessment: Patient appears in no apparent distress at this time. Patient and/or [facility] family updated on plan of care and expected duration. Pain level reassessed. Patient is alert, oriented x 3, equal unlabored respirations, skin warm/dry/pink. Patient states feeling better. Patient states symptoms have improved. Respiratory: Airway is patent Trachea midline Respiratory effort is even, unlabored, Respiratory pattern is regular, symmetrical, Breath sounds are clear bilaterally. Vital Signs: 20:20 BP 136 / 92; Pulse 95; Resp 20 S; Pulse Ox 99% on R/A; jw7 21:00 BP 130 / 74; Pulse 79; Resp 16 S; Pulse Ox 99% on R/A; jw7 21:30 BP 132 / 76; Pulse 75; Resp 16 S; Pulse Ox 99% on R/A; jw7 ED Course: 20:07 Patient arrived in ED. jj6 20:11 Cliff Buckner MD is Attending Physician. ec2 20:15 Arm band placed on. jw7 20:20 Katerina Gaona RN is Primary Nurse. jw7 20:32 Inserted saline lock: 20 gauge in right antecubital area, using aseptic technique. jw7 Blood collected. 20:34 Patient has correct armband on for positive identification. Placed in gown. Bed in low jw7 position. Call light in reach. Provided Education on: Use of Call Light. 21:43 Triage completed. jw7 21:44 No provider procedures requiring assistance completed. IV discontinued, intact, jw7 bleeding controlled, No redness/swelling at site. Pressure dressing applied. Administered Medications: 20:31 Drug: NS 0.9% IV 1000 ml IV at 1 bolus Per protocol; 1000 mL bolus Route: IV; Rate: 1 jw7 bolus; Site: right antecubital; 21:46 Follow up: Response: No adverse reaction; IV Status: Completed infusion; IV Intake: jw7 1000ml 20:31 Drug: MethylPrednisoLONE IVP 125 mg IVP once Route: IVP; Site: right antecubital; jw7 21:47 Follow up: Response: No adverse reaction; Marked relief of symptoms jw7 20:31 Drug: Famotidine IVP 20 mg IVP once; dilute with 10 mL 0.9% NaCl; give over 2 minutes jw7 Route: IVP; Site: right antecubital; 21:47 Follow up: Response: No adverse reaction; Marked relief of symptoms jw7 20:31 Drug: diphenhydrAMINE IVP 25 mg IVP once Route: IVP; Site: right antecubital; jw7 21:47 Follow up: Response: No adverse reaction; Marked relief of symptoms jw7 Medication: 21:45 VIS not applicable for this client. jw7 Intake: 21:46 IV: 1000ml; Total: 1000ml. jw7 Outcome: 21:32 Discharge ordered by . ec2 21:44 Discharged to home ambulatory, jw7 21:44 Condition: stable 21:44 Discharge instructions given to patient, family, Instructed on discharge instructions, follow up and referral plans. medication usage, Demonstrated understanding of instructions, follow-up care, medications, Prescriptions given X 2, 21:46 Patient left the ED. jw7 Signatures: Brit [email or web address] Katerina Gaona, RN RN jw7 Cliff Buckner MD MD ec2 Corrections: (The following items were deleted from the chart) :46 21:00 Reassessment: Patient appears in no apparent distress at this time. Patient jw7 and/or family updated on plan of care and expected duration. Pain level reassessed. Patient is alert, oriented x 3, equal unlabored respirations, skin warm/dry/pink. Patient states feeling better. Patient states symptoms have improved. jw7 :46 21:00 Respiratory: Airway is patent Trachea midline Respiratory effort is even, jw7 unlabored, Respiratory pattern is regular, symmetrical, Breath sounds are clear bilaterally. jw7
--- NOTE | 2024-04-27 21:33 | EDPHYS ---
Physician Documentation [facility] [place] Name: Carrie Dunn Age: 24 yrs Sex: Female : 2000 Arrival Date: 04/27/2024 Time: 20:06 Bed 20 Private MD: ED Physician Cliff Buckner HPI: 04/27 20:23 This 24 yrs old Female presents to ER via Unassigned with complaints of ec2 Allergic Reaction. 20:23 Patient arrives today due to concern for allergic reaction. Reports that she is ec2 allergic to ants and was bitten by 1 just prior to arrival. No difficulty swelling. History of allergic reactions. Denies any other concerns. . 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 - Infectious Disease History:: Denies. - Social history:: Smoking status: Patient denies any tobacco usage or history of. Patient/guardian denies using alcohol, street drugs, IV drugs. ROS: 20:23 Constitutional: as per hpi ec2 Exam: 20:23 Constitutional: GEN: NAD Head: atraumatic Eyes: EOMI Ears: External ears are ec2 normal. CV: regular rate LUNGS: no respiratory distress ABD: non-distended SKIN: diffuse urticarial rash noted. MSK: no evidence of trauma NEURO: moves all extremities equally Vital Signs: 20:20 BP 136 / 92; Pulse 95; Resp 20 S; Pulse Ox 99% on R/A; jw7 21:00 BP 130 / 74; Pulse 79; Resp 16 S; Pulse Ox 99% on R/A; jw7 21:30 BP 132 / 76; Pulse 75; Resp 16 S; Pulse Ox 99% on R/A; jw7 MDM: 20:11 Patient medically screened. ec2 20:23 Data reviewed: vital signs. ED course: Patient arrives today due to concern for ec2 allergic reaction. Examination remarkable for well-appearing nontoxic dividual is otherwise in no acute distress with a reassuring examination with a rash as noted above. Will obtain IV access, give the patient Pepcid, steroid as well as Benadryl. Suspect allergic reaction, doubt other process such as cellulitis or infectious process.. 21:31 ED course: On reassessment patient with marked appropriate her symptoms. Will discharge ec2 home, start the patient on prednisone. Return precautions given. Administered Medications: 20:31 Drug: NS 0.9% IV 1000 ml IV at 1 bolus Per protocol; 1000 mL bolus Route: IV; Rate: 1 jw7 bolus; Site: right antecubital; 21:46 Follow up: Response: No adverse reaction; IV Status: Completed infusion; IV Intake: jw7 1000ml 20:31 Drug: MethylPrednisoLONE IVP 125 mg IVP once Route: IVP; Site: right antecubital; jw7 21:47 Follow up: Response: No adverse reaction; Marked relief of symptoms jw7 20:31 Drug: Famotidine IVP 20 mg IVP once; dilute with 10 mL 0.9% NaCl; give over 2 minutes jw7 Route: IVP; Site: right antecubital; 21:47 Follow up: Response: No adverse reaction; Marked relief of symptoms jw7 20:31 Drug: diphenhydrAMINE IVP 25 mg IVP once Route: IVP; Site: right antecubital; jw7 21:47 Follow up: Response: No adverse reaction; Marked relief of symptoms jw7 Disposition Summary: 04/27/24 21:32 Discharge Ordered Notes: Location: Home ec2 Condition: Stable ec2 Diagnosis - Allergic urticaria ec2 Followup: ec2 - With: Private Physician - When: - Reason: Re-evaluation by your physician Discharge Instructions: - Discharge Summary Sheet ec2 - Hives ec2 Forms: - Medication Reconciliation Form ec2 - Antibiotic Education ec2 - Prescription Opioid Use ec2 - Patient Portal Instructions ec2 - Leadership Thank You Letter ec2 Prescriptions: - EpiPen 0.3 mg/0.3 mL Injection Auto-Injector - administer 0.3 milliliter INTRAMUSCULAR route once may repeat once; 2 unit; ec2 Refills: 0, Product Selection Permitted - Prednisone 20 mg Oral Tablet - take 2 tablets ORAL route once daily for 5 days; 10 tablet; Refills: 0, Product ec2 Selection Permitted Signatures: Katerina Gaona RN RN jw7 Buckner, Cliff, MD MD ec2
[2024-04-27 21:55] VITALS: BP 130/74; O2SAT 99
== END 2024-04-27 21:46 | disposition home or self-care (01) ==
LOC: ER 20:06
DX: L50.0 Allergic urticaria (principal); Z91.038 Other insect allergy status
CPT/HCPCS: 96361; 96375; 96374; 99284; J1200; J2919; J7030

== ENCOUNTER 2024-09-07 22:12 | Emergency (ER) | payer OTHER ==
[2024-09-07] MEDS ORDERED: NA CHLORIDE 0.9% 1,000 ML ONE ×2 (22:29→22:50)
[2024-09-07] MEDS ORDERED: LORazepam 2 MG/ML VIAL ONE (22:47)
[2024-09-07] MEDS ORDERED: LEVETIRACETAM 500 MG/5 ML VIAL IV ONE (23:02)
[2024-09-07] MEDS ORDERED: NA CHLORIDE 0.9% 100 ML ONE (23:03)
[2024-09-07 23:22] LABS: Absolute Basophils 0.2 K/uL (0-0.5); Absolute Eosinophils 0.2 K/uL (0-0.5); Absolute Lymphocytes (CBC) 0.6 K/uL (0.7-4.9); Absolute Monocytes 0.8 K/uL (0.1-1.3); Basophils % 1.4 % (0-1.3); Eosinophils % 1.9 % (0-4.4); Hemoglobin 13.8 g/dL (12.0-15.0); MCH 26.7 pg (27.0-35.0); MCHC 32.9 g/dL (32.0-36.0); MCV 80.9 fL (80-100); MPV 8.4 fL (7.6-11.3); Monocytes % 6.3 % (3.3-12.3); Neutrophils % 85.4 % (41.7-73.7); Nucleated Red Blood Cells % 0.3 % (0-0); Platelets 423 thou/uL (152-406); RBC Red Blood Cell Count 5.19 M/uL (3.86-4.86); Red Cell Distribution Width 13.9 % (12.1-15.2)
--- NOTE | 2024-09-07 23:30 | RAD REPORT ---
EXAM DESCRIPTION: Head Brain Wo Cont CLINICAL HISTORY: 24 years Female, headache, syncope PROCEDURE: 5 mm axial images were obtained along with 3 mm reformatted coronal and sagittal images. This exam was performed according to our departmental dose-optimization program, which includes autom ated exposure control, adjustment of the mA and/or kV according to patient size and/or use of iterative reconstruction technique. COMPARISON: None. FINDINGS: No acute abnormal extracerebral fluid collections are demonstrated. The cortical sulci, ventricles, and cisterns are within normal limits. There are no areas of altered attenuation identified to suggest acute hemorrhage, infarction, or mass lesion. The visualized portions of the paranasal sinuses and mastoid air cells are clear. IMPRESSION: No acute intracranial abnormalities. Electronically signed by: Bebeto Ernandez MD 09/07/2024 11:20 PM CDT RP Due to temporary technical issues with the PACS/[employer] reporting system, reports are being no d by the in-house radiologist without review as a courtesy to ensure prompt reporting the interpreting radiologist is fully responsible for the content of the report. Transcribed Date/Time: 09/07/2024 11:30 PM
[2024-09-07 23:38] LABS: ALT/SGPT 18 U/L (13-56); AST/SGOT 12 U/L (15-37); Alkaline Phosphatase 99 U/L (45-117); Anion Gap 12.7 mEq/L (5.0-15.0); BUN Blood Urea Nitrogen 12 mg/dL (7-18); Bicarbonate 19 mEq/L (21-32); Bilirubin Total 0.5 mg/dL (0.2-1.0); Glomerular Filtration Rate 99 ml/min (=/>90); Glucose Level 143 mg/dL (74-106); Magnesium 1.9 mg/dL (1.6-2.4); NT PRO-BNP 17 pg/mL (<125); Potassium 3.7 mEq/L (3.5-5.1); Protein, Total 8.2 g/dL (6.4-8.2); Sodium Level 133 mEq/L (136-145)
[2024-09-07 23:41] LABS: Albumin < 0.9 g/dL (3.4-5.0); Albumin/Globulin Ratio ND (1.1-1.8); Bilirubin Direct < 0.2 mg/dL (0-0.2); Bilirubin Indirect, Calculated 0.3 mg/dL (0.2-0.8); Globulin 7.3 g/dL (2.3-3.5); Troponin High Sensitivity < 3.0 pg/mL (<58.9)
[2024-09-07 23:47] LABS: Band Neutrophils 12 % (0-1); Differential Total Cells Count 100; Eosinophils 3 % (0-3); Lymphocytes 5 % (15-42); Monocytes 1 % (0-10); Reactive Lymphocytes 6 %; Segmented Neutrophils 72 % (40-80)
[2024-09-07 23:48] LABS: Blood Morphology Comment NOT SEEN (NOT SEEN); Platelet Estimate ADEQ
[2024-09-08 00:35] LABS: Specific Gravity 1.022 (1.005-1.030); Sqamous Epithelial 20-50 /HPF (None Seen); Urine Bacteria <20 /HPF (<20); Urine Bilirubin NEGATIVE (Negative); Urine Blood Negative (Negative); Urine Clarity Extremely Turbid (Clear); Urine Color Light-Yellow (Yellow); Urine Culture Reflex Order NOT NEEDED; Urine Glucose NEGATIVE (Negative); Urine Ketones TRACE (Negative); Urine Micro Reflex YN NO BILL MICROSCOPIC; Urine Mucus Slight /HPF (None Seen); Urine Nitrite NEGATIVE (Negative); Urine Protein TRACE (Negative); Urine RBC <5 /HPF (None Seen); Urine Urobilinogen Normal (Normal); Urine WBC <5 /HPF (<5); Urine pH 7.5 (5.0-7.0)
[2024-09-08] MEDS ORDERED: NA CHLORIDE 0.9% 1,000 ML ONE ×2 (01:52→04:01)
[2024-09-08] MEDS ORDERED: CEFEPIME 2 GM VIAL ONE (04:00)
[2024-09-08] MEDS ORDERED: NA CHLORIDE 0.9% 100 ML ONE (04:01)
[2024-09-08 04:02] LABS: PT Prothrombin Time 13.1 SECONDS (9.4-12.5); PTT, Activated Partial Thromb 31.2 SECONDS (24.3-36.9); Protime INR 1.18
--- NOTE | 2024-09-08 05:07 | EDPHYS ---
Physician Documentation [facility] Name: Carrie Dunn Age: 24 yrs Sex: Female : 2000 Arrival Date: 09/07/2024 Time: 22:12 Bed 20 Private MD: ED Physician Herb Starks HPI: 09/08 00:11 This 24 yrs old Female presents to ER via Wheelchair with complaints of Syncope, rt General Weakness, Vomiting. 00:11 Patient with history of POTS with a loop recorder placement Willy presents to the ED rt with multiple reported syncopal events today. Patient reports a headache, lightheadedness. Denies other acute complaints, symptoms are moderate in severity, no other aggravating alleviating factors.. 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 - Infectious Disease History:: Denies. - Family history:: not pertinent. - Social history:: Smoking status: unknown. ROS: 09/08 00:11 Constitutional: Negative for fever, chills, and weight loss, Cardiovascular: Negative rt for chest pain, palpitations, and edema, Respiratory: Negative for shortness of breath, cough, wheezing, and pleuritic chest pain, Abdomen/GI: Negative for abdominal pain, nausea, vomiting, diarrhea, and constipation, Skin: Negative for injury, rash, and discoloration, Neuro: Negative for headache, weakness, numbness, tingling, and seizure, Neuro: Positive for syncope, weakness, Exam: 00:11 Head/Face: Normocephalic, atraumatic. Chest/axilla: Normal chest wall appearance and rt motion. Nontender with no deformity. No lesions are appreciated. Cardiovascular: Regular rate and rhythm with a normal S1 and S2. No gallops, murmurs, or rubs. Normal PMI, no JVD. No pulse deficits. Respiratory: Lungs have equal breath sounds bilaterally, clear to auscultation and percussion. No rales, rhonchi or wheezes noted. No increased work of breathing, no retractions or nasal flaring. Abdomen/GI: Soft, non-tender, with normal bowel sounds. No distension or tympany. No guarding or rebound. No evidence of tenderness throughout. Skin: Warm, dry with normal turgor. Normal color with no rashes, no lesions, and no evidence of cellulitis. 00:11 Constitutional: The patient appears Confused 00:11 ECG was reviewed by the Attending Physician. Vital Signs: 09/07 22:23 BP 112 / 60; Pulse 107; Resp 12; Temp 99.7; Pulse Ox 99% ; Weight 81.65 kg; Height 5 vc1 ft. 3 in. ; Pain 6/10; 23:00 BP 131 / 77; Pulse 122; Resp 27; Pulse Ox 100% on R/A; al5 23:30 BP 129 / 75; Pulse 128; Resp 27; Pulse Ox 100% on R/A; al5 09/08 00:00 BP 132 / 79; Pulse 124; Resp 26; Pulse Ox 99% on R/A; al5 00:30 BP 125 / 72; Pulse 124; Resp 28; Pulse Ox 99% on R/A; al5 01:00 BP 123 / 83; Pulse 123; Resp 28; Pulse Ox 97% on R/A; al5 02:00 BP 128 / 63; Pulse 131; Resp 18; Pulse Ox 100% ; kj2 03:00 BP 119 / 60; Pulse 127; Resp 21; Pulse Ox 99% on R/A; oe 04:11 BP 131 / 71; Pulse 132; Resp 18; Pulse Ox 100% on R/A; kj2 05:05 BP 118 / 77; Pulse 124; Resp 18; Pulse Ox 100% on R/A; kj2 06:31 BP 118 / 72; Pulse 113; Resp 18; Temp 98.6(O); Pulse Ox 100% on R/A; kj2 09/07 22:23 Body Mass Index 31.89 (81.65 kg, 160.02 cm) vc1 09/07 22:23 Pain Scale: Adult vc1 MDM: 09/07 22:29 Patient medically screened. rt 09/08 06:02 Differential Diagnosis: Syncope, seizure, dysrhythmia. Data reviewed: vital signs, rt nurses notes, lab test result(s), EKG, radiologic studies. Consideration of Admission/Observation Escalation of care including admission/observation considered. Patient requires transfer for higher level of care. Management of patient was discussed with the following: Metal Hanging Supervisor: Discussed with accepting hospitalist at [facility]. I considered the following discharge prescriptions or medication management in the emergency department Medications were administered in the Emergency Department. See MAR. Independent interpretation of the following test(s) in the Emergency Department CT Scan: My interpretation is No intracranial hemorrhage seen on interpretation of CT scan images. Care significantly affected by the following chronic conditions: POTS, WPW, SVT. Counseling: I had a detailed discussion with the patient and/or guardian regarding the historical points, exam findings, and any diagnostic results supporting the discharge/admit diagnosis, lab results, radiology results, the need to transfer to another facility. ED course: Patient covered empirically with antibiotics, however, there is no identifiable source of infection.. 06:44 ED course: Patient request transfer to [facility] as that is where her rt physicians are. 09/07 22:31 Order name: Basic Metabolic Panel; Complete Time: 23:54 rt 09/07 22:31 Order name: CBC with Diff; Complete Time: 23:54 rt 09/07 22:31 Order name: LFT's; Complete Time: 23:54 rt 09/07 22:31 Order name: Magnesium; Complete Time: 23:54 rt 09/07 22:31 Order name: NT PRO-BNP; Complete Time: 23:54 rt 09/07 22:31 Order name: Troponin HS; Complete Time: 23:54 rt 09/07 22:31 Order name: Test, Serum; Complete Time: 00:10 rt 09/07 22:36 Order name: Glucose, Ancillary Testing; Complete Time: 23:54 EDMS 09/07 23:26 Order name: Manual Differential; Complete Time: 23:54 EDMS 09/07 23:35 Order name: UAM; Complete Time: 00:36 rt 09/08 03:07 Order name: Blood Culture Adult (2) rt 09/08 03:07 Order name: Lactate w/ 2H reflex if indic.; Complete Time: 04:29 rt 09/08 03:07 Order name: Protime (+inr); Complete Time: 04:15 rt 09/08 03:07 Order name: Ptt, Activated; Complete Time: 04:15 rt 09/08 04:09 Order name: Glucose, Ancillary Testing; Complete Time: 04:15 EDMS 09/07 22:31 Order name: XRAY Chest (1 view) rt 09/07 22:31 Order name: CT Head Brain wo Cont rt 09/08 03:07 Order name: EKG; Complete Time: 03:07 rt 09/07 22:31 Order name: Cardiac monitoring; Complete Time: 22:35 rt 09/07 22:31 Order name: EKG - Nurse/Tech; Complete Time: 22:35 rt 09/07 22:31 Order name: IV Saline Lock; Complete Time: 22:35 rt 09/07 22:31 Order name: Labs collected and sent; Complete Time: 22:35 rt 09/07 22:31 Order name: O2 Per Protocol; Complete Time: 22:36 rt 09/07 22:31 Order name: O2 Sat Monitoring; Complete Time: 22:35 rt 09/08 03:07 Order name: Accucheck; Complete Time: 03:49 rt 09/08 03:07 Order name: IV Saline Lock - Large Bore; Complete Time: 04:13 rt 09/08 03:07 Order name: Vital Signs; Complete Time: 04:13 rt EC:11 Rate is 103 beats/min. Rhythm is regular, Sinus tachycardia with No ectopy. QRS Plummer is rt Normal. VT interval is normal. QRS interval is normal. QT interval is normal. No Q waves. T waves are Normal. No ST changes noted. Interpreted by me. Administered Medications: 09/07 22:35 Drug: NS 0.9% IV 1000 ml IV at 1 bolus Per protocol; 1000 mL bolus Route: IV; Rate: 1 al5 bolus; Site: right antecubital; 09/08 00:00 Follow up: Response: No adverse reaction; IV Status: Completed infusion; IV Intake: kb3 1000ml 09/07 22:50 Drug: Ativan IVP 2 mg IVP once Route: IVP; Site: right antecubital; al5 22:50 Follow up: Response: No adverse reaction; Other; seizures unchanged, md notified al5 23:13 Drug: Keppra IV 2000 mg IV at calculated rate once Route: IV; Rate: calculated rate; al5 Site: right antecubital; 09/08 00:39 Follow up: Response: No adverse reaction; seizures lessened; IV Status: Completed al5 infusion; IV Intake: 100ml 01:59 Drug: NS 0.9% IV 1000 ml IV at 1 bolus Per protocol; 1000 mL bolus Route: IV; Rate: 1 kj2 bolus; Site: right antecubital; 03:00 Follow up: Response: No adverse reaction; IV Status: Completed infusion; IV Intake: kb3 1000ml 04:09 Drug: Cefepime IVPB 2 grams IVPB at 200 ml/hr once over 30 mins; (mix in NS 100 mL) kj2 Route: IVPB; Rate: 200 ml/hr; Infused Over: 30 mins; Site: right antecubital; 06:37 Follow up: IV Status: Completed infusion; IV Intake: 100ml kj2 06:37 Follow up: Response: No adverse reaction kj2 04:10 Drug: NS 0.9% IV 1000 ml IV at 1 bolus Per protocol; 1000 mL bolus Route: IV; Rate: 1 kj2 bolus; Site: right antecubital; 05:10 Follow up: IV Status: Completed infusion; IV Intake: 1000ml kj2 Point of Care Testing: Blood Glucose: 09/07 22:23 Blood Glucose: 134 mg/dL; vc1 Ranges: Critical Glucose Levels:Adult <50 mg/dl or >400 mg/dl <40 mg/dl or >180 mg/dl Disposition Summary: 09/08/24 05:06 Transfer Ordered Notes: Transfer Location: [facility] rt Reason: Higher level of care rt Condition: Fair rt Problem: new rt Symptoms: have improved rt Accepting Physician: (09/08/24 06:38) kj2 Diagnosis - Syncope versus seizure rt - Persistent tachycardia rt Forms: - Medication Reconciliation Form rt - SBAR form rt Critical care time excluding procedures: 09/08 06:03 Critical care time: Bedside Care: 45 minutes, Consultation: 10 minutes. Total time: 55 rt minutes Signatures: Dispatcher [employer] EDHerb Mares MD MD rt Glo Cobian RN RN al5 Kelly Henning RN RN kj2 Joellen Armstrong RN kb3 Corrections: (The following items were deleted from the chart) 09/07 22:32 22:32 BASIC METABOLIC PANEL+C.LAB.BRZ ordered. EDMS EDMS 22:32 22:32 CBC+H.LAB.BRZ ordered. EDMS EDMS : 22:32 HEPATIC FUNCTION+C.LAB.BRZ ordered. EDMS EDMS 22: 22:32 MAGNESIUM+C.LAB.BRZ ordered. EDMS EDMS 22: 22:32 PROBNP+C.LAB.BRZ ordered. EDMS EDMS 22: 22:32 Troponin High Sensitivity+C.LAB.BRZ ordered. EDMS EDMS 22:32 22:32 TEST, SERUM+SC.LAB.BRZ ordered. EDMS EDMS 22:32 22:32 Chest Single View+RAD.RAD.BRZ ordered. EDMS EDMS 22: 22:32 Head Brain Wo Cont+CT.RAD.BRZ ordered. EDMS EDMS 23:35 23:35 Urinalysis W/Microscopic+U.LAB.BRZ ordered. EDMS EDMS 09/08 06:38 05:06 Dr perdomo kj2
--- NOTE | 2024-09-08 05:07 | ER ---
Nurse's Notes [facility] Name: Carrie Dunn Age: 24 yrs Sex: Female : 2000 Arrival Date: 09/07/2024 Time: 22:12 Bed 20 Private MD: Diagnosis: Syncope versus seizure;Persistent tachycardia Presentation: 09/07 22:23 Chief complaint: Spouse and/or significant other states: She feels real weak and like vc1 she is going to pass out, she passed out as soon as she got here. 22:23 Coronavirus screen: Client denies travel out of the [place] in the last 14 days. At this vc1 time, the client does not indicate any symptoms associated with coronavirus-19. Ebola Screen: Patient negative for fever greater than or equal to 101.5 degrees Fahrenheit, and additional compatible Ebola Virus Disease symptoms Patient denies exposure to infectious person. Patient denies travel to an Ebola-affected area in the 21 days before illness onset. No symptoms or risks identified at this time. Initial Sepsis Screen: Does the patient meet any 2 criteria? HR > 90 bpm. No. Patient's initial sepsis screen is negative. Does the patient have a suspected source of infection? No. Patient's initial sepsis screen is negative. Risk Assessment: Do you want to hurt yourself or someone else? Patient reports no desire to harm self or others. Onset of symptoms was September 07, 2024. Care prior to arrival: None. Activity prior to arrival: unresponsive. Mechanism of Injury: No Mechanism of Injury. Transition of care: patient was not received from another setting of care. 22:23 Method Of Arrival: Wheelchair vc1 22:23 Acuity: KATJA 3 vc1 Triage Assessment: 23:25 General: Appears in no apparent distress. uncomfortable, well groomed, well developed, vc1 Behavior is cooperative, anxious. Pain: Complains of pain in headache Pain currently is 6 out of 10 on a pain scale. EENT: No deficits noted. No signs and/or symptoms were reported regarding the EENT system. EENT: blue around mouth and lips. Neuro: Reports headache in entire a syncopal episode. Cardiovascular: Capillary refill < 3 seconds Patient's skin is warm and dry. Cardiovascular: Heart tones S1 S2 present Rhythm is sinus tachycardia. Respiratory: Airway is patent Respiratory effort is even, unlabored. GI: No deficits noted. No signs and/or symptoms were reported involving the gastrointestinal system. : No deficits noted. No signs and/or symptoms were reported regarding the genitourinary system. Derm: Skin is intact, is healthy with good turgor, Skin is dry, Skin is normal, Skin temperature is warm. Musculoskeletal: Range of motion: intact in all extremities. 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 - Infectious Disease History:: Denies. - Family history:: not pertinent. - Social history:: Smoking status: unknown. Screenin:36 [facility] ED Fall Risk Assessment (Adult) History of falling in the last 3 months, al5 including since admission No falls in past 3 months (0 pts) Confusion or Disorientation No (0 pts) Intoxicated or Sedated No (0 pts) Impaired Gait No (0 pts) Mobility Assist Device Used No (0 pt) Altered Elimination No (0 pt) Score/Fall Risk Level 0 - 2 = Low Risk Oriented to surroundings, Maintained a safe environment, Hourly rounding (assess needs \T\ fall precautionary measures) done. Abuse screen: Denies threats or abuse. Denies injuries from another. Nutritional screening: No deficits noted. Tuberculosis screening: No symptoms or risk factors identified. Assessment: 22:37 General: Appears unresponsive. Behavior is unresponsive. Pain: Unable to use pain al5 scale. Patient is unresponsive. Neuro: Level of Consciousness is unresponsive. Cardiovascular: Capillary refill < 3 seconds Patient's skin is warm and dry. Rhythm is sinus tachycardia. Respiratory: Airway is patent Respiratory effort is even, unlabored, Respiratory pattern is regular, symmetrical. GI: No signs and/or symptoms were reported involving the gastrointestinal system. : No signs and/or symptoms were reported regarding the genitourinary system. EENT: No signs and/or symptoms were reported regarding the EENT system. Derm: Skin is intact, Skin is normal. Musculoskeletal: No signs and/or symptoms reported regarding the musculoskeletal system. 22:40 Reassessment: Patient and/or family updated on plan of care and expected duration. Pain al5 level reassessed. Patient is alert, oriented x 3, equal unlabored respirations, skin warm/dry/pink. patient alert to verbal stimuli, answers questions, aaox4. 23:00 Reassessment: Patient appears in no apparent distress at this time. Patient and/or al5 family updated on plan of care and expected duration. Pain level reassessed. Patient is alert, oriented x 3, equal unlabored respirations, skin warm/dry/pink. 09/08 00:41 Reassessment: Patient appears in no apparent distress at this time. No changes from al5 previously documented assessment. Patient and/or family updated on plan of care and expected duration. Pain level reassessed. Patient is alert, oriented x 3, equal unlabored respirations, skin warm/dry/pink. patient alert to verbal stimuli, able to answer questions, aaox4. 01:18 Reassessment: Patient appears in no apparent distress at this time. No changes from al5 previously documented assessment. Patient and/or family updated on plan of care and expected duration. Pain level reassessed. Patient is alert, oriented x 3, equal unlabored respirations, skin warm/dry/pink. 02:00 Reassessment: Patient appears in no apparent distress at this time. Patient and/or kj2 family updated on plan of care and expected duration. Pain level reassessed. 03:00 Reassessment: Patient appears in no apparent distress at this time. Patient and/or kj2 family updated on plan of care and expected duration. Pain level reassessed. Patient is alert, oriented x 3, equal unlabored respirations, skin warm/dry/pink. 04:13 Reassessment: Patient and/or family updated on plan of care and expected duration. Pain kj2 level reassessed. Patient is alert, oriented x 3, equal unlabored respirations, skin warm/dry/pink. 06:33 Reassessment: Patient appears in no apparent distress at this time. Patient and/or kj2 family updated on plan of care and expected duration. Pain level reassessed. Vital Signs: 09/07 22:23 BP 112 / 60; Pulse 107; Resp 12; Temp 99.7; Pulse Ox 99% ; Weight 81.65 kg; Height 5 vc1 ft. 3 in. ; Pain 6/10; 23:00 BP 131 / 77; Pulse 122; Resp 27; Pulse Ox 100% on R/A; al5 23:30 BP 129 / 75; Pulse 128; Resp 27; Pulse Ox 100% on R/A; al5 09/08 00:00 BP 132 / 79; Pulse 124; Resp 26; Pulse Ox 99% on R/A; al5 00:30 BP 125 / 72; Pulse 124; Resp 28; Pulse Ox 99% on R/A; al5 01:00 BP 123 / 83; Pulse 123; Resp 28; Pulse Ox 97% on R/A; al5 02:00 BP 128 / 63; Pulse 131; Resp 18; Pulse Ox 100% ; kj2 03:00 BP 119 / 60; Pulse 127; Resp 21; Pulse Ox 99% on R/A; oe 04:11 BP 131 / 71; Pulse 132; Resp 18; Pulse Ox 100% on R/A; kj2 05:05 BP 118 / 77; Pulse 124; Resp 18; Pulse Ox 100% on R/A; kj2 06:31 BP 118 / 72; Pulse 113; Resp 18; Temp 98.6(O); Pulse Ox 100% on R/A; kj2 09/07 22:23 Body Mass Index 31.89 (81.65 kg, 160.02 cm) vc1 09/07 22:23 Pain Scale: Adult vc1 ED Course: 09/07 22:22 Patient arrived in ED. im 22:29 Herb Starks MD is Attending Physician. rt 22:30 Inserted saline lock: 18 gauge in right antecubital area, using aseptic technique. kmf Blood collected. Flushed with 10 mL NS. 22:34 Glo Cobian, RUSTY is Primary Nurse. al5 22:35 Patient has correct armband on for positive identification. Placed in gown. Bed in low al5 position. Call light in reach. Side rails up X2. at bedside. Provided Education on: plan of care. 22:35 Arm band placed on right wrist. vc1 22:36 Basic Metabolic Panel Sent. al5 22:36 CBC with Diff Sent. al5 22:36 LFT's Sent. al5 22:36 Magnesium Sent. al5 22:36 Troponin HS Sent. al5 22:36 Test, Serum Sent. al5 22:36 No provider procedures requiring assistance completed. al5 22:59 XRAY Chest (1 view) In Process Unspecified. EDMS 23:12 CT Head Brain wo Cont In Process Unspecified. EDMS 23:25 Triage completed. vc1 09/08 03:25 First set of blood cultures drawn by me. oe 03:47 Second set of blood cultures drawn by me. oe 03:49 Ptt, Activated Sent. oe 03:49 Protime (+inr) Sent. oe 03:49 Lactate w/ 2H reflex if indic. Sent. oe 03:57 Inserted saline lock: 20 gauge in left antecubital area, using aseptic technique. Blood oe collected. Flushed with 10 mL NS. 04:00 Blood Culture Adult (2) Sent. oe 04:00 Lactate w/ 2H reflex if indic. Sent. oe 04:00 Protime (+inr) Sent. oe 04:00 Ptt, Activated Sent. oe 05:53 initiated transfer with Lucy Charles \T\ 0147 \T\ . [facility] Number for nurse to nurse report [phone]. AOC given by lucy charles \T\ 0530. Accepting Pillo Kemp \T\0530. [facility] to transfer pt. ETA 20 mins. 06:36 Patient transferred, IV remains in place. kj2 Administered Medications: 09/07 22:35 Drug: NS 0.9% IV 1000 ml IV at 1 bolus Per protocol; 1000 mL bolus Route: IV; Rate: 1 al5 bolus; Site: right antecubital; 09/08 00:00 Follow up: Response: No adverse reaction; IV Status: Completed infusion; IV Intake: kb3 1000ml 09/07 22:50 Drug: Ativan IVP 2 mg IVP once Route: IVP; Site: right antecubital; al5 22:50 Follow up: Response: No adverse reaction; Other; seizures unchanged, notified al5 23:13 Drug: Keppra IV 2000 mg IV at calculated rate once Route: IV; Rate: calculated rate; al5 Site: right antecubital; 09/08 00:39 Follow up: Response: No adverse reaction; seizures lessened; IV Status: Completed al5 infusion; IV Intake: 100ml 01:59 Drug: NS 0.9% IV 1000 ml IV at 1 bolus Per protocol; 1000 mL bolus Route: IV; Rate: 1 kj2 bolus; Site: right antecubital; 03:00 Follow up: Response: No adverse reaction; IV Status: Completed infusion; IV Intake: kb3 1000ml 04:09 Drug: Cefepime IVPB 2 grams IVPB at 200 ml/hr once over 30 mins; (mix in NS 100 mL) kj2 Route: IVPB; Rate: 200 ml/hr; Infused Over: 30 mins; Site: right antecubital; 06:37 Follow up: IV Status: Completed infusion; IV Intake: 100ml kj2 06:37 Follow up: Response: No adverse reaction kj2 04:10 Drug: NS 0.9% IV 1000 ml IV at 1 bolus Per protocol; 1000 mL bolus Route: IV; Rate: 1 kj2 bolus; Site: right antecubital; 05:10 Follow up: IV Status: Completed infusion; IV Intake: 1000ml kj2 Medication: 09/07 22:37 VIS not applicable for this client. al5 Point of Care Testing: Blood Glucose: 22:23 Blood Glucose: 134 mg/dL; vc1 Ranges: Intake: 1009 00:00 IV: 1000ml; Total: 1000ml. kb3 00:39 IV: 100ml; Total: 1100ml. al5 03:00 IV: 1000ml; Total: 2100ml. kb3 05:10 IV: 1000ml; Total: 3100ml. kj2 06:37 IV: 100ml; Total: 3200ml. kj2 Outcome: 05:06 ER care complete, transfer ordered by . rt 06:33 Transferred to [facility], kj2 06:33 Condition: stable 06:33 Instructed on the need for transfer, 06:38 Patient left the ED. kj2 Signatures: Dispatcher [employer] EDMS Soy Escobar Vanessa RN RN vc1 Joellen Armstrong RN RN kb3 Herb Starks MD MD rt Elidia Nelson rv1 Isabell De La Torre Kelsey Maroul [facility] Glo Cobian RN RN al5 Kelly Henning RN RN kj2
[2024-09-08 07:23] VITALS: O2SAT 100
[2024-09-08 07:26] VITALS: BP 118/72; TEMP 98.6
--- NOTE | 2024-09-08 07:46 | RAD REPORT ---
EXAMINATION: ONE VIEW CHEST XR CLINICAL INDICATION: syncope TECHNIQUE: Frontal chest projection is submitted. Examination is limited by patient positioning and t echnique. COMPARISON: No prior exam. FINDINGS: Mild linear opacities in the left lung base could represent atelectasis or early infiltrate. The hear t is normal in size. No displaced fractures identified.
--- NOTE | 2024-09-09 16:57 | EKG ---
Test Date: 2024-09-07 Test Time: 22:27:28 Marine Superintendent: YENI MEASUREMENT RESULTS: Intervals: Rate: 103 NV: 136 QRSD: 76 QT: 336 QTc: 440 [place]: P: 51 NV: 136 QRS: 72 T: 38 INTERPRETIVE STATEMENTS: Sinus tachycardia Otherwise normal ECG Compared to ECG 06/30/2023 23:06:11 Sinus rhythm no longer present Sinus arrhythmia no longer present Electronically Signed On 09-09-24 16:51:34 CDT by Roberto Jack
== END 2024-09-08 06:38 | disposition short-term general hospital (02) ==
LOC: ER 22:12
DX: R55 Syncope and collapse (principal); R00.0 Tachycardia, unspecified; R51.9 Headache, unspecified; R42 Dizziness and giddiness
CPT/HCPCS: 93005; 87040 ×2; 85025; 81001; 80048; 36415; 83735; 84703; 85610; 82947 ×2; 80076; 83605; 85730; 84484; 83880; 70450; 71045; J1953; J0692; J7030 ×4